=== PATIENT | male | born 1990 | race American Indian/Alaskan Native ===

== ENCOUNTER 2018-01-29 04:52 | Emergency (ER) | payer OTHER ==
--- NOTE | 2018-01-29 05:08 | Emergency Department Report ---
Stated Complaint: Time Seen by Provider: 01/29/18 05:07 - HPI History of Present Illness: [place]. Castro [place] He's been off his medication. He has a history of schizophrenia. Screening orders were initiated. Currently does not meet involuntary hold criteria. MSE screening note: Focused history and physical exam performed. Due to findings the following was ordered: ED Disposition for MSE Condition: Stable
[2018-01-29 06:14] LABS: Basophils # (Auto) 0.1 K/mm3 (0.0-0.1); Basophils % (Auto) 1.3 % (0.0-1.8); Eosinophils # (Auto) 0.1 K/mm3 (0.0-0.4); Hematocrit 39.5 % (35.5-45.6); Hemoglobin 12.9 gm/dl (11.8-15.2); Lymphocytes # (Auto) 1.8 K/mm3 (1.2-5.4); Lymphocytes % (Auto) 29.1 % (13.4-35.0); Mean Corpuscular HGB Conc 33 % (32-34); Mean Corpuscular Volume 71 fl (84-94); Monocytes # (Auto) 0.6 K/mm3 (0.0-0.8); Monocytes % (Auto) 10.4 % (0.0-7.3); Platelet Count 283 K/mm3 (140-440)
--- NOTE | 2018-01-29 06:23 | Emergency Department Report ---
ED General Adult HPI - General Chief complaint: Psych Stated complaint: MH Time Seen by Provider: 01/29/18 05:07 Source: EMS Mode of arrival: Ambulatory Limitations: No Limitations - History of Present Illness Initial comments: 27-year-old male with a history of schizophrenia, and bipolar disorder presents [place] reporting paranoia. Patient states he feels as if people were trying to get him. Patient states he has no homicidal or suicidal ideation. Patient states he's been having auditory hallucinations. Patient has been to 2 other ERs prior to arrival here within this month including [facility]. Patient states his last admission was at [facility]. Patient does admit to cocaine use recently. - Related Data Home Medications Medication Instructions Recorded Confirmed Last Taken Divalproex Sodium [Depakote] 500 mg PO BID 01/29/18 01/29/18 1 Month Ago ~12/30/17 Sertraline HCl [Zoloft] 50 mg PO DAILY 01/29/18 01/29/18 1 Month Ago ~12/30/17 risperiDONE [RisperDAL] 1 mg PO BID 01/29/18 01/29/18 1 Month Ago ~12/30/17 Allergies Allergy/AdvReac Type Severity Reaction Status Date / Time No Known Allergies Allergy Verified 01/29/18 05:33 ED Review of Systems ROS: Stated complaint: MH Other details as noted in HPI Constitutional: denies: chills, fever Eyes: denies: eye pain, eye discharge, vision change ENT: denies: ear pain, throat pain Respiratory: denies: cough, shortness of breath, wheezing Cardiovascular: denies: chest pain, palpitations Endocrine: no symptoms reported Gastrointestinal: denies: abdominal pain, nausea, diarrhea Genitourinary: denies: urgency, dysuria Musculoskeletal: denies: back pain, joint swelling, arthralgia Skin: denies: rash, lesions Neurological: denies: headache, weakness, paresthesias Psychiatric: other (paranoia). denies: anxiety, depression Hematological/Lymphatic: denies: easy bleeding, easy bruising ED Past Medical Hx - Past Medical History Previous Medical History?: Yes Hx Psychiatric Treatment: Yes (Schizophrina) - Surgical History Past Surgical History?: No - Social History Smoking Status: Current Every Day Smoker Substance Use Type: Cocaine - Medications Home Medications: Home Medications Medication Instructions Recorded Confirmed Last Taken Type Divalproex Sodium [Depakote] 500 mg PO BID 01/29/18 01/29/18 1 Month Ago History ~12/30/17 Sertraline HCl [Zoloft] 50 mg PO DAILY 01/29/18 01/29/18 1 Month Ago History ~12/30/17 risperiDONE [RisperDAL] 1 mg PO BID 01/29/18 01/29/18 1 Month Ago History ~12/30/17 ED Physical Exam - General Limitations: No Limitations General appearance: alert, in no apparent distress, other (comfortable) - Head Head exam: Present: atraumatic, normocephalic - Eye Eye exam: Present: normal appearance - ENT ENT exam: Present: mucous membranes moist - Neck Neck exam: Present: normal inspection - Respiratory Respiratory exam: Present: normal lung sounds bilaterally. Absent: respiratory distress - Cardiovascular Cardiovascular Exam: Present: regular rate, normal rhythm. Absent: systolic murmur, diastolic murmur, rubs, gallop - GI/Abdominal GI/Abdominal exam: Present: soft, normal bowel sounds - Rectal Rectal exam: Present: deferred - Extremities Exam Extremities exam: Present: normal inspection - Back Exam Back exam: Present: normal inspection - Neurological Exam Neurological exam: Present: alert, oriented X3 - Psychiatric Psychiatric exam: Present: flat affect - Skin Skin exam: Present: warm, dry, intact, normal color. Absent: rash ED Course Vital Signs 01/29/18 01/29/18 01/29/18 05:39 08:38 09:49 Temperature 98.4 F 97.8 F Pulse Rate 98 H 74 Respiratory 18 18 20 Rate Blood Pressure 136/83 116/68 [Left] O2 Sat by Pulse 99 100 100 Oximetry ED Medical Decision Making - Lab Data Result diagrams: 01/29/18 05:55 01/29/18 05:55 - Medical Decision Making Patient is medically clear. Upon assessment of the patient by [employer] he now states that he is suicidal with plan to run in front of traffic. Patient has been made a 1013 and will await transfer to an inpatient psychiatric facility. - Differential Diagnosis polysubstance abuse; psychosis; electrolyte abnormality; anemia Critical care attestation.: If time is entered above; I have spent that time in minutes in the direct care of this critically ill patient, excluding procedure time. ED Disposition Clinical Impression: Psychosis, Cocaine abuse Disposition: [id number]/TX-65 PSY HOSP/PSY UNIT Is pt being admited?: No Condition: Stable Referrals: PRIMARY CARE, [Primary Care Provider] - 3-5 Days Time of Disposition: 14:17 Print Language: SERBIAN
[2018-01-29 06:24] LABS: Mean Corpuscular Hemoglobin 23 pg (28-32)
[2018-01-29 06:30] LABS: Alanine Aminotransferase 9 units/L (7-56); Albumin 4.2 g/dL (3.9-5); BUN/Creatinine Ratio 17; Blood Urea Nitrogen 17 mg/dL (9-20); Calcium 9.1 mg/dL (8.4-10.2); Hemolysis Index 3
[2018-01-29] MEDS ORDERED: ZOLOFT PO ONE (13:25)
[2018-01-29] MEDS ORDERED: RisperDAL PO ONE (13:25)
[2018-01-30 09:33] LABS: Bilirubin,Urine NEG (Negative); Blood,Urine NEG (Negative); Color,Urine Yellow (Yellow); Mucus,Urine 3+ /HPF
[2018-01-30 09:56] LABS: Amphetamine Screen,Urine PRESUMPTIVE NEGATIVE; Benzodiazepines Screen,Urine PRESUMPTIVE NEGATIVE; Methadone Screen,Urine PRESUMPTIVE NEGATIVE; Opiate Screen,Urine PRESUMPTIVE NEGATIVE
[2018-01-30 10:16] LABS: Cannabinoid Screen,Urine PRESUMPTIVE POSITIVE; Cocaine Screen,Urine PRESUMPTIVE POSITIVE
--- NOTE | 2018-01-30 14:46 | Consultation ---
History of Present Illness - Reason for Consult Consult date: 01/30/18 Reason for consult: Mental Health Evaluation Requesting physician: JAYLENE WOOTEN - Chief Complaint Chief complaint: "I need help" - History of Present Psychiatric Illness 27-year-old AA male [place] presenting with psychosis. Today the patient is calm and cooperative during the assessment. The patient isn't lucid during the interview. His answers to questions wasn't logical. He did state that he reside with his mother. Per the record, the patient have been to a couple ER's in the local area, but cannot explain why. He would not confirm or deny SI's and AH's. This patient is a poor historian at this time. Medications and Allergies Allergies Allergy/AdvReac Type Severity Reaction Status Date / Time No Known Allergies Allergy Verified 01/29/18 05:33 Home Medications Medication Instructions Recorded Confirmed Last Taken Type Divalproex Sodium [Depakote] 500 mg PO BID 01/29/18 01/29/18 1 Month Ago History ~12/30/17 Sertraline HCl [Zoloft] 50 mg PO DAILY 01/29/18 01/29/18 1 Month Ago History ~12/30/17 risperiDONE [RisperDAL] 1 mg PO BID 01/29/18 01/29/18 1 Month Ago History ~12/30/17 Past psychiatric history - Past Medical History Past Medical History: No medical history Past Surgical History: No surgical history - past Psychiatric treatment and history psychiatric treatment history: Several inpatient psy services per the patient. Denies a fam psy hx. - Social History Social history: lives with family Mental Status Exam - Vital signs Last Vital Signs Temp 98.2 F 01/30/18 14:07 Pulse 87 01/30/18 14:07 Resp 18 01/30/18 14:07 BP 126/61 01/30/18 14:07 Pulse Ox 98 01/30/18 14:07 - Exam Narrative exam: MSE: Appearance: calm, cooperative Behavior: regular eye contact Speech: regular rate and low tone Mood: "okay" Affect: congruent to mood Thought Process: disorganized Thought Content: denies HI's and VH's Motor Activity: ambulatory Cognition: A/O x3 Insight: poor Judgment: poor Results Result Diagrams: 01/29/18 05:55 01/29/18 05:55 Abnormal lab results 01/30/18 Range/Units 06:05 Ur Specific [place] 1.032 H (1.003-1.030) All other labs normal. Assessment and Plan Assessment and plan: Impression: Unspecified Mood DO with psy features. Cannabis Use DO. Substance Use DO (cocaine). Today the patient is calm and cooperative during the assessment. DDx: Bipolar DO with psychosis, R/O Substance Induced Mood/Psychotic DO Recommendation/Plan: Continue 1013 and start Risperdal 1 mg PO HS for mood/ psychosis. Discussed possible metabolic side effects of Risperdal with the patient. Dispo: The patient was referred to inpatient psy services. Will staff with Dr Shields.
[2018-01-30] MEDS: RisperDAL PO SCH (22:21)
--- NOTE | 2018-01-31 18:53 | Progress Note ---
Subjective - Reason for Consult Consult date: 01/31/18 Reason for consult: follow up - Chief Complaint Chief complaint: "I'm not hearing voices; I'm not suicidal; I'm not homicidal; Can I be released? " 27-year-old AA male [place] presenting with psychosis. He immediately stated he is not having any symptoms and wants to leave. He was observed eating 100% of his tray and had an extra. Speech is pressured and he was observed laughing out of context and likely responding to internal stimuli. Mental Status Exam Appearance: calm, cooperative Behavior: regular eye contact Speech: pressured Mood: "I'm good" Affect: congruent to mood Thought Process: tangential Thought Content: denies SI/HI and denies AVH. Motor Activity: ambulatory Cognition: A/O x3 Insight: poor Judgment: poor Assessment and plan: Impression: Unspecified Mood DO with psy features. Cannabis Use DO. Substance Use DO (cocaine). He denies all psychiatric complaints today. An abrupt ceasing of mood and psychotic symptoms is unlikely. He will be monitored closely for psychotic behavior. DDx: Bipolar DO with psychosis, R/O Substance Induced Mood/Psychotic DO Recommendation/Plan: Continue 1013 and continue Risperdal 1 mg PO HS for mood/ psychosis. Dispo: The patient was referred to inpatient psy services. Staffed with Dr. Jude Crenshaw. Mental Status Exam - Vital signs Last Vital Signs Temp 98.2 F 01/31/18 14:15 Pulse 80 01/31/18 14:15 Resp 20 01/31/18 09:00 BP 124/73 01/31/18 14:15 Pulse Ox 99 01/31/18 14:15
[2018-01-31] MEDS: COLACE PO SCH (23:01)
[2018-01-31] MEDS: RisperDAL PO SCH (23:01)
[2018-02-01] MEDS: COLACE PO SCH (10:08)
--- NOTE | 2018-02-01 17:49 | Progress Note ---
Subjective - Reason for Consult Consult date: 02/01/18 Reason for consult: follow up - Chief Complaint Chief complaint: "I want to leave." 27-year-old AA male [place] presenting with psychosis. He immediately stated he is not having any symptoms and wants to leave. He was resting quietly. He states the medication has "cleared up the voices." Mental Status Exam Appearance: calm, cooperative Behavior: regular eye contact Speech: regular rate and tone Mood: "I'm good" Affect: congruent to mood Thought Process: logical and limited in scope Thought Content: denies SI/HI and denies AVH. Motor Activity: ambulatory Cognition: A/O x3 Insight: poor Judgment: poor Assessment and plan: Impression: Unspecified Mood DO with psy features. Cannabis Use DO. Substance Use DO (cocaine). He denies all psychiatric complaints today. He will be monitored closely for psychotic behavior. DDx: Bipolar DO with psychosis, R/O Substance Induced Mood/Psychotic DO Recommendation/Plan: Continue 1013 and continue Risperdal 1 mg PO HS for mood/ psychosis. Dispo: The patient was referred to inpatient psy services but the team will consider recommendation of outpatient treatment referral if he consistently denies psychotic symptoms and displays appropriate behavior. Staffed with Dr. Jude Crenshaw. Mental Status Exam - Vital signs Last Vital Signs Temp 98.0 F 02/01/18 13:07 Pulse 69 02/01/18 13:07 Resp 18 02/01/18 13:07 BP 124/61 02/01/18 13:07 Pulse Ox 99 02/01/18 13:07
[2018-02-01 20:31] VITALS: BP 115/71
== END 2018-02-01 20:35 ==
LOC: ED 04:52 → EEVIPCON 04:52 → ED 02-01 20:35
DX: F20.9 Schizophrenia, unspecified (principal); F17.200 Nicotine dependence, unspecified, uncomplicated; F14.10 Cocaine abuse, uncomplicated
CPT/HCPCS: 36415; 80053; 80164; 80307; 81001; 85025; 99285; G0480; 80320

== ENCOUNTER 2018-02-03 06:46 | Emergency (ER) | payer SELFPAY ==
--- NOTE | 2018-02-03 06:58 | Emergency Department Report ---
ED General Adult HPI - General Chief complaint: Psych Stated complaint: SUICIDAL IDEATIONS Time Seen by Provider: 02/03/18 06:52 Source: patient, EMS Mode of arrival: Ambulatory Limitations: No Limitations - History of Present Illness Initial comments: Patient presents to the emergency department for suicidal ideation. Patient also complains of auditory hallucinations. Patient states the voices are telling him to kill himself. He states that he's been instructed to stab himself in the head. Patient denies homicidal ideation. Patient was recently discharged from a psychiatric facility. Radiation: non-radiation Improves with: none Worsens with: none Associated Symptoms: denies other symptoms Treatments Prior to Arrival: none - Related Data Home Medications Medication Instructions Recorded Confirmed Last Taken Divalproex Sodium [Depakote] 500 mg PO BID 01/29/18 01/29/18 1 Month Ago ~12/30/17 Sertraline HCl [Zoloft] 50 mg PO DAILY 01/29/18 01/29/18 1 Month Ago ~12/30/17 risperiDONE [RisperDAL] 1 mg PO BID 01/29/18 01/29/18 1 Month Ago ~12/30/17 Allergies Allergy/AdvReac Type Severity Reaction Status Date / Time No Known Allergies Allergy Verified 01/29/18 05:33 ED Review of Systems ROS: Stated complaint: SUICIDAL IDEATIONS Other details as noted in HPI Comment: All other systems reviewed and negative Constitutional: denies: chills, fever Eyes: denies: eye pain, eye discharge, vision change ENT: denies: ear pain, throat pain Respiratory: denies: cough, shortness of breath, wheezing Cardiovascular: denies: chest pain, palpitations Endocrine: no symptoms reported Gastrointestinal: denies: abdominal pain, nausea, diarrhea Genitourinary: denies: urgency, dysuria Musculoskeletal: denies: back pain, joint swelling, arthralgia Skin: denies: rash, lesions Neurological: denies: headache, weakness, paresthesias Psychiatric: auditory hallucinations, suicidal thoughts. denies: anxiety, depression, visual hallucinations, homicidal thoughts Hematological/Lymphatic: denies: easy bleeding, easy bruising ED Past Medical Hx - Past Medical History Previous Medical History?: Yes Hx Psychiatric Treatment: Yes (Schizophrina, Bipolar) - Social History Smoking Status: Current Every Day Smoker Substance Use Type: Cocaine - Medications Home Medications: Home Medications Medication Instructions Recorded Confirmed Last Taken Type Divalproex Sodium [Depakote] 500 mg PO BID 01/29/18 01/29/18 1 Month Ago History ~12/30/17 Sertraline HCl [Zoloft] 50 mg PO DAILY 01/29/18 01/29/18 1 Month Ago History ~12/30/17 risperiDONE [RisperDAL] 1 mg PO BID 01/29/18 01/29/18 1 Month Ago History ~12/30/17 ED Physical Exam - General Limitations: No Limitations General appearance: alert, in no apparent distress - Head Head exam: Present: atraumatic, normocephalic - Eye Eye exam: Present: normal appearance, PERRL, EOMI - ENT ENT exam: Present: mucous membranes moist - Neck Neck exam: Present: normal inspection - Respiratory Respiratory exam: Present: normal lung sounds bilaterally. Absent: respiratory distress, wheezes, rales - Cardiovascular Cardiovascular Exam: Present: regular rate, normal rhythm. Absent: systolic murmur, diastolic murmur, rubs, gallop - GI/Abdominal GI/Abdominal exam: Present: soft, normal bowel sounds. Absent: distended, tenderness - Rectal Rectal exam: Present: deferred - Extremities Exam Extremities exam: Present: normal inspection - Back Exam Back exam: Present: normal inspection - Neurological Exam Neurological exam: Present: alert, oriented X3, CN II-XII intact. Absent: motor sensory deficit - Psychiatric Psychiatric exam: Present: depressed, suicidal ideation - Skin Skin exam: Present: warm, dry, intact, normal color. Absent: rash ED Course Vital Signs 02/03/18 06:50 Temperature 97.6 F Pulse Rate 89 Respiratory 18 Rate Blood Pressure 114/66 O2 Sat by Pulse 97 Oximetry ED Medical Decision Making - Medical Decision Making Patient placed on a psychiatric hold Critical care attestation.: If time is entered above; I have spent that time in minutes in the direct care of this critically ill patient, excluding procedure time. ED Disposition Condition: Stable
[2018-02-03 07:14] LABS: Hematocrit 39.4 % (35.5-45.6); Hemoglobin 12.8 gm/dl (11.8-15.2); Mean Corpuscular HGB Conc 33 % (32-34); Mean Corpuscular Volume 70 fl (84-94); Platelet Count 290 K/mm3 (140-440); Red Cell Distribution Width 18.9 % (13.2-15.2)
[2018-02-03 07:20] LABS: Mean Corpuscular Hemoglobin 23 pg (28-32)
[2018-02-03 07:33] LABS: Alanine Aminotransferase 8 units/L (7-56); Albumin 4.2 g/dL (3.9-5); BUN/Creatinine Ratio 14; Blood Urea Nitrogen 13 mg/dL (9-20); Hemolysis Index 5
[2018-02-03 08:01] LABS: Basophils % (Manual) 0 % (0.0-1.8); Total Cells Counted 100
[2018-02-03 08:03] LABS: Anisocytosis 1+; Ovalocytes Rare; Poikilocytosis 1+; Target Cells Few
[2018-02-03] MEDS ORDERED: ZOFRAN IM ONE (08:05)
[2018-02-03] MEDS ORDERED: NACL 0.9% 1000 ML 1,000 ML IV ONE (08:05)
[2018-02-03 11:26] LABS: Bilirubin,Urine NEG (Negative); Blood,Urine NEG (Negative); Color,Urine Yellow (Yellow); Mucus,Urine FEW /HPF; Protein,Urine <15 mg/dL mg/dL (Negative); WBC,Urine < 1.0 /HPF (0.0-6.0)
[2018-02-03 11:32] LABS: RBC,Urine < 1.0 /HPF (0.0-6.0)
[2018-02-03 11:34] LABS: Amphetamine Screen,Urine PRESUMPTIVE NEGATIVE; Benzodiazepines Screen,Urine PRESUMPTIVE NEGATIVE; Cannabinoid Screen,Urine PRESUMPTIVE NEGATIVE; Methadone Screen,Urine PRESUMPTIVE NEGATIVE; Opiate Screen,Urine PRESUMPTIVE NEGATIVE
[2018-02-03] MEDS ORDERED: BENADRYL PO ONE (11:42)
[2018-02-03 12:03] LABS: Cocaine Screen,Urine PRESUMPTIVE POSITIVE
[2018-02-03 20:49] VITALS: BP 110/68
== END 2018-02-03 20:50 ==
LOC: EEVIPCON 06:46 → ED 06:46
DX: F31.9 Bipolar disorder, unspecified (principal); F20.9 Schizophrenia, unspecified; F17.200 Nicotine dependence, unspecified, uncomplicated; F14.10 Cocaine abuse, uncomplicated
CPT/HCPCS: 36415; 80053; 80307; 81001; 85007; 85025; 99285; G0480; 80320

== ENCOUNTER 2018-07-28 01:11 | Emergency (ER) | payer OTHER ==
[2018-07-28 01:47] LABS: Basophils # (Auto) 0.1 K/mm3 (0.0-0.1); Basophils % (Auto) 1.2 % (0.0-1.8); Eosinophils # (Auto) 0.1 K/mm3 (0.0-0.4); Eosinophils % (Auto) 1.3 % (0.0-4.3); Hematocrit 36.2 % (35.5-45.6); Hemoglobin 11.7 gm/dl (11.8-15.2); Lymphocytes # (Auto) 1.3 K/mm3 (1.2-5.4); Lymphocytes % (Auto) 29.6 % (13.4-35.0); Mean Corpuscular HGB Conc 32 % (32-34); Monocytes # (Auto) 0.5 K/mm3 (0.0-0.8); Monocytes % (Auto) 11.9 % (0.0-7.3); Platelet Count 271 K/mm3 (140-440); Red Blood Count 5.37 M/mm3 (3.65-5.03); Red Cell Distribution Width 18.6 % (13.2-15.2)
[2018-07-28 01:54] LABS: Mean Corpuscular Volume 68 fl (84-94)
[2018-07-28 02:07] LABS: BUN/Creatinine Ratio 17; Blood Urea Nitrogen 12 mg/dL (9-20); Calcium 9.2 mg/dL (8.4-10.2); Hemolysis Index 5
--- NOTE | 2018-07-28 02:37 | Emergency Department Report ---
ED Psych HPI - General Chief Complaint: Psych Stated Complaint: MH EVAL Time Seen by Provider: 07/28/18 01:21 Source: patient, EMS Mode of arrival: Ambulatory Limitations: No Limitations - History of Present Illness Initial Comments: 28-year-old male with a past medical history schizophrenia, bipolar disorder, depression, cocaine, and heroin abuse presents to the hospital via EMS after the police department called [place] He admits to cocaine and heroin use earlier today. He states he lives with his mother. He denies auditory hallucinations, visual hallucinations, suicidal thoughts, or homicidal ideation. No physical complaints reported at this time. He states Haldol, Risperdal, Depakote, and Zoloft but has not had his medications in 1 week. - Related Data Previous Rx's Medication Instructions Recorded Last Taken Type Divalproex Sodium [Depakote] 500 mg PO BID #60 tablet. 07/28/18 Unknown Rx Sertraline HCl [Zoloft] 50 mg PO QHS #30 tablet 07/28/18 Unknown Rx risperiDONE [RisperDAL] 3 mg PO BID #60 tablet 07/28/18 Unknown Rx Allergies Allergy/AdvReac Type Severity Reaction Status Date / Time No Known Allergies Allergy Verified 02/20/18 09:25 ED Review of Systems ROS: Stated complaint: MH EVAL Other details as noted in HPI Comment: All other systems reviewed and negative ED Past Medical Hx - Past Medical History Previous Medical History?: Yes Hx Psychiatric Treatment: Yes (Schizophrina, Bipolar, depression) - Surgical History Past Surgical History?: No - Social History Smoking Status: Current Every Day Smoker Substance Use Type: Cocaine - Medications Home Medications: Home Medications Medication Instructions Recorded Confirmed Last Taken Type Divalproex Sodium [Depakote] 500 mg PO BID #60 tablet. 07/28/18 Unknown Rx Sertraline HCl [Zoloft] 50 mg PO QHS #30 tablet 07/28/18 Unknown Rx risperiDONE [RisperDAL] 3 mg PO BID #60 tablet 07/28/18 Unknown Rx ED Physical Exam - General Limitations: No Limitations - Other Other exam information: General: No limitations, patient is alert in no acute distress Head exam: Atraumatic, normocephalic Eyes exam: Normal appearance ENT: Moist mucous membrane Neck exam: Normal inspection, full range of motion, no meningismus nontender Respiratory exam: Clear to auscultation bilateral, no wheezes, rales, crackles Cardiovascular: Normal rate and rhythm, normal heart sounds Abdomen: Soft, nondistended, and nontender, with normal bowel sounds, no rebound, or guarding Extremity: Full range of motion normal inspection no deformity Back: Normal Inspection, full range of motion, no tenderness Neurologic: Alert, oriented x3, cranial nerves intact, no motor or sensory deficit Psychiatric: normal affect, normal mood Skin: Warm, dry, intact ED Course Vital Signs 07/28/18 07/28/18 07/28/18 01:15 01:22 01:54 Temperature 98.4 F 98.4 F Pulse Rate 89 89 Respiratory 18 20 20 Rate Blood Pressure 117/78 Blood Pressure 117/78 [Right] O2 Sat by Pulse 98 98 98 Oximetry ED Medical Decision Making - Lab Data Result diagrams: 07/28/18 01:30 07/28/18 01:30 Lab Results 07/28/18 07/28/18 07/28/18 Range/Units 01:30 01:30 01:30 WBC 4.5 (4.5-11.0) K/mm3 RBC 5.37 H (3.65-5.03) M/mm3 Hgb 11.7 L (11.8-15.2) gm/dl Hct 36.2 (35.5-45.6) % MCV 68 L (84-94) fl MCH 22 L (28-32) pg MCHC 32 (32-34) % RDW 18.6 H (13.2-15.2) % Plt Count 271 (140-440) K/mm3 Lymph % (Auto) 29.6 (13.4-35.0) % [place] % (Auto) 11.9 H (0.0-7.3) % Eos % (Auto) 1.3 (0.0-4.3) % Baso % (Auto) 1.2 (0.0-1.8) % Lymph # 1.3 (1.2-5.4) K/mm3 [place] # 0.5 (0.0-0.8) K/mm3 Eos # 0.1 (0.0-0.4) K/mm3 Baso # 0.1 (0.0-0.1) K/mm3 Seg Neutrophils % 56.0 (40.0-70.0) % Seg Neutrophils # 2.5 (1.8-7.7) K/mm3 Sodium 138 (137-145) mmol/L Potassium 3.7 (3.6-5.0) mmol/L Chloride 98.2 (98-107) mmol/L Carbon Dioxide 26 (22-30) mmol/L Anion Gap 18 mmol/L BUN 12 (9-20) mg/dL Creatinine 0.7 L (0.8-1.5) mg/dL Estimated GFR > 60 ml/min BUN/Creatinine Ratio 17 % Glucose 101 H (75-100) mg/dL Calcium 9.2 (8.4-10.2) mg/dL Urine Color (Yellow) Urine Turbidity (Clear) Urine pH (5.0-7.0) Ur Specific [place] (1.003-1.030) Urine Protein (Negative) mg/dL Urine Glucose (UA) (Negative) mg/dL Urine Ketones (Negative) mg/dL Urine Blood (Negative) Urine Nitrite (Negative) Urine Bilirubin (Negative) Urine Urobilinogen (<2.0) mg/dL Ur Leukocyte Esterase (Negative) Urine WBC (Auto) (0.0-6.0) /HPF Urine RBC (Auto) (0.0-6.0) /HPF U Epithel Cells (Auto) (0-13.0) /HPF Urine Mucus /HPF Salicylates < 0.3 L (2.8-20.0) mg/dL Urine Opiates Screen Urine Methadone Screen Acetaminophen (10.0-30.0) ug/mL Ur Barbiturates Screen Valproic Acid < 2.8 L (50-100) ug/mL Ur Phencyclidine Scrn Ur Amphetamines Screen U Benzodiazepines Scrn Urine Cocaine Screen U Marijuana (THC) Screen Drugs of Abuse Note Plasma/Serum Alcohol (0-0.07) % 07/28/18 07/28/18 07/28/18 Range/Units 01:30 01:30 02:10 WBC (4.5-11.0) K/mm3 RBC (3.65-5.03) M/mm3 Hgb (11.8-15.2) gm/dl Hct (35.5-45.6) % MCV (84-94) fl MCH (28-32) pg MCHC (32-34) % RDW (13.2-15.2) % Plt Count (140-440) K/mm3 Lymph % (Auto) (13.4-35.0) % [place] % (Auto) (0.0-7.3) % Eos % (Auto) (0.0-4.3) % Baso % (Auto) (0.0-1.8) % Lymph # (1.2-5.4) K/mm3 [place] # (0.0-0.8) K/mm3 Eos # (0.0-0.4) K/mm3 Baso # (0.0-0.1) K/mm3 Seg Neutrophils % (40.0-70.0) % Seg Neutrophils # (1.8-7.7) K/mm3 Sodium (137-145) mmol/L Potassium (3.6-5.0) mmol/L Chloride (98-107) mmol/L Carbon Dioxide (22-30) mmol/L Anion Gap mmol/L BUN (9-20) mg/dL Creatinine (0.8-1.5) mg/dL Estimated GFR ml/min BUN/Creatinine Ratio % Glucose (75-100) mg/dL Calcium (8.4-10.2) mg/dL Urine Color [place] (Yellow) Urine Turbidity Clear (Clear) Urine pH 5.0 (5.0-7.0) Ur Specific [place] 1.040 H (1.003-1.030) Urine Protein 30 mg/dl (Negative) mg/dL Urine Glucose (UA) Neg (Negative) mg/dL Urine Ketones 20 (Negative) mg/dL Urine Blood Neg (Negative) Urine Nitrite Neg (Negative) Urine Bilirubin Neg (Negative) Urine Urobilinogen 4.0 (<2.0) mg/dL Ur Leukocyte Esterase Neg (Negative) Urine WBC (Auto) 2.0 (0.0-6.0) /HPF Urine RBC (Auto) 4.0 (0.0-6.0) /HPF U Epithel Cells (Auto) < 1.0 (0-13.0) /HPF Urine Mucus 3+ /HPF Salicylates (2.8-20.0) mg/dL Urine Opiates Screen Urine Methadone Screen Acetaminophen < 5.0 L (10.0-30.0) ug/mL Ur Barbiturates Screen Valproic Acid (50-100) ug/mL Ur Phencyclidine Scrn Ur Amphetamines Screen U Benzodiazepines Scrn Urine Cocaine Screen U Marijuana (THC) Screen Drugs of Abuse Note Plasma/Serum Alcohol < 0.01 (0-0.07) % 07/28/18 Range/Units 02:10 WBC (4.5-11.0) K/mm3 RBC (3.65-5.03) M/mm3 Hgb (11.8-15.2) gm/dl Hct (35.5-45.6) % MCV (84-94) fl MCH (28-32) pg MCHC (32-34) % RDW (13.2-15.2) % Plt Count (140-440) K/mm3 Lymph % (Auto) (13.4-35.0) % [place] % (Auto) (0.0-7.3) % Eos % (Auto) (0.0-4.3) % Baso % (Auto) (0.0-1.8) % Lymph # (1.2-5.4) K/mm3 [place] # (0.0-0.8) K/mm3 Eos # (0.0-0.4) K/mm3 Baso # (0.0-0.1) K/mm3 Seg Neutrophils % (40.0-70.0) % Seg Neutrophils # (1.8-7.7) K/mm3 Sodium (137-145) mmol/L Potassium (3.6-5.0) mmol/L Chloride (98-107) mmol/L Carbon Dioxide (22-30) mmol/L Anion Gap mmol/L BUN (9-20) mg/dL Creatinine (0.8-1.5) mg/dL Estimated GFR ml/min BUN/Creatinine Ratio % Glucose (75-100) mg/dL Calcium (8.4-10.2) mg/dL Urine Color (Yellow) Urine Turbidity (Clear) Urine pH (5.0-7.0) Ur Specific [place] (1.003-1.030) Urine Protein (Negative) mg/dL Urine Glucose (UA) (Negative) mg/dL Urine Ketones (Negative) mg/dL Urine Blood (Negative) Urine Nitrite (Negative) Urine Bilirubin (Negative) Urine Urobilinogen (<2.0) mg/dL Ur Leukocyte Esterase (Negative) Urine WBC (Auto) (0.0-6.0) /HPF Urine RBC (Auto) (0.0-6.0) /HPF U Epithel Cells (Auto) (0-13.0) /HPF Urine Mucus /HPF Salicylates (2.8-20.0) mg/dL Urine Opiates Screen Presumptive negative Urine Methadone Screen Presumptive negative Acetaminophen (10.0-30.0) ug/mL Ur Barbiturates Screen Presumptive negative Valproic Acid (50-100) ug/mL Ur Phencyclidine Scrn Presumptive negative Ur Amphetamines Screen Presumptive negative U Benzodiazepines Scrn Presumptive negative Urine Cocaine Screen Presumptive positive U Marijuana (THC) Screen Presumptive negative Drugs of Abuse Note Disclamer Plasma/Serum Alcohol (0-0.07) % - Medical Decision Making Patient denies psychiatric disorder with substance abuse. No active psychosis, suicidal, homicidal ideation. Patient does not meet 1013 criteria at this time. I will refill his Depakote, Risperdal, and Zoloft. In I question brother the patient is on Risperdal and Haldol at the same time do not feel comfortable prescribing both medications. He confirmed his doses which are the same doses record. Follow-up will be provided. ua suggests dehydration with normal renal function. No vomiting reported therefore po hydation encouraged - Differential Diagnosis drug abuse, psychosis, schizophrenia, bipolar Critical Care Time: No Critical care attestation.: If time is entered above; I have spent that time in minutes in the direct care of this critically ill patient, excluding procedure time. ED Disposition Clinical Impression: Schizophrenia, Bipolar disorder, Cocaine abuse, Heroin abuse, Noncompliance with medication regimen Disposition: DC- TO HOME OR SELFCARE Is pt being admited?: No Does the pt Need Aspirin: No Condition: Stable Instructions: Schizophrenia (ED), Dehydration (ED) Additional Instructions: Take the medication as prescribed. Follow up with your doctor or the clinic/doc tor provided. Return if symptoms worsen as indicated by your discharge instructions Prescriptions: Divalproex Sodium [Depakote] 500 mg PO BID #60 tablet. risperiDONE [RisperDAL] 3 mg PO BID #60 tablet Sertraline HCl [Zoloft] 50 mg PO QHS #30 tablet Referrals: PRIMARY CARE, [Primary Care Provider] - 3-5 Days [facility] [Provider Group] - 3-5 Days [facility] [Outside[facility] Time of Disposition: 04:04
[2018-07-28 02:39] LABS: Amphetamine Screen,Urine PRESUMPTIVE NEGATIVE; Benzodiazepines Screen,Urine PRESUMPTIVE NEGATIVE; Cannabinoid Screen,Urine PRESUMPTIVE NEGATIVE; Methadone Screen,Urine PRESUMPTIVE NEGATIVE; Opiate Screen,Urine PRESUMPTIVE NEGATIVE
[2018-07-28 02:42] LABS: Bilirubin,Urine NEG (Negative); Blood,Urine NEG (Negative); Color,Urine Amber (Yellow); Mucus,Urine 3+ /HPF
[2018-07-28 02:52] LABS: Cocaine Screen,Urine PRESUMPTIVE POSITIVE
[2018-07-28 20:04] VITALS: BP 120/67
== END 2018-07-28 06:00 | disposition home or self-care (01) ==
LOC: ED 01:11
DX: F20.9 Schizophrenia, unspecified (principal); F31.9 Bipolar disorder, unspecified; F14.10 Cocaine abuse, uncomplicated; F11.10 Opioid abuse, uncomplicated; F19.10 Other psychoactive substance abuse, uncomplicated; F17.200 Nicotine dependence, unspecified, uncomplicated
CPT/HCPCS: 36415; 80048; 80164; 80307; 81001; 85025; 99284; G0480; 80320

== ENCOUNTER 2018-08-15 07:08 | Emergency (ER) | payer OTHER ==
[2018-08-15 08:07] LABS: BUN/Creatinine Ratio 21; Blood Urea Nitrogen 21 mg/dL (9-20); Calcium 8.8 mg/dL (8.4-10.2); Hemolysis Index 2
[2018-08-15 08:17] LABS: Basophils # (Auto) 0.1 K/mm3 (0.0-0.1); Basophils % (Auto) 1.1 % (0.0-1.8); Eosinophils # (Auto) 0.1 K/mm3 (0.0-0.4); Eosinophils % (Auto) 1.5 % (0.0-4.3); Hematocrit 38.3 % (35.5-45.6); Hemoglobin 12.1 gm/dl (11.8-15.2); Lymphocytes # (Auto) 0.7 K/mm3 (1.2-5.4); Lymphocytes % (Auto) 13.1 % (13.4-35.0); Mean Corpuscular HGB Conc 32 % (32-34); Monocytes # (Auto) 0.6 K/mm3 (0.0-0.8); Monocytes % (Auto) 11.2 % (0.0-7.3); Platelet Count 389 K/mm3 (140-440); Red Blood Count 5.62 M/mm3 (3.65-5.03); Red Cell Distribution Width 18.7 % (13.2-15.2)
[2018-08-15 08:18] LABS: Mean Corpuscular Volume 68 fl (84-94)
--- NOTE | 2018-08-15 08:25 | Emergency Department Report ---
ED Psych HPI - General Chief Complaint: Psych Stated Complaint: MH EVAL/OFF MEDS Time Seen by Provider: 08/15/18 07:37 Source: patient Mode of arrival: Ambulatory Limitations: No Limitations - History of Present Illness Initial Comments: 28-year-old male with a past medical history of schizophrenia and bipolar disorder presents to the hospital with complaints of medication noncompliance, paranoia, suicide ideation, and cocaine abuse. Patient states he is homeless. He has not been taking his medications as prescribed. He's also been abusing cocaine. Denies hallucinations. As per triage she planned on killing himself by cutting himself with a drink box mechanic. No physical complaints reported. - Related Data Previous Rx's Medication Instructions Recorded Last Taken Type Divalproex Sodium [Depakote] 500 mg PO BID #60 tablet. 07/28/18 Unknown Rx Sertraline HCl [Zoloft] 50 mg PO QHS #30 tablet 07/28/18 Unknown Rx risperiDONE [RisperDAL] 3 mg PO BID #60 tablet 07/28/18 Unknown Rx Allergies Allergy/AdvReac Type Severity Reaction Status Date / Time No Known Allergies Allergy Verified 02/20/18 09:25 ED Review of Systems ROS: Stated complaint: MH EVAL/OFF MEDS Other details as noted in HPI Comment: All other systems reviewed and negative ED Past Medical Hx - Past Medical History Hx Psychiatric Treatment: Yes (Schizophrina, Bipolar, depression) - Social History Smoking Status: Current Every Day Smoker Substance Use Type: Cocaine - Medications Home Medications: Home Medications Medication Instructions Recorded Confirmed Last Taken Type Divalproex Sodium [Depakote] 500 mg PO BID #60 tablet. 07/28/18 Unknown Rx Sertraline HCl [Zoloft] 50 mg PO QHS #30 tablet 07/28/18 Unknown Rx risperiDONE [RisperDAL] 3 mg PO BID #60 tablet 07/28/18 Unknown Rx ED Physical Exam - General Limitations: No Limitations - Other Other exam information: General: No limitations, patient is alert in no acute distress Head exam: Atraumatic, normocephalic Eyes exam: Normal appearance ENT: Moist mucous membrane Neck exam: Normal inspection, full range of motion, no meningismus nontender Respiratory exam: Clear to auscultation bilateral, no wheezes, rales, crackles Cardiovascular: Normal rate and rhythm, normal heart sounds Abdomen: Soft, nondistended, and nontender Extremity: Full range of motion normal inspection no deformity Back: Normal Inspection, full range of motion, no tenderness Neurologic: Alert, oriented x3, cranial nerves intact, no motor or sensory deficit Psychiatric: normal affect, normal mood Skin: Warm, dry, intact ED Course Vital Signs 08/15/18 07:15 Temperature 97.9 F Pulse Rate 79 Respiratory 20 Rate Blood Pressure 99/72 [Left] O2 Sat by Pulse 100 Oximetry ED Medical Decision Making - Lab Data Result diagrams: 08/15/18 07:30 08/15/18 07:30 Lab Results 08/15/18 08/15/18 08/15/18 Range/Units 07:30 07:30 07:30 WBC (4.5-11.0) K/mm3 RBC (3.65-5.03) M/mm3 Hgb (11.8-15.2) gm/dl Hct (35.5-45.6) % MCV (84-94) fl MCH (28-32) pg MCHC (32-34) % RDW (13.2-15.2) % Plt Count (140-440) K/mm3 Lymph % (Auto) (13.4-35.0) % [place] % (Auto) (0.0-7.3) % Eos % (Auto) (0.0-4.3) % Baso % (Auto) (0.0-1.8) % Lymph # (1.2-5.4) K/mm3 [place] # (0.0-0.8) K/mm3 Eos # (0.0-0.4) K/mm3 Baso # (0.0-0.1) K/mm3 Seg Neutrophils % (40.0-70.0) % Seg Neutrophils # (1.8-7.7) K/mm3 Sodium 137 (137-145) mmol/L Potassium 4.0 (3.6-5.0) mmol/L Chloride 99.4 (98-107) mmol/L Carbon Dioxide 27 (22-30) mmol/L Anion Gap 15 mmol/L BUN 21 H (9-20) mg/dL Creatinine 1.0 (0.8-1.5) mg/dL Estimated GFR > 60 ml/min BUN/Creatinine Ratio 21 % Glucose 80 (75-100) mg/dL Calcium 8.8 (8.4-10.2) mg/dL Urine Color (Yellow) Urine Turbidity (Clear) Urine pH (5.0-7.0) Ur Specific [place] (1.003-1.030) Urine Protein (Negative) mg/dL Urine Glucose (UA) (Negative) mg/dL Urine Ketones (Negative) mg/dL Urine Blood (Negative) Urine Nitrite (Negative) Urine Bilirubin (Negative) Urine Urobilinogen (<2.0) mg/dL Ur Leukocyte Esterase (Negative) Urine WBC (Auto) (0.0-6.0) /HPF Urine RBC (Auto) (0.0-6.0) /HPF Hyaline Casts /LPF Urine Mucus /HPF Salicylates < 0.3 L (2.8-20.0) mg/dL Urine Opiates Screen Urine Methadone Screen Acetaminophen (10.0-30.0) ug/mL Ur Barbiturates Screen Valproic Acid < 2.8 L (50-100) ug/mL Ur Phencyclidine Scrn Ur Amphetamines Screen U Benzodiazepines Scrn Urine Cocaine Screen U Marijuana (THC) Screen Drugs of Abuse Note Plasma/Serum Alcohol < 0.01 (0-0.07) % 08/15/18 08/15/18 08/15/18 Range/Units 07:30 07:38 Unknown WBC 5.7 (4.5-11.0) K/mm3 RBC 5.62 H (3.65-5.03) M/mm3 Hgb 12.1 (11.8-15.2) gm/dl Hct 38.3 (35.5-45.6) % MCV 68 L (84-94) fl MCH 22 L (28-32) pg MCHC 32 (32-34) % RDW 18.7 H (13.2-15.2) % Plt Count 389 (140-440) K/mm3 Lymph % (Auto) 13.1 L (13.4-35.0) % [place] % (Auto) 11.2 H (0.0-7.3) % Eos % (Auto) 1.5 (0.0-4.3) % Baso % (Auto) 1.1 (0.0-1.8) % Lymph # 0.7 L (1.2-5.4) K/mm3 [place] # 0.6 (0.0-0.8) K/mm3 Eos # 0.1 (0.0-0.4) K/mm3 Baso # 0.1 (0.0-0.1) K/mm3 Seg Neutrophils % 73.1 H (40.0-70.0) % Seg Neutrophils # 4.2 (1.8-7.7) K/mm3 Sodium (137-145) mmol/L Potassium (3.6-5.0) mmol/L Chloride (98-107) mmol/L Carbon Dioxide (22-30) mmol/L Anion Gap mmol/L BUN (9-20) mg/dL Creatinine (0.8-1.5) mg/dL Estimated GFR ml/min BUN/Creatinine Ratio % Glucose (75-100) mg/dL Calcium (8.4-10.2) mg/dL Urine Color Yellow (Yellow) Urine Turbidity Clear (Clear) Urine pH 6.0 (5.0-7.0) Ur Specific [place] 1.033 H (1.003-1.030) Urine Protein 30 mg/dl (Negative) mg/dL Urine Glucose (UA) Neg (Negative) mg/dL Urine Ketones Neg (Negative) mg/dL Urine Blood Neg (Negative) Urine Nitrite Neg (Negative) Urine Bilirubin Neg (Negative) Urine Urobilinogen 2.0 (<2.0) mg/dL Ur Leukocyte Esterase Neg (Negative) Urine WBC (Auto) 1.0 (0.0-6.0) /HPF Urine RBC (Auto) 1.0 (0.0-6.0) /HPF Hyaline Casts 1 /LPF Urine Mucus 1+ /HPF Salicylates (2.8-20.0) mg/dL Urine Opiates Screen Urine Methadone Screen Acetaminophen < 5.0 L (10.0-30.0) ug/mL Ur Barbiturates Screen Valproic Acid (50-100) ug/mL Ur Phencyclidine Scrn Ur Amphetamines Screen U Benzodiazepines Scrn Urine Cocaine Screen U Marijuana (THC) Screen Drugs of Abuse Note Plasma/Serum Alcohol (0-0.07) % 08/15/18 Range/Units Unknown WBC (4.5-11.0) K/mm3 RBC (3.65-5.03) M/mm3 Hgb (11.8-15.2) gm/dl Hct (35.5-45.6) % MCV (84-94) fl MCH (28-32) pg MCHC (32-34) % RDW (13.2-15.2) % Plt Count (140-440) K/mm3 Lymph % (Auto) (13.4-35.0) % [place] % (Auto) (0.0-7.3) % Eos % (Auto) (0.0-4.3) % Baso % (Auto) (0.0-1.8) % Lymph # (1.2-5.4) K/mm3 [place] # (0.0-0.8) K/mm3 Eos # (0.0-0.4) K/mm3 Baso # (0.0-0.1) K/mm3 Seg Neutrophils % (40.0-70.0) % Seg Neutrophils # (1.8-7.7) K/mm3 Sodium (137-145) mmol/L Potassium (3.6-5.0) mmol/L Chloride (98-107) mmol/L Carbon Dioxide (22-30) mmol/L Anion Gap mmol/L BUN (9-20) mg/dL Creatinine (0.8-1.5) mg/dL Estimated GFR ml/min BUN/Creatinine Ratio % Glucose (75-100) mg/dL Calcium (8.4-10.2) mg/dL Urine Color (Yellow) Urine Turbidity (Clear) Urine pH (5.0-7.0) Ur Specific [place] (1.003-1.030) Urine Protein (Negative) mg/dL Urine Glucose (UA) (Negative) mg/dL Urine Ketones (Negative) mg/dL Urine Blood (Negative) Urine Nitrite (Negative) Urine Bilirubin (Negative) Urine Urobilinogen (<2.0) mg/dL Ur Leukocyte Esterase (Negative) Urine WBC (Auto) (0.0-6.0) /HPF Urine RBC (Auto) (0.0-6.0) /HPF Hyaline Casts /LPF Urine Mucus /HPF Salicylates (2.8-20.0) mg/dL Urine Opiates Screen Presumptive negative Urine Methadone Screen Presumptive negative Acetaminophen (10.0-30.0) ug/mL Ur Barbiturates Screen Presumptive negative Valproic Acid (50-100) ug/mL Ur Phencyclidine Scrn Presumptive negative Ur Amphetamines Screen Presumptive negative U Benzodiazepines Scrn Presumptive negative Urine Cocaine Screen Presumptive positive U Marijuana (THC) Screen Presumptive negative Drugs of Abuse Note Disclamer Plasma/Serum Alcohol (0-0.07) % - Medical Decision Making medically cleared + cocaine abuse med noncompliance [facility] to [place] [id number] and transfer form signed - Differential Diagnosis schizophrenia, bipolar, suicidal, substance abuse Critical Care Time: No Critical care attestation.: If time is entered above; I have spent that time in minutes in the direct care of this critically ill patient, excluding procedure time. ED Disposition Clinical Impression: Schizophrenia, Suicidal ideation, Noncompliance with medication regimen, C ocaine abuse Disposition: DC/TX-65 PSY HOSP/PSY UNIT Is pt being admited?: No Condition: Stable Time of Disposition: 14:08 (awaiting acceptance)
[2018-08-15 12:49] LABS: Bilirubin,Urine NEG (Negative); Blood,Urine NEG (Negative); Color,Urine Yellow (Yellow); Hyaline Casts,Urine 1 /LPF; Mucus,Urine 1+ /HPF
[2018-08-15 13:02] LABS: Amphetamine Screen,Urine PRESUMPTIVE NEGATIVE; Benzodiazepines Screen,Urine PRESUMPTIVE NEGATIVE; Cannabinoid Screen,Urine PRESUMPTIVE NEGATIVE; Methadone Screen,Urine PRESUMPTIVE NEGATIVE; Opiate Screen,Urine PRESUMPTIVE NEGATIVE
[2018-08-15 13:40] LABS: Cocaine Screen,Urine PRESUMPTIVE POSITIVE
--- NOTE | 2018-08-15 18:16 | Consultation ---
History of Present Illness - Reason for Consult Consult date: 08/15/18 Reason for consult: Initial Psychiatric Evaluation - Chief Complaint Chief complaint: " I tried to kill myself" - History of Present Psychiatric Illness Patient is a 28-year-old male that presents to the emergency room with suicidal ideations. Per patient he has a plan to cut himself with a primer boxer. He has a PPHx schizoaffective, bipolar type. Today the patient is calm and cooperative during the assessment. Earlier in the day patient had a period of agitation. Patient was verbally aggressive toward RN. He reports intermittent auditory hallucinations, paranoid delusions, and suicidal ideations. He reports good sleep and appetite. Patient reports that he hasn't been compliant with medication x 2 days. Abruptly, during the assessment patient begins to masturbate. Current Psychiatric Medications: Depakote 500mg po BID, Risperdal 3mg po QHS, Invega Sustenna Past Psychiatric History: schizoaffective disorder, bipolar type (2014); more than 15 previous inpatient psychiatric hospitalizations; [place] [facility]- " I haven't seen them in a while"; 1 previous suicide attempt ( tied a sheet around his neck) 4 months ago. Past Medication Trials: Patient denies. History of Alcohol/ Drug Abuse: Cocaine- varies, daily, "smoke it"- method, last use- 08/14/18, first use- 1 year ago. History of Trauma/Abuse: Patient denies sexual, physical, mental abuse. Patient denies hx of trauma. Social History: 8th grade- highest level of education; no income; lives with mother; no children; single; limited support system; no pending legal issues. Family History of Psychiatric Illness/Substance Abuse: Patient denies. Medications and Allergies Allergies Allergy/AdvReac Type Severity Reaction Status Date / Time No Known Allergies Allergy Verified 02/20/18 09:25 Home Medications Medication Instructions Recorded Confirmed Last Taken Type Divalproex Sodium [Depakote] 500 mg PO BID #60 tablet. 07/28/18 Unknown Rx Sertraline HCl [Zoloft] 50 mg PO QHS #30 tablet 07/28/18 Unknown Rx risperiDONE [RisperDAL] 3 mg PO BID #60 tablet 07/28/18 Unknown Rx Mental Status Exam - Vital signs Last Vital Signs Temp 98.1 F 08/15/18 14:22 Pulse 93 H 08/15/18 14:22 Resp 18 08/15/18 14:22 BP 113/61 08/15/18 14:22 Pulse Ox 96 08/15/18 14:22 - Exam Narrative exam: Mental Status Exam Appearance: calm, cooperative Behavior: poor eye contact Speech: regular rate and tone Mood: "I'm good. "; labile Affect: incongruent to mood Thought Process: circumstantial Thought Content: intermittent suicidal ideations, auditory hallucinations, and paranoid delusions Motor Activity: laying down Cognition: A/O x 3 Insight: poor Judgment: poor Results Result Diagrams: 08/15/18 07:30 08/15/18 07:30 Abnormal lab results 08/15/18 08/15/18 08/15/18 Range/Units 07:30 07:30 07:30 RBC 5.62 H (3.65-5.03) M/mm3 MCV 68 L (84-94) fl MCH 22 L (28-32) pg RDW 18.7 H (13.2-15.2) % Lymph % (Auto) 13.1 L (13.4-35.0) % [place] % (Auto) 11.2 H (0.0-7.3) % Lymph # 0.7 L (1.2-5.4) K/mm3 Seg Neutrophils % 73.1 H (40.0-70.0) % BUN 21 H (9-20) mg/dL Ur Specific [place] (1.003-1.030) Salicylates < 0.3 L (2.8-20.0) mg/dL Acetaminophen (10.0-30.0) ug/mL Valproic Acid < 2.8 L (50-100) ug/mL 08/15/18 08/15/18 Range/Units 07:38 Unknown RBC (3.65-5.03) M/mm3 MCV (84-94) fl MCH (28-32) pg RDW (13.2-15.2) % Lymph % (Auto) (13.4-35.0) % [place] % (Auto) (0.0-7.3) % Lymph # (1.2-5.4) K/mm3 Seg Neutrophils % (40.0-70.0) % BUN (9-20) mg/dL Ur Specific [place] 1.033 H (1.003-1.030) Salicylates (2.8-20.0) mg/dL Acetaminophen < 5.0 L (10.0-30.0) ug/mL Valproic Acid (50-100) ug/mL All other labs normal. Assessment and Plan Assessment and plan: Impression: PPHX schizoaffective disorder, bipolar type. Psychosis Disorder, unspecified. Substance Use DO (cocaine). Today the patient is calm and cooperative during the assessment. Mood labile. He endorses intermittent suicidal ideations, auditory hallucinations, and delusions. Patient is sexually inappropriate. Recommendation/Plan: 1. Continue 1013. Will reassess in 24 hours. 2. Restart Risperdal 1 mg PO HS for mood/psychosis. Discussed possible metabolic side effects of Risperdal with the patient. Start Depakote DR 500mg po BID l abile mood. 3. Will collect STAT Depakote level. 4. Recommend all sheets be removed from patient's possession. Place patient on line of sight. Disposition: Will refer to inpatient psychiatric services. Staffed with Dr. Crenshaw.
[2018-08-15] MEDS ORDERED: RisperDAL PO SCH (22:00)
--- NOTE | 2018-08-16 13:52 | Progress Note ---
Subjective - Reason for Consult Consult date: 08/16/18 Reason for consult: Psychiatric Follow-up - Chief Complaint Chief complaint: "I'm good" Patient is a 28-year-old male that presents to the emergency room with suicidal ideations. Per patient he has a plan to cut himself with a box liner. He has a PPHx schizoaffective, bipolar type. Today the patient is irritable and uncooperative during the assessment. He states, " I'm ready to go." Patient states the auditory hallucinations are decreasing. Mood is labile. He continues to be guarded and withdrawn. He denies SI/HI's. Psychosis is evident. Patient is medication compliant. He denies any side effects of medication. Abruptly, during the assessment, patient yells " get away from my door." Mental Status Exam - Vital signs Last Vital Signs Temp 98.7 F 08/16/18 08:44 Pulse 77 08/16/18 08:44 Resp 18 08/16/18 08:44 BP 120/44 08/16/18 08:44 Pulse Ox 97 08/16/18 08:44 - Exam Narrative exam: Mental Status Exam Appearance: calm, cooperative Behavior: poor eye contact Speech: regular rate and tone Mood: "I'm good."; labile Affect: incongruent to mood Thought Process: circumstantial Thought Content: intermittent suicidal ideations, auditory hallucinations, and paranoid delusions Motor Activity: laying down Cognition: A/O x 3 Insight: poor Judgment: poor Assessment and Plan Impression: PPHX schizoaffective disorder, bipolar type. Psychosis Disorder, unspecified. Substance Use DO (cocaine). Today the patient is calm and cooperative during the assessment. Mood labile. He endorses intermittent suicidal ideations, auditory hallucinations, and delusions. Patient is sexually inappropriate. Recommendation/Plan: 1. Continue 1013. Will reassess in 24 hours. 2. Increase Risperdal 2 mg PO HS for mood/psychosis. Discussed possible metabolic side effects of Risperdal with the patient. Start Depakote DR 500mg po BID labile mood. 3. Will collect STAT Depakote level. 4. Recommend all sheets be removed from patient's possession. Place patient on line of sight. Disposition: Will refer to inpatient psychiatric services. Staffed with Dr. Crenshaw.
[2018-08-16] MEDS: RisperDAL PO SCH (22:06)
[2018-08-17 08:24] LABS: Alanine Aminotransferase 27 units/L (7-56)
--- NOTE | 2018-08-17 09:40 | Progress Note ---
Subjective - Reason for Consult Consult date: 08/17/18 Reason for consult: Psychiatry Follow-up - Chief Complaint Chief complaint: "Everything had gotten better" 28-year-old male that presents to the emergency room with SI's. This patient is known to me. Today the patient is calm during the assessment. He stated, "Things are better with me. " Throughout the interview the patient appeared preoccupied. He was looking around his room, possibly responding to some type of stimuli. He denies SI/HI's and VH's. He stated that the voices are "going away." He denies any side effects of his medications. Mental Status Exam - Vital signs Last Vital Signs Temp 98.0 F 08/17/18 08:19 Pulse 72 08/17/18 08:19 Resp 18 08/17/18 08:19 BP 104/72 08/17/18 08:19 Pulse Ox 99 08/17/18 08:19 - Exam Narrative exam: MSE: Appearance: calm, cooperative Behavior: poor eye contact Speech: regular rate and low tone Mood: preoccupied Affect: congruent to mood Thought Process: circumstantial Thought Content: denies SI/HI's and VH's, intermittent AH's Motor Activity: ambulatory Cognition: A/O x3 Insight: variable Judgment: variable Assessment and Plan Impression: Schizoaffective DO. Substance Use DO (cocaine). Today the patient is calm during the assessment. DDx: Bipolar DO with psychos, Substance Induced Psychosis Recommendation/Plan: Continue 1013 and Risperdal 2 mg PO HS for mood/psychosis and Depakote 500 mg PO BID for mood. Discussed possible metabolic side effects of Risperdal with the patient, he verbalized understanding.. Dispo: The patient was referred to inpatient psy services. Staffed with Dr Tamica Crenshaw.
[2018-08-17] MEDS: RisperDAL PO SCH (22:02)
--- NOTE | 2018-08-18 13:13 | Progress Note ---
Subjective - Reason for Consult Consult date: 08/18/18 Reason for consult: Psychiatry Follow-up - Chief Complaint Chief complaint: "Hello" 28-year-old male that presents to the emergency room with SI's. This patient is known to me. Today the patient is calm during the assessment. He was informed that he was accepted at [facility], he stated, "Fine." He stated that the voices are "slowly decreasing." He didn't seem as preoccupied today during the interview. He denies SI/HI's and VH's. He denies any side effects of his medications. Mental Status Exam - Vital signs Last Vital Signs Temp 98.0 F 08/18/18 07:42 Pulse 93 H 08/18/18 07:42 Resp 18 08/18/18 07:42 BP 93/63 08/18/18 07:42 Pulse Ox 99 08/18/18 07:42 - Exam Narrative exam: MSE: Appearance: calm, cooperative Behavior: poor eye contact Speech: regular rate and tone Mood: "better" Affect: flat Thought Process: circumstantial Thought Content: denies SI/HI's and VH's, intermittent AH's Motor Activity: ambulatory Cognition: A/O x3 Insight: variable Judgment: variable Assessment and Plan Impression: Schizoaffective DO. Substance Use DO (cocaine). Today the patient is calm during the assessment. DDx: Bipolar DO with psychos, Substance Induced Psychosis Recommendation/Plan: Continue 1013 and Risperdal 2 mg PO HS for mood/psychosis and Depakote 500 mg PO BID for mood. Discussed possible metabolic side effects of Risperdal with the patient, he verbalized understanding.. Dispo: The patient was accepted at [facility] for inpatient psy services. Will staff with Dr Tamica Crenshaw.
[2018-08-18] MEDS: RisperDAL PO SCH (22:22)
[2018-08-19 14:42] VITALS: BP 111/55
--- NOTE | 2018-08-19 16:22 | Progress Note ---
Subjective - Reason for Consult Reason for consult: psych consult - Chief Complaint Chief complaint: 28-year-old male that presents to the emergency room with SI's. Patient notes that he is doing well. He denies any SI/HI/AH/VH. Per the staff, the patient is calm and cooperative. He is without any acute issues on the ER unit. Patient voices that he feels ready to return home to his mother. He notes no paranoia and the expectation of continuing his medications. He did voice no threats of self harm. Mental Status Exam - Vital signs Last Vital Signs Temp 98.1 F 08/19/18 14:02 Pulse 99 H 08/19/18 14:02 Resp 18 08/19/18 14:02 BP 111/55 08/19/18 14:02 Pulse Ox 98 08/19/18 14:02 - Exam Orientation: time, place, person Affect: normal Mood: appropriate Thought Process: Intact Perceptions: none Speech: normal rate and pattern Concentration: focused Motor activity: normal Level of consciousness: alert Memory: Intact Interaction: cooperative Assessment and Plan Assessment and Plan Impression: Schizoaffective DO. Substance Use DO (cocaine). Remains calm and cooperative Recommendation/Plan: Discontinue 1013. See if mom can pick patient up. Continue Risperdal 2 mg PO HS for mood/psychosis and Depakote 500 mg PO BID for mood. Dispo: home to family
== END 2018-08-19 18:19 | disposition home or self-care (01) ==
LOC: EEVIPCON 07:08 → ED 07:08
DX: F25.9 Schizoaffective disorder, unspecified (principal); F14.10 Cocaine abuse, uncomplicated
CPT/HCPCS: 36415; 80048; 80164; 80307; 81001; 82150; 83690; 84075; 84450; 84460; 85025; 99284; G0480; 80320

== ENCOUNTER 2018-10-03 02:53 | Emergency (ER) | payer OTHER ==
[2018-10-03 04:00] LABS: Eosinophils % (Auto) 0.9 % (0.0-4.3); Hematocrit 32.7 % (35.5-45.6); Hemoglobin 10.5 gm/dl (11.8-15.2); Lymphocytes % (Auto) 18.1 % (13.4-35.0); Mean Corpuscular HGB Conc 32 % (32-34); Monocytes % (Auto) 13.3 % (0.0-7.3); Platelet Count 273 K/mm3 (140-440); Red Blood Count 4.98 M/mm3 (3.65-5.03); Red Cell Distribution Width 19.5 % (13.2-15.2)
[2018-10-03 04:01] LABS: Basophils # (Auto) 0.1 K/mm3 (0.0-0.1); Basophils % (Auto) 0.7 % (0.0-1.8); Eosinophils # (Auto) 0.1 K/mm3 (0.0-0.4); Lymphocytes # (Auto) 1.4 K/mm3 (1.2-5.4)
[2018-10-03 04:16] LABS: Mean Corpuscular Volume 66 fl (84-94)
[2018-10-03 04:19] LABS: BUN/Creatinine Ratio 17; Blood Urea Nitrogen 15 mg/dL (9-20); Calcium 8.6 mg/dL (8.4-10.2); Hemolysis Index 10
[2018-10-03 04:24] LABS: Bilirubin,Urine NEG (Negative); Blood,Urine NEG (Negative); Color,Urine Yellow (Yellow); Mucus,Urine 1+ /HPF; Protein,Urine <15 mg/dL mg/dL (Negative); Urobilinogen,Urine < 2.0 mg/dL (<2.0)
[2018-10-03 04:33] LABS: Amphetamine Screen,Urine PRESUMPTIVE NEGATIVE; Benzodiazepines Screen,Urine PRESUMPTIVE NEGATIVE; Cannabinoid Screen,Urine PRESUMPTIVE NEGATIVE; Methadone Screen,Urine PRESUMPTIVE NEGATIVE; Opiate Screen,Urine PRESUMPTIVE NEGATIVE
[2018-10-03 05:11] LABS: Cocaine Screen,Urine PRESUMPTIVE POSITIVE
--- NOTE | 2018-10-03 05:59 | Emergency Department Report ---
HPI - General Chief Complaint: Psych Time Seen by Provider: 10/03/18 03:43 - HPI HPI: 28-year-old male presents to the emergency department with a complaint of hallucinations and suicidal ideations. The patient has a history of bipolar disorder and schizophrenia and says that he has not been on his medications for "a while." His medications include Risperdal, Depakote and Zoloft. The hallucinations are nonspecific. He does not have any particular plan as to how he would harm himself but is insistent that he would. Patient denies any illicit drug use but his urine drug screen is later found to be positive for cocaine. ED Past Medical Hx - Past Medical History Previous Medical History?: Yes Hx Psychiatric Treatment: Yes (Schizophrina, Bipolar, depression) - Social History Smoking Status: Current Every Day Smoker Substance Use Type: Prescribed - Medications Home Medications: Home Medications Medication Instructions Recorded Confirmed Last Taken Type Divalproex Sodium [Depakote] 500 mg PO BID #60 tablet. 07/28/18 10/03/18 Unknown Rx Sertraline HCl [Zoloft] 50 mg PO QHS #30 tablet 07/28/18 10/03/18 Unknown Rx risperiDONE [RisperDAL] 3 mg PO BID #60 tablet 07/28/18 10/03/18 Unknown Rx ED Review of Systems ROS: Stated complaint: MH Other details as noted in HPI Comment: All other systems reviewed and negative Constitutional: denies: chills, fever Eyes: denies: eye pain, vision change ENT: denies: ear pain, throat pain Respiratory: denies: cough, shortness of breath Cardiovascular: denies: chest pain, palpitations Gastrointestinal: denies: abdominal pain, vomiting Genitourinary: denies: dysuria, frequency Musculoskeletal: denies: back pain, arthralgia Skin: denies: rash, lesions Neurological: denies: headache, weakness Psychiatric: auditory hallucinations, visual hallucinations, suicidal thoughts. denies: homicidal thoughts Physical Exam - Physical Exam Vital Signs: Vital Signs 10/03/18 02:58 Pulse Rate 96 H Respiratory 19 Rate Blood Pressure 118/57 [Left] O2 Sat by Pulse 97 Oximetry Physical Exam: GENERAL: The patient is well-developed well-nourished. HENT: Normocephalic. Atraumatic. Patient has moist mucous membranes. EYES: Extraocular motions are intact. NECK: Supple. Trachea is midline. CHEST/LUNGS: Clear to auscultation. There is no respiratory distress noted. HEART/CARDIOVASCULAR: Regular. There is no tachycardia. There is no murmur. ABDOMEN: Abdomen is soft, nontender. Patient has normal bowel sounds. There is no abdominal distention. SKIN: Skin is warm and dry. NEURO: The patient is awake, alert, and but cooperative. The patient has no focal neurologic deficits. MUSCULOSKELETAL: There is no tenderness or deformity. There is no evidence of acute injury. PSYCH: Patient has some pressured speech and is slightly disorganized. ED Course Vital Signs 10/03/18 02:58 Pulse Rate 96 H Respiratory 19 Rate Blood Pressure 118/57 [Left] O2 Sat by Pulse 97 Oximetry ED Medical Decision Making - Lab Data Result diagrams: 10/03/18 03:38 10/03/18 03:38 - Medical Decision Making This patient presents with suicidal ideations and both auditory and visual hallucinations. He has a history of bipolar disorder and schizophrenia for which he previously was on Zoloft, Depakote and Risperdal that he has been out of his medication for a while. Due to his suicidal ideations the patient has been made attempt 1013. Labs show some mild anemia with a hemoglobin of about 10 and a urine drug screen positive for cocaine. His vital signs were stable throughout his ED course. The patient appears medically cleared for psychiatric placement. - Differential Diagnosis bipolar disorder, schizophrenia, schizoaffective, substance abuse Critical Care Time: No Critical care attestation.: If time is entered above; I have spent that time in minutes in the direct care of this critically ill patient, excluding procedure time. ED Disposition Clinical Impression: Suicidal ideations, Hallucinations, History of bipolar disorder, History of schizophrenia Disposition: DC/TX-65 PSY HOSP/PSY UNIT Is pt being admited?: No Condition: Stable Referrals: XIN DASILVA MD [Primary Care Provider] - 3-5 Days Time of Disposition: 06:01
[2018-10-03] MEDS: RisperDAL PO SCH ×2 (12:04→22:41)
[2018-10-03] MEDS ORDERED: RisperDAL ONE (12:18)
--- NOTE | 2018-10-03 14:39 | Consultation ---
History of Present Illness - Reason for Consult Consult date: 10/03/18 Reason for consult: psychiatric evaluation - Chief Complaint Chief complaint: "i need my medicine." - History of Present Psychiatric Illness 28 y.o. AA male who presented to the ER for SI's and AH's. Today the patient is calm, but disorganized during the assessment. Staff report he asked repeatedly about snacks and would become angry when he did not get another one. He has a history of schizophrenia with prior suicide attempt via strangulation 4-5 months ago. He admits noncompliance with prescribed mediations (Depakote 500mg tid, Risperdal 3mg qhs, Zoloft 50mg) for the past month. Per the record, his meds were discontinued when his mother kicked him out of the home "a few months ago". He attributes this to some ongoing arguments between them and he reports "a lot of yelling and screaming" going on before she asked him to leave. He is now homeless, ran out of his medications a week ago and has since been having hallucinations that he should kill himself. UDS was (+) for cocaine but the Pt does not provide any detail regarding his use. He would not discuss details of mental health symptoms. Past psychiatric history - Past Medical History Past Medical History: No medical history Past Surgical History: No surgical history - past Psychiatric treatment and history psychiatric treatment history: Several inpatient psy settings. ACT team services ended when he was kicked out of the house - Social History Social history: homeless, kicked out of the house several months ago Medications and Allergies Allergies Allergy/AdvReac Type Severity Reaction Status Date / Time No Known Allergies Allergy Verified 02/20/18 09:25 Home Medications Medication Instructions Recorded Confirmed Last Taken Type Divalproex Sodium [Depakote] 500 mg PO BID #60 tablet.dr 07/28/18 10/03/18 Unknown Rx Sertraline HCl [Zoloft] 50 mg PO QHS #30 tablet 07/28/18 10/03/18 Unknown Rx risperiDONE [RisperDAL] 3 mg PO BID #60 tablet 07/28/18 10/03/18 Unknown Rx Active Meds: Active Medications Divalproex Sodium ([address]) 500 mg PO BID [facility] Last Admin: 10/03/18 12:04 Dose: 500 mg Documented by: Risperidone (Risperdal) 3 mg PO BID [facility] Last Admin: 10/03/18 12:04 Dose: 3 mg Documented by: Sertraline HCl (Zoloft) 50 mg PO QHS [facility] Mental Status Exam - Vital signs Last Vital Signs Temp 97.6 F 10/03/18 08:58 Pulse 86 10/03/18 08:58 Resp 18 10/03/18 08:58 BP 116/75 10/03/18 08:58 Pulse Ox 99 10/03/18 08:58 - Exam Narrative exam: Appearance: cooperative Behavior: lying on mattress with his head covered Speech: loud Mood: irritable/angry Affect: congruent to mood Thought Process: circumstantial Thought Content: reports AVH but would not discuss Motor Activity: ambulatory Cognition: A/O x 3 Insight: poor Judgment: poor Results Result Diagrams: 10/03/18 03:38 10/03/18 03:38 Abnormal lab results 10/03/18 10/03/18 10/03/18 Range/Units 03:38 03:38 03:38 Hgb 10.5 L (11.8-15.2) gm/dl Hct 32.7 L (35.5-45.6) % MCV 66 L (84-94) fl MCH 21 L (28-32) pg RDW 19.5 H (13.2-15.2) % Latimer % (Auto) 13.3 H (0.0-7.3) % Latimer # 1.0 H (0.0-0.8) K/mm3 Salicylates < 0.3 L (2.8-20.0) mg/dL Acetaminophen < 5.0 L (10.0-30.0) ug/mL Valproic Acid (50-100) ug/mL 10/03/18 Range/Units 04:37 Hgb (11.8-15.2) gm/dl Hct (35.5-45.6) % MCV (84-94) fl MCH (28-32) pg RDW (13.2-15.2) % Latimer % (Auto) (0.0-7.3) % Latimer # (0.0-0.8) K/mm3 Salicylates (2.8-20.0) mg/dL Acetaminophen (10.0-30.0) ug/mL Valproic Acid < 2.8 L (50-100) ug/mL All other labs normal. Assessment and Plan Assessment and plan: Impression: Schizoaffective DO. Substance Use DO (cocaine). DDx: Bipolar DO with psychos, Substance Induced Psychosis Recommendation/Plan: Continue 1013 and continue Risperdal 1 mg PO HS for mood/psychosis and Depakote 500 mg PO BID for mood and zoloft 50mg daily for anxiety. Discussed possible metabolic side effects of Risperdal with the patient, he verbalized understanding. Dispo: inpatient psy services. Will staff with Dr Tamica Crenshaw.
[2018-10-03] MEDS: ZOLOFT PO SCH (22:41)
[2018-10-04] MEDS: RisperDAL PO SCH ×2 (09:53→22:35)
--- NOTE | 2018-10-04 18:52 | Progress Note ---
Subjective - Reason for Consult Consult date: 10/04/18 Reason for consult: follow up - Chief Complaint Chief complaint: "Where am I going?" 28 y.o. AA male who presented to the ER for SI's and AH's. Today the patient is calm, but disorganized during the assessment. Staff report he asked repeatedly about snacks and would become angry when he did not get another one. He has a history of schizophrenia with prior suicide attempt via strangulation 4-5 months ago. He admits noncompliance with prescribed mediations (Depakote 500mg tid, Risperdal 3mg qhs, Zoloft 50mg) for the past month. Per the record, his meds were discontinued when his mother kicked him out of the home "a few months ago". He wants to know where he is going. He was accepted at [facility]. He asks for snacks repeatedly. He does not discuss mental health symptoms and is focused on where he is going. Mental Status Exam - Exam Narrative exam: Appearance: cooperative Behavior: lying on mattress with his head covered Speech: loud Mood: indifferent Affect: congruent to mood Thought Process: circumstantial Thought Content: reports AVH but would not discuss Motor Activity: ambulatory Cognition: A/O x 3 Insight: poor Judgment: poor Mental Status Exam - Vital signs Last Vital Signs Temp 98.0 F 10/04/18 13:49 Pulse 107 H 10/04/18 13:49 Resp 16 10/04/18 13:49 BP 101/77 10/04/18 13:49 Pulse Ox 99 10/04/18 13:49 Assessment and Plan Impression: Schizoaffective DO. Substance Use DO (cocaine). DDx: Bipolar DO with psychos, Substance Induced Psychosis Recommendation/Plan: Continue 1013 and continue Risperdal 1 mg PO HS for mo od/psychosis and Depakote 500 mg PO BID for mood and zoloft 50mg daily for anxiety. Discussed possible metabolic side effects of Risperdal with the patient, he verbalized understanding. Dispo: inpatient psy services. Will staff with Dr Tamica Crenshaw.
[2018-10-04] MEDS: ZOLOFT PO SCH (22:35)
[2018-10-04] MEDS ORDERED: RisperDAL ONE (22:47)
--- NOTE | 2018-10-05 10:55 | Progress Note ---
Subjective - Reason for Consult Consult date: 10/05/18 Reason for consult: Psychiatry Follow-up - Chief Complaint Chief complaint: "Hello" 28 y.o. AA male who presented to the ER for SI's and AH's. This patient is known to me. Today the patient was calm, but vague during the assessment. He stated that [place] the airport" and was brought to the ER. He would not tell me the provider what happened at the airport when asked. He denies SI/HI's and VH's. He stated that the voices have "decreased." He rate his anxiety 3/10, with 10 being the worse. He denies any side effects of his medication. Mental Status Exam - Vital signs Last Vital Signs Temp 98.8 F 10/05/18 10:27 Pulse 95 H 10/05/18 10:27 Resp 20 10/05/18 10:27 BP 104/62 10/05/18 10:27 Pulse Ox 99 10/05/18 10:27 - Exam Narrative exam: MSE: Appearance: malodorous, in hospital attire Behavior: regular eye contact Speech: regular rate and tone Mood: "okay" Affect: congruent to mood Thought Process: circumstantial Thought Content: denies SI/HI's and VH's Motor Activity: sitting up in the bed Cognition: A/O x 3 Insight: variable Judgment: variable Assessment and Plan Impression: Schizoaffective DO. Substance Use DO (cocaine). Unspecified Anxiety DO. Today the patient was calm, but vague during the assessment. DDx: Bipolar DO with psychos, Substance Induced Psychosis Recommendation/Plan: Continue 1013, Risperdal 1 mg PO HS for mood/psychosis, Depakote 500 mg PO BID for mood, Zoloft 50 mg PO daily for anxiety. Discussed possible side effects of his medications, her verbalized understanding. Dispo: The patient was accepted at [facility] for inpatient psy services. Will staff with Dr Tamica Crenshaw.
[2018-10-05] MEDS: RisperDAL PO SCH (11:00)
[2018-10-05 16:26] VITALS: BP 99/65
[2018-10-05] MEDS ORDERED: RisperDAL PO SCH (22:00)
== END 2018-10-05 17:00 ==
LOC: ED 02:53 → EEVIPCON 02:53 → ED 10-05 17:00
DX: F20.9 Schizophrenia, unspecified (principal); F14.10 Cocaine abuse, uncomplicated; F31.9 Bipolar disorder, unspecified; F17.200 Nicotine dependence, unspecified, uncomplicated
CPT/HCPCS: 36415; 80048; 80164; 80307; 81001; 85025; 99284; G0480; 80320

== ENCOUNTER 2018-10-28 06:55 | Emergency (ER) | payer SELFPAY ==
--- NOTE | 2018-10-28 07:42 | Emergency Department Report ---
ED Psych HPI - General Chief Complaint: Psych Stated Complaint: MEDS Time Seen by Provider: 10/28/18 07:39 Source: EMS Mode of arrival: Ambulatory Limitations: No Limitations - History of Present Illness Initial Comments: Patient is a 28-year-old male presents emergency room with complaints of suicidal ideations. Patient states tops medication needs some help. Patient states he wants to get placed back on his medications. Patient states his plan is to jump off a bridge. Patient states that he doesn't want to do it but if we don't get his medications E's and I have to do it. Patient denies chest pain or shortness of breath. Patient denies any physical complaints. MD Complaint: suicidal ideation, feels depressed -: Sudden Associated Psychiatric Symptoms: depression, suicidal ideation, racing thoughts, auditory hallucinations, visual hallucinations History of same: Yes Quality: constant Improves With: medication Worsens With: other Context: not taking psychiatric Associated Symptoms: denies: confusion, headache, shortness of breath, nausea, vomiting, syncope, insomnia Treatments Prior to Arrival: placed on mental he If Self Harm: admits thoughts of, has plan - Related Data Previous Rx's Medication Instructions Recorded Last Taken Type Divalproex Sodium [Depakote] 500 mg PO BID #60 tablet. 07/28/18 Unknown Rx Sertraline HCl [Zoloft] 50 mg PO QHS #30 tablet 07/28/18 Unknown Rx risperiDONE [RisperDAL] 3 mg PO BID #60 tablet 07/28/18 Unknown Rx Allergies Allergy/AdvReac Type Severity Reaction Status Date / Time No Known Allergies Allergy Verified 02/20/18 09:25 ED Review of Systems ROS: Stated complaint: MEDS Other details as noted in HPI Constitutional: denies: chills, fever Eyes: denies: eye pain, eye discharge, vision change ENT: denies: ear pain, throat pain Respiratory: denies: cough, shortness of breath, wheezing Cardiovascular: denies: chest pain, palpitations Endocrine: no symptoms reported Gastrointestinal: denies: abdominal pain, nausea, diarrhea Genitourinary: denies: urgency, dysuria Musculoskeletal: denies: back pain, joint swelling, arthralgia Skin: denies: rash, lesions Neurological: denies: headache, weakness, paresthesias Psychiatric: depression, auditory hallucinations, visual hallucinations, suicidal thoughts. denies: anxiety Hematological/Lymphatic: denies: easy bleeding, easy bruising ED Past Medical Hx - Past Medical History Previous Medical History?: Yes Hx Psychiatric Treatment: Yes ([place], Bipolar) - Surgical History Past Surgical History?: No - Family History Family history: no significant - Social History Smoking Status: Current Every Day Smoker Substance Use Type: Cocaine - Medications Home Medications: Home Medications Medication Instructions Recorded Confirmed Last Taken Type Divalproex Sodium [Depakote] 500 mg PO BID #60 tablet. 07/28/18 10/03/18 Unkno wn Rx Sertraline HCl [Zoloft] 50 mg PO QHS #30 tablet 07/28/18 10/03/18 Unknown Rx risperiDONE [RisperDAL] 3 mg PO BID #60 tablet 07/28/18 10/03/18 Unknown Rx ED Physical Exam - General Limitations: No Limitations General appearance: alert, in no apparent distress - Head Head exam: Present: atraumatic, normocephalic - Eye Eye exam: Present: normal appearance - ENT ENT exam: Present: mucous membranes moist - Neck Neck exam: Present: normal inspection - Respiratory Respiratory exam: Present: normal lung sounds bilaterally. Absent: respiratory distress - Cardiovascular Cardiovascular Exam: Present: regular rate, normal rhythm. Absent: systolic murmur, diastolic murmur, rubs, gallop - GI/Abdominal GI/Abdominal exam: Present: soft, normal bowel sounds - Rectal Rectal exam: Present: deferred - Extremities Exam Extremities exam: Present: normal inspection - Back Exam Back exam: Present: normal inspection - Neurological Exam Neurological exam: Present: alert, oriented X3 - Psychiatric Psychiatric exam: Present: suicidal ideation - Skin Skin exam: Present: warm, dry, intact, normal color. Absent: rash ED Course Vital Signs 10/28/18 08:13 Temperature 100.7 F H Pulse Rate 110 H Respiratory 18 Rate Blood Pressure 118/57 [Left] O2 Sat by Pulse 98 Oximetry - Reevaluation(s) Reevaluation #1: Initial evaluation done, patient will be placed on 1013 10/28/18 07:42 Reevaluation #2: Discussed all results with patient. Patient is medically cleared and will remain in the ER on a 1013 until excepted into appropriate psychiatric facility. 10/28/18 13:33 ED Medical Decision Making - Lab Data Result diagrams: 10/28/18 07:50 10/28/18 07:50 - Medical Decision Making Patient is a 28-year-old male that presents when she was suicidal ideation and plan. Patient placed on 1013. Patient's labs unremarkable. Patient is medically cleared - Differential Diagnosis suicidal ideation. Depression. Off medications. Critical care attestation.: If time is entered above; I have spent that time in minutes in the direct care of this critically ill patient, excluding procedure time. ED Disposition Clinical Impression: Cocaine use, Suicidal ideations Disposition: DC/TX-65 PSY HOSP/PSY UNIT Is pt being admited?: No Does the pt Need Aspirin: No Condition: Stable Additional Instructions: Patient is medically cleared Time of Disposition: 13:35
[2018-10-28 08:12] LABS: Hematocrit 36.1 % (35.5-45.6); Hemoglobin 11.7 gm/dl (11.8-15.2); Mean Corpuscular HGB Conc 33 % (32-34); Platelet Count 254 K/mm3 (140-440); Red Blood Count 5.56 M/mm3 (3.65-5.03); Red Cell Distribution Width 19.9 % (13.2-15.2)
[2018-10-28 08:13] LABS: Mean Corpuscular Volume 65 fl (84-94)
[2018-10-28 08:27] LABS: Alanine Aminotransferase 29 units/L (7-56); Albumin 4.2 g/dL (3.9-5); BUN/Creatinine Ratio 15; Blood Urea Nitrogen 15 mg/dL (9-20); Calcium 8.8 mg/dL (8.4-10.2); Hemolysis Index 9
[2018-10-28 10:53] LABS: Bilirubin,Urine NEG (Negative); Blood,Urine NEG (Negative); Color,Urine Yellow (Yellow); Mucus,Urine FEW /HPF; Protein,Urine <15 mg/dL mg/dL (Negative); WBC,Urine < 1.0 /HPF (0.0-6.0)
[2018-10-28 10:59] LABS: Amphetamine Screen,Urine PRESUMPTIVE NEGATIVE; Benzodiazepines Screen,Urine PRESUMPTIVE NEGATIVE; Cannabinoid Screen,Urine PRESUMPTIVE NEGATIVE; Methadone Screen,Urine PRESUMPTIVE NEGATIVE; Opiate Screen,Urine PRESUMPTIVE NEGATIVE
[2018-10-28 11:12] LABS: Cocaine Screen,Urine PRESUMPTIVE POSITIVE
[2018-10-28 11:13] LABS: Basophils % (Manual) 0 % (0.0-1.8); Eosinophils % (Manual) 0 % (0.0-4.3); Total Cells Counted 100
[2018-10-28 11:14] LABS: Anisocytosis Few; Platelet Estimate Consistent w Auto; Poikilocytosis Few; Target Cells Few
[2018-10-28] MEDS ORDERED: RisperDAL PO SCH (22:00)
[2018-10-28] MEDS ORDERED: RisperDAL ONE (22:36)
--- NOTE | 2018-10-29 13:09 | Consultation ---
History of Present Illness - Reason for Consult Consult date: 10/29/18 Reason for consult: Mental Health Evaluation Requesting physician: ANDI STAHL III - Chief Complaint Chief complaint: "I want to hurt myself" - History of Present Psychiatric Illness 28 y.o. AA male who presented to the ER for SI's and AH's. This patient is known to me. Today the patient was zoë, but vague during the assessment. He is known to come to the ER and be vague during the interview. He did state that he was hearing voices telling him to kill himself. He stated that he have not been compliant with his medications (Risperdal/Depakote). He stated that his cocaine use have increased the past several weeks. He would not confirm or deny SI's when asked. He denies HI's. Medications and Allergies Allergies Allergy/AdvReac Type Severity Reaction Status Date / Time No Known Allergies Allergy Verified 02/20/18 09:25 Home Medications Medication Instructions Recorded Confirmed Last Taken Type Divalproex Sodium [Depakote] 500 mg PO BID #60 tablet. 07/28/18 10/28/18 Unknown Rx Sertraline HCl [Zoloft] 50 mg PO QHS #30 tablet 07/28/18 10/28/18 Unknown Rx risperiDONE [RisperDAL] 3 mg PO BID #60 tablet 07/28/18 10/28/18 Unknown Rx Active Meds: Active Medications Risperidone (Risperdal) 1 mg PO HS [facility] Past psychiatric history - Past Medical History Past Medical History: No medical history Past Surgical History: No surgical history - past Psychiatric treatment and history psychiatric treatment history: several inpatient psy settings in the past. Denies a fam psy hx. - Social History Social history: lives with family Mental Status Exam - Vital signs Last Vital Signs Temp 99.4 F 10/29/18 07:00 Pulse 103 H 10/29/18 07:00 Resp 20 10/29/18 07:00 BP 98/52 10/29/18 07:00 Pulse Ox 95 10/29/18 07:00 - Exam Narrative exam: MSE: Appearance: in hospital attire Behavior: regular eye contact Speech: regular rate and tone Mood: "okay" Affect: congruent to mood Thought Process: circumstantial Thought Content: denies HI's and VH's Motor Activity: sitting up in the bed Cognition: A/O x 3 Insight: vague Judgment: poor Results Result Diagrams: 10/28/18 07:50 10/28/18 07:50 All other labs normal. Assessment and Plan Assessment and plan: Impression: Schizoaffective DO. Substance Use DO (cocaine). Today the patient was calm, but vague during the assessment. DDx: Bipolar DO with psychos, Substance Induced Psychosis Recommendation/Plan: Continue 1013 and Risperdal 1 mg PO HS for mood/psychosis. Start Depakote 500 mg PO BID for mood. Discussed possible side effects of his medications, her verbalized understanding. Dispo: The patient was referred to inpatient psy services. Staffed with Dr Tamica Crenshaw.
[2018-10-29 13:55] LABS: Alanine Aminotransferase 28 units/L (7-56)
[2018-10-29] MEDS: RisperDAL PO SCH (21:59)
--- NOTE | 2018-10-30 12:54 | Progress Note ---
Subjective - Reason for Consult Consult date: 10/30/18 Reason for consult: Psychiatry Follow-up - Chief Complaint Chief complaint: "I think I'm better" 28 y.o. AA male who presented to the ER for SI's and AH's. This patient is known to me. Today the patient was calm and cooperative during the assessment. He stated that he maybe better today. He is somewhat tangent when asked questioned. He denies SI/HI's and VH's. He would not confirm or deny AH's. He denies any side effects of his medications. Mental Status Exam - Vital signs Last Vital Signs Temp 97.8 F 10/30/18 07:32 Pulse 82 10/30/18 07:32 Resp 16 10/30/18 07:32 BP 103/57 10/30/18 07:32 Pulse Ox 99 10/30/18 07:32 - Exam Narrative exam: MSE: Appearance: calm, cooperative Behavior: regular eye contact Speech: regular rate and tone Mood: "okay" Affect: congruent to mood Thought Process: tangential Thought Content: denies SI/HI's and VH's Motor Activity: sitting up in the bed Cognition: A/O x 3 Insight: variable to fair Judgment: variable to fair Assessment and Plan Impression: Schizoaffective DO. Substance Use DO (cocaine). Today the patient was calm and cooperative during the assessment. DDx: Bipolar DO with psychos, Substance Induced Psychosis Recommendation/Plan: Reevaluate the patient's 1013 in 24 hours. Continue Risperdal 1 mg PO HS for mood/psychosis and Depakote 500 mg PO BID for mood. Discussed possible side effects of his medications, her verbalized understanding. Dispo: If the patient's 1013 is rescinded n 24 hours, he can follow up with [facility] for outpatient psy services. Will staff with Dr Tamica Crenshaw.
[2018-10-30] MEDS: RisperDAL PO SCH (22:05)
--- NOTE | 2018-10-31 19:04 | Progress Note ---
Subjective - Reason for Consult Consult date: 10/31/18 Reason for consult: follow up - Chief Complaint Chief complaint: "I can go." 28 y.o. AA male who presented to the ER for SI's and AH's. Today the patient was calm but irritable. He is tangential and insists he needs medications and he should be good. He denies SI/HI's and VH's. He would not confirm or deny AH's. He denies any side effects of his medications. Mental Status Exam - Vital signs Last Vital Signs Temp 99.8 F H 10/31/18 14:31 Pulse 97 H 10/31/18 14:31 Resp 18 10/31/18 14:31 BP 96/63 10/31/18 14:31 Pulse Ox 97 10/31/18 14:31 - Exam Narrative exam: MSE: Appearance: calm, cooperative Behavior: regular eye contact Speech: regular rate and tone Mood: irritable Affect: congruent to mood Thought Process: tangential Thought Content: denies SI/HI's and VH's Motor Activity: sitting up in the bed Cognition: A/O x 3 Insight: variable to fair Judgment: variable to fair Assessment and Plan Impression: Schizoaffective DO. Substance Use DO (cocaine). Today the patient was calm and cooperative during the assessment. DDx: Bipolar DO with psychosis, Substance Induced Psychosis Recommendation/Plan: Continue 1013 proceed with transfer to [facility]. Continue Risperdal 1 mg PO HS for mood/psychosis and Depakote 500 mg PO BID for mood. Discussed possible side effects of his medications, her verbalized understanding. Dispo: [facility] Will staff with Dr Tamica Crenshaw.
[2018-10-31] MEDS: RisperDAL PO SCH (22:34)
--- NOTE | 2018-11-01 18:06 | Progress Note ---
Subjective - Reason for Consult Consult date: 11/01/18 Reason for consult: follow up - Chief Complaint Chief complaint: "good." 28 y.o. AA male who presented to the ER for SI's and AH's. Today the patient was calm but irritable. He is tangential and insists he needs medications and he should be good. He denies SI/HI's and VH's. He would not confirm or deny AH's. He denies any side effects of his medications. No changes today. Mental Status Exam - Vital signs Last Vital Signs Temp 98.7 F 11/01/18 13:31 Pulse 88 11/01/18 13:31 Resp 18 11/01/18 13:31 BP 110/63 11/01/18 13:31 Pulse Ox 98 11/01/18 13:31 - Exam Narrative exam: MSE: Appearance: calm, cooperative Behavior: regular eye contact Speech: regular rate and tone Mood: irritable Affect: congruent to mood Thought Process: tangential Thought Content: denies SI/HI's and VH's Motor Activity: sitting up in the bed Cognition: A/O x 3 Insight: variable to fair Judgment: variable to fair Assessment and Plan Impression: Schizoaffective DO. Substance Use DO (cocaine). Today the patient was calm and cooperative during the assessment. DDx: Bipolar DO with psychosis, Substance Induced Psychosis Recommendation/Plan: Continue 1013 proceed with transfer to [facility]. Continue Risperdal 1 mg PO HS for mood/ psychosis and Depakote 500 mg PO BID for mood. Discussed possible side effects of his medications, her verbalized understanding. Dispo: [facility]. otherwise, determine if he meets 1013 criteria in [address] Tamica Crenshaw.
[2018-11-01] MEDS: RisperDAL PO SCH (22:03)
[2018-11-02 10:50] VITALS: BP 114/72
--- NOTE | 2018-11-02 13:23 | Progress Note ---
Subjective - Reason for Consult Consult date: 11/02/18 Reason for consult: Psychiatry Follow-up - Chief Complaint Chief complaint: "Hello" 28 y.o. AA male who presented to the ER for SI's and AH's. Today the patient was calm and cooperative during the assessment. He stated that he will not "panhandle" for money to purchase "drugs." He denies SI/HI's and AVH's. He denies any side effects of his medications. Mental Status Exam - Vital signs Last Vital Signs Temp 98.4 F 11/02/18 07:30 Pulse 67 11/02/18 07:30 Resp 16 11/02/18 07:30 BP 114/72 11/02/18 07:30 Pulse Ox 100 11/02/18 07:30 - Exam Narrative exam: MSE: Appearance: calm, cooperative Behavior: regular eye contact Speech: regular rate and tone Mood: "okay" Affect: congruent to mood Thought Process: tangential Thought Content: denies SI/HI's and VH's Motor Activity: sitting up in the bed Cognition: A/O x 3 Insight: fair Judgment: fair Assessment and Plan Impression: Schizoaffective DO. Substance Use DO (cocaine). Today the patient was calm and cooperative during the assessment. The patient was no threat to to self. DDx: Bipolar DO with psychos, Substance Induced Psychosis Recommendation/Plan: Rescind 1013. Continue Risperdal 1 mg PO HS for mood/psychosis and Depakote 500 mg PO BID for mood. Discussed possible side effects of his medications, her verbalized understanding. Dispo: The patent can follow up with [facility] for outpatient psy/rehab services. Staffed with Dr Tamica Crenshaw.
== END 2018-11-02 14:53 ==
LOC: ED 06:55 → EEVIPCON 06:55 → ED 11-02 14:53
DX: F25.9 Schizoaffective disorder, unspecified (principal); F14.10 Cocaine abuse, uncomplicated; F31.9 Bipolar disorder, unspecified; F17.200 Nicotine dependence, unspecified, uncomplicated; R45.851 Suicidal ideations; Z79.899 Other long term (current) drug therapy
CPT/HCPCS: 36415; 80053; 80164; 80307; 80320; 81001; 82150; 83690; 84075; 84450; 84460; 85007; 85025; G0480

== ENCOUNTER 2018-12-22 09:07 | Emergency (ER) | payer SELFPAY ==
[2018-12-22] MEDS ORDERED: BICILLIN L-A IM ONE (09:30)
[2018-12-22 09:57] LABS: Basophils # (Auto) 0.1 K/mm3 (0.0-0.1); Basophils % (Auto) 0.7 % (0.0-1.8); Hematocrit 34.2 % (35.5-45.6); Hemoglobin 11.1 gm/dl (11.8-15.2); Lymphocytes # (Auto) 1.1 K/mm3 (1.2-5.4); Lymphocytes % (Auto) 13.5 % (13.4-35.0); Mean Corpuscular HGB Conc 32 % (32-34); Monocytes # (Auto) 0.8 K/mm3 (0.0-0.8); Monocytes % (Auto) 9.1 % (0.0-7.3); Platelet Count 308 K/mm3 (140-440); Red Blood Count 4.99 M/mm3 (3.65-5.03)
[2018-12-22 10:01] LABS: Mean Corpuscular Volume 69 fl (84-94); Red Cell Distribution Width 20.4 % (13.2-15.2)
[2018-12-22 10:04] LABS: BUN/Creatinine Ratio 19; Blood Urea Nitrogen 19 mg/dL (9-20); Calcium 8.8 mg/dL (8.4-10.2); Hemolysis Index 9
[2018-12-22 11:43] LABS: Bilirubin,Urine NEG (Negative); Blood,Urine NEG (Negative); Color,Urine Yellow (Yellow); Mucus,Urine 3+ /HPF
[2018-12-22 11:46] LABS: Amphetamine Screen,Urine PRESUMPTIVE NEGATIVE; Benzodiazepines Screen,Urine PRESUMPTIVE NEGATIVE; Methadone Screen,Urine PRESUMPTIVE NEGATIVE; Opiate Screen,Urine PRESUMPTIVE NEGATIVE
[2018-12-22 11:58] LABS: Cannabinoid Screen,Urine PRESUMPTIVE POSITIVE; Cocaine Screen,Urine PRESUMPTIVE POSITIVE
--- NOTE | 2018-12-22 12:22 | Emergency Department Report ---
ED Psych HPI - General Chief Complaint: Psych Stated Complaint: MH EVAL Time Seen by Provider: 12/22/18 09:30 Source: patient, family Mode of arrival: Ambulatory - History of Present Illness Initial Comments: Patient is a 28-year-old male with a past history of bipolar disorder and schizoaffective disorder as well who is presenting with suicidal ideations and paranoid delusions. Patient's been noncompliant with his medications. Patient states he feels paranoid fever up to get him. Patient also states he is having some suicidal ideations as well with thoughts of strangling himself with a sheet. Patient's parents denies any homicidal ideations at this time. - Related Data Previous Rx's Medication Instructions Recorded Last Taken Type Divalproex Sodium [Depakote] 500 mg PO BID #60 tablet. 07/28/18 Unknown Rx Sertraline HCl [Zoloft] 50 mg PO QHS #30 tablet 07/28/18 Unknown Rx risperiDONE [RisperDAL] 3 mg PO BID #60 tablet 07/28/18 Unknown Rx Allergies Allergy/AdvReac Type Severity Reaction Status Date / Time No Known Allergies Allergy Verified 02/20/18 09:25 ED Review of Systems ROS: Stated complaint: MH EVAL Other details as noted in HPI Comment: All other systems reviewed and negative ED Past Medical Hx - Past Medical History Previous Medical History?: Yes Hx Psychiatric Treatment: Yes (Sebastian, Bipolar) - Surgical History Past Surgical History?: No - Social History Smoking Status: Current Every Day Smoker Substance Use Type: Alcohol, Marijuana - Medications Home Medications: Home Medications Medication Instructions Recorded Confirmed Last Taken Type Divalproex Sodium [Depakote] 500 mg PO BID #60 tablet. 07/28/18 12/22/18 Unknown Rx Sertraline HCl [Zoloft] 50 mg PO QHS #30 tablet 07/28/18 12/22/18 Unknown Rx risperiDONE [RisperDAL] 3 mg PO BID #60 tablet 07/28/18 12/22/18 Unknown Rx ED Physical Exam - General Limitations: No Limitations General appearance: alert, in no apparent distress - Head Head exam: Present: atraumatic, normocephalic - Eye Eye exam: Present: normal appearance, PERRL, EOMI - ENT ENT exam: Present: mucous membranes moist - Neck Neck exam: Present: normal inspection - Respiratory Respiratory exam: Present: normal lung sounds bilaterally. Absent: respiratory distress, wheezes, rales, rhonchi - Cardiovascular Cardiovascular Exam: Present: regular rate, normal rhythm, normal heart sounds. Absent: systolic murmur, diastolic murmur, rubs, gallop - GI/Abdominal GI/Abdominal exam: Present: soft, normal bowel sounds. Absent: distended, tenderness, guarding, rebound, rigid - Rectal Rectal exam: Present: deferred - Extremities Exam Extremities exam: Present: normal inspection - Back Exam Back exam: Present: normal inspection - Neurological Exam Neurological exam: Present: alert, oriented X3 - Psychiatric Psychiatric exam: Present: normal mood, flat affect - Skin Skin exam: Present: warm, dry, intact, normal color. Absent: rash ED Course Vital Signs 12/22/18 12/22/18 09:10 09:30 Temperature 98.5 F Pulse Rate 107 H Respiratory 16 18 Rate Blood Pressure 154/76 O2 Sat by Pulse 98 Oximetry - Reevaluation(s) Reevaluation #1: 12/22/18 12:21 She is medically clear at this time for psychiatric evaluation. Patient's mother states that on his last hospitalization 2-3 weeks ago for pneumonia multiple laboratory studies were done. One which was RPR which they were contac doni after being discharged because it was reactive. Patient's has not been treated as of yet. Patient denies any rash or itching. He states he has no active source. Physical exam does confirm this. 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 ED Medical Decision Making - Lab Data Result diagrams: 12/22/18 09:17 12/22/18 09:17 Lab Results 12/22/18 12/22/18 12/22/18 Range/Units 09:17 09:17 09:17 WBC (4.5-11.0) K/mm3 RBC (3.65-5.03) M/mm3 Hgb (11.8-15.2) gm/dl Hct (35.5-45.6) % MCV (84-94) fl MCH (28-32) pg MCHC (32-34) % RDW (13.2-15.2) % Plt Count (140-440) K/mm3 Lymph % (Auto) (13.4-35.0) % Avery % (Auto) (0.0-7.3) % Eos % (Auto) (0.0-4.3) % Baso % (Auto) (0.0-1.8) % Lymph # (1.2-5.4) K/mm3 Avery # (0.0-0.8) K/mm3 Eos # (0.0-0.4) K/mm3 Baso # (0.0-0.1) K/mm3 Seg Neutrophils % (40.0-70.0) % Seg Neutrophils # (1.8-7.7) K/mm3 Sodium 134 L (137-145) mmol/L Potassium 3.7 (3.6-5.0) mmol/L Chloride 97.3 L (98-107) mmol/L Carbon Dioxide 21 L (22-30) mmol/L Anion Gap 19 mmol/L BUN 19 (9-20) mg/dL Creatinine 1.0 (0.8-1.5) mg/dL Estimated GFR > 60 ml/min BUN/Creatinine Ratio 19 % Glucose 97 (75-100) mg/dL Calcium 8.8 (8.4-10.2) mg/dL Urine Color (Yellow) Urine Turbidity (Clear) Urine pH (5.0-7.0) Ur Specific [place] (1.003-1.030) Urine Protein (Negative) mg/dL Urine Glucose (UA) (Negative) mg/dL Urine Ketones (Negative) mg/dL Urine Blood (Negative) Urine Nitrite (Negative) Urine Bilirubin (Negative) Urine Urobilinogen (<2.0) mg/dL Ur Leukocyte Esterase (Negative) Urine WBC (Auto) (0.0-6.0) /HPF Urine RBC (Auto) (0.0-6.0) /HPF U Epithel Cells (Auto) (0-13.0) /HPF Urine Mucus /HPF Salicylates < 0.3 L (2.8-20.0) mg/dL Urine Opiates Screen Urine Methadone Screen Acetaminophen < 5.0 L (10.0-30.0) ug/mL Ur Barbiturates Screen Ur Phencyclidine Scrn Ur Amphetamines Screen U Benzodiazepines Scrn Urine Cocaine Screen U Marijuana (THC) Screen Drugs of Abuse Note Plasma/Serum Alcohol (0-0.07) % 12/22/18 12/22/18 12/22/18 Range/Units 09:17 09:17 Unknown WBC 8.4 (4.5-11.0) K/mm3 RBC 4.99 (3.65-5.03) M/mm3 Hgb 11.1 L (11.8-15.2) gm/dl Hct 34.2 L (35.5-45.6) % MCV 69 L (84-94) fl MCH 22 L (28-32) pg MCHC 32 (32-34) % RDW 20.4 H (13.2-15.2) % Plt Count 308 (140-440) K/mm3 Lymph % (Auto) 13.5 (13.4-35.0) % Avery % (Auto) 9.1 H (0.0-7.3) % Eos % (Auto) 0.0 (0.0-4.3) % Baso % (Auto) 0.7 (0.0-1.8) % Lymph # 1.1 L (1.2-5.4) K/mm3 Avery # 0.8 (0.0-0.8) K/mm3 Eos # 0.0 (0.0-0.4) K/mm3 Baso # 0.1 (0.0-0.1) K/mm3 Seg Neutrophils % 76.7 H (40.0-70.0) % Seg Neutrophils # 6.4 (1.8-7.7) K/mm3 Sodium (137-145) mmol/L Potassium (3.6-5.0) mmol/L Chloride (98-107) mmol/L Carbon Dioxide (22-30) mmol/L Anion Gap mmol/L BUN (9-20) mg/dL Creatinine (0.8-1.5) mg/dL Estimated GFR ml/min BUN/Creatinine Ratio % Glucose (75-100) mg/dL Calcium (8.4-10.2) mg/dL Urine Color Yellow (Yellow) Urine Turbidity Slightly-cloudy (Clear) Urine pH 5.0 (5.0-7.0) Ur Specific [place] 1.030 (1.003-1.030) Urine Protein 100 mg/dl (Negative) mg/dL Urine Glucose (UA) Neg (Negative) mg/dL Urine Ketones Tr (Negative) mg/dL Urine Blood Neg (Negative) Urine Nitrite Neg (Negative) Urine Bilirubin Neg (Negative) Urine Urobilinogen 2.0 (<2.0) mg/dL Ur Leukocyte Esterase Neg (Negative) Urine WBC (Auto) 2.0 (0.0-6.0) /HPF Urine RBC (Auto) 5.0 (0.0-6.0) /HPF U Epithel Cells (Auto) 1.0 (0-13.0) /HPF Urine Mucus 3+ /HPF Salicylates (2.8-20.0) mg/dL Urine Opiates Screen Urine Methadone Screen Acetaminophen (10.0-30.0) ug/mL Ur Barbiturates Screen Ur Phencyclidine Scrn Ur Amphetamines Screen U Benzodiazepines Scrn Urine Cocaine Screen U Marijuana (THC) Screen Drugs of Abuse Note Plasma/Serum Alcohol < 0.01 (0-0.07) % 12/22/18 Range/Units Unknown WBC (4.5-11.0) K/mm3 RBC (3.65-5.03) M/mm3 Hgb (11.8-15.2) gm/dl Hct (35.5-45.6) % MCV (84-94) fl MCH (28-32) pg MCHC (32-34) % RDW (13.2-15.2) % Plt Count (140-440) K/mm3 Lymph % (Auto) (13.4-35.0) % Avery % (Auto) (0.0-7.3) % Eos % (Auto) (0.0-4.3) % Baso % (Auto) (0.0-1.8) % Lymph # (1.2-5.4) K/mm3 Avery # (0.0-0.8) K/mm3 Eos # (0.0-0.4) K/mm3 Baso # (0.0-0.1) K/mm3 Seg Neutrophils % (40.0-70.0) % Seg Neutrophils # (1.8-7.7) K/mm3 Sodium (137-145) mmol/L Potassium (3.6-5.0) mmol/L Chloride (98-107) mmol/L Carbon Dioxide (22-30) mmol/L Anion Gap mmol/L BUN (9-20) mg/dL Creatinine (0.8-1.5) mg/dL Estimated GFR ml/min BUN/Creatinine Ratio % Glucose (75-100) mg/dL Calcium (8.4-10.2) mg/dL Urine Color (Yellow) Urine Turbidity (Clear) Urine pH (5.0-7.0) Ur Specific [place] (1.003-1.030) Urine Protein (Negative) mg/dL Urine Glucose (UA) (Negative) mg/dL Urine Ketones (Negative) mg/dL Urine Blood (Negative) Urine Nitrite (Negative) Urine Bilirubin (Negative) Urine Urobilinogen (<2.0) mg/dL Ur Leukocyte Esterase (Negative) Urine WBC (Auto) (0.0-6.0) /HPF Urine RBC (Auto) (0.0-6.0) /HPF U Epithel Cells (Auto) (0-13.0) /HPF Urine Mucus /HPF Salicylates (2.8-20.0) mg/dL Urine Opiates Screen Presumptive negative Urine Methadone Screen Presumptive negative Acetaminophen (10.0-30.0) ug/mL Ur Barbiturates Screen Presumptive negative Ur Phencyclidine Scrn Presumptive negative Ur Amphetamines Screen Presumptive negative U Benzodiazepines Scrn Presumptive negative Urine Cocaine Screen Presumptive positive U Marijuana (THC) Screen Presumptive positive Drugs of Abuse Note Disclamer Plasma/Serum Alcohol (0-0.07) % Critical care attestation.: If time is entered above; I have spent that time in minutes in the direct care of this critically ill patient, excluding procedure time. ED Disposition Condition: Stable
--- NOTE | 2018-12-22 12:48 | Consultation ---
History of Present Illness - Reason for Consult Consult date: 12/22/18 Reason for consult: Mental Health Evaluation Requesting physician: ARINA PEACE - Chief Complaint Chief complaint: 'I hear things" - History of Present Psychiatric Illness 28 y.o. AA male who presented to the ER for acute psychosis, This patient is known to me. Today the patient was anxious during the assessment. He stated that the voices are telling him to kill himself. He would not confirm or deny a suicide plan when asked. He acknowledged using recreation drugs prior to his arrival to the ER when asked. He stated that he have not been compliant with his mediations (Risperdal and Depakoye). He denies HI's and VH's. He denies a poor appetite, but acknowledged erratic sleep. He denies alcohol consumption (etoh). Medications and Allergies Allergies Allergy/AdvReac Type Severity Reaction Status Date / Time No Known Allergies Allergy Verified 02/20/18 09:25 Home Medications Medication Instructions Recorded Confirmed Last Taken Type Divalproex Sodium [Depakote] 500 mg PO BID #60 tablet. 07/28/18 12/22/18 Unknown Rx Sertraline HCl [Zoloft] 50 mg PO QHS #30 tablet 07/28/18 12/22/18 Unknown Rx risperiDONE [RisperDAL] 3 mg PO BID #60 tablet 07/28/18 12/22/18 Unknown Rx Past psychiatric history - Past Medical History Past Medical History: No medical history, other (Syphillis) Past Surgical History: No surgical history - past Psychiatric treatment and history psychiatric treatment history: Several inpatient psy settings. Denies a fam psy hx. - Social History Social history: lives with family Mental Status Exam - Vital signs Last Vital Signs Temp 98.5 F 12/22/18 09:10 Pulse 107 H 12/22/18 09:10 Resp 18 12/22/18 09:30 BP 154/76 12/22/18 09:10 Pulse Ox 98 12/22/18 09:10 - Exam Narrative exam: MSE: Appearance: cooperative Behavior: regular eye contact Speech: regular rate and low tone Mood: anxious Affect: congruent to mood Thought Process: circumstantial Thought Content: denies HI's and AVH's Motor Activity: ambulatory Cognition: A/O x 3 Insight: vague Judgment: poor Results Result Diagrams: 12/22/18 09:17 12/22/18 09:17 Abnormal lab results 12/22/18 12/22/18 12/22/18 Range/Units 09:17 09:17 09:17 Hgb (11.8-15.2) gm/dl Hct (35.5-45.6) % MCV (84-94) fl MCH (28-32) pg RDW (13.2-15.2) % [place] % (Auto) (0.0-7.3) % Lymph # (1.2-5.4) K/mm3 Seg Neutrophils % (40.0-70.0) % Sodium 134 L (137-145) mmol/L Chloride 97.3 L (98-107) mmol/L Carbon Dioxide 21 L (22-30) mmol/L Salicylates < 0.3 L (2.8-20.0) mg/dL Acetaminophen < 5.0 L (10.0-30.0) ug/mL 12/22/18 Range/Units 09:17 Hgb 11.1 L (11.8-15.2) gm/dl Hct 34.2 L (35.5-45.6) % MCV 69 L (84-94) fl MCH 22 L (28-32) pg RDW 20.4 H (13.2-15.2) % [place] % (Auto) 9.1 H (0.0-7.3) % Lymph # 1.1 L (1.2-5.4) K/mm3 Seg Neutrophils % 76.7 H (40.0-70.0) % Sodium (137-145) mmol/L Chloride (98-107) mmol/L Carbon Dioxide (22-30) mmol/L Salicylates (2.8-20.0) mg/dL Acetaminophen (10.0-30.0) ug/mL All other labs normal. Assessment and Plan Assessment and plan: Impression: Schizoaffective DO. Substance Use DO (cocaine). Cannabis Use DO. Today the patient was anxious during the assessment. DDx: Bipolar DO with psychosis, Substance Induced Psychosis Recommendation/Plan: Continue 1013. Start Risperdal 1 mg PO HS for mood/psychosis, Depakote 500 mg PO BID for mood, and Buspar 7.5 mg PO BID for anxiety for anxiety. Discussed possible side effects of his medications, her verbalized understanding. Baseline A1c/Lipid Panel ordered for the AM. Line of sight for safety. Dispo: The patent was referred to inpatient psy services. Staffed with Dr Tamica Crenshaw.
[2018-12-22] MEDS: BUSPAR PO SCH ×2 (13:10→22:13)
[2018-12-22 13:41] LABS: Alanine Aminotransferase 20 units/L (7-56)
[2018-12-22] MEDS ORDERED: RisperDAL PO SCH (22:00)
[2018-12-23 07:59] VITALS: BP 108/43
[2018-12-23] MEDS: BUSPAR PO SCH (10:51)
--- NOTE | 2018-12-23 14:24 | Progress Note ---
Subjective - Reason for Consult Consult date: 12/23/18 Reason for consult: Psychiatric Follow-up Evaluation - Chief Complaint Chief complaint: '" Patient is a 28 y.o. AA male who presented to the ER for acute psychosis, This patient is known to me. This patient is known to me. Today the patient was anxious during the assessment. He stated that the voices are telling him to kill himself. He would not confirm or deny a suicide plan when asked. Mental Status Exam - Vital signs Last Vital Signs Temp 98.4 F 12/23/18 07:00 Pulse 82 12/23/18 07:00 Resp 18 12/23/18 07:00 BP 108/43 12/23/18 07:00 Pulse Ox 94 12/23/18 07:00 - Exam Narrative exam: Mental Status Exam Appearance: cooperative Behavior: regular eye contact Speech: regular rate and low tone Mood: "" Affect: congruent to mood Thought Process: circumstantial Thought Content: denies SI/HI's and AVH's Motor Activity: ambulatory Cognition: A/O x 3 Insight: variable Judgment: variable Assessment and Plan Impression: Schizoaffective DO. Substance Use DO (cocaine). Cannabis Use DO. Today the patient was anxious during the assessment. DDx: Bipolar DO with psychosis, Substance Induced Psychosis Recommendation/Plan: Continue 1013. Start Risperdal 1 mg PO HS for mood/psychosis, Depakote 500 mg PO BID for mood, and Buspar 7.5 mg PO BID for anxiety for anxiety. Discussed possible side effects of his medications, her verbalized understanding. Baseline A1c/Lipid Panel ordered for the AM. Line of sight for safety. Disposition: The patent was referred to inpatient psy services. Staffed with Dr Tamica Crenshaw.
== END 2018-12-23 11:43 ==
LOC: EEVIPCON 09:07 → ED 09:07
DX: F31.9 Bipolar disorder, unspecified (principal); F17.200 Nicotine dependence, unspecified, uncomplicated; F12.10 Cannabis abuse, uncomplicated; Z79.899 Other long term (current) drug therapy
CPT/HCPCS: 36415; 80048; 80164; 80307; 81001; 82150; 83690; 84075; 84450; 84460; 85025; 96372; 99285; J0561; 80320; G0480

== ENCOUNTER 2019-01-09 20:59 | Emergency (ER) | payer SELFPAY ==
--- NOTE | 2019-01-09 21:43 | Emergency Department Report ---
HPI - General Chief Complaint: Medical Clearance Time Seen by Provider: 01/09/19 21:27 - HPI HPI: Room 10 The patient is 28-year-old male presenting with a chief complaint anger and homicidal ideation. The patient states she is angry at his mother as she keeps putting him out of the home. Patient has a history of cocaine use. When I asked about suicidal ideation patient replies "not right now." When asked if he had homicidal ideation patient replies he's had thoughts of killing his father several months. When asked why the patient states "a long story." Location: [See above] Duration: [See above] Quality: [See above] Severity: [See above] Timing: [See above] Context: [See above] Modifying factors: [See above] Associated signs and symptoms: [see above] ED Past Medical Hx - Past Medical History Previous Medical History?: Yes Hx Psychiatric Treatment: Yes ([place], Bipolar) Additional medical history: drug abuse - Surgical History Past Surgical History?: No - Family History Family history: no significant - Social History Smoking Status: Current Every Day Smoker Substance Use Type: Cocaine - Medications Home Medications: Home Medications Medication Instructions Recorded Confirmed Last Taken Type Sertraline HCl [Zoloft] 50 mg PO QHS #30 tablet 07/28/18 01/09/19 Unknown Rx risperiDONE [RisperDAL] 3 mg PO BID #60 tablet 07/28/18 01/09/19 Unknown Rx Divalproex 1,000 mg PO HS 01/09/19 01/09/19 Unknown History Divalproex Sodium [Depakote] 500 mg PO DAILY 01/09/19 01/09/19 Unknown History Trazodone HCl 50 mg PO HS 01/09/19 01/09/19 Unknown History ED Review of Systems ROS: Stated complaint: MH EVAL Other details as noted in HPI Constitutional: no symptoms reported Eyes: denies: eye pain ENT: denies: throat pain Respiratory: no symptoms reported Cardiovascular: denies: chest pain Endocrine: no symptoms reported Gastrointestinal: denies: abdominal pain Genitourinary: denies: dysuria Musculoskeletal: denies: back pain Neurological: denies: headache Psychiatric: homicidal thoughts. denies: suicidal thoughts Physical Exam - Physical Exam Vital Signs: Vital Signs 01/09/19 21:12 Temperature 98.1 F Pulse Rate 94 H Respiratory 16 Rate Blood Pressure 103/54 O2 Sat by Pulse 99 Oximetry Physical Exam: GENERAL: The patient is well-developed well-nourished male sleeping on stretcher not appearing to be in acute distress. [] HEENT: Normocephalic. Atraumatic. Extraocular motions are intact. Patient has moist mucous membranes. NECK: Supple. Trachea midline CHEST/LUNGS: Clear to auscultation. There is no respiratory distress noted. HEART/CARDIOVASCULAR: Regular. There is no tachycardia. There is no gallop rub or murmur. ABDOMEN: Abdomen is soft, nontender. Patient has normal bowel sounds. There is no abdominal distention. SKIN: There is no rash. There is no edema. There is no diaphoresis. NEURO: The patient is awake, alert, and oriented. The patient is cooperative. The patient has normal speech MUSCULOSKELETAL: There is no evidence of acute injury. ED Course Vital Signs 01/09/19 21:12 Temperature 98.1 F Pulse Rate 94 H Respiratory 16 Rate Blood Pressure 103/54 O2 Sat by Pulse 99 Oximetry ED Medical Decision Making - Lab Data Result diagrams: 01/09/19 21:28 01/09/19 21:28 Laboratory Tests 01/09/19 01/09/19 01/09/19 05:48 05:48 21:28 WBC RBC Hgb Hct MCV MCH MCHC RDW Plt Count [place] % (Auto) Add Manual Diff Total Counted Seg Neuts % (Manual) Band Neutrophils % Lymphocytes % (Manual) Reactive Lymphs % (Man) Monocytes % (Manual) Eosinophils % (Manual) Basophils % (Manual) Metamyelocytes % Myelocytes % Promyelocytes % Blast Cells % Nucleated RBC % Seg Neutrophils # Man Band Neutrophils # Lymphocytes # (Manual) Abs React Lymphs (Man) Monocytes # (Manual) Eosinophils # (Manual) Basophils # (Manual) Metamyelocytes # Myelocytes # Promyelocytes # Blast Cells # WBC Morphology Hypersegmented Neuts Hyposegmented Neuts Hypogranular Neuts Smudge Cells Toxic Granulation Toxic Vacuolation Dohle Bodies Pelger-Huet Anomaly Audra Rods Platelet Estimate Clumped Platelets Plt Clumps, EDTA Large Platelets Giant Platelets Platelet Satelliting Plt Morphology Comment RBC Morphology Dimorphic RBCs Polychromasia Hypochromasia Poikilocytosis Anisocytosis Microcytosis Macrocytosis Spherocytes Pappenheimer Bodies Sickle Cells Target Cells Tear Drop Cells Ovalocytes Helmet Cells [place]-Cut Off Bodies [place] Rings Laurent Cells Bite Cells Crenated Cell Elliptocytes Acanthocytes (Spur) Rouleaux Hemoglobin C Crystals Schistocytes Malaria parasites Uriel Bodies Hem Pathologist Commnt Sodium Potassium Chloride Carbon Dioxide Anion Gap BUN Creatinine Estimated GFR BUN/Creatinine Ratio Glucose Calcium Total Creatine Kinase 481 H CK-MB (CK-2) 5.2 H CK-MB (CK-2) Rel Index 1.0 Troponin T < 0.010 Urine Color Urine Turbidity Urine pH Ur Specific [place] Urine Protein Urine Glucose (UA) Urine Ketones Urine Blood Urine Nitrite Urine Bilirubin Urine Urobilinogen Ur Leukocyte Esterase Urine WBC (Auto) Urine RBC (Auto) U Epithel Cells (Auto) Urine Mucus Salicylates < 0.3 L Urine Opiates Screen Urine Methadone Screen Acetaminophen Ur Barbiturates Screen Valproic Acid < 2.8 L Ur Phencyclidine Scrn Ur Amphetamines Screen U Benzodiazepines Scrn Urine Cocaine Screen U Marijuana (THC) Screen Drugs of Abuse Note Plasma/Serum Alcohol 01/09/19 01/09/19 01/09/19 21:28 21:28 21:28 WBC RBC Hgb Hct MCV MCH MCHC RDW Plt Count [place] % (Auto) Add Manual Diff Total Counted Seg Neuts % (Manual) Band Neutrophils % Lymphocytes % (Manual) Reactive Lymphs % (Man) Monocytes % (Manual) Eosinophils % (Manual) Basophils % (Manual) Metamyelocytes % Myelocytes % Promyelocytes % Blast Cells % Nucleated RBC % Seg Neutrophils # Man Band Neutrophils # Lymphocytes # (Manual) Abs React Lymphs (Man) Monocytes # (Manual) Eosinophils # (Manual) Basophils # (Manual) Metamyelocytes # Myelocytes # Promyelocytes # Blast Cells # WBC Morphology Hypersegmented Neuts Hyposegmented Neuts Hypogranular Neuts Smudge Cells Toxic Granulation Toxic Vacuolation Dohle Bodies Pelger-Huet Anomaly Audra Rods Platelet Estimate Clumped Platelets Plt Clumps, EDTA Large Platelets Giant Platelets Platelet Satelliting Plt Morphology Comment RBC Morphology Dimorphic RBCs Polychromasia Hypochromasia Poikilocytosis Anisocytosis Microcytosis Macrocytosis Spherocytes Pappenheimer Bodies Sickle Cells Target Cells Tear Drop Cells Ovalocytes Helmet Cells [place]-Cut Off Bodies [place] Rings Laurent Cells Bite Cells Crenated Cell Elliptocytes Acanthocytes (Spur) Rouleaux Hemoglobin C Crystals Schistocytes Malaria parasites Uriel Bodies Hem Pathologist Commnt Sodium 139 Potassium 3.4 L Chloride 102.7 Carbon Dioxide 25 Anion Gap 15 BUN 16 Creatinine 1.0 Estimated GFR > 60 BUN/Creatinine Ratio 16 Glucose 117 H Calcium 8.2 L Total Creatine Kinase CK-MB (CK-2) CK-MB (CK-2) Rel Index Troponin T Urine Color Urine Turbidity Urine pH Ur Specific [place] Urine Protein Urine Glucose (UA) Urine Ketones Urine Blood Urine Nitrite Urine Bilirubin Urine Urobilinogen Ur Leukocyte Esterase Urine WBC (Auto) Urine RBC (Auto) U Epithel Cells (Auto) Urine Mucus Salicylates Urine Opiates Screen Urine Methadone Screen Acetaminophen < 5.0 L Ur Barbiturates Screen Valproic Acid Ur Phencyclidine Scrn Ur Amphetamines Screen U Benzodiazepines Scrn Urine Cocaine Screen U Marijuana (THC) Screen Drugs of Abuse Note Plasma/Serum Alcohol < 0.01 01/09/19 01/09/19 01/09/19 21:28 21:28 Unknown WBC 5.3 RBC 4.70 Hgb 10.3 L Hct 32.1 L MCV 68 L MCH 22 L MCHC 32 RDW 19.7 H Plt Count 247 [place] % (Auto) Fire And Safety Helper Add Manual Diff Complete Total Counted 100 Seg Neuts % (Manual) 68.0 Band Neutrophils % 3.0 Lymphocytes % (Manual) 21.0 Reactive Lymphs % (Man) 0 Monocytes % (Manual) 6.0 Eosinophils % (Manual) 2.0 Basophils % (Manual) 0 Metamyelocytes % 0 Myelocytes % 0 Promyelocytes % 0 Blast Cells % 0 Nucleated RBC % Not Reportable Seg Neutrophils # Man 3.6 Band Neutrophils # 0.2 Lymphocytes # (Manual) 1.1 L Abs React Lymphs (Man) 0.0 Monocytes # (Manual) 0.3 Eosinophils # (Manual) 0.1 Basophils # (Manual) 0.0 Metamyelocytes # 0.0 Myelocytes # 0.0 Promyelocytes # 0.0 Blast Cells # 0.0 WBC Morphology Not Reportable TNR Hypersegmented Neuts Not Reportable Hyposegmented Neuts Not Reportable Hypogranular Neuts Not Reportable Smudge Cells Not Reportable Toxic Granulation Not Reportable Toxic Vacuolation Not Reportable Dohle Bodies Not Reportable Pelger-Huet Anomaly Not Reportable Audra Rods Not Reportable Platelet Estimate Not Reportable Clumped Platelets Not Reportable Plt Clumps, EDTA Not Reportable Large Platelets Not Reportable Giant Platelets Not Reportable Platelet Satelliting Not Reportable Plt Morphology Comment Not Reportable RBC Morphology Not Reportable Dimorphic RBCs Not Reportable Polychromasia Not Reportable Hypochromasia 2+ Poikilocytosis Not Reportable Anisocytosis 1+ Microcytosis 2+ Macrocytosis Not Reportable Spherocytes Not Reportable Pappenheimer Bodies Not Reportable Sickle Cells Not Reportable Target Cells Few Tear Drop Cells Not Reportable Ovalocytes Not Reportable Helmet Cells Not Reportable [place]-Cut Off Bodies Not Reportable [place] Rings Not Reportable Laurent Cells Not Reportable Bite Cells Not Reportable Crenated Cell Not Reportable Elliptocytes Not Reportable Acanthocytes (Spur) Not Reportable Rouleaux Not Reportable Hemoglobin C Crystals Not Reportable Schistocytes Not Reportable Malaria parasites Not Reportable Uriel Bodies Not Reportable Hem Pathologist Commnt No Sodium Potassium Chloride Carbon Dioxide Anion Gap BUN Creatinine Estimated GFR BUN/Creatinine Ratio Glucose Calcium Total Creatine Kinase CK-MB (CK-2) CK-MB (CK-2) Rel Index Troponin T Urine Color Yellow Urine Turbidity Slightly-cloudy Urine pH 5.0 Ur Specific [place] 1.035 H Urine Protein 100 mg/dl Urine Glucose (UA) Neg Urine Ketones Tr Urine Blood Neg Urine Nitrite Neg Urine Bilirubin Neg Urine Urobilinogen < 2.0 Ur Leukocyte Esterase Neg Urine WBC (Auto) 2.0 Urine RBC (Auto) 2.0 U Epithel Cells (Auto) < 1.0 Urine Mucus 3+ Salicylates Urine Opiates Screen Urine Methadone Screen Acetaminophen Ur Barbiturates Screen Valproic Acid Ur Phencyclidine Scrn Ur Amphetamines Screen U Benzodiazepines Scrn Urine Cocaine Screen U Marijuana (THC) Screen Drugs of Abuse Note Plasma/Serum Alcohol 01/09/19 Unknown WBC RBC Hgb Hct MCV MCH MCHC RDW Plt Count [place] % (Auto) Add Manual Diff Total Counted Seg Neuts % (Manual) Band Neutrophils % Lymphocytes % (Manual) Reactive Lymphs % (Man) Monocytes % (Manual) Eosinophils % (Manual) Basophils % (Manual) Metamyelocytes % Myelocytes % Promyelocytes % Blast Cells % Nucleated RBC % Seg Neutrophils # Man Band Neutrophils # Lymphocytes # (Manual) Abs React Lymphs (Man) Monocytes # (Manual) Eosinophils # (Manual) Basophils # (Manual) Metamyelocytes # Myelocytes # Promyelocytes # Blast Cells # WBC Morphology Hypersegmented Neuts Hyposegmented Neuts Hypogranular Neuts Smudge Cells Toxic Granulation Toxic Vacuolation Dohle Bodies Pelger-Huet Anomaly Audra Rods Platelet Estimate Clumped Platelets Plt Clumps, EDTA Large Platelets Giant Platelets Platelet Satelliting Plt Morphology Comment RBC Morphology Dimorphic RBCs Polychromasia Hypochromasia Poikilocytosis Anisocytosis Microcytosis Macrocytosis Spherocytes Pappenheimer Bodies Sickle Cells Target Cells Tear Drop Cells Ovalocytes Helmet Cells [place]-Cut Off Bodies [place] Rings Laurent Cells Bite Cells Crenated Cell Elliptocytes Acanthocytes (Spur) Rouleaux Hemoglobin C Crystals Schistocytes Malaria parasites Uriel Bodies Hem Pathologist Commnt Sodium Potassium Chloride Carbon Dioxide Anion Gap BUN Creatinine Estimated GFR BUN/Creatinine Ratio Glucose Calcium Total Creatine Kinase CK-MB (CK-2) CK-MB (CK-2) Rel Index Troponin T Urine Color Urine Turbidity Urine pH Ur Specific [place] Urine Protein Urine Glucose (UA) Urine Ketones Urine Blood Urine Nitrite Urine Bilirubin Urine Urobilinogen Ur Leukocyte Esterase Urine WBC (Auto) Urine RBC (Auto) U Epithel Cells (Auto) Urine Mucus Salicylates Urine Opiates Screen Presumptive negative Urine Methadone Screen Presumptive negative Acetaminophen Ur Barbiturates Screen Presumptive negative Valproic Acid Ur Phencyclidine Scrn Presumptive negative Ur Amphetamines Screen Presumptive negative U Benzodiazepines Scrn Presumptive negative Urine Cocaine Screen Presumptive positive U Marijuana (THC) Screen Presumptive negative Drugs of Abuse Note Disclamer Plasma/Serum Alcohol - EKG Data -: EKG Interpreted by [place] EKG shows normal: sinus rhythm Rate: normal - EKG Data When compared to previous EKG there are: previous EKG unavailable Interpretation: nonspecific ST-T wave francisca - Differential Diagnosis cocaine abuse, homicidal ideation Critical care attestation.: If time is entered above; I have spent that time in minutes in the direct care of this critically ill patient, excluding procedure time. ED Disposition Clinical Impression: Homicidal ideation, Cocaine abuse Disposition: [id number]/TX-[id number]/PSY UNIT Is pt being admited?: No Does the pt Need Aspirin: No Condition: Serious Time of Disposition: 23:03 (awaiting acceptance)
[2019-01-09 21:44] LABS: Hematocrit 32.1 % (35.5-45.6); Hemoglobin 10.3 gm/dl (11.8-15.2); Mean Corpuscular HGB Conc 32 % (32-34); Platelet Count 247 K/mm3 (140-440); Red Cell Distribution Width 19.7 % (13.2-15.2)
[2019-01-09 21:47] LABS: Mean Corpuscular Volume 68 fl (84-94)
[2019-01-09 22:08] LABS: Bilirubin,Urine NEG (Negative); Blood,Urine NEG (Negative); Color,Urine Yellow (Yellow); Mucus,Urine 3+ /HPF; Urobilinogen,Urine < 2.0 mg/dL (<2.0)
[2019-01-09 22:15] LABS: Amphetamine Screen,Urine PRESUMPTIVE NEGATIVE; Benzodiazepines Screen,Urine PRESUMPTIVE NEGATIVE; Cannabinoid Screen,Urine PRESUMPTIVE NEGATIVE; Methadone Screen,Urine PRESUMPTIVE NEGATIVE; Opiate Screen,Urine PRESUMPTIVE NEGATIVE
[2019-01-09 22:21] LABS: BUN/Creatinine Ratio 16; Blood Urea Nitrogen 16 mg/dL (9-20); Calcium 8.2 mg/dL (8.4-10.2); Hemolysis Index 4
[2019-01-09 22:33] LABS: Band Neutrophils # (Manual) 0.2 K/mm3; Basophils % (Manual) 0 % (0.0-1.8); Total Cells Counted 100
[2019-01-09 22:34] LABS: Anisocytosis 1+; Hypochromasia 2+; Target Cells Few
[2019-01-09 22:37] LABS: Creatine Kinase MB 5.2 ng/mL (0.0-4.0)
[2019-01-09 23:00] LABS: Cocaine Screen,Urine PRESUMPTIVE POSITIVE
--- NOTE | 2019-01-10 12:58 | Emergency Department Report ---
ED General Adult HPI - General Chief complaint: Medical Clearance Stated complaint: RAYA VILLANUEVA Time Seen by Provider: 01/10/19 12:54 Source: patient Mode of arrival: Ambulatory Limitations: No Limitations - History of Present Illness Initial comments: This is a 28 y/o male that presents for evaluation. He reports that he has been off his meds for approximately a week. He laying on the bed drowsy, and reports [place] He has is reluctant to talk at this time. He does deny any recent ETOH or drug use. He reports he was Suicidal ,but not today. He reports recent auditory hallucinations and denies visual hallucinations. MD Complaint: Initial - Related Data Home Medications Medication Instructions Recorded Confirmed Last Taken Divalproex 1,000 mg PO HS 01/09/19 01/09/19 Unknown Divalproex Sodium [Depakote] 500 mg PO DAILY 01/09/19 01/09/19 Unknown Trazodone HCl 50 mg PO HS 01/09/19 01/09/19 Unknown Previous Rx's Medication Instructions Recorded Last Taken Type Sertraline HCl [Zoloft] 50 mg PO QHS #30 tablet 07/28/18 Unknown Rx risperiDONE [RisperDAL] 3 mg PO BID #60 tablet 07/28/18 Unknown Rx Allergies Allergy/AdvReac Type Severity Reaction Status Date / Time No Known Allergies Allergy Verified 02/20/18 09:25 ED Review of Systems ROS: Stated complaint: RAYA VILLANUEVA Other details as noted in HPI Constitutional: no symptoms reported Eyes: denies: eye pain ENT: denies: throat pain Respiratory: no symptoms reported Cardiovascular: denies: chest pain Endocrine: no symptoms reported Gastrointestinal: denies: abdominal pain Genitourinary: denies: dysuria Musculoskeletal: denies: back pain Neurological: denies: headache Psychiatric: homicidal thoughts. denies: suicidal thoughts ED Past Medical Hx - Past Medical History Previous Medical History?: Yes Hx Psychiatric Treatment: Yes ([place], Bipolar) Additional medical history: drug abuse - Surgical History Past Surgical History?: No - Social History Smoking Status: Current Every Day Smoker Substance Use Type: Cocaine - Medications Home Medications: Home Medications Medication Instructions Recorded Confirmed Last Taken Type Sertraline HCl [Zoloft] 50 mg PO QHS #30 tablet 07/28/18 01/09/19 Unknown Rx risperiDONE [RisperDAL] 3 mg PO BID #60 tablet 07/28/18 01/09/19 Unknown Rx Divalproex 1,000 mg PO HS 01/09/19 01/09/19 Unknown History Divalproex Sodium [Depakote] 500 mg PO DAILY 01/09/19 01/09/19 Unknown History Trazodone HCl 50 mg PO HS 01/09/19 01/09/19 Unknown History ED Physical Exam - General Limitations: No Limitations General appearance: alert, in no apparent distress - Head Head exam: Present: atraumatic - Other Other exam information: MSE: Appearance: disheveled Behavior: poor Speech: slow Mood: depressed Affect: congruent to mood Thought Process: circumstanstial Thought Content: auditory hallucinations Motor Activity: laying in bed Cognition: A/O x 3 Insight: limited Judgment: poor ED Course Vital Signs 01/09/19 01/09/19 01/10/19 21:12 21:38 01:18 Temperature 98.1 F 98.6 F Pulse Rate 94 H 73 Respiratory 16 16 20 Rate Blood Pressure 103/54 Blood Pressure 109/65 [Right] O2 Sat by Pulse 99 98 98 Oximetry 01/10/19 01/10/19 01/11/19 15:00 20:32 01:00 Temperature 97.9 F 98.0 F 98.0 F Pulse Rate 86 88 75 Respiratory 18 16 20 Rate Blood Pressure Blood Pressure 113/68 118/67 90/50 [Right] O2 Sat by Pulse 98 99 100 Oximetry 01/11/19 08:00 Temperature 92.9 F L Pulse Rate 78 Respiratory 18 Rate Blood Pressure Blood Pressure 109/62 [Right] O2 Sat by Pulse 99 Oximetry ED Medical Decision Making - Lab Data Result diagrams: 01/09/19 21:28 01/09/19 21:28 - Medical Decision Making Assessment with Plan Continue 1013 Patient is stable We will continue current depakote at 500 mg BID and add Zoloft at 50mg Daily evaluate tomorrow possible inpatient status Staffed with Dr. Den MD - Differential Diagnosis brief psychosis, bipolar with psychosis, schizophrenia, SCAD Critical Care Time: No Critical care attestation.: If time is entered above; I have spent that time in minutes in the direct care of this critically ill patient, excluding procedure time. ED Disposition Clinical Impression: Homicidal ideation, Cocaine abuse, Psychoses Disposition: - MED SCREENING EXAM-CONT Condition: Stable Instructions: Brief Psychotic Disorder (ED), Polysubstance Abuse (ED) Additional Instructions: return if worse or if he began to have the desire to harm yourself or others als o return if there any auditory or visual hallucinations Referrals: [facility] [Outside] - 3-5 Days [place] XIN MCLAIN MD [Primary Care Provider] - 3-5 Days
--- NOTE | 2019-01-11 08:56 | Progress Note ---
Subjective - Reason for Consult Consult date: 01/11/19 Reason for consult: Psychiatry Follow-up - Chief Complaint Chief complaint: 8-year-old AA male presented to the ER for anger and HI's. This patient is known to me. Today the patient was calm and cooperative during the assessment. He stated that he was "high" on cocaine when he arrived to the ER. He stated that he was brought to the ER by the police because he was [place]panhandling" at the airport. The patient is known to come to the ER for similar behavior in the past. He stated that he plan to get a job and stop using drugs. He denies SI/HI's and AVH'/s. Per the record, no behavior disturbances by the patient overnight. 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 No overt psychosis with the patient. Today the patient was calm and cooperative during the assessment. The patient was no threat to to self. Recommendation/Plan: Rescind 1013. The patient do not need any prescription. Discussed Discussed possible side effects of his medications, her verbalized understanding. Dispo: The patent can follow up with [facility] for outpatient psy/rehab services. Will staff with Dr Tamica Crenshaw.
[2019-01-11] MEDS ORDERED: SERTRALINE 50 MG TAB PO SCH (10:00)
[2019-01-11 10:05] VITALS: BP 109/62
== END 2019-01-11 11:13 | disposition home or self-care (01) ==
LOC: EEVIPCON 20:59 → ED 20:59
DX: F31.9 Bipolar disorder, unspecified (principal); F14.10 Cocaine abuse, uncomplicated; F17.200 Nicotine dependence, unspecified, uncomplicated
CPT/HCPCS: 36415; 80048; 80164; 80307; 80320; 81001; 82550; 82553; 84484; 85007; 85025; 93005; 93010; G0480

== ENCOUNTER 2019-05-04 21:59 | Emergency (ER) | payer SELFPAY ==
--- NOTE | 2019-05-04 22:29 | Emergency Department Report ---
<FAVIO RODRIGUEZANDI Figueroa - Last Filed: 05/05/19 04:47> ED Psych HPI - General Chief Complaint: Psych Stated Complaint: MED REFILL Time Seen by Provider: 05/04/19 22:26 Source: patient Mode of arrival: Ambulatory Limitations: No Limitations - History of Present Illness Initial Comments: Patient is a 28-year-old male that presents emergency with complaints of suicidal ideations with a plan. Patient states he wants to shoot himself in the neck. Patient states been very depressed. Patient states she's been using a lot of drugs lately. Patient denies homicidal ideations. Patient denies any physical complaints. Patient states he's had this in the past. Patient states this time the symptoms started yesterday. Patient states the thoughts are becoming more frequently. MD Complaint: suicidal ideation, feels depressed -: Sudden, hour(s) Associated Psychiatric Symptoms: depression, suicidal ideation, racing thoughts History of same: Yes Quality: constant Improves With: none Worsens With: none Associated Symptoms: denies other symptoms If Self Harm: admits thoughts of, has plan - Related Data Home Medications Medication Instructions Recorded Confirmed Last Taken Divalproex 1,000 mg PO HS 01/09/19 01/09/19 Unknown Divalproex Sodium [Depakote] 500 mg PO DAILY 01/09/19 01/09/19 Unknown Trazodone HCl 50 mg PO HS 01/09/19 01/09/19 Unknown Previous Rx's Medication Instructions Recorded Last Taken Type Sertraline HCl [Zoloft] 50 mg PO QHS #30 tablet 07/28/18 Unknown Rx risperiDONE [RisperDAL] 3 mg PO BID #60 tablet 07/28/[address] [DepaKOTE DR] 500 mg PO BID #60 tablet 05/07/19 Unknown Rx Sertraline [Zoloft] 50 mg PO QDAY #30 tablet 05/07/19 Unknown Rx risperiDONE [RisperDAL] 3 mg PO BID #60 tablet 05/07/19 Unknown Rx traZODone [Desyrel] 50 mg PO QHS #30 tab 05/07/19 Unknown Rx Allergies Allergy/AdvReac Type Severity Reaction Status Date / Time No Known Allergies Allergy Verified 02/20/18 09:25 ED Review of Systems Constitutional: denies: chills, fever Eyes: denies: eye pain, eye discharge, vision change ENT: denies: ear pain, throat pain Respiratory: denies: cough, shortness of breath, wheezing Cardiovascular: denies: chest pain, palpitations Endocrine: no symptoms reported Gastrointestinal: denies: abdominal pain, nausea, diarrhea Genitourinary: denies: urgency, dysuria Musculoskeletal: denies: back pain, joint swelling, arthralgia Skin: denies: rash, lesions Neurological: denies: headache, weakness, paresthesias Psychiatric: depression, suicidal thoughts. denies: anxiety Hematological/Lymphatic: denies: easy bleeding, easy bruising ED Past Medical Hx - Past Medical History Previous Medical History?: Yes Hx Psychiatric Treatment: Yes (Johann, Bipolar) Additional medical history: drug abuse - Surgical History Past Surgical History?: No - Family History Family history: no significant - Social History Smoking Status: Current Every Day Smoker Substance Use Type: Cocaine - Medications Home Medications: Home Medications Medication Instructions Recorded Confirmed Last Taken Type Sertraline HCl [Zoloft] 50 mg PO QHS #30 tablet 07/28/18 01/09/19 Unknown Rx risperiDONE [RisperDAL] 3 mg PO BID #60 tablet 07/28/18 01/09/19 Unknown Rx Divalproex 1,000 mg PO HS 01/09/19 01/09/19 Unknown History Divalproex Sodium [Depakote] 500 mg PO DAILY 01/09/19 01/09/19 Unknown History Trazodone HCl 50 mg PO HS 01/09/19 01/09/[address] [DepaKOTE DR] 500 mg PO BID #60 tablet 05/07/19 Unknown Rx Sertraline [Zoloft] 50 mg PO QDAY #30 tablet 05/07/19 Unknown Rx risperiDONE [RisperDAL] 3 mg PO BID #60 tablet 05/07/19 Unknown Rx traZODone [Desyrel] 50 mg PO QHS #30 tab 05/07/19 Unknown Rx ED Physical Exam - General Limitations: No Limitations General appearance: alert, in no apparent distress - Head Head exam: Present: atraumatic, normocephalic - Eye Eye exam: Present: normal appearance - ENT ENT exam: Present: mucous membranes moist - Neck Neck exam: Present: normal inspection - Respiratory Respiratory exam: Present: normal lung sounds bilaterally. Absent: respiratory distress, wheezes, rales - Cardiovascular Cardiovascular Exam: Present: regular rate, normal rhythm. Absent: systolic murmur, diastolic murmur, rubs, gallop - GI/Abdominal GI/Abdominal exam: Present: soft, normal bowel sounds. Absent: distended, tenderness, guarding - Rectal Rectal exam: Present: deferred - Extremities Exam Extremities exam: Present: normal inspection - Back Exam Back exam: Present: normal inspection - Neurological Exam Neurological exam: Present: alert, oriented X3 - Psychiatric Psychiatric exam: Present: depressed, flat affect, suicidal ideation - Expanded Psychiatric Exam Expanded Focused psych exam: Present: pressured speech, internal stimuli - Skin Skin exam: Present: warm, dry, intact, normal color. Absent: rash ED Course - Reevaluation(s) Reevaluation #1: Patient placed on a cycle and we will medically clear the patient. Labs will be done. 05/04/19 22:28 Reevaluation #2: Patient labs done. Patient is medically clear. Patient's labs unremarkable. Patient remained in the ER is a psych hold,. Patient's final disposition will come from our psychiatry team. 05/05/19 04:49 ED Medical Decision Making - Lab Data Result diagrams: 05/04/19 22:59 05/04/19 22:59 - Medical Decision Making Patient is a 28-year-old male presents emergency with suicidal ideations. Patient patient had labs done and were unremarkable. Patient placed on a psychiatry home until he can be evaluated by our psych team. - Differential Diagnosis suicidal ideation, depression, drug abuse. ED Disposition Clinical Impression: Suicidal ideations Disposition: DC-01 TO HOME OR SELFCARE Is pt being admited?: No Does the pt Need Aspirin: No Condition: Stable Prescriptions: traZODone [Desyrel] 50 mg PO QHS #[address] [DepaKOTE DR] 500 mg PO BID #60 tablet risperiDONE [RisperDAL] 3 mg PO BID #60 tablet Sertraline [Zoloft] 50 mg PO QDAY #30 tablet Referrals: PRIMARY CARE, [Primary Care Provider] - 2-3 Days Time of Disposition: 04:51 <ROBB PEACE - Last Filed: 05/07/19 13:12> ED Review of Systems ROS: Stated complaint: MED REFILL Other details as noted in HPI ED Course Vital Signs 05/04/19 05/05/19 05/05/19 22:29 01:03 07:45 Temperature 98.6 F 99.2 F 99.8 F H Pulse Rate 103 H 97 H 96 H Respiratory 18 20 16 Rate Blood Pressure 132/81 Blood Pressure 142/83 116/54 [Left] O2 Sat by Pulse 98 98 98 Oximetry 05/05/19 05/05/19 05/06/19 13:22 20:50 01:15 Temperature 98 F 98.3 F 98.6 F Pulse Rate 92 H 95 H 90 Respiratory 18 18 18 Rate Blood Pressure Blood Pressure 113/64 130/80 126/69 [Left] O2 Sat by Pulse 97 97 99 Oximetry 05/06/19 05/06/19 05/07/19 08:39 19:30 02:22 Temperature 98.3 F 98.6 F 98.4 F Pulse Rate 81 95 H 90 Respiratory 18 18 Rate Blood Pressure Blood Pressure 121/76 102/71 132/60 [Left] O2 Sat by Pulse 99 98 98 Oximetry 05/07/19 08:27 Temperature 97.8 F Pulse Rate 86 Respiratory 18 Rate Blood Pressure Blood Pressure 126/89 [Left] O2 Sat by Pulse 99 Oximetry ED Medical Decision Making - Lab Data Result diagrams: 05/04/19 22:59 05/04/19 22:59 - Medical Decision Making I reviewed recommendations from psychiatric team. Outpatient treatment re commended. Patient is discharged home. 1013 has been rescinded by psychiatric team. Critical care attestation.: If time is entered above; I have spent that time in minutes in the direct care of this critically ill patient, excluding procedure time. ED Disposition Is pt being admited?: No Does the pt Need Aspirin: No Time of Disposition: 13:10
[2019-05-04 23:40] LABS: Basophils # (Auto) 0.1 K/mm3 (0.0-0.1); Basophils % (Auto) 1.3 % (0.0-1.8); Eosinophils # (Auto) 0.2 K/mm3 (0.0-0.4); Eosinophils % (Auto) 2.7 % (0.0-4.3); Hematocrit 34.5 % (35.5-45.6); Hemoglobin 11.3 gm/dl (11.8-15.2); Lymphocytes % (Auto) 15.7 % (13.4-35.0); Mean Corpuscular HGB Conc 33 % (32-34); Monocytes # (Auto) 0.4 K/mm3 (0.0-0.8); Monocytes % (Auto) 6.6 % (0.0-7.3); Platelet Count 314 K/mm3 (140-440); Red Blood Count 5.25 M/mm3 (3.65-5.03)
[2019-05-04 23:42] LABS: Mean Corpuscular Volume 66 fl (84-94)
[2019-05-05 00:03] LABS: Alanine Aminotransferase 21 units/L (7-56); Albumin 3.9 g/dL (3.9-5); BUN/Creatinine Ratio 14; Blood Urea Nitrogen 13 mg/dL (9-20); Calcium 8.8 mg/dL (8.4-10.2); Hemolysis Index 5
[2019-05-05 09:23] LABS: Bilirubin,Urine NEG (Negative); Blood,Urine NEG (Negative); Color,Urine Yellow (Yellow); Mucus,Urine 1+ /HPF; Protein,Urine <15 mg/dL mg/dL (Negative)
[2019-05-05 10:44] LABS: Amphetamine Screen,Urine PRESUMPTIVE NEGATIVE; Benzodiazepines Screen,Urine PRESUMPTIVE NEGATIVE; Cannabinoid Screen,Urine PRESUMPTIVE NEGATIVE; Methadone Screen,Urine PRESUMPTIVE NEGATIVE; Opiate Screen,Urine PRESUMPTIVE NEGATIVE
[2019-05-05 11:01] LABS: Cocaine Screen,Urine PRESUMPTIVE POSITIVE
--- NOTE | 2019-05-06 12:59 | Consultation ---
History of Present Illness - Reason for Consult Consult date: 05/06/19 Reason for consult: psychiatric assessment - History of Present Psychiatric Illness Mr. Castro is a 28-year-old -F[place] male. The patient is alert and oriented 3. Patient is able to make needs known. The patient grooming needs improvement. The patient was asked why he came to the hospital, the patient states," I was angry and I had a bipolar moment "I told someone that I was going to hurt myself by tying a shoe around my neck", but that's because I was mad the patient contracted for safety. Patient stated, that "I am not suicidal now because I have been here for 3 days I am doing better and need to go home and get a job, I realized that I could not hurt myself". The patient kept repeating the same thing over and over. The patient denies homicidal ideation on the patient denies visual or auditory hallucination. The patient denies being depressed. The patient stated that he uses cocaine daily, he denies alcohol use. The patient reported that he had stopped taking his medications for 1 week, because he left them at his mom's house he was with friends. He does report t hat he would like to restart his medication so he could be better and go home and get a job. The patient's speech is noted rapid. He appeared anxious PAST PSYCHIATRIC HISTORY: Diagnoses: Bipolar, schizophrenia Suicide attempts or Self-harm behavior: No Prior psychiatric hospitalizations: Yes Substance Abuse history: Cocaine Previous psychiatric medications tried: Depakote, Risperdal, Zoloft Outpatient treatment: PAST MEDICAL HISTORY: Family Psychiatric History None reported or documented SOCIAL HISTORY Marital Status: Single Living Arrangements: Mother Employment Status: Unemployed Access to guns/weapons: Denies Education: Eighth grade History of Abuse: Denies Legal History: yes ROS: Constitutional: Negative for weight loss ENT: Negative for stridor Respiratory: Negative for cough or hemoptysis All other systems reviewed and are negative MENTAL STATUS General Appearance and Behavior: age appropriate, limited eye contact, cooperative ,unkept Cooperation: Cooperative Psychomotor Behavior: anxious Mood: OK Affect and affective range: broad Thought Process: Circumstantial Thought Content: flight of ideas Speech: rapid Intellectual Functioning Average Suicidal Ideation: Denies SI Homicidal Ideation: Denies HI Impulse Control: intact Insight and Judgment: normal insight and judgment Memory: Normal Attention: Normal Orientation: alert and oriented RECOMMENDATIONS MEDICATIONS: Start Depakote 500 mg twice a day Start risperidone 3 mg bid Start Zoloft 50 mg daily Start trazodone 50 mg daily at bedtime Risks, benefits and alternatives of medications discussed with the patient, questions answered and consent obtained from patient. PSYCHOTHERAPY: Supportive psychotherapy provided MEDICAL: Per primary team DELIRIUM PRECAUTIONS: Please re-orient patient frequently, keep lights on during the day, and minimize benzodiazepines and opiates as these medications could wo rsen patient's confusion. RIVET HOLE MACHINE OPERATOR: DISPOSITION: The patient needs to restarted home medication before he can be discharged home. LEGAL STATUS: Continue 1013 FOLLOW-UP: Will follow Medications and Allergies Allergies Allergy/AdvReac Type Severity Reaction Status Date / Time No Known Allergies Allergy Verified 02/20/18 09:25 Home Medications Medication Instructions Recorded Confirmed Last Taken Type Sertraline HCl [Zoloft] 50 mg PO QHS #30 tablet 07/28/18 01/09/19 Unknown Rx risperiDONE [RisperDAL] 3 mg PO BID #60 tablet 07/28/18 01/09/19 Unknown Rx Divalproex 1,000 mg PO HS 01/09/19 01/09/19 Unknown History Divalproex Sodium [Depakote] 500 mg PO DAILY 01/09/19 01/09/19 Unknown History Trazodone HCl 50 mg PO HS 01/09/19 01/09/19 Unknown History Mental Status Exam - Vital signs Last Vital Signs Temp 98.3 F 05/06/19 08:39 Pulse 81 05/06/19 08:39 Resp 18 05/06/19 01:15 BP 121/76 05/06/19 08:39 Pulse Ox 99 05/06/19 08:39 Results Result Diagrams: 05/04/19 22:59 05/04/19 22:59 All other labs normal.
[2019-05-06] MEDS ORDERED: HALOPERIDOL LACTATE 5 MG/1 ML INJ IM PRN (13:18)
[2019-05-06] MEDS ORDERED: traZODone 50 MG TAB PO SCH (22:00)
[2019-05-06] MEDS: DIVALPROEX DR 500 MG TAB PO SCH (23:35)
[2019-05-06] MEDS: risperiDONE 1 MG TAB PO SCH (23:35)
[2019-05-07 08:30] VITALS: BP 126/89
[2019-05-07] MEDS: risperiDONE 1 MG TAB PO SCH (10:30)
[2019-05-07] MEDS: DIVALPROEX DR 500 MG TAB PO SCH (10:30)
--- NOTE | 2019-05-07 12:38 | Progress Note ---
Subjective - Reason for Consult Consult date: 05/07/19 Reason for consult: suicidal ideation - Chief Complaint Chief complaint: During my interview today, the patient was lying down. Awake. He makes good eye contact. He is dressed appropriately. He states upon me walking into the room, "I feel better now." The patient says he came to the hospital because he "stopped taking his meds." He says "when I came in I was suicidal," but says "I'm not now." The patient says "I was running the streets and not at my momma's house. I wasn't taking my meds." He then states, "since I started my meds back I feel better." He presently denies SI/HI at this time. He also denies hallucinations of any kind. Afshin states that, "I talked to my momma, she says I can come back home." He says his mood is "good." And denies any difficulty sleeping. He denies any fear or feelings of endangerment. ROS: Constitutional: Negative for weight loss ENT: Negative for stridor Respiratory: Negative for cough or hemoptysis All other systems reviewed and are negative MSE Appearance: Awake. Dressed appropriately Behavior: calm and cooperative. good contact. Mood: "good" Affect: Congruent with stated mood Thought Process: Goal directed Speech: Normal tone and pace Thought Content Harmfulness Denies Hallucinations: Denies Delusions: none elicited Consciousness: Alert Cognition/Memory: Good Insight/Judgment: Fair Assessment: Major Depressive Disorder, Severe w/o Psychotic Features Plan D/c 1013 Risperidone 3mg po BID Depakote DR 500mg po BID Zoloft 50mg po daily Trazodone 50mg po qhs MEDICAL: Per primary team EMERGENCY MEDICINE PHYSICIAN: DISPOSITION: The patient does not meet the requirement of acute inpatient psychiatric treatment at this time. He may discharge home once medically cleared. FOLLOW-UP: Will sign off The medications, benefits and side effects, were explained to the patient, along with the treatment plan. She verbalizes understanding and agreement of the plan. Mental Status Exam - Vital signs Last Vital Signs Temp 97.8 F 05/07/19 08:27 Pulse 86 05/07/19 08:27 Resp 18 05/07/19 08:27 BP 126/89 01/24/20 08:27 Pulse Ox 99 05/07/19 08:27
== END 2019-05-07 13:30 | disposition home or self-care (01) ==
LOC: ED 21:59
DX: R45.851 Suicidal ideations (principal); F31.9 Bipolar disorder, unspecified; F17.200 Nicotine dependence, unspecified, uncomplicated; F14.10 Cocaine abuse, uncomplicated; Z79.899 Other long term (current) drug therapy
CPT/HCPCS: 36415; 80053; 80307; 80320; 81001; 85025; G0480

== ENCOUNTER 2019-05-15 04:10 | Emergency (ER) | payer SELFPAY ==
[2019-05-15] MEDS ORDERED: ACETAMINOPHEN 500 MG TAB PO ONE (04:23)
--- NOTE | 2019-05-15 04:34 | Emergency Department Report ---
<ROBB PEACE - Last Filed: 05/15/19 05:29> ED Psych HPI - General Chief Complaint: Psych Stated Complaint: PSYCH Time Seen by Provider: 05/15/19 04:19 Source: patient, EMS Mode of arrival: Stretcher - History of Present Illness Initial Comments: Chief complaint: "I have a wart on my penis." HPI: Mr. Castro is a 28-year-old male with history of schizophrenia, bipolar disorder and cocaine abuse who presents one hour after smoking cocaine. He was brought by EMS for suicidal ideation. He also states that he will want treatment for a wart on his penis. He's also had fever chills productive cough. No specific plan to harm himself. Denies homicidal ideation. Denies hearing voices. MD Complaint: suicidal ideation -: Sudden, This morning Associated Psychiatric Symptoms: suicidal ideation History of same: Yes Quality: constant Worsens With: drug use (cocaine abuse 1 hour prior to arrival) Context: recent drug abuse Associated Symptoms: other (fever chills cough) If Self Harm: admits thoughts of - Related Data Home Medications Medication Instructions Recorded Confirmed Last Taken Divalproex 1,000 mg PO HS 01/09/19 01/09/19 Unknown Divalproex Sodium [Depakote] 500 mg PO DAILY 01/09/19 01/09/19 Unknown Trazodone HCl 50 mg PO HS 01/09/19 01/09/19 Unknown Previous Rx's Medication Instructions Recorded Last Taken Type Sertraline HCl [Zoloft] 50 mg PO QHS #30 tablet 07/28/18 Unknown Rx risperiDONE [RisperDAL] 3 mg PO BID #60 tablet 07/28/[address] [DepaKOTE DR] 500 mg PO BID #60 tablet 05/07/19 Unknown Rx Sertraline [Zoloft] 50 mg PO QDAY #30 tablet 05/07/19 Unknown Rx risperiDONE [RisperDAL] 3 mg PO BID #60 tablet 05/07/19 Unknown Rx traZODone [Desyrel] 50 mg PO QHS #30 tab 05/07/19 Unknown Rx Albuterol INH(or & Nicu Only) 2 puff IH QID PRN #1 inhalation 05/15/19 Unknown Rx [ProAir HFA Inhaler] Azithromycin [Zithromax Z-TIFFANIE] 250 mg PO DAILY #6 tablet 05/15/19 Unknown Rx Benzonatate [Tessalon Perles] 100 mg PO Q8HR #10 capsule 05/15/19 Unknown Rx Sulfamethoxazole/Trimethoprim 1 each PO BID #14 tablet 05/15/19 Unknown Rx [Bactrim DS TAB] Allergies Allergy/AdvReac Type Severity Reaction Status Date / Time No Known Allergies Allergy Verified 02/20/18 09:25 ED Review of Systems Comment: All other systems reviewed and negative Constitutional: fever Respiratory: cough. denies: shortness of breath Cardiovascular: denies: chest pain Gastrointestinal: denies: abdominal pain, nausea, vomiting Genitourinary: other (wart on penis) ED Past Medical Hx - Past Medical History Previous Medical History?: Yes Hx Psychiatric Treatment: Yes (Bipolar, schizo) Additional medical history: drug abuse - Surgical History Past Surgical History?: No - Social History Smoking Status: Current Every Day Smoker Substance Use Type: Marijuana - Medications Home Medications: Home Medications Medication Instructions Recorded Confirmed Last Taken Type Sertraline HCl [Zoloft] 50 mg PO QHS #30 tablet 07/28/18 01/09/19 Unknown Rx risperiDONE [RisperDAL] 3 mg PO BID #60 tablet 07/28/18 01/09/19 Unknown Rx Divalproex 1,000 mg PO HS 01/09/19 01/09/19 Unknown History Divalproex Sodium [Depakote] 500 mg PO DAILY 01/09/19 01/09/19 Unknown History Trazodone HCl 50 mg PO HS 01/09/19 01/09/[address] [DepaKOTE DR] 500 mg PO BID #60 tablet 05/07/19 Unknown Rx Sertraline [Zoloft] 50 mg PO QDAY #30 tablet 05/07/19 Unknown Rx risperiDONE [RisperDAL] 3 mg PO BID #60 tablet 05/07/19 Unknown Rx traZODone [Desyrel] 50 mg PO QHS #30 tab 05/07/19 Unknown Rx Albuterol INH(or & Nicu Only) 2 puff IH QID PRN #1 inhalation 05/15/19 Unknown Rx [ProAir HFA Inhaler] Azithromycin [Zithromax Z-TIFFANIE] 250 mg PO DAILY #6 tablet 05/15/19 Unknown Rx Benzonatate [Tessalon Perles] 100 mg PO Q8HR #10 capsule 05/15/19 Unknown Rx Sulfamethoxazole/Trimethoprim 1 each PO BID #14 tablet 05/15/19 Unknown Rx [Bactrim DS TAB] ED Physical Exam - General Limitations: No Limitations General appearance: alert, in no apparent distress, other (agitated and hyperactive repetitive movement of arms) - Head Head exam: Present: atraumatic, normocephalic - Eye Eye exam: Present: normal appearance. Absent: scleral icterus, conjunctival injection - ENT ENT exam: Present: mucous membranes moist - Neck Neck exam: Present: normal inspection, full ROM - Respiratory Respiratory exam: Present: normal lung sounds bilaterally. Absent: respiratory distress, wheezes, rales, rhonchi - Cardiovascular Cardiovascular Exam: Present: normal rhythm, tachycardia, normal heart sounds. Absent: systolic murmur, diastolic murmur, rubs, gallop - GI/Abdominal GI/Abdominal exam: Present: soft, normal bowel sounds. Absent: distended, tenderness, guarding - Rectal Rectal exam: Present: deferred - exam: Present: normal inspection, circumcision, other (mole at the base of the penis). Absent: scrotal swelling, vertical testicular lie - Extremities Exam Extremities exam: Present: normal inspection - Back Exam Back exam: Present: normal inspection - Neurological Exam Neurological exam: Present: alert, oriented X3 - Psychiatric Psychiatric exam: Present: normal affect, agitated, suicidal ideation - Skin Skin exam: Present: warm, dry, intact, normal color. Absent: rash ED Medical Decision Making - Lab Data Result diagrams: 05/15/19 04:27 05/15/19 04:27 - Medical Decision Making 1. mole on penis: no indication for emergent treatment 2. cocaine intoxication: will need observation until lucid and sobe 3. suicidal ideation: no plan to harm himself, He explains "I want to kill myself." Will hold patient voluntarily until seen by our psychiatric team 4. fever: rapid flu negative, Suspect atypical PNA with xray findings treated with azithromycin, no symptoms of TB such as hemoptysis or night sweats, consider opportunistic infection normal WBC ED Disposition Clinical Impression: Suicidal ideations, Atypical pneumonia, Cocaine abuse Schizophrenia Qualifiers: Schizophrenia type: other Qualified Code(s): F20.89 - Other schizophrenia; F20.8 - Other schizophrenia Disposition: - TO HOME OR SELFCARE Condition: Stable Instructions: Pneumonia (ED), Cocaine Abuse (ED), Suicide Prevention for Adults (ED) Additional Instructions: Your Chest XRay shows a diffuse patchy pneumonia. Please obtain HIV testing as an outpatient to rule this out as a possible contributing factor in causing your pneumonia. Please see referrals for mental health care Referrals: VINAYAK CULVER MD [Staff Physician] - 3-5 Days <ARINA PEACE - Last Filed: 05/15/19 14:42> ED Review of Systems ROS: Stated complaint: PSYCH Other details as noted in HPI ED Course Vital Signs 05/15/19 05/15/19 05/15/19 04:13 06:38 07:34 Temperature 101.4 F H 99.4 F 99.3 F Pulse Rate 123 H 79 93 H Respiratory 18 Rate Blood Pressure 116/59 Blood Pressure 106/50 [Right] O2 Sat by Pulse 99 96 Oximetry ED Medical Decision Making - Lab Data Result diagrams: 05/15/19 04:27 05/15/19 04:27 - Medical Decision Making DR. AWAD: Consulted with Dr. Awad who agrees with the below recommendation for the patient to be discharged with outpatient referrals and safety plan. Vera Mejía LPC Original Note: MENTAL HEALTH ASSESSMENT COMPLETED: Pt is a 28 year old male who presents to the ED one hour after cocaine use. The pt was laying down during assessment and had eaten breakfast, at least two snack bags of food and requesting another snack bag. The pt had strewn the trash on the floor from the food in his room; "I will get it later. Can I have a nother snack bag?" The pt reports no SI, no HI, and no AH or VH. The pt reports, "Can I get another snack bag and be discharged?" The pt reports he came to the ED, "because I was mad, but I'm better now." The pt reports that during the day he panhandles saucedo to purchase cocaine; the pt resides at his mother's home. Pt has been seen by this facility multiple times. The pt has a history of cocaine use disorder and Schizophrenia. The pt reports that he is not compliant with his outpatient medications or therapy. This trouble dispatcher saw the patient 2 weeks ago and provided outpatient referrals; the pt reports he did not go see the providers; "I don't feel like going." The pt reports no recent attempts or thoughts to harm himself or others. Pt reports no suicidal ideation; "I just said that because I was mad, and I smoked." Pt reports he has no current thoughts, plan or access to harm himself. "I'm not gonna do that; I'm ready to go. Can I get a snack bag when I leave?" RECOMMENDATION: Provide list of outpatient mental health providers, complete safety plan, and discharge patient. Vera Mejía LPC Initialized on 05/15/19 11:26 - END OF NOTE The patient will be discharged home. Patient being cleared by her mental health assessment. Regarding the patient's fever and interstitial disease on his chest x-ray patient will be started on azithromycin. Patient also given a course of Bactrim in case this is a PCP pneumonia. Patient has been urged to follow-up with primary care and obtain HIV testing. Critical care attestation.: If time is entered above; I have spent that time in minutes in the direct care of this critically ill patient, excluding procedure time. ED Disposition Is pt being admited?: No Does the pt Need Aspirin: No Time of Disposition: 14:40
[2019-05-15 04:37] LABS: Hematocrit 33.7 % (35.5-45.6); Hemoglobin 11.1 gm/dl (11.8-15.2); Mean Corpuscular HGB Conc 33 % (32-34); Platelet Count 299 K/mm3 (140-440); Red Blood Count 5.18 M/mm3 (3.65-5.03)
[2019-05-15 04:45] LABS: Mean Corpuscular Volume 65 fl (84-94); Red Cell Distribution Width 20.4 % (13.2-15.2)
--- NOTE | 2019-05-15 04:49 | XRay Report ---
CHEST 1 VIEW INDICATION: fever. COMPARISON: None FINDINGS: Support devices: None. Heart: Within normal limits. Lungs/Pleura: Mild diffuse interstitial prominence with patchy multifocal airspace disease in the per iphery of both upper lung zones. Trace bilateral effusions also noted. Additional findings: None. IMPRESSION: 1. Pulmonary findings as above. Signer Name: José Katz MD Signed: 05/15/2019 4:45 AM Workstation Name: [id number]
[2019-05-15 05:00] LABS: Alanine Aminotransferase 19 units/L (7-56); Albumin 3.6 g/dL (3.9-5); BUN/Creatinine Ratio 17; Blood Urea Nitrogen 15 mg/dL (9-20); Calcium 8.7 mg/dL (8.4-10.2); Hemolysis Index 3
[2019-05-15] MEDS ORDERED: AZITHROMYCIN 250 MG TAB PO ONE (05:29)
[2019-05-15 06:53] LABS: Anisocytosis 1+; Band Neutrophils # (Manual) 0.2 K/mm3; Basophils % (Manual) 0 % (0.0-1.8); Eosinophils % (Manual) 0 % (0.0-4.3); Hypochromasia 2+; Total Cells Counted 100
[2019-05-15 06:54] LABS: Platelet Estimate Consistent w Auto; Target Cells Rare
[2019-05-15 09:21] LABS: Bilirubin,Urine NEG (Negative); Blood,Urine NEG (Negative); Color,Urine Yellow (Yellow); Mucus,Urine FEW /HPF; Protein,Urine <15 mg/dL mg/dL (Negative); Urobilinogen,Urine < 2.0 mg/dL (<2.0); WBC,Urine < 1.0 /HPF (0.0-6.0)
[2019-05-15 09:34] LABS: Amphetamine Screen,Urine PRESUMPTIVE NEGATIVE; Benzodiazepines Screen,Urine PRESUMPTIVE NEGATIVE; Cannabinoid Screen,Urine PRESUMPTIVE NEGATIVE; Methadone Screen,Urine PRESUMPTIVE NEGATIVE; Opiate Screen,Urine PRESUMPTIVE NEGATIVE
[2019-05-15 09:55] LABS: Cocaine Screen,Urine PRESUMPTIVE POSITIVE
[2019-05-15 15:05] VITALS: BP 123/61
== END 2019-05-15 15:45 | disposition home or self-care (01) ==
LOC: ED 04:10
DX: R45.851 Suicidal ideations (principal); J18.8 Other pneumonia, unspecified organism; F12.10 Cannabis abuse, uncomplicated
CPT/HCPCS: 36415; 71045; 80053; 80307; 80320; 81001; 85007; 85025; 87400; G0480

== ENCOUNTER 2019-05-19 17:41 | Emergency (ER) | payer SELFPAY ==
[2019-05-19 18:48] LABS: Hematocrit 34.4 % (35.5-45.6); Mean Corpuscular HGB Conc 32 % (32-34); Platelet Count 308 K/mm3 (140-440); Red Blood Count 5.24 M/mm3 (3.65-5.03)
[2019-05-19 19:03] LABS: Mean Corpuscular Volume 66 fl (84-94)
[2019-05-19 19:10] LABS: BUN/Creatinine Ratio 18; Blood Urea Nitrogen 21 mg/dL (9-20); Calcium 8.8 mg/dL (8.4-10.2); Hemolysis Index 1
[2019-05-19 19:55] LABS: Anisocytosis 1+; Basophils % (Manual) 0 % (0.0-1.8); Hypochromasia 2+; Target Cells 1+; Total Cells Counted 100
[2019-05-19 20:51] LABS: Amphetamine Screen,Urine PRESUMPTIVE NEGATIVE; Bacteria,Urine 1+ /HPF (Negative); Benzodiazepines Screen,Urine PRESUMPTIVE NEGATIVE; Bilirubin,Urine NEG (Negative); Blood,Urine NEG (Negative); Cannabinoid Screen,Urine PRESUMPTIVE NEGATIVE; Color,Urine Yellow (Yellow); Methadone Screen,Urine PRESUMPTIVE NEGATIVE; Mucus,Urine 2+ /HPF; Opiate Screen,Urine PRESUMPTIVE NEGATIVE
[2019-05-19 21:09] LABS: Cocaine Screen,Urine PRESUMPTIVE POSITIVE
--- NOTE | 2019-05-19 23:36 | Emergency Department Report ---
ED General Adult HPI - General Chief complaint: Psych Stated complaint: MH/SCHIZOPHRENIA Time Seen by Provider: 05/19/19 21:20 Source: patient Mode of arrival: Ambulatory Limitations: No Limitations - History of Present Illness Initial comments: Patient presents to the emergency department with a chief complaint of mental health evaluation. Patient states he was dropped off by his mother for evaluation. Patient has a history of schizoaffective disorder and bipolar. Patient states that he is suicidal with a plan being to stab himself. The patient states that that he's had a suicide attempt before and states that he tried to hang himself with the shoelaces. Patient denies auditory or visual hallucinations. -: unknown Severity scale (0 -10): 0 Consistency: constant Improves with: none Worsens with: none Associated Symptoms: denies other symptoms Treatments Prior to Arrival: none - Related Data Home Medications Medication Instructions Recorded Confirmed Last Taken Divalproex 1,000 mg PO HS 01/09/19 01/09/19 Unknown Divalproex Sodium [Depakote] 500 mg PO DAILY 01/09/19 01/09/19 Unknown Trazodone HCl 50 mg PO HS 01/09/19 01/09/19 Unknown Previous Rx's Medication Instructions Recorded Last Taken Type Sertraline HCl [Zoloft] 50 mg PO QHS #30 tablet 07/28/18 Unknown Rx risperiDONE [RisperDAL] 3 mg PO BID #60 tablet 07/28/[address] [DepaKOTE DR] 500 mg PO BID #60 tablet 05/07/19 Unknown Rx Sertraline [Zoloft] 50 mg PO QDAY #30 tablet 05/07/19 Unknown Rx risperiDONE [RisperDAL] 3 mg PO BID #60 tablet 05/07/19 Unknown Rx traZODone [Desyrel] 50 mg PO QHS #30 tab 05/07/19 Unknown Rx Albuterol INH(or & Nicu Only) 2 puff IH QID PRN #1 inhalation 05/15/19 Unknown Rx [ProAir HFA Inhaler] Azithromycin [Zithromax Z-TIFFANIE] 250 mg PO DAILY #6 tablet 05/15/19 Unknown Rx Benzonatate [Tessalon Perles] 100 mg PO Q8HR #10 capsule 05/15/19 Unknown Rx Sulfamethoxazole/Trimethoprim 1 each PO BID #14 tablet 05/15/19 Unknown Rx [Bactrim DS TAB] Allergies Allergy/AdvReac Type Severity Reaction Status Date / Time No Known Allergies Allergy Verified 02/20/18 09:25 ED Review of Systems ROS: Stated complaint: MH/SCHIZOPHRENIA Other details as noted in HPI Comment: All other systems reviewed and negative Constitutional: denies: chills, fever Eyes: denies: eye pain, eye discharge, vision change ENT: denies: ear pain, throat pain Respiratory: denies: cough, shortness of breath, wheezing Cardiovascular: denies: chest pain, palpitations Endocrine: no symptoms reported Gastrointestinal: denies: abdominal pain, nausea, diarrhea Genitourinary: denies: urgency, dysuria Musculoskeletal: denies: back pain, joint swelling, arthralgia Skin: denies: rash, lesions Neurological: denies: headache, weakness, paresthesias Psychiatric: suicidal thoughts. denies: anxiety, depression, auditory hallucinations, visual hallucinations, homicidal thoughts Hematological/Lymphatic: denies: easy bleeding, easy bruising ED Past Medical Hx - Past Medical History Previous Medical History?: Yes Hx Psychiatric Treatment: Yes (Bipolar, schizo) Additional medical history: drug abuse - Social History Smoking Status: Current Every Day Smoker Substance Use Type: Cocaine - Medications Home Medications: Home Medications Medication Instructions Recorded Confirmed Last Taken Type Sertraline HCl [Zoloft] 50 mg PO QHS #30 tablet 07/28/18 01/09/19 Unknown Rx risperiDONE [RisperDAL] 3 mg PO BID #60 tablet 07/28/18 01/09/19 Unknown Rx Divalproex 1,000 mg PO HS 01/09/19 01/09/19 Unknown History Divalproex Sodium [Depakote] 500 mg PO DAILY 01/09/19 01/09/19 Unknown History Trazodone HCl 50 mg PO HS 01/09/19 01/09/[address] [DepaKOTE DR] 500 mg PO BID #60 tablet 05/07/19 Unknown Rx Sertraline [Zoloft] 50 mg PO QDAY #30 tablet 05/07/19 Unknown Rx risperiDONE [RisperDAL] 3 mg PO BID #60 tablet 05/07/19 Unknown Rx traZODone [Desyrel] 50 mg PO QHS #30 tab 05/07/19 Unknown Rx Albuterol INH(or & Nicu Only) 2 puff IH QID PRN #1 inhalation 05/15/19 Unknown Rx [ProAir HFA Inhaler] Azithromycin [Zithromax Z-TIFFANIE] 250 mg PO DAILY #6 tablet 05/15/19 Unknown Rx Benzonatate [Tessalon Perles] 100 mg PO Q8HR #10 capsule 05/15/19 Unknown Rx Sulfamethoxazole/Trimethoprim 1 each PO BID #14 tablet 05/15/19 Unknown Rx [Bactrim DS TAB] ED Physical Exam - General Limitations: No Limitations General appearance: alert, in no apparent distress - Head Head exam: Present: atraumatic, normocephalic - Eye Eye exam: Present: normal appearance, PERRL, EOMI - ENT ENT exam: Present: mucous membranes moist - Neck Neck exam: Present: normal inspection - Respiratory Respiratory exam: Present: normal lung sounds bilaterally. Absent: respiratory distress - Cardiovascular Cardiovascular Exam: Present: regular rate, normal rhythm. Absent: systolic murmur, diastolic murmur, rubs, gallop - GI/Abdominal GI/Abdominal exam: Present: soft, normal bowel sounds. Absent: distended, tenderness - Rectal Rectal exam: Present: deferred - Extremities Exam Extremities exam: Present: normal inspection - Back Exam Back exam: Present: normal inspection - Neurological Exam Neurological exam: Present: alert, oriented X3, CN II-XII intact. Absent: motor sensory deficit - Psychiatric Psychiatric exam: Present: normal affect, normal mood, suicidal ideation. Absent: homicidal ideation - Skin Skin exam: Present: warm, dry, intact, normal color. Absent: rash ED Course Vital Signs 05/19/19 17:49 Temperature 98.1 F Pulse Rate 102 H Respiratory 18 Rate Blood Pressure 132/82 O2 Sat by Pulse 98 Oximetry ED Medical Decision Making - Lab Data Result diagrams: 05/19/19 18:14 05/19/19 18:14 Lab Results 05/19/19 05/19/19 05/19/19 Range/Units 18:14 18:14 18:14 WBC (4.5-11.0) K/mm3 RBC (3.65-5.03) M/mm3 Hgb (11.8-15.2) gm/dl Hct (35.5-45.6) % MCV (84-94) fl MCH (28-32) pg MCHC (32-34) % RDW (13.2-15.2) % Plt Count (140-440) K/mm3 [place] % (Auto) Add Manual Diff Total Counted Seg Neuts % (Manual) (40.0-70.0) % Band Neutrophils % % Lymphocytes % (Manual) (13.4-35.0) % Reactive Lymphs % (Man) % Monocytes % (Manual) (0.0-7.3) % Eosinophils % (Manual) (0.0-4.3) % Basophils % (Manual) (0.0-1.8) % Metamyelocytes % % Myelocytes % % Promyelocytes % % Blast Cells % % Nucleated RBC % Seg Neutrophils # Man (1.8-7.7) K/mm3 Band Neutrophils # K/mm3 Lymphocytes # (Manual) (1.2-5.4) K/mm3 Abs React Lymphs (Man) K/mm3 Monocytes # (Manual) (0.0-0.8) K/mm3 Eosinophils # (Manual) (0.0-0.4) K/mm3 Basophils # (Manual) (0.0-0.1) K/mm3 Metamyelocytes # K/mm3 Myelocytes # K/mm3 Promyelocytes # K/mm3 Blast Cells # K/mm3 WBC Morphology Hypersegmented Neuts Hyposegmented Neuts Hypogranular Neuts Smudge Cells Toxic Granulation Toxic Vacuolation Dohle Bodies Pelger-Huet Anomaly Audra Rods Platelet Estimate Clumped Platelets Plt Clumps, EDTA Large Platelets Giant Platelets Platelet Satelliting Plt Morphology Comment RBC Morphology Dimorphic RBCs Polychromasia Hypochromasia Poikilocytosis Anisocytosis Microcytosis Macrocytosis Spherocytes Pappenheimer Bodies Sickle Cells Target Cells Tear Drop Cells Ovalocytes Helmet Cells [place] Bodies [place] Rings [place] Cells Bite Cells Crenated Cell Elliptocytes Acanthocytes (Spur) Rouleaux Hemoglobin C Crystals Schistocytes Malaria parasites Uriel Bodies Hem Pathologist Commnt Sodium 140 (137-145) mmol/L Potassium 3.9 (3.6-5.0) mmol/L Chloride 100.0 (98-107) mmol/L Carbon Dioxide 26 (22-30) mmol/L Anion Gap 18 mmol/L BUN 21 H (9-20) mg/dL Creatinine 1.2 (0.8-1.5) mg/dL Estimated GFR > 60 ml/min BUN/Creatinine Ratio 18 % Glucose 96 (75-100) mg/dL Calcium 8.8 (8.4-10.2) mg/dL Urine Color (Yellow) Urine Turbidity (Clear) Urine pH (5.0-7.0) Ur Specific [place] (1.003-1.030) Urine Protein (Negative) mg/dL Urine Glucose (UA) (Negative) mg/dL Urine Ketones (Negative) mg/dL Urine Blood (Negative) Urine Nitrite (Negative) Urine Bilirubin (Negative) Urine Urobilinogen (<2.0) mg/dL Ur Leukocyte Esterase (Negative) Urine WBC (Auto) (0.0-6.0) /HPF Urine RBC (Auto) (0.0-6.0) /HPF U Epithel Cells (Auto) (0-13.0) /HPF Urine Bacteria (Auto) (Negative) /HPF Urine Mucus /HPF Salicylates < 0.3 L (2.8-20.0) mg/dL Urine Opiates Screen Urine Methadone Screen Acetaminophen < 5.0 L (10.0-30.0) ug/mL Ur Barbiturates Screen Ur Phencyclidine Scrn Ur Amphetamines Screen U Benzodiazepines Scrn Urine Cocaine Screen U Marijuana (THC) Screen Drugs of Abuse Note Plasma/Serum Alcohol (0-0.07) % 05/19/19 05/19/19 05/19/19 Range/Units 18:14 18:14 20:30 WBC 7.3 (4.5-11.0) K/mm3 RBC 5.24 H (3.65-5.03) M/mm3 Hgb 11.0 L (11.8-15.2) gm/dl Hct 34.4 L (35.5-45.6) % MCV 66 L (84-94) fl MCH 21 L (28-32) pg MCHC 32 (32-34) % RDW 20.0 H (13.2-15.2) % Plt Count 308 (140-440) K/mm3 [place] % (Auto) Molding Machine Setter Add Manual Diff Complete Total Counted 100 Seg Neuts % (Manual) 57.0 (40.0-70.0) % Band Neutrophils % 0 % Lymphocytes % (Manual) 27.0 (13.4-35.0) % Reactive Lymphs % (Man) 0 % Monocytes % (Manual) 13.0 H (0.0-7.3) % Eosinophils % (Manual) 3.0 (0.0-4.3) % Basophils % (Manual) 0 (0.0-1.8) % Metamyelocytes % 0 % Myelocytes % 0 % Promyelocytes % 0 % Blast Cells % 0 % Nucleated RBC % Not Reportable Seg Neutrophils # Man 4.2 (1.8-7.7) K/mm3 Band Neutrophils # 0.0 K/mm3 Lymphocytes # (Manual) 2.0 (1.2-5.4) K/mm3 Abs React Lymphs (Man) 0.0 K/mm3 Monocytes # (Manual) 0.9 H (0.0-0.8) K/mm3 Eosinophils # (Manual) 0.2 (0.0-0.4) K/mm3 Basophils # (Manual) 0.0 (0.0-0.1) K/mm3 Metamyelocytes # 0.0 K/mm3 Myelocytes # 0.0 K/mm3 Promyelocytes # 0.0 K/mm3 Blast Cells # 0.0 K/mm3 WBC Morphology Not Reportable Hypersegmented Neuts Not Reportable Hyposegmented Neuts Not Reportable Hypogranular Neuts Not Reportable Smudge Cells Not Reportable Toxic Granulation Not Reportable Toxic Vacuolation Not Reportable Dohle Bodies Not Reportable Pelger-Huet Anomaly Not Reportable Audra Rods Not Reportable Platelet Estimate Not Reportable Clumped Platelets Not Reportable Plt Clumps, EDTA Not Reportable Large Platelets Not Reportable Giant Platelets Not Reportable Platelet Satelliting Not Reportable Plt Morphology Comment Not Reportable RBC Morphology Not Reportable Dimorphic RBCs Not Reportable Polychromasia Not Reportable Hypochromasia 2+ Poikilocytosis Not Reportable Anisocytosis 1+ Microcytosis 1+ Macrocytosis Not Reportable Spherocytes Not Reportable Pappenheimer Bodies Not Reportable Sickle Cells Not Reportable Target Cells 1+ Tear Drop Cells Not Reportable Ovalocytes Not Reportable Helmet Cells Not Reportable [place] Bodies Not Reportable [place] Rings Not Reportable [place] Cells Not Reportable Bite Cells Not Reportable Crenated Cell Not Reportable Elliptocytes Not Reportable Acanthocytes (Spur) Not Reportable Rouleaux Not Reportable Hemoglobin C Crystals Not Reportable Schistocytes Not Reportable Malaria parasites Not Reportable Uriel Bodies Not Reportable Hem Pathologist Commnt No Sodium (137-145) mmol/L Potassium (3.6-5.0) mmol/L Chloride (98-107) mmol/L Carbon Dioxide (22-30) mmol/L Anion Gap mmol/L BUN (9-20) mg/dL Creatinine (0.8-1.5) mg/dL Estimated GFR ml/min BUN/Creatinine Ratio % Glucose (75-100) mg/dL Calcium (8.4-10.2) mg/dL Urine Color Yellow (Yellow) Urine Turbidity Slightly-cloudy (Clear) Urine pH 5.0 (5.0-7.0) Ur Specific [place] 1.028 (1.003-1.030) Urine Protein 30 mg/dl (Negative) mg/dL Urine Glucose (UA) Neg (Negative) mg/dL Urine Ketones Neg (Negative) mg/dL Urine Blood Neg (Negative) Urine Nitrite Neg (Negative) Urine Bilirubin Neg (Negative) Urine Urobilinogen 2.0 (<2.0) mg/dL Ur Leukocyte Esterase Neg (Negative) Urine WBC (Auto) 1.0 (0.0-6.0) /HPF Urine RBC (Auto) 3.0 (0.0-6.0) /HPF U Epithel Cells (Auto) < 1.0 (0-13.0) /HPF Urine Bacteria (Auto) 1+ (Negative) /HPF Urine Mucus 2+ /HPF Salicylates (2.8-20.0) mg/dL Urine Opiates Screen Urine Methadone Screen Acetaminophen (10.0-30.0) ug/mL Ur Barbiturates Screen Ur Phencyclidine Scrn Ur Amphetamines Screen U Benzodiazepines Scrn Urine Cocaine Screen U Marijuana (THC) Screen Drugs of Abuse Note Plasma/Serum Alcohol < 0.01 (0-0.07) % 05/19/19 Range/Units 20:30 WBC (4.5-11.0) K/mm3 RBC (3.65-5.03) M/mm3 Hgb (11.8-15.2) gm/dl Hct (35.5-45.6) % MCV (84-94) fl MCH (28-32) pg MCHC (32-34) % RDW (13.2-15.2) % Plt Count (140-440) K/mm3 [place] % (Auto) Add Manual Diff Total Counted Seg Neuts % (Manual) (40.0-70.0) % Band Neutrophils % % Lymphocytes % (Manual) (13.4-35.0) % Reactive Lymphs % (Man) % Monocytes % (Manual) (0.0-7.3) % Eosinophils % (Manual) (0.0-4.3) % Basophils % (Manual) (0.0-1.8) % Metamyelocytes % % Myelocytes % % Promyelocytes % % Blast Cells % % Nucleated RBC % Seg Neutrophils # Man (1.8-7.7) K/mm3 Band Neutrophils # K/mm3 Lymphocytes # (Manual) (1.2-5.4) K/mm3 Abs React Lymphs (Man) K/mm3 Monocytes # (Manual) (0.0-0.8) K/mm3 Eosinophils # (Manual) (0.0-0.4) K/mm3 Basophils # (Manual) (0.0-0.1) K/mm3 Metamyelocytes # K/mm3 Myelocytes # K/mm3 Promyelocytes # K/mm3 Blast Cells # K/mm3 WBC Morphology Hypersegmented Neuts Hyposegmented Neuts Hypogranular Neuts Smudge Cells Toxic Granulation Toxic Vacuolation Dohle Bodies Pelger-Huet Anomaly Audra Rods Platelet Estimate Clumped Platelets Plt Clumps, EDTA Large Platelets Giant Platelets Platelet Satelliting Plt Morphology Comment RBC Morphology Dimorphic RBCs Polychromasia Hypochromasia Poikilocytosis Anisocytosis Microcytosis Macrocytosis Spherocytes Pappenheimer Bodies Sickle Cells Target Cells Tear Drop Cells Ovalocytes Helmet Cells [place]-Stockwell Bodies [place] Rings [place] Cells Bite Cells Crenated Cell Elliptocytes Acanthocytes (Spur) Rouleaux Hemoglobin C Crystals Schistocytes Malaria parasites Uriel Bodies Hem Pathologist Commnt Sodium (137-145) mmol/L Potassium (3.6-5.0) mmol/L Chloride (98-107) mmol/L Carbon Dioxide (22-30) mmol/L Anion Gap mmol/L BUN (9-20) mg/dL Creatinine (0.8-1.5) mg/dL Estimated GFR ml/min BUN/Creatinine Ratio % Glucose (75-100) mg/dL Calcium (8.4-10.2) mg/dL Urine Color (Yellow) Urine Turbidity (Clear) Urine pH (5.0-7.0) Ur Specific [place] (1.003-1.030) Urine Protein (Negative) mg/dL Urine Glucose (UA) (Negative) mg/dL Urine Ketones (Negative) mg/dL Urine Blood (Negative) Urine Nitrite (Negative) Urine Bilirubin (Negative) Urine Urobilinogen (<2.0) mg/dL Ur Leukocyte Esterase (Negative) Urine WBC (Auto) (0.0-6.0) /HPF Urine RBC (Auto) (0.0-6.0) /HPF U Epithel Cells (Auto) (0-13.0) /HPF Urine Bacteria (Auto) (Negative) /HPF Urine Mucus /HPF Salicylates (2.8-20.0) mg/dL Urine Opiates Screen Presumptive negative Urine Methadone Screen Presumptive negative Acetaminophen (10.0-30.0) ug/mL Ur Barbiturates Screen Presumptive negative Ur Phencyclidine Scrn Presumptive negative Ur Amphetamines Screen Presumptive negative U Benzodiazepines Scrn Presumptive negative Urine Cocaine Screen Presumptive positive U Marijuana (THC) Screen Presumptive negative Drugs of Abuse Note Disclamer Plasma/Serum Alcohol (0-0.07) % - Medical Decision Making 1013 applied medically cleared awaiting mental health eval Critical care attestation.: If time is entered above; I have spent that time in minutes in the direct care of this critically ill patient, excluding procedure time. ED Disposition Clinical Impression: Suicidal ideation Disposition: [id number]/TX-65 PSY HOSP/PSY UNIT Is pt being admited?: No Does the pt Need Aspirin: No Condition: Stable Referrals: PRIMARY CARE, [Primary Care Provider] - 3-5 Days
[2019-05-20] MEDS ORDERED: LORazepam 2 MG/ML VIAL IM ONE (08:17)
[2019-05-20] MEDS ORDERED: ZIPRASIDONE MESYLATE 20 MG VIAL IM ONE (08:17)
[2019-05-20] MEDS ORDERED: WATER FOR INJ Sterile (PF) 10 ML ONE (08:21)
[2019-05-20 09:33] LABS: Creatine Kinase MB 2.5 ng/mL (0.0-4.0)
[2019-05-20 09:34] LABS: BUN/Creatinine Ratio 26; Blood Urea Nitrogen 18 mg/dL (9-20); Calcium 8.7 mg/dL (8.4-10.2); Hemolysis Index 11
[2019-05-20] MEDS ORDERED: LORazepam 2 MG/ML VIAL IM PRN (16:18)
[2019-05-20] MEDS ORDERED: HALOPERIDOL LACTATE 5 MG/1 ML INJ IM PRN (16:18)
[2019-05-21 09:38] VITALS: BP 117/78
--- NOTE | 2019-05-21 12:57 | Consultation ---
History of Present Illness - Reason for Consult Consult date: 05/21/19 Reason for consult: psychiatric assessment - History of Present Psychiatric Illness mr jordan is a 28 year old male.the patient is alert and oriented 3, the patient is disheveled, he maintains eye contact. The patient reported "I am here because I thought I wanted to hurt myself but I cannot and I would never do that".The patient states "I come here all the time I can't kill m yself i love myself".Patient denies homicidal ideations, patient denies visual ,auditory hallucinations the patient denies any depressive symptoms or irritability. The patient reports that he is sleeping and eating well. The patient states, "I smoke cocaine daily and sometimes i am like this, I won't kill myself and I feel safe going home to my mother, contracts to ask the staff for help if any of these symptoms increase.The patient reported that he has a history of bipolar and schizophrenia and he takes Depakote 500 mg twice a day, risperidone 3 mg twice a day, and Zoloft 50 mg daily, the patient stated that he is currently taking his medications. PAST PSYCHIATRIC HISTORY: Diagnoses:bipolar schizophrenia Suicide attempts or Self-harm behavior:yes Prior psychiatric hospitalizations: yes Substance Abuse history:yes Previous psychiatric medications tried: Depakote, risperidone,zoloft Outpatient treatment: PAST MEDICAL HISTORY: Family Psychiatric History None reported or documented SOCIAL HISTORY Marital Status: single Living Arrangements:mother Employment Status: unemployed Access to guns/weapons: no Education: 8th History of Abuse: denies Legal History: yes Constitutional: Negative for weight loss ENT: Negative for stridor Respiratory: Negative for cough or hemoptysis All other systems reviewed and are negative MENTAL STATUS General Appearance and Behavior: age appropriate, good eye contact, cooperative with questioning and polite Cooperation: Cooperative Psychomotor Behavior: within normal limits Mood: "good" Affect and affective range: Congruent with stated mood Thought Process: Fluent/Logical and Goal-directed Thought Content: Within reality Speech: fast Intellectual Functioning Average Suicidal Ideation: Denies SI Homicidal Ideation: Denies HI Impulse Control: intact Insight and Judgment: poor Memory: Normal Attention: Normal Orientation: alert and orientedx1 RECOMMENDATIONS MEDICATIONS: continue home medications Risks, benefits and alternatives of medications discussed with the patient, questions answered and consent obtained from patient. PSYCHOTHERAPY: Supportive psychotherapy provided MEDICAL: Per primary team DELIRIUM PRECAUTIONS: Please re-orient patient frequently, keep lights on during the day, and minimize benzodiazepines and opiates as these medications could worsen patient's confusion. ELECTRO MECHANIC: DISPOSITION: no indication for acute inpatient psychiatric hospitalization at this time, patient will continue his home medication.The patient should be compliant with medications, not to use drugs and not to drink alcohol. The patient understands that if suicidal ideas, homicidal ideas, or any endangering thoughts arise, the patient should immediately seek for emergent assistance including but not limited to crisis hot line and emergency room. Follow up with outpatient Psychiatrist and PCP within 7 - 14 days of discharge. LEGAL STATUS: D/C 1013 FOLLOW-UP: sign off Medications and Allergies Allergies Allergy/AdvReac Type Severity Reaction Status Date / Time No Known Allergies Allergy Verified 02/20/18 09:25 Home Medications Medication Instructions Recorded Confirmed Last Taken Type Sertraline HCl [Zoloft] 50 mg PO QHS #30 tablet 07/28/18 05/20/19 Unknown Rx risperiDONE [RisperDAL] 3 mg PO BID #60 tablet 07/28/18 05/20/19 Unknown Rx Divalproex 1,000 mg PO HS 01/09/19 05/20/19 Unknown History Divalproex Sodium [Depakote] 500 mg PO DAILY 01/09/19 05/20/19 Unknown History Trazodone HCl 50 mg PO HS 01/09/19 05/20/[address] [DepaKOTE DR] 500 mg PO BID #60 tablet 05/07/19 05/20/19 Unknown Rx Sertraline [Zoloft] 50 mg PO QDAY #30 tablet 05/07/19 05/20/19 Unknown Rx risperiDONE [RisperDAL] 3 mg PO BID #60 tablet 05/07/19 05/20/19 Unknown Rx traZODone [Desyrel] 50 mg PO QHS #30 tab 05/07/19 05/20/19 Unknown Rx Albuterol INH(or & Nicu Only) 2 puff IH QID PRN #1 inhalation 05/15/19 05/20/19 Unknown Rx [ProAir HFA Inhaler] Azithromycin [Zithromax Z-TIFFANIE] 250 mg PO DAILY #6 tablet 05/15/19 05/20/19 Unknown Rx Benzonatate [Tessalon Perles] 100 mg PO Q8HR #10 capsule 05/15/19 05/20/19 Unknown Rx Sulfamethoxazole/Trimethoprim 1 each PO BID #14 tablet 05/15/19 05/20/19 Unknown Rx [Bactrim DS TAB] Active Meds: Active Medications Haloperidol Lactate (Haldol) 5 mg IM Q6HR PRN PRN Reason: Agitation Lorazepam (Ativan) 2 mg IM Q4HR PRN PRN Reason: Agitation Mental Status Exam - Vital signs Last Vital Signs Temp 98.2 F 05/21/19 09:36 Pulse 79 05/21/19 09:36 Resp 20 05/21/19 09:36 BP 117/78 05/21/19 09:36 Pulse Ox 99 05/21/19 09:36 Results Result Diagrams: 05/19/19 18:14 05/20/19 08:57 All other labs normal.
== END 2019-05-21 16:55 ==
LOC: ED 17:41 → EEVIPCON 17:41 → ED 05-21 16:55
DX: F25.0 Schizoaffective disorder, bipolar type (principal); F17.200 Nicotine dependence, unspecified, uncomplicated; Z79.899 Other long term (current) drug therapy
CPT/HCPCS: 36415; 80048; 80307; 81001; 82550; 82553; 85007; 85025; 96372; 99284; J2060; J3486; 80320; G0480

== ENCOUNTER 2019-05-30 01:36 | Emergency (ER) | payer SELFPAY ==
[2019-05-30 01:46] VITALS: BP 148/93
[2019-05-30 02:34] LABS: Basophils # (Auto) 0.1 K/mm3 (0.0-0.1); Basophils % (Auto) 1.1 % (0.0-1.8); Eosinophils # (Auto) 0.1 K/mm3 (0.0-0.4); Eosinophils % (Auto) 0.9 % (0.0-4.3); Hemoglobin 11.8 gm/dl (11.8-15.2); Lymphocytes # (Auto) 1.3 K/mm3 (1.2-5.4); Lymphocytes % (Auto) 18.7 % (13.4-35.0); Monocytes # (Auto) 0.5 K/mm3 (0.0-0.8); Monocytes % (Auto) 7.2 % (0.0-7.3)
[2019-05-30 02:44] LABS: BUN/Creatinine Ratio 22; Blood Urea Nitrogen 20 mg/dL (9-20); Calcium 9.3 mg/dL (8.4-10.2); Hemolysis Index 0
[2019-05-30 02:53] LABS: Hematocrit 37.1 % (35.5-45.6); Mean Corpuscular HGB Conc 32 % (32-34); Mean Corpuscular Volume 65 fl (84-94); Mean Platelet Volume 8.9 fl (6-12); Platelet Count 383 K/mm3 (140-440); Red Cell Distribution Width 20.5 % (13.2-15.2)
== END 2019-05-30 12:47 | disposition left against medical advice (07) ==
LOC: ED 01:36
DX: Z00.8 Encounter for other general examination (principal); Z53.21 Procedure and treatment not carried out due to patient leaving prior to being seen by health care provider
CPT/HCPCS: 36415; 80048; 80320; 85025; G0480

== ENCOUNTER 2019-06-04 03:02 | Emergency (ER) | payer SELFPAY ==
[2019-06-04 03:18] VITALS: BP 142/79
[2019-06-04 03:52] LABS: Basophils # (Auto) 0.1 K/mm3 (0.0-0.1); Basophils % (Auto) 1.3 % (0.0-1.8); Eosinophils # (Auto) 0.1 K/mm3 (0.0-0.4); Eosinophils % (Auto) 1.7 % (0.0-4.3); Hematocrit 37.9 % (35.5-45.6); Hemoglobin 12.2 gm/dl (11.8-15.2); Lymphocytes % (Auto) 16.8 % (13.4-35.0); Mean Corpuscular HGB Conc 32 % (32-34); Monocytes # (Auto) 0.7 K/mm3 (0.0-0.8); Monocytes % (Auto) 11.5 % (0.0-7.3); Platelet Count 316 K/mm3 (140-440); Red Blood Count 5.78 M/mm3 (3.65-5.03)
[2019-06-04 04:07] LABS: Bilirubin,Urine NEG (Negative); Blood,Urine NEG (Negative); Color,Urine Yellow (Yellow); Mucus,Urine FEW /HPF; Protein,Urine <15 mg/dL mg/dL (Negative)
[2019-06-04 04:08] LABS: Mean Corpuscular Volume 66 fl (84-94)
[2019-06-04 04:13] LABS: BUN/Creatinine Ratio 26; Blood Urea Nitrogen 23 mg/dL (9-20); Calcium 9.1 mg/dL (8.4-10.2); Hemolysis Index 0
[2019-06-04 04:15] LABS: Amphetamine Screen,Urine PRESUMPTIVE NEGATIVE; Benzodiazepines Screen,Urine PRESUMPTIVE NEGATIVE; Cannabinoid Screen,Urine PRESUMPTIVE NEGATIVE; Methadone Screen,Urine PRESUMPTIVE NEGATIVE; Opiate Screen,Urine PRESUMPTIVE NEGATIVE
[2019-06-04 04:16] LABS: WBC,Urine < 1.0 /HPF (0.0-6.0)
[2019-06-04 04:58] LABS: Cocaine Screen,Urine PRESUMPTIVE POSITIVE
--- NOTE | 2019-06-04 05:23 | Emergency Department Report ---
ED Psych HPI - General Chief Complaint: Psych Stated Complaint: SUICIDAL Time Seen by Provider: 06/04/19 04:01 Source: patient, EMS Mode of arrival: Ambulatory - History of Present Illness Initial Comments: presents to er with suicidal ideations, also thinking that terrorists are after him in the streets. no suicidal attempts, no violent tendencies. also stating that he wanted to get off the streets. Complaint: feels depressed -: Gradual - Related Data Home Medications Medication Instructions Recorded Confirmed Last Taken Divalproex 1,000 mg PO HS 01/09/19 05/20/19 Unknown Divalproex Sodium [Depakote] 500 mg PO DAILY 01/09/19 05/20/19 Unknown Trazodone HCl 50 mg PO HS 01/09/19 05/20/19 Unknown Previous Rx's Medication Instructions Recorded Last Taken Type Sertraline HCl [Zoloft] 50 mg PO QHS #30 tablet 07/28/18 Unknown Rx risperiDONE [RisperDAL] 3 mg PO BID #60 tablet 07/28/[address] [DepaKOTE DR] 500 mg PO BID #60 tablet 05/07/19 Unknown Rx Sertraline [Zoloft] 50 mg PO QDAY #30 tablet 05/07/19 Unknown Rx risperiDONE [RisperDAL] 3 mg PO BID #60 tablet 05/07/19 Unknown Rx traZODone [Desyrel] 50 mg PO QHS #30 tab 05/07/19 Unknown Rx Albuterol INH(or & Nicu Only) 2 puff IH QID PRN #1 inhalation 05/15/19 Unknown Rx [ProAir HFA Inhaler] Azithromycin [Zithromax Z-TIFFANIE] 250 mg PO DAILY #6 tablet 05/15/19 Unknown Rx Benzonatate [Tessalon Perles] 100 mg PO Q8HR #10 capsule 05/15/19 Unknown Rx Sulfamethoxazole/Trimethoprim 1 each PO BID #14 tablet 05/15/19 Unknown Rx [Bactrim DS TAB] Allergies Allergy/AdvReac Type Severity Reaction Status Date / Time No Known Allergies Allergy Verified 02/20/18 09:25 ED Review of Systems ROS: Stated complaint: SUICIDAL Other details as noted in HPI Comment: All other systems reviewed and negative Musculoskeletal: denies: back pain Skin: denies: rash Neurological: denies: headache Psychiatric: anxiety, depression, auditory hallucinations, visual hallucinations, suicidal thoughts ED Past Medical Hx - Past Medical History Hx Psychiatric Treatment: Yes (Bipolar, schizo) Additional medical history: drug abuse - Social History Smoking Status: Current Every Day Smoker Substance Use Type: Alcohol - Medications Home Medications: Home Medications Medication Instructions Recorded Confirmed Last Taken Type Sertraline HCl [Zoloft] 50 mg PO QHS #30 tablet 07/28/18 05/20/19 Unknown Rx risperiDONE [RisperDAL] 3 mg PO BID #60 tablet 07/28/18 05/20/19 Unknown Rx Divalproex 1,000 mg PO HS 01/09/19 05/20/19 Unknown History Divalproex Sodium [Depakote] 500 mg PO DAILY 01/09/19 05/20/19 Unknown History Trazodone HCl 50 mg PO HS 01/09/19 05/20/[address] [DepaKOTE DR] 500 mg PO BID #60 tablet 05/07/19 05/20/19 Unknown Rx Sertraline [Zoloft] 50 mg PO QDAY #30 tablet 05/07/19 05/20/19 Unknown Rx risperiDONE [RisperDAL] 3 mg PO BID #60 tablet 05/07/19 05/20/19 Unknown Rx traZODone [Desyrel] 50 mg PO QHS #30 tab 05/07/19 05/20/19 Unknown Rx Albuterol INH(or & Nicu Only) 2 puff IH QID PRN #1 inhalation 05/15/19 05/20/19 Unknown Rx [ProAir HFA Inhaler] Azithromycin [Zithromax Z-TIFFANIE] 250 mg PO DAILY #6 tablet 05/15/19 05/20/19 Unknown Rx Benzonatate [Tessalon Perles] 100 mg PO Q8HR #10 capsule 05/15/19 05/20/19 Unknown Rx Sulfamethoxazole/Trimethoprim 1 each PO BID #14 tablet 05/15/19 05/20/19 Unknown Rx [Bactrim DS TAB] ED Physical Exam - General Limitations: No Limitations General appearance: alert, in no apparent distress - Head Head exam: Present: atraumatic, normocephalic - Eye Eye exam: Present: normal appearance, PERRL, EOMI Pupils: Present: normal accommodation - ENT ENT exam: Present: normal exam, normal orophraynx - Neck Neck exam: Present: normal inspection - Respiratory Respiratory exam: Present: normal lung sounds bilaterally - Cardiovascular Cardiovascular Exam: Present: regular rate, normal rhythm - GI/Abdominal GI/Abdominal exam: Present: soft - Neurological Exam Neurological exam: Present: alert, oriented X3, CN II-XII intact - Psychiatric Psychiatric exam: Present: depressed, agitated, anxious, flat affect, suicidal ideation ED Course Vital Signs 06/04/19 06/04/19 03:14 03:17 Temperature 97.8 F Pulse Rate 93 H Respiratory 18 18 Rate Blood Pressure 142/79 O2 Sat by Pulse 100 Oximetry ED Medical Decision Making - Lab Data Result diagrams: 06/04/19 03:39 06/04/19 03:39 - Medical Decision Making medically clear for psych. Critical care attestation.: If time is entered above; I have spent that time in minutes in the direct care of this critically ill patient, excluding procedure time. ED Disposition Clinical Impression: Suicidal ideations, Acute psychosis, Medical clearance for psychiatric admission Disposition: [id number]/TX-[id number] PSY HOSP/PSY UNIT Is pt being admited?: No Does the pt Need Aspirin: No Condition: Stable Referrals: PRIMARY CARE, [Primary Care Provider] - 3-5 Days
[2019-06-04] MEDS ORDERED: ZIPRASIDONE MESYLATE 20 MG VIAL IM ONE (08:20)
--- NOTE | 2019-06-04 09:51 | Consultation ---
History of Present Illness - Reason for Consult Consult date: 06/04/19 Reason for consult: suicidal ideation - History of Present Psychiatric Illness Afshin Castro is a 29y/o male patient who states he came into the ER because he says "I told them I was suicidal." The patient is dressed appropriately. He has poor hygiene. He is malodorous. He is irritable. He is constantly requesting food during the interview. He denies any previous psych history or any previous suicide attempts. He also denies any drug use, even though his urine was positive for cocaine. The patient states his "plan is to go home with his mother." When asked about SI/HI at present, he states "no, I just told them that. Am I going to get breakfast?" He denies hallucinations of any kind. PAST PSYCHIATRIC HISTORY: Diagnoses: Denies Suicide attempts or Self-harm behavior: Denies Prior psychiatric hospitalizations: Denies Substance Abuse history: cocaine Previous psychiatric medications tried: zoloft, depakote, resperidone Outpatient treatment: Denies PAST MEDICAL HISTORY: Denies Family Psychiatric History None reported or documented SOCIAL HISTORY Marital Status: Single Living Arrangements: with mother Employment Status: Unemployed Access to guns/weapons: Denies Education: high school History of Abuse: Denies Legal History: Denies REVIEW OF SYSTEMS Constitutional: Negative for weight loss ENT: Negative for stridor Respiratory: Negative for cough or hemoptysis All other systems reviewed and are negative MSE Appearance: Dressed appropriately. Poor hygiene Behavior: Irritable Mood: irritable Affect: Congruent Thought Process: Goal directed Speech: normal tone and pace Thought Content Suicidal: Denies Homicidal: Denies Hallucinations: Denies Delusions: Denies Consciousness: Alert Cognition/Memory: Good Insight/Judgment: Fair Diagnoses: Drug Induced Mood Disorder Plan d/c 1013 No scripts given Sitter: Defer to primary Medical: Per primary Disposition: The patient does not meet the requirement for acute inpatient psychiatric treatment. He may discharge once medically cleared. He is to not partake in drug or alcohol use The patient should follow up with outpatient psych or primary in 7 to 14 days. Will sign off. Please call with any questions or comments. Thank you for this consult. Medications and Allergies Allergies Allergy/AdvReac Type Severity Reaction Status Date / Time No Known Allergies Allergy Verified 02/20/18 09:25 Home Medications Medication Instructions Recorded Confirmed Last Taken Type Sertraline HCl [Zoloft] 50 mg PO QHS #30 tablet 07/28/18 05/20/19 Unknown Rx risperiDONE [RisperDAL] 3 mg PO BID #60 tablet 07/28/18 05/20/19 Unknown Rx Divalproex 1,000 mg PO HS 01/09/19 05/20/19 Unknown History Divalproex Sodium [Depakote] 500 mg PO DAILY 01/09/19 05/20/19 Unknown History Trazodone HCl 50 mg PO HS 01/09/19 05/20/[address] [DepaKOTE DR] 500 mg PO BID #60 tablet 05/07/19 05/20/19 Unknown Rx Sertraline [Zoloft] 50 mg PO QDAY #30 tablet 05/07/19 05/20/19 Unknown Rx risperiDONE [RisperDAL] 3 mg PO BID #60 tablet 05/07/19 05/20/19 Unknown Rx traZODone [Desyrel] 50 mg PO QHS #30 tab 05/07/19 05/20/19 Unknown Rx Albuterol INH(or & Nicu Only) 2 puff IH QID PRN #1 inhalation 05/15/19 05/20/19 Unknown Rx [ProAir HFA Inhaler] Azithromycin [Zithromax Z-TIFFANIE] 250 mg PO DAILY #6 tablet 05/15/19 05/20/19 Unknown Rx Benzonatate [Tessalon Perles] 100 mg PO Q8HR #10 capsule 05/15/19 05/20/19 Unknown Rx Sulfamethoxazole/Trimethoprim 1 each PO BID #14 tablet 05/15/19 05/20/19 Unknown Rx [Bactrim DS TAB] Mental Status Exam - Vital signs Last Vital Signs Temp 97.8 F 06/04/19 03:14 Pulse 93 H 06/04/19 03:14 Resp 18 06/04/19 03:17 BP 142/79 06/04/19 03:14 Pulse Ox 100 06/04/19 03:14 Results Result Diagrams: 06/04/19 03:39 06/04/19 03:39 Abnormal lab results 06/04/19 06/04/19 06/04/19 Range/Units 03:39 03:39 03:39 RBC 5.78 H (3.65-5.03) M/mm3 MCV 66 L (84-94) fl MCH 21 L (28-32) pg RDW 20.0 H (13.2-15.2) % [place] % (Auto) 11.5 H (0.0-7.3) % Lymph # 1.0 L (1.2-5.4) K/mm3 BUN 23 H (9-20) mg/dL Glucose 65 L (75-100) mg/dL Salicylates < 0.3 L (2.8-20.0) mg/dL Acetaminophen (10.0-30.0) ug/mL 06/04/19 Range/Units 03:39 RBC (3.65-5.03) M/mm3 MCV (84-94) fl MCH (28-32) pg RDW (13.2-15.2) % [place] % (Auto) (0.0-7.3) % Lymph # (1.2-5.4) K/mm3 BUN (9-20) mg/dL Glucose (75-100) mg/dL Salicylates (2.8-20.0) mg/dL Acetaminophen < 5.0 L (10.0-30.0) ug/mL All other labs normal.
== END 2019-06-04 10:20 ==
LOC: ED 03:02 → EEVIPCON 03:02 → ED 10:20
DX: R45.851 Suicidal ideations (principal); F23 Brief psychotic disorder; Z04.6 Encounter for general psychiatric examination, requested by authority; F32.9 Major depressive disorder, single episode, unspecified; F17.200 Nicotine dependence, unspecified, uncomplicated; Z79.899 Other long term (current) drug therapy
CPT/HCPCS: 36415; 80048; 80307; 80320; 81001; 85025; G0480

== ENCOUNTER 2019-07-28 00:06 | Emergency (ER) | payer SELFPAY ==
--- NOTE | 2019-07-28 00:50 | Emergency Department Report ---
HPI - General Chief Complaint: Psych Time Seen by Provider: 07/28/19 00:41 - HPI HPI: 29-year-old male presents to the emergency department for a mental health evaluation. The patient has a history of bipolar disorder and schizophrenia and has not been compliant with his medications. He says that he is very paranoid and thinks that people are going to get him. Patient says "there is video of me running down the street" as the patient feels that he is being chased. However he denies any auditory or visual hallucinations and denies actually seeing anyone chasing him. Patient also says that he is interested in getting into a alcohol detox/rehabilitation program, although he denies any current alcohol intoxication. Patient denies any recent illicit drug use. The patient admits to some nonspecific suicidal thoughts. Denies any homicidal ideations. ED Past Medical Hx - Past Medical History Previous Medical History?: Yes Hx Psychiatric Treatment: Yes (Bipolar, schizo) Additional medical history: drug abuse - Surgical History Past Surgical History?: No - Social History Smoking Status: Current Every Day Smoker Substance Use Type: None - Medications Home Medications: Home Medications Medication Instructions Recorded Confirmed Last Taken Type Sertraline HCl [Zoloft] 50 mg PO QHS #30 tablet 07/28/18 05/20/19 Unknown Rx risperiDONE [RisperDAL] 3 mg PO BID #60 tablet 07/28/18 05/20/19 Unknown Rx Divalproex 1,000 mg PO HS 01/09/19 05/20/19 Unknown History Divalproex Sodium [Depakote] 500 mg PO DAILY 01/09/19 05/20/19 Unknown History Trazodone HCl 50 mg PO HS 01/09/19 05/20/[address] [DepaKOTE DR] 500 mg PO BID #60 tablet 05/07/19 05/20/19 Unknown Rx Sertraline [Zoloft] 50 mg PO QDAY #30 tablet 05/07/19 05/20/19 Unknown Rx risperiDONE [RisperDAL] 3 mg PO BID #60 tablet 05/07/19 05/20/19 Unknown Rx traZODone [Desyrel] 50 mg PO QHS #30 tab 05/07/19 05/20/19 Unknown Rx Albuterol INH(or & Nicu Only) 2 puff IH QID PRN #1 inhalation 05/15/19 05/20/19 Unknown Rx [ProAir HFA Inhaler] Azithromycin [Zithromax Z-TIFFANIE] 250 mg PO DAILY #6 tablet 05/15/19 05/20/19 Unknown Rx Benzonatate [Tessalon Perles] 100 mg PO Q8HR #10 capsule 05/15/19 05/20/19 Unknown Rx Sulfamethoxazole/Trimethoprim 1 each PO BID #14 tablet 05/15/19 05/20/19 Unknown Rx [Bactrim DS TAB] ED Review of Systems ROS: Stated complaint: MH EVAL/SUICIDAL Other details as noted in HPI Comment: All other systems reviewed and negative Constitutional: denies: chills, fever Respiratory: denies: cough, shortness of breath Cardiovascular: denies: chest pain, palpitations Gastrointestinal: denies: abdominal pain, vomiting Musculoskeletal: denies: back pain, myalgia Neurological: denies: headache, weakness Physical Exam - Physical Exam Vital Signs: Vital Signs 07/28/19 00:14 Temperature 97.6 F Pulse Rate 93 H Respiratory 16 Rate Blood Pressure 117/72 O2 Sat by Pulse 97 Oximetry Physical Exam: GENERAL: The patient is well-developed well-nourished. HENT: Normocephalic. Atraumatic. Patient has moist mucous membranes. EYES: Extraocular motions are intact. NECK: Supple. Trachea is midline. CHEST/LUNGS: Clear to auscultation. There is no respiratory distress noted. HEART/CARDIOVASCULAR: Regular. There is no tachycardia. ABDOMEN: Abdomen is soft, nontender. Patient has normal bowel sounds. SKIN: Skin is warm and dry. NEURO: The patient is awake, alert, and cooperative. The patient has no focal neurologic deficits. Normal speech. MUSCULOSKELETAL: There is no tenderness or deformity. There is no limitation range of motion. There is no evidence of acute injury. PSYCH: Patient has some pressured speech. Appears slightly anxious. ED Course Vital Signs 07/28/19 00:14 Temperature 97.6 F Pulse Rate 93 H Respiratory 16 Rate Blood Pressure 117/72 O2 Sat by Pulse 97 Oximetry ED Medical Decision Making - Lab Data Result diagrams: 07/28/19 00:41 07/28/19 00:41 - Medical Decision Making This patient presents to the emergency department for a mental health evaluation. His main complaint is feelings of paranoia as if someone is trying to camila him and/or hurt him. However the patient denies any hallucinations. The patient does complain of some nonspecific suicidal ideations and for this reason he was made a 1013. Patient denied illicit drug use but urine drug screen is positive for cocaine. His vital signs been stable throughout his ED course including being afebrile. Patient is medically cleared for psychiatric placement and will be seen by the psychiatric team in the morning. Critical Care Time: No Critical care attestation.: If time is entered above; I have spent that time in minutes in the direct care of this critically ill patient, excluding procedure time. ED Disposition Clinical Impression: Paranoia, Suicidal ideations Disposition: [id number]/[id number] PSY HOSP/PSY UNIT Is pt being admited?: No Condition: Stable Time of Disposition: 01:25
[2019-07-28 01:00] LABS: Basophils # (Auto) 0.1 K/mm3 (0.0-0.1); Eosinophils # (Auto) 0.1 K/mm3 (0.0-0.4); Eosinophils % (Auto) 1.1 % (0.0-4.3); Hematocrit 36.4 % (35.5-45.6); Hemoglobin 11.8 gm/dl (11.8-15.2); Lymphocytes # (Auto) 1.5 K/mm3 (1.2-5.4); Lymphocytes % (Auto) 25.9 % (13.4-35.0); Mean Corpuscular HGB Conc 32 % (32-34); Monocytes # (Auto) 0.6 K/mm3 (0.0-0.8); Platelet Count 275 K/mm3 (140-440); Red Blood Count 5.39 M/mm3 (3.65-5.03); Red Cell Distribution Width 18.2 % (13.2-15.2)
[2019-07-28 01:01] LABS: Bilirubin,Urine NEG (Negative); Blood,Urine NEG (Negative); Color,Urine Amber (Yellow); Mucus,Urine 3+ /HPF; WBC,Urine < 1.0 /HPF (0.0-6.0)
[2019-07-28 01:17] LABS: Amphetamine Screen,Urine PRESUMPTIVE NEGATIVE; Benzodiazepines Screen,Urine PRESUMPTIVE NEGATIVE; Cannabinoid Screen,Urine PRESUMPTIVE NEGATIVE; Methadone Screen,Urine PRESUMPTIVE NEGATIVE; Opiate Screen,Urine PRESUMPTIVE NEGATIVE
[2019-07-28 01:21] LABS: BUN/Creatinine Ratio 17; Blood Urea Nitrogen 19 mg/dL (9-20); Calcium 8.8 mg/dL (8.4-10.2); Hemolysis Index 9
[2019-07-28 01:36] LABS: Cocaine Screen,Urine PRESUMPTIVE POSITIVE
[2019-07-28 01:39] LABS: Mean Corpuscular Volume 68 fl (84-94)
[2019-07-29 07:41] VITALS: BP 102/71
--- NOTE | 2019-07-29 10:07 | Consultation ---
History of Present Illness - Reason for Consult Consult date: 07/29/19 Reason for consult: Psych eval Requesting physician: KAT SOL - Chief Complaint Chief complaint: "I am ready to home" - History of Present Psychiatric Illness The patient is a 29yo single unemployed homeless male with history of Cocaine use disorder, reported history of Bipolar disorder and Schizophrenia who presented to the ED with c/o suicidal thoughts. His UDS was positive for Cocaine. Per MH Sealer Dry Cell's Note: Pt is a 29 yo AA male presenting to ED for MHE, as pt reported suicidal ideations without a specific plan. During ax, pt presente, with uncooperative behaviors, anxious mood and congruent affect. Pt reports onset of SI without a plan 07/27/19. Pt identified trigger of homelessness. Pt reports daily SI and stated, I don't know how I am going to kill myself but I am. Pt denies hx of attempts. Pt denies HI. Pt denies A/V H. Pt reports mh dx of Bipolar, Schizophrenia. Pt reports paranoia "People in the streets are trying to kill me". Pt denied alcohol use or abuse. Pt reports homelessness. Pt denies legal issues. 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 Patient seen by me this morning. He completely denies SI/HI/AVH/Paranoia. He wants to be discharged from the hospital. He plans to go to a homeless assisted. He declines discharge meds. PAST PSYCHIATRIC HISTORY: Diagnoses: Bipolar, Schizophrenia Substance Abuse history: Cocaine Family Psychiatric History None reported or documented SOCIAL HISTORY single unemployed homeless REVIEW OF SYSTEMS Constitutional: Negative for weight loss ENT: Negative for stridor Respiratory: Negative for cough or hemoptysis All other systems reviewed and are negative MENTAL STATUS General Appearance and Behavior: age appropriate, good eye contact, cooperative with questioning and polite Cooperation: Cooperative Psychomotor Behavior: within normal limits Mood: OK Affect and affective range: Congruent with stated mood Thought Process: Fluent/Logical and Goal-directed Thought Content: Within reality Speech: Normal volume and Regular rate and rhythm Intellectual Functioning Average Suicidal Ideation: Denies SI Homicidal Ideation: Denies HI Impulse Control: intact Insight and Judgment: normal insight and judgment Memory: Normal Attention: Normal Orientation: alert and oriented RECOMMENDATIONS MEDICATIONS: Patient declined PSYCHOTHERAPY: Supportive psychotherapy provided MEDICAL: Per primary team COTTRELL OPERATOR: May dc DISPOSITION: Per primary team; no indication for acute inpatient psychiatric hospitalization at this time LEGAL STATUS: 1013 rescinded FOLLOW-UP: Will sign off Please contact with any questions and/or concerns. Medications and Allergies Allergies Allergy/AdvReac Type Severity Reaction Status Date / Time No Known Allergies Allergy Verified 02/20/18 09:25 Home Medications Medication Instructions Recorded Confirmed Last Taken Type Sertraline HCl [Zoloft] 50 mg PO QHS #30 tablet 07/28/18 07/29/19 Unknown Rx Divalproex Sodium [Depakote] 500 mg PO DAILY 01/09/19 07/29/19 Unknown History Trazodone HCl 50 mg PO HS 01/09/19 07/29/19 Unknown History risperiDONE [RisperDAL] 3 mg PO BID #60 tablet 05/07/19 07/29/19 Unknown Rx traZODone [Desyrel] 50 mg PO QHS #30 tab 05/07/19 07/29/19 Unknown Rx Mental Status Exam - Vital signs Last Vital Signs Temp 98.0 F 07/29/19 07:40 Pulse 73 07/29/19 07:40 Resp 20 07/29/19 07:40 BP 102/71 07/29/19 07:40 Pulse Ox 96 07/29/19 07:40 Results Result Diagrams: 07/28/19 00:41 07/28/19 00:41 All other labs normal.
== END 2019-07-29 14:07 | disposition home or self-care (01) ==
LOC: ED 00:06 → EEVIPCON 00:06 → ED 07-29 14:07
DX: F22 Delusional disorders (principal); F31.9 Bipolar disorder, unspecified; F17.200 Nicotine dependence, unspecified, uncomplicated; F20.9 Schizophrenia, unspecified; Z79.899 Other long term (current) drug therapy
CPT/HCPCS: 36415; 80048; 80164; 80307; 80320; 81001; 82962; 85025; G0480

== ENCOUNTER 2019-07-30 20:38 | Emergency (ER) | payer SELFPAY ==
[2019-07-30 21:46] LABS: Bilirubin,Urine NEG (Negative); Blood,Urine NEG (Negative); Color,Urine Yellow (Yellow); Mucus,Urine 1+ /HPF; Protein,Urine <15 mg/dL mg/dL (Negative)
[2019-07-30 21:50] LABS: Amphetamine Screen,Urine PRESUMPTIVE NEGATIVE; Benzodiazepines Screen,Urine PRESUMPTIVE NEGATIVE; Cannabinoid Screen,Urine PRESUMPTIVE NEGATIVE; Methadone Screen,Urine PRESUMPTIVE NEGATIVE; Opiate Screen,Urine PRESUMPTIVE NEGATIVE
[2019-07-30 21:57] LABS: Basophils # (Auto) 0.1 K/mm3 (0.0-0.1); Eosinophils % (Auto) 0.7 % (0.0-4.3); Hematocrit 34.5 % (35.5-45.6); Lymphocytes # (Auto) 1.6 K/mm3 (1.2-5.4); Lymphocytes % (Auto) 28.3 % (13.4-35.0); Mean Corpuscular HGB Conc 32 % (32-34); Monocytes # (Auto) 0.7 K/mm3 (0.0-0.8); Monocytes % (Auto) 12.2 % (0.0-7.3); Platelet Count 265 K/mm3 (140-440); Red Blood Count 5.12 M/mm3 (3.65-5.03); Red Cell Distribution Width 18.2 % (13.2-15.2)
[2019-07-30 22:05] LABS: Mean Corpuscular Volume 67 fl (84-94)
[2019-07-30 22:08] LABS: Cocaine Screen,Urine PRESUMPTIVE POSITIVE
[2019-07-30 22:17] LABS: BUN/Creatinine Ratio 18; Blood Urea Nitrogen 16 mg/dL (9-20); Calcium 8.9 mg/dL (8.4-10.2); Hemolysis Index 0
[2019-07-30] MEDS ORDERED: ZIPRASIDONE MESYLATE 20 MG VIAL IM ONE (22:40)
--- NOTE | 2019-07-30 22:41 | Emergency Department Report ---
<SPRING LOPEZ - Last Filed: 07/30/19 23:06> ED Psych HPI - General Chief Complaint: Psych Stated Complaint: MH EVAL/SUICIDAL Time Seen by Provider: 07/30/19 21:08 Source: patient, EMS Mode of arrival: Ambulatory Limitations: No Limitations - History of Present Illness Initial Comments: 29-year-old male with a past medical history of ADHD, bipolar, cocaine abuse presents to the hospital with suicidal ideation without plan. Patient states he is angry and wants to kill himself. He states his mother has his prescriptions at the home but she kicked him out and will allow her back in the house. As per psychiatric now patient declined offer for medication. Per previous medical review patient was just here on July 27 (2 days ago) with the same complaint with UDS positive for cocaine. - Related Data Home Medications Medication Instructions Recorded Confirmed Last Taken Divalproex Sodium [Depakote] 500 mg PO DAILY 01/09/19 07/29/19 Unknown Trazodone HCl 50 mg PO HS 01/09/19 07/29/19 Unknown Previous Rx's Medication Instructions Recorded Last Taken Type Sertraline HCl [Zoloft] 50 mg PO QHS #30 tablet 07/28/18 Unknown Rx risperiDONE [RisperDAL] 3 mg PO BID #60 tablet 05/07/19 Unknown Rx traZODone [Desyrel] 50 mg PO QHS #30 tab 05/07/19 Unknown Rx Allergies Allergy/AdvReac Type Severity Reaction Status Date / Time No Known Allergies Allergy Verified 02/20/18 09:25 ED Review of Systems Comment: All other systems reviewed and negative ED Past Medical Hx - Past Medical History Previous Medical History?: Yes Hx Psychiatric Treatment: Yes (Bipolar, schizo) Additional medical history: drug abuse - Surgical History Past Surgical History?: No - Social History Smoking Status: Current Every Day Smoker Substance Use Type: None - Medications Home Medications: Home Medications Medication Instructions Recorded Confirmed Last Taken Type Sertraline HCl [Zoloft] 50 mg PO QHS #30 tablet 07/28/18 07/29/19 Unknown Rx Divalproex Sodium [Depakote] 500 mg PO DAILY 01/09/19 07/29/19 Unknown History Trazodone HCl 50 mg PO HS 01/09/19 07/29/19 Unknown History risperiDONE [RisperDAL] 3 mg PO BID #60 tablet 05/07/19 07/29/19 Unknown Rx traZODone [Desyrel] 50 mg PO QHS #30 tab 05/07/19 07/29/19 Unknown Rx ED Physical Exam - General Limitations: No Limitations - Other Other exam information: General: No acute distress Head: Atraumatic Eyes: normal appearance ENT: Moist mucous membranes Neck: Normal appearance, no midline tenderness Chest: Clear to auscultation bilaterally CV: Regular rate and rhythm Abdomen: Soft, normal bowel sounds, nontender, nondistended, no rebound or guarding Back: Normal inspection Extremity: Normal inspection, full range of motion Neuro: Alert and oriented x3 without focal weakness or numbness Psych: Agitated, loud speech, cooperative Skin: No rash ED Medical Decision Making - Lab Data Result diagrams: 07/30/19 21:41 07/30/19 21:41 Lab Results 07/30/19 07/30/19 07/30/19 Range/Units 21:00 21:00 21:41 WBC 5.7 (4.5-11.0) K/mm3 RBC 5.12 H (3.65-5.03) M/mm3 Hgb 11.0 L (11.8-15.2) gm/dl Hct 34.5 L (35.5-45.6) % MCV 67 L (84-94) fl MCH 22 L (28-32) pg MCHC 32 (32-34) % RDW 18.2 H (13.2-15.2) % Plt Count 265 (140-440) K/mm3 Lymph % (Auto) 28.3 (13.4-35.0) % Drew % (Auto) 12.2 H (0.0-7.3) % Eos % (Auto) 0.7 (0.0-4.3) % Baso % (Auto) 1.0 (0.0-1.8) % Lymph # 1.6 (1.2-5.4) K/mm3 Drew # 0.7 (0.0-0.8) K/mm3 Eos # 0.0 (0.0-0.4) K/mm3 Baso # 0.1 (0.0-0.1) K/mm3 Seg Neutrophils % 57.8 (40.0-70.0) % Seg Neutrophils # 3.3 (1.8-7.7) K/mm3 Sodium (137-145) mmol/L Potassium (3.6-5.0) mmol/L Chloride (98-107) mmol/L Carbon Dioxide (22-30) mmol/L Anion Gap mmol/L BUN (9-20) mg/dL Creatinine (0.8-1.5) mg/dL Estimated GFR ml/min BUN/Creatinine Ratio % Glucose (75-100) mg/dL Calcium (8.4-10.2) mg/dL Urine Color Yellow (Yellow) Urine Turbidity Clear (Clear) Urine pH 6.0 (5.0-7.0) Ur Specific [place] 1.028 (1.003-1.030) Urine Protein <15 mg/dl (Negative) mg/dL Urine Glucose (UA) Neg (Negative) mg/dL Urine Ketones Neg (Negative) mg/dL Urine Blood Neg (Negative) Urine Nitrite Neg (Negative) Urine Bilirubin Neg (Negative) Urine Urobilinogen 2.0 (<2.0) mg/dL Ur Leukocyte Esterase Neg (Negative) Urine WBC (Auto) 5.0 (0.0-6.0) /HPF Urine RBC (Auto) 7.0 (0.0-6.0) /HPF U Epithel Cells (Auto) < 1.0 (0-13.0) /HPF Urine Mucus 1+ /HPF Salicylates (2.8-20.0) mg/dL Urine Opiates Screen Presumptive negative Urine Methadone Screen Presumptive negative Acetaminophen (10.0-30.0) ug/mL Ur Barbiturates Screen Presumptive negative Valproic Acid (50-100) ug/mL Ur Phencyclidine Scrn Presumptive negative Ur Amphetamines Screen Presumptive negative U Benzodiazepines Scrn Presumptive negative Urine Cocaine Screen Presumptive positive U Marijuana (THC) Screen Presumptive negative Drugs of Abuse Note Disclamer Plasma/Serum Alcohol (0-0.07) % 07/30/19 07/30/19 07/30/19 Range/Units 21:41 21:41 21:41 WBC (4.5-11.0) K/mm3 RBC (3.65-5.03) M/mm3 Hgb (11.8-15.2) gm/dl Hct (35.5-45.6) % MCV (84-94) fl MCH (28-32) pg MCHC (32-34) % RDW (13.2-15.2) % Plt Count (140-440) K/mm3 Lymph % (Auto) (13.4-35.0) % Drew % (Auto) (0.0-7.3) % Eos % (Auto) (0.0-4.3) % Baso % (Auto) (0.0-1.8) % Lymph # (1.2-5.4) K/mm3 Drew # (0.0-0.8) K/mm3 Eos # (0.0-0.4) K/mm3 Baso # (0.0-0.1) K/mm3 Seg Neutrophils % (40.0-70.0) % Seg Neutrophils # (1.8-7.7) K/mm3 Sodium 142 (137-145) mmol/L Potassium 3.6 (3.6-5.0) mmol/L Chloride 103.7 (98-107) mmol/L Carbon Dioxide 26 (22-30) mmol/L Anion Gap 16 mmol/L BUN 16 (9-20) mg/dL Creatinine 0.9 (0.8-1.5) mg/dL Estimated GFR > 60 ml/min BUN/Creatinine Ratio 18 % Glucose 132 H (75-100) mg/dL Calcium 8.9 (8.4-10.2) mg/dL Urine Color (Yellow) Urine Turbidity (Clear) Urine pH (5.0-7.0) Ur Specific [place] (1.003-1.030) Urine Protein (Negative) mg/dL Urine Glucose (UA) (Negative) mg/dL Urine Ketones (Negative) mg/dL Urine Blood (Negative) Urine Nitrite (Negative) Urine Bilirubin (Negative) Urine Urobilinogen (<2.0) mg/dL Ur Leukocyte Esterase (Negative) Urine WBC (Auto) (0.0-6.0) /HPF Urine RBC (Auto) (0.0-6.0) /HPF U Epithel Cells (Auto) (0-13.0) /HPF Urine Mucus /HPF Salicylates < 0.3 L (2.8-20.0) mg/dL Urine Opiates Screen Urine Methadone Screen Acetaminophen < 5.0 L (10.0-30.0) ug/mL Ur Barbiturates Screen Valproic Acid < 2.8 L (50-100) ug/mL Ur Phencyclidine Scrn Ur Amphetamines Screen U Benzodiazepines Scrn Urine Cocaine Screen U Marijuana (THC) Screen Drugs of Abuse Note Plasma/Serum Alcohol (0-0.07) % 07/30/19 Range/Units 21:41 WBC (4.5-11.0) K/mm3 RBC (3.65-5.03) M/mm3 Hgb (11.8-15.2) gm/dl Hct (35.5-45.6) % MCV (84-94) fl MCH (28-32) pg MCHC (32-34) % RDW (13.2-15.2) % Plt Count (140-440) K/mm3 Lymph % (Auto) (13.4-35.0) % Drew % (Auto) (0.0-7.3) % Eos % (Auto) (0.0-4.3) % Baso % (Auto) (0.0-1.8) % Lymph # (1.2-5.4) K/mm3 Drew # (0.0-0.8) K/mm3 Eos # (0.0-0.4) K/mm3 Baso # (0.0-0.1) K/mm3 Seg Neutrophils % (40.0-70.0) % Seg Neutrophils # (1.8-7.7) K/mm3 Sodium (137-145) mmol/L Potassium (3.6-5.0) mmol/L Chloride (98-107) mmol/L Carbon Dioxide (22-30) mmol/L Anion Gap mmol/L BUN (9-20) mg/dL Creatinine (0.8-1.5) mg/dL Estimated GFR ml/min BUN/Creatinine Ratio % Glucose (75-100) mg/dL Calcium (8.4-10.2) mg/dL Urine Color (Yellow) Urine Turbidity (Clear) Urine pH (5.0-7.0) Ur Specific [place] (1.003-1.030) Urine Protein (Negative) mg/dL Urine Glucose (UA) (Negative) mg/dL Urine Ketones (Negative) mg/dL Urine Blood (Negative) Urine Nitrite (Negative) Urine Bilirubin (Negative) Urine Urobilinogen (<2.0) mg/dL Ur Leukocyte Esterase (Negative) Urine WBC (Auto) (0.0-6.0) /HPF Urine RBC (Auto) (0.0-6.0) /HPF U Epithel Cells (Auto) (0-13.0) /HPF Urine Mucus /HPF Salicylates (2.8-20.0) mg/dL Urine Opiates Screen Urine Methadone Screen Acetaminophen (10.0-30.0) ug/mL Ur Barbiturates Screen Valproic Acid (50-100) ug/mL Ur Phencyclidine Scrn Ur Amphetamines Screen U Benzodiazepines Scrn Urine Cocaine Screen U Marijuana (THC) Screen Drugs of Abuse Note Plasma/Serum Alcohol < 0.01 (0-0.07) % - Medical Decision Making Patient is homeless, substance abuser, and chronically noncompliant with his medications and expresses suicidal ideation without plan. Patient was seen here 2 days ago with the same presentation and as per psychiatrist note he declined prescription meds. Repeat mental health evaluation has been requested. Patient has multiple medications that have been provided while in the ED however, it is unclear what. patient should be prescribed as an outpatient. Will defer to mental health to recommend appropriate medications for stabilization of psychiatric illness - Differential Diagnosis Cocaine abuse, psychosis, schizophrenia, med noncompliance, secondary gain Critical Care Time: No ED Disposition Clinical Impression: Suicidal ideations, Schizophrenia Disposition: DC/TX-65 PSY HOSP/PSY UNIT Is pt being admited?: No Condition: Stable Instructions: Suicide Prevention for Adults (ED) Referrals: [facility] MD ROMMEL [Primary Care Provider] - 3-5 Days <BERNARDO WALLER - Last Filed: 07/31/19 16:58> ED Review of Systems ROS: Stated complaint: MH EVAL/SUICIDAL Other details as noted in HPI ED Course Vital Signs 07/30/19 07/31/19 07/31/19 21:00 02:14 08:00 Temperature 98.6 F 98.6 F Pulse Rate 104 H 77 Respiratory 18 16 18 Rate Blood Pressure 121/64 Blood Pressure 121/64 110/57 [Left] O2 Sat by Pulse 97 98 Oximetry 07/31/19 08:45 Temperature 98.7 F Pulse Rate 73 Respiratory 20 Rate Blood Pressure Blood Pressure 98/69 [Left] O2 Sat by Pulse 100 Oximetry ED Medical Decision Making - Lab Data Result diagrams: 07/30/19 21:41 07/30/19 21:41 - Medical Decision Making Patient is 29 years old male with history of schizophrenia and substance abuse presented to the ER expressing suicidal ideation without plan. Patient has been evaluated by our psychiatric team and recommended patient to be discharged home to follow-up with his psychiatrist as an outpatient. I personally examined the patient patient denied any suicidal ideation or homicidal ideation. Patient also denied any visual or auditory hallucination. Patient is medically and psychiatrically stable for discharge. Critical care attestation.: If time is entered above; I have spent that time in minutes in the direct care of this critically ill patient, excluding procedure time.
[2019-07-30] MEDS ORDERED: WATER FOR INJ Sterile (PF) 10 ML ONE (22:53)
[2019-07-31 16:51] VITALS: BP 98/69
== END 2019-07-31 17:00 ==
LOC: ED 20:38
DX: R45.851 Suicidal ideations (principal); F20.9 Schizophrenia, unspecified; F31.9 Bipolar disorder, unspecified; F17.200 Nicotine dependence, unspecified, uncomplicated; Z79.899 Other long term (current) drug therapy
CPT/HCPCS: 36415; 80048; 80164; 80307; 81001; 85025; 96372; 99284; J3486; 80320; G0480

== ENCOUNTER 2019-08-01 17:23 | Emergency (ER) | payer SELFPAY ==
[2019-08-01 17:37] VITALS: BP 124/84
--- NOTE | 2019-08-01 18:49 | Emergency Department Report ---
ED Female HPI - General Chief complaint: Psych Stated complaint: SUICIDAL THOUGHT Time Seen by Provider: 08/01/19 18:31 Source: patient Mode of arrival: Ambulatory Limitations: No Limitations - Related Data Home Medications Medication Instructions Recorded Confirmed Last Taken Divalproex Sodium [Depakote] 500 mg PO DAILY 01/09/19 07/29/19 Unknown Trazodone HCl 50 mg PO HS 01/09/19 07/29/19 Unknown Previous Rx's Medication Instructions Recorded Last Taken Type Sertraline HCl [Zoloft] 50 mg PO QHS #30 tablet 07/28/18 Unknown Rx risperiDONE [RisperDAL] 3 mg PO BID #60 tablet 05/07/19 Unknown Rx traZODone [Desyrel] 50 mg PO QHS #30 tab 05/07/19 Unknown Rx Allergies Allergy/AdvReac Type Severity Reaction Status Date / Time No Known Allergies Allergy Verified 02/20/18 09:25 ED Review of Systems ROS: Stated complaint: SUICIDAL THOUGHT Other details as noted in HPI ED Past Medical Hx - Past Medical History Previous Medical History?: Yes Hx Psychiatric Treatment: Yes (Bipolar, schizo) Additional medical history: drug abuse - Surgical History Past Surgical History?: Yes - Social History Smoking Status: Unknown if ever smoked - Medications Home Medications: Home Medications Medication Instructions Recorded Confirmed Last Taken Type Sertraline HCl [Zoloft] 50 mg PO QHS #30 tablet 07/28/18 07/29/19 Unknown Rx Divalproex Sodium [Depakote] 500 mg PO DAILY 01/09/19 07/29/19 Unknown History Trazodone HCl 50 mg PO HS 01/09/19 07/29/19 Unknown History risperiDONE [RisperDAL] 3 mg PO BID #60 tablet 05/07/19 07/29/19 Unknown Rx traZODone [Desyrel] 50 mg PO QHS #30 tab 05/07/19 07/29/19 Unknown Rx ED Physical Exam - General Limitations: No Limitations ED Course Vital Signs 08/01/19 08/01/19 17:27 18:20 Temperature 97.9 F Pulse Rate 105 H Respiratory 20 18 Rate Blood Pressure 124/84 O2 Sat by Pulse 97 Oximetry Critical care attestation.: If time is entered above; I have spent that time in minutes in the direct care of this critically ill patient, excluding procedure time. ED Disposition Condition: Stable
--- NOTE | 2019-08-01 18:51 | Emergency Department Report ---
ED Psych HPI - General Chief Complaint: Psych Stated Complaint: SUICIDAL THOUGHT Time Seen by Provider: 08/01/19 18:31 Source: patient Mode of arrival: Ambulatory - History of Present Illness Initial Comments: Patient is a 29-year-old high Citizen Of [place] male with schizophrenia who was checked in stating that he was having suicidal ideations however during my interaction with the patient he states he just feels very fearful for his life and has been running down the street running away from unknown threat. Patient states that he believes people are out to kill him. This is the patient's ninth time here in the emergency department for the same complaints. Patient is been medically cleared numerous times and has been seen by Dr. Fofana our psychiatrist. Patient states he wants to get on his medications and get into his treatment program it is noted by our mental health assessment team that the patient likely has a great deal is secondary gains to being here in the emergency department as he is homeless - Related Data Home Medications Medication Instructions Recorded Confirmed Last Taken Divalproex Sodium [Depakote] 500 mg PO DAILY 01/09/19 07/29/19 Unknown Previous Rx's Medication Instructions Recorded Last Taken Type Sertraline HCl [Zoloft] 50 mg PO QHS #30 tablet 07/28/18 Unknown Rx Divalproex ER [DepaKOTE ER] 500 mg PO QDAY #30 tablet 08/01/19 Unknown Rx Sertraline [Zoloft] 50 mg PO QHS #30 tablet 08/01/19 Unknown Rx Trazodone HCl 50 mg PO HS #30 08/01/19 Unknown Rx risperiDONE [RisperDAL] 3 mg PO BID #60 tablet 08/01/19 Unknown Rx traZODone [Desyrel] 50 mg PO QHS #30 tab 08/01/19 Unknown Rx Allergies Allergy/AdvReac Type Severity Reaction Status Date / Time No Known Allergies Allergy Verified 02/20/18 09:25 ED Review of Systems ROS: Stated complaint: SUICIDAL THOUGHT Other details as noted in HPI Comment: All other systems reviewed and negative ED Past Medical Hx - Past Medical History Previous Medical History?: Yes Hx Psychiatric Treatment: Yes (Bipolar, schizo) Additional medical history: drug abuse - Surgical History Past Surgical History?: Yes - Social History Smoking Status: Unknown if ever smoked - Medications Home Medications: Home Medications Medication Instructions Recorded Confirmed Last Taken Type Sertraline HCl [Zoloft] 50 mg PO QHS #30 tablet 07/28/18 07/29/19 Unknown Rx Divalproex Sodium [Depakote] 500 mg PO DAILY 01/09/19 07/29/19 Unknown History Divalproex ER [DepaKOTE ER] 500 mg PO QDAY #30 tablet 08/01/19 Unknown Rx Sertraline [Zoloft] 50 mg PO QHS #30 tablet 08/01/19 Unknown Rx Trazodone HCl 50 mg PO HS #30 08/01/19 Unknown Rx risperiDONE [RisperDAL] 3 mg PO BID #60 tablet 08/01/19 Unknown Rx traZODone [Desyrel] 50 mg PO QHS #30 tab 08/01/19 Unknown Rx ED Physical Exam - General Limitations: No Limitations General appearance: alert, in no apparent distress - Head Head exam: Present: atraumatic, normocephalic - Eye Eye exam: Present: normal appearance - ENT ENT exam: Present: mucous membranes moist - Neck Neck exam: Present: normal inspection - Respiratory Respiratory exam: Present: normal lung sounds bilaterally. Absent: respiratory distress - Cardiovascular Cardiovascular Exam: Present: regular rate, normal rhythm. Absent: systolic murmur, diastolic murmur, rubs, gallop - GI/Abdominal GI/Abdominal exam: Present: soft, normal bowel sounds - Rectal Rectal exam: Present: deferred - Extremities Exam Extremities exam: Present: normal inspection - Back Exam Back exam: Present: normal inspection - Neurological Exam Neurological exam: Present: alert, oriented X3 - Psychiatric Psychiatric exam: Present: normal affect, normal mood - Skin Skin exam: Present: warm, dry, intact, normal color. Absent: rash ED Course Vital Signs 08/01/19 08/01/19 17:27 18:20 Temperature 97.9 F Pulse Rate 105 H Respiratory 20 18 Rate Blood Pressure 124/84 O2 Sat by Pulse 97 Oximetry ED Medical Decision Making - Medical Decision Making Patient was medically cleared by our mental health assessment team. We did discussed this case with Dr. Fofana who states that the patient will be restarted on his medications but does not meet criteria for crisis intervention. Please see mental health assessment note below CHLOE RICHARDSON III Male : 1990 MedRec# [id number] 08/01/19 18:42 - MH Pompom Maker's Note by RONALDO QUINTANILLA [facility] Num: [id number] : 1990 Patient Age: 29 Pt is a 29 yo AA male presenting to ED for MHE, as pt reported suicidal ideations without a plan. During ax, pt presented with uncooperative behaviors, anxious mood and congruent affect. Pt participated fully in the assessment but was evasive and guarded with responses. Pt was presented to ED three times last week for same problem. Pt reports onset of SI without a plan 08/01/19. Pt identified trigger of lack of family support and homelessness. Pt reports SI and stated, I been feeling killing myself for an hour". Pt denies hx of attempts. Pt denies HI. Pt denies A/V H. Pt hx of mental health dx-Bipolar, Schizophrenia. Pt denies alcohol and substance use or abuse. l Pt reports homelessness, informing pedicab driver that sleeps at his mother's house or the [facility]. Pt denies legal issues. Pt reports decline in sleep/appetite, informing pedicab driver that he has not been getting enough. Recommendations: At this time pt presents with active SI, without a plan. Pt appears to be seeking admission to hospital for secondary randolph. PT is homeless. Pt has had nine visits to the ED since 05/03. Pt had two visits last week. Pt cleared by Dr. Fofana 07/29/19. Pt provided with outpatient referrals. Ed Dr. Preston presribed psych meds until patient can follow up at [facility]. Initialized on 08/01/19 18:42 - END OF NOTE Critical care attestation.: If time is entered above; I have spent that time in minutes in the direct care of this critically ill patient, excluding procedure time. ED Disposition Clinical Impression: Schizophrenia, Homeless, Fearfulness, Medication refill Disposition: DC-01 TO HOME OR SELFCARE Is pt being admited?: No Does the pt Need Aspirin: No Condition: Stable Prescriptions: traZODone [Desyrel] 50 mg PO QHS #30 tab Sertraline [Zoloft] 50 mg PO QHS #30 tablet Divalproex ER [DepaKOTE ER] 500 mg PO QDAY #30 tablet risperiDONE [RisperDAL] 3 mg PO BID #60 tablet Trazodone HCl 50 mg PO HS #30 Time of Disposition: 18:53
== END 2019-08-01 19:28 | disposition home or self-care (01) ==
LOC: ED 17:23
DX: F20.9 Schizophrenia, unspecified (principal); F40.9 Phobic anxiety disorder, unspecified; Z76.0 Encounter for issue of repeat prescription; F31.9 Bipolar disorder, unspecified; Z79.899 Other long term (current) drug therapy
CPT/HCPCS: 99283

== ENCOUNTER 2019-08-03 15:42 | Emergency (ER) | payer SELFPAY ==
[2019-08-03 16:15] VITALS: BP 120/69
--- NOTE | 2019-08-03 17:42 | Emergency Department Report ---
ED Psych HPI - General Chief Complaint: Psych Stated Complaint: SI Time Seen by Provider: 08/03/19 16:42 Source: patient Mode of arrival: Stretcher - History of Present Illness Initial Comments: Patient is a 29-year-old F Afghan male who is presenting for the 10th time this year for suicidal ideations. Patient is had a plan on into the visit she is been here. He has been cleared by our psychiatrist numerous times. Patient is homeless and is here with secondary gain. Patient states he wants to be placed in a facility long-term. Patient on all of his visits comes in re questing food. Patient states he is suicidal but denies any actual plan. Patient states he want to go to a facility and get back on his medications. I myself prescribed his medications 2 days ago and he states he ripped up the prescriptions out of anger. - Related Data Home Medications Medication Instructions Recorded Confirmed Last Taken Divalproex Sodium [Depakote] 500 mg PO DAILY 01/09/19 07/29/19 Unknown Previous Rx's Medication Instructions Recorded Last Taken Type Sertraline HCl [Zoloft] 50 mg PO QHS #30 tablet 07/28/18 Unknown Rx Trazodone HCl 50 mg PO HS #30 08/01/19 Unknown Rx Divalproex ER [Depakote ER] 500 mg PO QDAY #30 tablet 08/03/19 Unknown Rx Sertraline [Zoloft] 50 mg PO QHS #30 tablet 08/03/19 Unknown Rx risperiDONE [RisperDAL] 3 mg PO BID #60 tablet 08/03/19 Unknown Rx traZODone [Desyrel] 50 mg PO QHS #30 tab 08/03/19 Unknown Rx Allergies Allergy/AdvReac Type Severity Reaction Status Date / Time No Known Allergies Allergy Verified 02/20/18 09:25 ED Review of Systems ROS: Stated complaint: SI Other details as noted in HPI Comment: All other systems reviewed and negative ED Past Medical Hx - Past Medical History Previous Medical History?: Yes Hx Psychiatric Treatment: Yes (Bipolar, schizo) Additional medical history: drug abuse - Social History Smoking Status: Never Smoker Substance Use Type: Cocaine - Medications Home Medications: Home Medications Medication Instructions Recorded Confirmed Last Taken Type Sertraline HCl [Zoloft] 50 mg PO QHS #30 tablet 07/28/18 07/29/19 Unknown Rx Divalproex Sodium [Depakote] 500 mg PO DAILY 01/09/19 07/29/19 Unknown History Trazodone HCl 50 mg PO HS #30 08/01/19 Unknown Rx Divalproex ER [Depakote ER] 500 mg PO QDAY #30 tablet 08/03/19 Unknown Rx Sertraline [Zoloft] 50 mg PO QHS #30 tablet 08/03/19 Unknown Rx risperiDONE [RisperDAL] 3 mg PO BID #60 tablet 08/03/19 Unknown Rx traZODone [Desyrel] 50 mg PO QHS #30 tab 08/03/19 Unknown Rx ED Physical Exam - General Limitations: No Limitations General appearance: alert, in no apparent distress - Head Head exam: Present: atraumatic, normocephalic - Eye Eye exam: Present: normal appearance, PERRL, EOMI - ENT ENT exam: Present: mucous membranes moist - Neck Neck exam: Present: normal inspection - Respiratory Respiratory exam: Present: normal lung sounds bilaterally. Absent: respiratory distress - Cardiovascular Cardiovascular Exam: Present: regular rate, normal rhythm. Absent: systolic murmur, diastolic murmur, rubs, gallop - GI/Abdominal GI/Abdominal exam: Present: soft, normal bowel sounds - Rectal Rectal exam: Present: deferred - Extremities Exam Extremities exam: Present: normal inspection - Back Exam Back exam: Present: normal inspection - Neurological Exam Neurological exam: Present: alert, oriented X3 - Psychiatric Psychiatric exam: Present: normal affect, normal mood - Skin Skin exam: Present: warm, dry, intact, normal color. Absent: rash ED Course Vital Signs 08/03/19 16:11 Temperature 98.6 F Pulse Rate 81 Respiratory 18 Rate Blood Pressure 120/69 O2 Sat by Pulse 100 Oximetry ED Medical Decision Making - Medical Decision Making Patient again was medically cleared by our mental health team. Patient will be discharged. Reprint of his prescriptions has been given to him. Critical care attestation.: If time is entered above; I have spent that time in minutes in the direct care of this critically ill patient, excluding procedure time. ED Disposition Clinical Impression: Homeless, Medication refill Disposition: MED SCREENING EXAM-LEFT Is pt being admited?: No Does the pt Need Aspirin: No Condition: Stable Prescriptions: traZODone [Desyrel] 50 mg PO QHS #30 tab Sertraline [Zoloft] 50 mg PO QHS #30 tablet Divalproex ER [Depakote ER] 500 mg PO QDAY #30 tablet risperiDONE [RisperDAL] 3 mg PO BID #60 tablet Referrals: PRIMARY CARE, [Primary Care Provider] - 3-5 Days Time of Disposition: 17:42
== END 2019-08-03 18:45 | disposition left against medical advice (07) ==
LOC: ED 15:42
DX: R45.851 Suicidal ideations (principal); F14.10 Cocaine abuse, uncomplicated; F25.0 Schizoaffective disorder, bipolar type; Z79.899 Other long term (current) drug therapy; Z59.0 Homelessness; Z76.0 Encounter for issue of repeat prescription
CPT/HCPCS: 99283

== ENCOUNTER 2019-08-06 17:48 | Emergency (ER) | payer SELFPAY ==
--- NOTE | 2019-08-06 18:04 | Emergency Department Report ---
ED General Adult HPI - General Chief complaint: Psych Stated complaint: MH EVAL Time Seen by Provider: 08/06/19 18:01 Source: patient, RN notes reviewed, old records reviewed Mode of arrival: Ambulatory Limitations: No Limitations - History of Present Illness Initial comments: Patient is a 29-year-old undomiciled gentleman, with a history of frequent ER visits for secondary gain, presenting to the ER with nonspecific psychiatric complaints. The patient to me indicates that he needs a place to stay, and is asking for food. He denies physical pain. He also endorses that he is considering detoxing from alcohol, and reports that his last alcoholic drink was last week. Patient was seen for similar symptoms a few days ago, and was deemed by mental health/psychiatry to have secondary gain intentions. The patient denies physical pain at this time. - Related Data Home Medications Medication Instructions Recorded Confirmed Last Taken Divalproex Sodium [Depakote] 500 mg PO DAILY 01/09/19 08/06/19 08/03/19 Previous Rx's Medication Instructions Recorded Last Taken Type Sertraline HCl [Zoloft] 50 mg PO QHS #30 tablet 07/28/18 08/03/19 Rx Trazodone HCl 50 mg PO HS #30 08/01/19 08/03/19 Rx risperiDONE [RisperDAL] 3 mg PO BID #60 tablet 08/03/19 08/03/19 Rx traZODone [Desyrel] 50 mg PO QHS #30 tab 08/03/19 08/03/19 Rx Allergies Allergy/AdvReac Type Severity Reaction Status Date / Time No Known Allergies Allergy Verified 08/06/19 17:50 ED Review of Systems ROS: Stated complaint: MH EVAL Other details as noted in HPI Comment: As per history of present illness ED Past Medical Hx - Past Medical History Hx Psychiatric Treatment: Yes (Bipolar, schizo) Additional medical history: drug abuse - Social History Smoking Status: Current Every Day Smoker Substance Use Type: None - Medications Home Medications: Home Medications Medication Instructions Recorded Confirmed Last Taken Type Sertraline HCl [Zoloft] 50 mg PO QHS #30 tablet 07/28/18 08/06/19 08/03/19 Rx Divalproex Sodium [Depakote] 500 mg PO DAILY 01/09/19 08/06/19 08/03/19 History Trazodone HCl 50 mg PO HS #30 08/01/19 08/06/19 08/03/19 Rx risperiDONE [RisperDAL] 3 mg PO BID #60 tablet 08/03/19 08/06/19 08/03/19 Rx traZODone [Desyrel] 50 mg PO QHS #30 tab 08/03/19 08/06/19 08/03/19 Rx ED Physical Exam - General Limitations: No Limitations General appearance: alert, in no apparent distress - Head Head exam: Present: atraumatic, normocephalic - Eye Eye exam: Present: normal appearance, EOMI. Absent: nystagmus - ENT ENT exam: Present: normal exam, normal orophraynx, mucous membranes moist, normal external ear exam - Neck Neck exam: Present: normal inspection, full ROM. Absent: tenderness, meningismus - Respiratory Respiratory exam: Present: normal lung sounds bilaterally. Absent: respiratory distress - Cardiovascular Cardiovascular Exam: Present: regular rate, normal rhythm, normal heart sounds. Absent: bradycardia, tachycardia, irregular rhythm, systolic murmur, diastolic murmur, rubs, gallop - GI/Abdominal GI/Abdominal exam: Present: soft. Absent: distended, tenderness, guarding, rebound, rigid, pulsatile mass - Rectal Rectal exam: Present: deferred - Extremities Exam Extremities exam: Present: normal inspection, full ROM, other (2+ pulses noted in the bilateral upper and lower extremities. There is no palpable cord. negative Homans sign. Muscular compartments are soft. The pelvis is stable.). Absent: pedal edema, calf tenderness - Back Exam Back exam: Present: normal inspection, full ROM. Absent: tenderness, CVA tenderness (R), CVA tenderness (L), paraspinal tenderness, vertebral tenderness - Neurological Exam Neurological exam: Present: alert, oriented X3, normal gait, other (No facial droop. Tongue midline. Extraocular movements intact bilaterally. Facial sensation intact to light touch in V1, V2, V3 distribution bilaterally. 5 and a 5 strength in 4 extremities. Sensation intact to light touch in 4 extremiti es.). Absent: motor sensory deficit - Psychiatric Psychiatric exam: Present: normal mood, flat affect - Skin Skin exam: Present: warm, dry, intact, normal color. Absent: rash ED Course Vital Signs 08/06/19 08/06/19 08/06/19 17:55 17:56 19:18 Temperature 98.1 F Pulse Rate 95 H 99 H 90 Respiratory 14 15 Rate Blood Pressure 132/78 Blood Pressure 118/71 [Left] O2 Sat by Pulse 98 98 98 Oximetry ED Medical Decision Making - Lab Data Result diagrams: 08/06/19 17:59 Vital Signs 08/06/19 08/06/19 08/06/19 17:55 17:56 19:18 Temperature 98.1 F Pulse Rate 95 H 99 H Respiratory 14 Rate Blood Pressure 132/78 O2 Sat by Pulse 98 98 Oximetry Labs 08/06/19 08/06/19 08/06/19 17:59 17:59 17:59 Sodium 135 L Potassium 4.1 Chloride 100.9 Carbon Dioxide 20 L Anion Gap 18 BUN 15 Creatinine 0.9 Estimated GFR > 60 BUN/Creatinine Ratio 17 Glucose 86 Calcium 9.1 Magnesium Total Creatine Kinase Salicylates Acetaminophen < 5.0 L Valproic Acid Plasma/Serum Alcohol < 0.01 08/06/19 08/06/19 18:02 18:23 Sodium Potassium Chloride Carbon Dioxide Anion Gap BUN Creatinine Estimated GFR BUN/Creatinine Ratio Glucose Calcium Magnesium 2.00 Total Creatine Kinase 775 H Salicylates < 0.3 L Acetaminophen Valproic Acid < 2.8 L Plasma/Serum Alcohol - Medical Decision Making Differential diagnosis, including but not limited to: Homelessness, malingering, secondary gain Assessment and plan: 29-year-old gentleman presenting with nonspecific psychiatric symptoms, with probable secondary gain, including wanting a place to stay, sleep, eat and drink. The patient is afebrile with reassuring vital signs. His physical examination is benign and unremarkable. He is clinically sober at this time and exhibits decision-making capacity. He is seen by psychiatry today, as well as on 08/03/2019 Both times, it appears that the patient appears to be malingering for secondary gain. This patient does not meet criteria for 1013. This patient does not meet criteria for medical hospitalization or medical admission. The patient will be discharged. He can follow-up with outpatient resources that were provided to him. Critical care attestation.: If time is entered above; I have spent that time in minutes in the direct care of this critically ill patient, excluding procedure time. ED Disposition Clinical Impression: Homeless, Malingerer Disposition: DC-01 TO HOME OR SELFCARE Is pt being admited?: No Does the pt Need Aspirin: No Condition: Stable Additional Instructions: Please continue the outpatient psychiatric medications that were recently prescribed to the patient. Follow-up with an outpatient primary care doctor within the next month. Follow-up with outpatient homeless resources and psychiatric resources that were provided to the patient as an outpatient. Avoid consumption of alcohol and recreational drugs. Return to the emergency room right away with new, worsened or different symptoms, or symptoms not present on initial emergency room evaluation HOMELESS RESOURCES: [facility] NEED HELP? People experiencing homelessness seek refuge at [facility] five days a week in need of help for a wide range of problems, ranging from the working poor sleeping in a car, women and children escaping domestic violence, and people who have no means of care home. If you are in need of help or know someone who does, please contact us at [email or web address] call , or come to our offices at [address] [place] [address], Friday-Friday beginning at 8AM. [facility] Address: [address] [place] [address] Client Engagement [phone] Regular program admission occurs Friday through Friday at 7:00 amand operates on a first come, first serve basis.Because we cant anticipate program availability in advance andprogram spots are in high demand, we recommend arriving early. Space fills up fast! Next steps can include: Assignment to a [facility] program bed Connection to and placement in a partner program, or Referral to a partner agency City of Refuge: [facility] Address: [address] [place] [address] How do I join the [facility] housing program? Our housing programs are offered based on availability. If you are looking to participate in our housing program, simply call [phone] to find out if we have available space. If you get the voicemail, make sure to leave your name, best contact number to reach you, your need, and if you have children that would need housing as well. Since we do receive many calls, please allow up to 48 hours for one of our housing specialists to return your call. If we do not have vacancies, we suggest callingthe [facility] hotline at 211 for additional housing options. Outpatient COMMUNITY Behavioral Health Resources: [facility] ([facility] [address] [place] [address] / [phone] Friday thru Friday - 8am - 5pm [facility] Address: [address], [place] [address] Friday thru Friday- 7am-2pm [facility] Address: [address], [place] [address] Friday thru Friday: 8:30AM-5PM CRISIS RESOURCES [place] Crisis Line: Suicide Prevention Line: Crisis Text Line: Text START to 164200 Emergency: 911 Initialized on 08/06/19 18:44 - END OF NOTE Referrals: [facility] [Provider Group] - as needed
[2019-08-06 18:50] LABS: BUN/Creatinine Ratio 17; Blood Urea Nitrogen 15 mg/dL (9-20); Calcium 9.1 mg/dL (8.4-10.2); Hemolysis Index 11
[2019-08-06 19:20] VITALS: BP 118/71
== END 2019-08-06 20:05 | disposition home or self-care (01) ==
LOC: ED 17:48
DX: Z59.0 Homelessness (principal); Z76.5 Malingerer [conscious simulation]; F25.0 Schizoaffective disorder, bipolar type; F17.200 Nicotine dependence, unspecified, uncomplicated; Z79.899 Other long term (current) drug therapy
CPT/HCPCS: 36415; 80048; 80164; 80320; 82550; 83735; G0480

== ENCOUNTER 2019-08-13 01:28 | Emergency (ER) | payer SELFPAY ==
[2019-08-13 01:47] VITALS: BP 131/75
--- NOTE | 2019-08-13 01:50 | Emergency Department Report ---
ED Psych HPI - General Chief Complaint: Psych Stated Complaint: SUICIDAL Time Seen by Provider: 08/13/19 01:42 Source: patient Mode of arrival: Ambulatory - History of Present Illness Initial Comments: Patient is a 29-year-old male well-known to our department who is stating he has suicidal thoughts. Patient has not expressed a plan. Patient likely here for secondary gain. MD Complaint: suicidal ideation, feels depressed - Related Data Home Medications Medication Instructions Recorded Confirmed Last Taken Divalproex Sodium [Depakote] 500 mg PO DAILY 01/09/19 08/06/19 08/03/19 Previous Rx's Medication Instructions Recorded Last Taken Type Sertraline HCl [Zoloft] 50 mg PO QHS #30 tablet 07/28/18 08/03/19 Rx Trazodone HCl 50 mg PO HS #30 08/01/19 08/03/19 Rx risperiDONE [RisperDAL] 3 mg PO BID #60 tablet 08/03/19 08/03/19 Rx traZODone [Desyrel] 50 mg PO QHS #30 tab 08/03/19 08/03/19 Rx Allergies Allergy/AdvReac Type Severity Reaction Status Date / Time No Known Allergies Allergy Verified 08/13/19 01:41 ED Review of Systems ROS: Stated complaint: SUICIDAL Other details as noted in HPI Comment: All other systems reviewed and negative ED Past Medical Hx - Past Medical History Previous Medical History?: Yes Hx Psychiatric Treatment: Yes (Bipolar, schizo) Additional medical history: drug abuse - Social History Smoking Status: Never Smoker Substance Use Type: Alcohol - Medications Home Medications: Home Medications Medication Instructions Recorded Confirmed Last Taken Type Sertraline HCl [Zoloft] 50 mg PO QHS #30 tablet 07/28/18 08/06/19 08/03/19 Rx Divalproex Sodium [Depakote] 500 mg PO DAILY 01/09/19 08/06/19 08/03/19 History Trazodone HCl 50 mg PO HS #30 08/01/19 08/06/19 08/03/19 Rx risperiDONE [RisperDAL] 3 mg PO BID #60 tablet 08/03/19 08/06/19 08/03/19 Rx traZODone [Desyrel] 50 mg PO QHS #30 tab 08/03/19 08/06/19 08/03/19 Rx ED Physical Exam - General Limitations: No Limitations General appearance: alert, in no apparent distress - Head Head exam: Present: atraumatic, normocephalic - Eye Eye exam: Present: normal appearance - ENT ENT exam: Present: mucous membranes moist - Neck Neck exam: Present: normal inspection - Respiratory Respiratory exam: Present: normal lung sounds bilaterally. Absent: respiratory distress - Cardiovascular Cardiovascular Exam: Present: regular rate, normal rhythm. Absent: systolic murmur, diastolic murmur, rubs, gallop - GI/Abdominal GI/Abdominal exam: Present: soft, normal bowel sounds - Rectal Rectal exam: Present: deferred - Extremities Exam Extremities exam: Present: normal inspection - Back Exam Back exam: Present: normal inspection - Neurological Exam Neurological exam: Present: alert, oriented X3 - Psychiatric Psychiatric exam: Present: normal affect, normal mood - Skin Skin exam: Present: warm, dry, intact, normal color. Absent: rash ED Course Vital Signs 08/13/19 01:36 Temperature 98.0 F Pulse Rate 96 H Respiratory 18 Rate Blood Pressure 131/75 O2 Sat by Pulse 97 Oximetry - Reevaluation(s) Reevaluation #1: 08/13/19 02:49 Patient is obsessed with having a snack bag. Again I do not believe the patient is here for anything except for secondary gain. Patient be discharged. ED Medical Decision Making - Lab Data Result diagrams: 08/13/19 01:58 08/13/19 01:58 Critical care attestation.: If time is entered above; I have spent that time in minutes in the direct care of this critically ill patient, excluding procedure time. ED Disposition Clinical Impression: Homeless, Malingerer Disposition: DC- TO HOME OR SELFCARE Is pt being admited?: No Does the pt Need Aspirin: No Condition: Stable Referrals: PRIMARY CARE,MD [Primary Care Provider] - 3-5 Days Time of Disposition: 02:49
[2019-08-13 02:28] LABS: Basophils # (Auto) 0.1 K/mm3 (0.0-0.1); Basophils % (Auto) 0.9 % (0.0-1.8); Eosinophils # (Auto) 0.1 K/mm3 (0.0-0.4); Eosinophils % (Auto) 1.1 % (0.0-4.3); Hematocrit 34.4 % (35.5-45.6); Hemoglobin 11.4 gm/dl (11.8-15.2); Lymphocytes # (Auto) 1.6 K/mm3 (1.2-5.4); Lymphocytes % (Auto) 25.8 % (13.4-35.0); Mean Corpuscular HGB Conc 33 % (32-34); Monocytes # (Auto) 0.7 K/mm3 (0.0-0.8); Monocytes % (Auto) 10.6 % (0.0-7.3); Platelet Count 267 K/mm3 (140-440); Red Blood Count 5.08 M/mm3 (3.65-5.03); Red Cell Distribution Width 19.1 % (13.2-15.2)
[2019-08-13 02:30] LABS: Mean Corpuscular Volume 68 fl (84-94)
[2019-08-13 02:46] LABS: BUN/Creatinine Ratio 12; Blood Urea Nitrogen 11 mg/dL (9-20); Calcium 9.1 mg/dL (8.4-10.2); Hemolysis Index 7
== END 2019-08-13 02:57 | disposition home or self-care (01) ==
LOC: ED 01:28 → EEVIPCON 01:28 → ED 02:57
DX: F25.0 Schizoaffective disorder, bipolar type (principal); Z59.0 Homelessness; Z76.5 Malingerer [conscious simulation]; Z79.899 Other long term (current) drug therapy
CPT/HCPCS: 36415; 80048; 80320; 85025; G0480

== ENCOUNTER 2019-08-16 18:09 | Emergency (ER) | payer SELFPAY ==
--- NOTE | 2019-08-16 18:52 | Emergency Department Report ---
HPI - General Chief Complaint: Psych Time Seen by Provider: 08/16/19 18:50 - HPI HPI: 29-year-old -Bangl[place] male presents to the emergency department for a mental health evaluation. At the time of my evaluation the patient says that he wants to leave and his mother is going to get him into a sober living center tomorrow, and that this evening he will stay at a hotel which he says he has the money to pay for. Patient initially came in through triage complaining of nonspecific suicidal ideations. This patient is well-known to myself in this department and he has been here multiple times recently for similar complaints. However he often appears to be here for secondary gain or malingering and mostly is interested in getting some food to eat. At this time the patient denies any suicidal or homicidal ideations, any hallucinations. ED Past Medical Hx - Past Medical History Hx Psychiatric Treatment: Yes (Bipolar, schizo) Additional medical history: drug abuse - Social History Smoking Status: Current Every Day Smoker Substance Use Type: None - Medications Home Medications: Home Medications Medication Instructions Recorded Confirmed Last Taken Type Sertraline HCl [Zoloft] 50 mg PO QHS #30 tablet 07/28/18 08/06/19 08/03/19 Rx Divalproex Sodium [Depakote] 500 mg PO DAILY 01/09/19 08/06/19 08/03/19 History Trazodone HCl 50 mg PO HS #30 08/01/19 08/06/19 08/03/19 Rx risperiDONE [RisperDAL] 3 mg PO BID #60 tablet 08/03/19 08/06/19 08/03/19 Rx traZODone [Desyrel] 50 mg PO QHS #30 tab 08/03/19 08/06/19 08/03/19 Rx ED Review of Systems ROS: Stated complaint: EVALUATION Other details as noted in HPI Comment: All other systems reviewed and negative Constitutional: denies: chills, fever Respiratory: denies: cough, shortness of breath Cardiovascular: denies: chest pain Gastrointestinal: denies: abdominal pain, vomiting Musculoskeletal: denies: back pain Neurological: denies: headache, weakness Psychiatric: denies: auditory hallucinations, visual hallucinations, homicidal thoughts, suicidal thoughts Physical Exam - Physical Exam Physical Exam: GENERAL: The patient is well-developed well-nourished. HENT: Normocephalic. Atraumatic. Patient has moist mucous membranes. EYES: Extraocular motions are intact. NECK: Supple. Trachea is midline. CHEST/LUNGS: Clear to auscultation. There is no respiratory distress noted. HEART/CARDIOVASCULAR: Regular. There is no tachycardia. ABDOMEN: Abdomen is soft, nontender. Patient has normal bowel sounds. SKIN: Skin is warm and dry. NEURO: The patient is awake, alert, and oriented. The patient is cooperative. The patient has no focal neurologic deficits. Normal speech. MUSCULOSKELETAL: There is no tenderness or deformity. There is no evidence of acute injury. ED Medical Decision Making - Lab Data Result diagrams: 08/16/19 18:31 08/16/19 18:31 - Medical Decision Making This patient allegedly arrived with a complaint of suicidal ideations but since my initial examination he is denying any suicidal or homicidal ideations, or any hallucinations. The patient has a history of cocaine abuse and this is positive once again in his urine drug screen, but the patient does not appear acutely intoxicated. The rest of his labs are mostly unremarkable. His vital signs have been stable throughout his ED course. The patient is asking for discharge home and says he is going to be going into some type of sober living facility in the morning. He does not appear to meet criteria to be made a 1013 or require involuntary inpatient psychiatric admission. Critical Care Time: No Critical care attestation.: If time is entered above; I have spent that time in minutes in the direct care of this critically ill patient, excluding procedure time. ED Disposition Clinical Impression: Cocaine abuse, History of schizophrenia Disposition: - TO HOME OR SELFCARE Is pt being admited?: No Condition: Stable Additional Instructions: Please follow-up with a primary care physician. Please go to the sober living that you state you are starting tomorrow. Please avoid any further cocaine or illicit drug use. I have given you a referral for the [facility] and [facility]. Return to the emergency department with any worsening of your symptoms or any acute distress. Referrals: [facility] [Outside] - 2-3 Days [facility] [Provider Group] - 2-3 Days Time of Disposition: 19:19
[2019-08-16 19:01] LABS: Basophils # (Auto) 0.1 K/mm3 (0.0-0.1); Eosinophils # (Auto) 0.1 K/mm3 (0.0-0.4); Eosinophils % (Auto) 1.6 % (0.0-4.3); Hematocrit 36.1 % (35.5-45.6); Hemoglobin 11.7 gm/dl (11.8-15.2); Lymphocytes # (Auto) 1.5 K/mm3 (1.2-5.4); Lymphocytes % (Auto) 24.1 % (13.4-35.0); Mean Corpuscular HGB Conc 32 % (32-34); Monocytes # (Auto) 0.7 K/mm3 (0.0-0.8); Monocytes % (Auto) 10.9 % (0.0-7.3); Platelet Count 283 K/mm3 (140-440); Red Blood Count 5.33 M/mm3 (3.65-5.03); Red Cell Distribution Width 18.7 % (13.2-15.2)
[2019-08-16 19:11] LABS: Amphetamine Screen,Urine PRESUMPTIVE NEGATIVE; Benzodiazepines Screen,Urine PRESUMPTIVE NEGATIVE; Cannabinoid Screen,Urine PRESUMPTIVE NEGATIVE; Methadone Screen,Urine PRESUMPTIVE NEGATIVE; Opiate Screen,Urine PRESUMPTIVE NEGATIVE
[2019-08-16 19:17] LABS: Bilirubin,Urine NEG (Negative); Blood,Urine NEG (Negative); Color,Urine Yellow (Yellow); Mucus,Urine 2+ /HPF
[2019-08-16 19:17] LABS: BUN/Creatinine Ratio 16; Blood Urea Nitrogen 16 mg/dL (9-20); Calcium 9.2 mg/dL (8.4-10.2); Hemolysis Index 11
[2019-08-16 19:20] LABS: Mean Corpuscular Volume 68 fl (84-94)
[2019-08-16 19:27] VITALS: BP 119/74
[2019-08-16 19:33] LABS: Cocaine Screen,Urine PRESUMPTIVE POSITIVE
== END 2019-08-16 19:27 | disposition home or self-care (01) ==
LOC: ED 18:09
DX: F20.89 Other schizophrenia (principal)
CPT/HCPCS: 36415; 80048; 80307; 80320; 81001; 85025; G0480

== ENCOUNTER 2019-09-11 21:43 | Emergency (ER) | payer SELFPAY ==
[2019-09-11 22:12] LABS: Basophils # (Auto) 0.1 K/mm3 (0.0-0.1); Basophils % (Auto) 1.3 % (0.0-1.8); Eosinophils % (Auto) 0.6 % (0.0-4.3); Hematocrit 37.4 % (35.5-45.6); Hemoglobin 11.7 gm/dl (11.8-15.2); Lymphocytes # (Auto) 1.8 K/mm3 (1.2-5.4); Lymphocytes % (Auto) 24.7 % (13.4-35.0); Mean Corpuscular HGB Conc 31 % (32-34); Mean Corpuscular Volume 66 fl (84-94); Monocytes # (Auto) 1.1 K/mm3 (0.0-0.8); Monocytes % (Auto) 15.3 % (0.0-7.3); Platelet Count 275 K/mm3 (140-440); Red Blood Count 5.64 M/mm3 (3.65-5.03); Red Cell Distribution Width 18.7 % (13.2-15.2)
[2019-09-11 22:21] LABS: Bilirubin,Urine NEG (Negative); Blood,Urine NEG (Negative); Color,Urine Yellow (Yellow); Mucus,Urine 3+ /HPF
[2019-09-11 22:30] LABS: Amphetamine Screen,Urine PRESUMPTIVE NEGATIVE; Benzodiazepines Screen,Urine PRESUMPTIVE NEGATIVE; Cannabinoid Screen,Urine PRESUMPTIVE NEGATIVE; Methadone Screen,Urine PRESUMPTIVE NEGATIVE; Opiate Screen,Urine PRESUMPTIVE NEGATIVE
[2019-09-11 22:31] LABS: BUN/Creatinine Ratio 19; Blood Urea Nitrogen 17 mg/dL (9-20); Calcium 9.2 mg/dL (8.4-10.2); Hemolysis Index 2
[2019-09-11 22:43] LABS: Cocaine Screen,Urine PRESUMPTIVE POSITIVE
--- NOTE | 2019-09-11 22:51 | Emergency Department Report ---
ED General Adult HPI - General Chief complaint: Psych Stated complaint: MH PUI?: No Time Seen by Provider: 09/11/19 22:20 Source: patient, EMS ( EMS documentation not available at time of chart dictation ), RN notes reviewed Mode of arrival: Ambulatory Limitations: No Limitations - History of Present Illness Initial comments: Patient is a 29-year-old gentleman. I have evaluated him in the past. He has a history of malingering, secondary gain, homelessness, chronic psychiatric disease, he has been seen in the past by psychiatry at this hospital, who have recommended outpatient follow-up. Patient has been given outpatient follow-up in the past, but not followed up, also given prescriptions, which he has not filled. The patient presents today with a request for psychiatric evaluation. He denies physical pain. He is not homicidal suicidal. He does not want to overdose on anything. He states no coronavirus symptoms. He denies irritative and obstructive urinary symptoms. He has no physical pain at this time. The patient states no intention to overdose, and indicates he does not have access to guns, or firearms, As "they scare me." Improves with: none Worsens with: none Associated Symptoms: denies other symptoms - Related Data Home Medications Medication Instructions Recorded Confirmed Last Taken Divalproex Sodium [Depakote] 500 mg PO DAILY 01/09/19 09/11/19 08/03/19 Previous Rx's Medication Instructions Recorded Last Taken Type Sertraline HCl [Zoloft] 50 mg PO QHS #30 tablet 07/28/18 08/03/19 Rx risperiDONE [RisperDAL] 3 mg PO BID #60 tablet 08/03/19 08/03/19 Rx traZODone [Desyrel] 50 mg PO QHS #30 tab 08/03/19 08/03/19 Rx Allergies Allergy/AdvReac Type Severity Reaction Status Date / Time No Known Allergies Allergy Verified 08/13/19 01:41 ED Review of Systems ROS: Stated complaint: MH Other details as noted in HPI Constitutional: denies: fever Respiratory: denies: cough Cardiovascular: denies: chest pain Gastrointestinal: denies: abdominal pain Genitourinary: denies: dysuria Psychiatric: denies: homicidal thoughts, suicidal thoughts ED Past Medical Hx - Past Medical History Previous Medical History?: Yes Hx Psychiatric Treatment: Yes (Bipolar, schizo) Additional medical history: drug abuse - Surgical History Past Surgical History?: No - Social History Smoking Status: Current Every Day Smoker Substance Use Type: None - Medications Home Medications: Home Medications Medication Instructions Recorded Confirmed Last Taken Type Sertraline HCl [Zoloft] 50 mg PO QHS #30 tablet 07/28/18 09/11/19 08/03/19 Rx Divalproex Sodium [Depakote] 500 mg PO DAILY 01/09/19 09/11/19 08/03/19 History risperiDONE [RisperDAL] 3 mg PO BID #60 tablet 08/03/19 09/11/19 08/03/19 Rx traZODone [Desyrel] 50 mg PO QHS #30 tab 08/03/19 09/11/19 08/03/19 Rx ED Physical Exam - General Limitations: No Limitations General appearance: alert, in no apparent distress - Head Head exam: Present: atraumatic, normocephalic - Eye Eye exam: Present: normal appearance, EOMI. Absent: nystagmus - ENT ENT exam: Present: normal exam, normal orophraynx, mucous membranes moist, normal external ear exam - Neck Neck exam: Present: normal inspection. Absent: tenderness, meningismus - Respiratory Respiratory exam: Present: normal lung sounds bilaterally. Absent: respiratory distress - Cardiovascular Cardiovascular Exam: Present: normal rhythm, tachycardia (Heart rate approximately 105 bpm), normal heart sounds. Absent: bradycardia, irregular rhythm, systolic murmur, diastolic murmur, rubs, gallop - GI/Abdominal GI/Abdominal exam: Present: soft, normal bowel sounds. Absent: distended, tenderness, guarding, rebound, rigid - Rectal Rectal exam: Present: deferred - Extremities Exam Extremities exam: Present: normal inspection, full ROM, other (2+ pulses noted in the bilateral upper extremities. There is no long bony tenderness. The muscular compartments are soft.). Absent: calf tenderness - Back Exam Back exam: Present: normal inspection, full ROM. Absent: tenderness, CVA tenderness (R), CVA tenderness (L), paraspinal tenderness, vertebral tenderness - Neurological Exam Neurological exam: Present: alert, oriented X3, normal gait, other (No facial droop. Tongue midline. Extraocular movements intact bilaterally. Facial sensation intact to light touch in V1, V2, V3 distribution bilaterally. 5 and a 5 strength in 4 extremities. Sensation intact to light touch in 4 extremities.). Absent: motor sensory deficit - Psychiatric Psychiatric exam: Present: anxious. Absent: homicidal ideation, suicidal ideation - Skin Skin exam: Present: warm, dry, intact, normal color. Absent: rash ED Course Vital Signs 09/11/19 09/11/19 21:53 22:48 Temperature 99.3 F Pulse Rate 113 H Respiratory 18 20 Rate Blood Pressure 140/91 O2 Sat by Pulse 98 97 Oximetry ED Medical Decision Making - Lab Data Result diagrams: 09/11/19 22:00 09/11/19 22:00 Lab Results 09/11/19 09/11/19 09/11/19 Range/Units 21:55 21:55 22:00 WBC (4.5-11.0) K/mm3 RBC (3.65-5.03) M/mm3 Hgb (11.8-15.2) gm/dl Hct (35.5-45.6) % MCV (84-94) fl MCH (28-32) pg MCHC (32-34) % RDW (13.2-15.2) % Plt Count (140-440) K/mm3 Lymph % (Auto) (13.4-35.0) % Divide % (Auto) (0.0-7.3) % Eos % (Auto) (0.0-4.3) % Baso % (Auto) (0.0-1.8) % Lymph # (1.2-5.4) K/mm3 Divide # (0.0-0.8) K/mm3 Eos # (0.0-0.4) K/mm3 Baso # (0.0-0.1) K/mm3 Seg Neutrophils % (40.0-70.0) % Seg Neutrophils # (1.8-7.7) K/mm3 Sodium (137-145) mmol/L Potassium (3.6-5.0) mmol/L Chloride (98-107) mmol/L Carbon Dioxide (22-30) mmol/L Anion Gap mmol/L BUN (9-20) mg/dL Creatinine (0.8-1.5) mg/dL Estimated GFR ml/min BUN/Creatinine Ratio % Glucose (75-100) mg/dL Calcium (8.4-10.2) mg/dL Urine Color Yellow (Yellow) Urine Turbidity Clear (Clear) Urine pH 6.0 (5.0-7.0) Ur Specific [place] 1.028 (1.003-1.030) Urine Protein 30 mg/dl (Negative) mg/dL Urine Glucose (UA) Neg (Negative) mg/dL Urine Ketones Tr (Negative) mg/dL Urine Blood Neg (Negative) Urine Nitrite Neg (Negative) Urine Bilirubin Neg (Negative) Urine Urobilinogen 4.0 (<2.0) mg/dL Ur Leukocyte Esterase Neg (Negative) Urine WBC (Auto) 1.0 (0.0-6.0) /HPF Urine RBC (Auto) 3.0 (0.0-6.0) /HPF Urine Mucus 3+ /HPF Salicylates < 0.3 L (2.8-20.0) mg/dL Urine Opiates Screen Presumptive negative Urine Methadone Screen Presumptive negative Acetaminophen (10.0-30.0) ug/mL Ur Barbiturates Screen Presumptive negative Ur Phencyclidine Scrn Presumptive negative Ur Amphetamines Screen Presumptive negative U Benzodiazepines Scrn Presumptive negative Urine Cocaine Screen Presumptive positive U Marijuana (THC) Screen Presumptive negative Plasma/Serum Alcohol (0-0.07) % 09/11/19 09/11/19 09/11/19 Range/Units 22:00 22:00 22:00 WBC (4.5-11.0) K/mm3 RBC (3.65-5.03) M/mm3 Hgb (11.8-15.2) gm/dl Hct (35.5-45.6) % MCV (84-94) fl MCH (28-32) pg MCHC (32-34) % RDW (13.2-15.2) % Plt Count (140-440) K/mm3 Lymph % (Auto) (13.4-35.0) % Divide % (Auto) (0.0-7.3) % Eos % (Auto) (0.0-4.3) % Baso % (Auto) (0.0-1.8) % Lymph # (1.2-5.4) K/mm3 Divide # (0.0-0.8) K/mm3 Eos # (0.0-0.4) K/mm3 Baso # (0.0-0.1) K/mm3 Seg Neutrophils % (40.0-70.0) % Seg Neutrophils # (1.8-7.7) K/mm3 Sodium 137 (137-145) mmol/L Potassium 3.9 (3.6-5.0) mmol/L Chloride 98.6 (98-107) mmol/L Carbon Dioxide 24 (22-30) mmol/L Anion Gap 18 mmol/L BUN 17 (9-20) mg/dL Creatinine 0.9 (0.8-1.5) mg/dL Estimated GFR > 60 ml/min BUN/Creatinine Ratio 19 % Glucose 139 H (75-100) mg/dL Calcium 9.2 (8.4-10.2) mg/dL Urine Color (Yellow) Urine Turbidity (Clear) Urine pH (5.0-7.0) Ur Specific [place] (1.003-1.030) Urine Protein (Negative) mg/dL Urine Glucose (UA) (Negative) mg/dL Urine Ketones (Negative) mg/dL Urine Blood (Negative) Urine Nitrite (Negative) Urine Bilirubin (Negative) Urine Urobilinogen (<2.0) mg/dL Ur Leukocyte Esterase (Negative) Urine WBC (Auto) (0.0-6.0) /HPF Urine RBC (Auto) (0.0-6.0) /HPF Urine Mucus /HPF Salicylates (2.8-20.0) mg/dL Urine Opiates Screen Urine Methadone Screen Acetaminophen < 5.0 L (10.0-30.0) ug/mL Ur Barbiturates Screen Ur Phencyclidine Scrn Ur Amphetamines Screen U Benzodiazepines Scrn Urine Cocaine Screen U Marijuana (THC) Screen Plasma/Serum Alcohol < 0.01 (0-0.07) % 09/11/19 Range/Units 22:00 WBC 7.1 (4.5-11.0) K/mm3 RBC 5.64 H (3.65-5.03) M/mm3 Hgb 11.7 L (11.8-15.2) gm/dl Hct 37.4 (35.5-45.6) % MCV 66 L (84-94) fl MCH 21 L (28-32) pg MCHC 31 L (32-34) % RDW 18.7 H (13.2-15.2) % Plt Count 275 (140-440) K/mm3 Lymph % (Auto) 24.7 (13.4-35.0) % Divide % (Auto) 15.3 H (0.0-7.3) % Eos % (Auto) 0.6 (0.0-4.3) % Baso % (Auto) 1.3 (0.0-1.8) % Lymph # 1.8 (1.2-5.4) K/mm3 Divide # 1.1 H (0.0-0.8) K/mm3 Eos # 0.0 (0.0-0.4) K/mm3 Baso # 0.1 (0.0-0.1) K/mm3 Seg Neutrophils % 58.1 (40.0-70.0) % Seg Neutrophils # 4.1 (1.8-7.7) K/mm3 Sodium (137-145) mmol/L Potassium (3.6-5.0) mmol/L Chloride (98-107) mmol/L Carbon Dioxide (22-30) mmol/L Anion Gap mmol/L BUN (9-20) mg/dL Creatinine (0.8-1.5) mg/dL Estimated GFR ml/min BUN/Creatinine Ratio % Glucose (75-100) mg/dL Calcium (8.4-10.2) mg/dL Urine Color (Yellow) Urine Turbidity (Clear) Urine pH (5.0-7.0) Ur Specific [place] (1.003-1.030) Urine Protein (Negative) mg/dL Urine Glucose (UA) (Negative) mg/dL Urine Ketones (Negative) mg/dL Urine Blood (Negative) Urine Nitrite (Negative) Urine Bilirubin (Negative) Urine Urobilinogen (<2.0) mg/dL Ur Leukocyte Esterase (Negative) Urine WBC (Auto) (0.0-6.0) /HPF Urine RBC (Auto) (0.0-6.0) /HPF Urine Mucus /HPF Salicylates (2.8-20.0) mg/dL Urine Opiates Screen Urine Methadone Screen Acetaminophen (10.0-30.0) ug/mL Ur Barbiturates Screen Ur Phencyclidine Scrn Ur Amphetamines Screen U Benzodiazepines Scrn Urine Cocaine Screen U Marijuana (THC) Screen Plasma/Serum Alcohol (0-0.07) % Vital Signs 09/11/19 09/11/19 21:53 22:48 Temperature 99.3 F Pulse Rate 113 H Respiratory 18 20 Rate Blood Pressure 140/91 O2 Sat by Pulse 98 97 Oximetry - Medical Decision Making Differential diagnosis, including but not limited to: Homelessness, general medical evaluation, secondary gain, malingering, chronic psychiatric disease Assessment and plan: 29-year-old gentleman who denies physical pain, has an unremarkable physical exam, improving tachycardia, normal mental status, nonfocal motor exam, not homicidal, not suicidal, does not appear to have an emergent medical condition at this time, does not meet criteria for 1013 hold or psychiatric hold at this time. Patient has presented multiple times in the past to this hospital with similar symptoms. He has been discharged by psychiatry with instructions to follow-up as an outpatient. The patient does not appear to have an emergent medical or psychiatric condition at this time. He can follow-up as an outpatient at his discretion. Critical care attestation.: If time is entered above; I have spent that time in minutes in the direct care of this critically ill patient, excluding procedure time. ED Disposition Clinical Impression: Homeless, General medical exam Disposition: DC- TO HOME OR SELFCARE Is pt being admited?: No Does the pt Need Aspirin: No Condition: Stable Additional Instructions: Please continue current outpatient medications. He is to follow-up with an outpatient primary care doctor, psychiatrist or outpatient resources within the next 2 weeks. Please return to the emergency room right away with new pain, worsening pain, migration of pain, projectile vomiting, change in mental status, confusion, homicidality, suicidality, new, worsened or different symptoms not present on the initial emergency room evaluation HOMELESS RESOURCES: [facility] NEED HELP? People experiencing homelessness seek refuge at [facility] five days a week in need of help for a wide range of problems, ranging from the working poor sleeping in a car, women and children escaping domestic violence, and people who have no means of retirement. If you are in need of help or know someone who does, please contact us at [email or web address] call , or come to our offices at [address] [place], [place] [id number], Friday-Friday beginning at 8AM. [facility] Address: [address] [place], [place] [address] Client Engagement [phone] Regular program admission occurs Friday through Friday at 7:00 amand operates on a first come, first serve basis.Because we cant anticipate program availability in advance andprogram spots are in high demand, we recommend arriving early. Space fills up fast! Next steps can include: Assignment to a [facility] program bed Connection to and placement in a partner program, or Referral to a partner agency [facility]: [facility] Address: [address] [place] [address] How do I join the [facility] housing program? Our housing programs are offered based on availability. If you are looking to participate in our housing program, simply call [phone] to find out if we have available space. If you get the voicemail, make sure to leave your name, best contact number to reach you, your need, and if you have children that would need housing as well. Since we do receive many calls, please allow up to 48 hours for one of our housing specialists to return your call. If we do not have vacancies, we suggest callingthe [facility] hotline at 211 for additional housing options. Outpatient [facility] Resources: [facility] ([facility]) [address] [place] [address] / [phone] Friday thru Friday - 8am - 5pm [facility] Address: [address] [place] [address] Friday thru Friday- 7am-2pm [facility] Address: [address] [place] [address] Friday thru Friday: 8:30AM-5PM CRISIS RESOURCES [place] Crisis Line: Suicide Prevention Line: Crisis Text Line: Text START to [phone] Emergency: 911 Referrals: [facility] [Provider Group] - 3-5 Days [facility] [Outside] - 3-5 Days
[2019-09-12 00:04] VITALS: BP 132/89
== END 2019-09-11 23:30 | disposition home or self-care (01) ==
LOC: ED 21:43
DX: Z00.00 Encounter for general adult medical examination without abnormal findings (principal); Z59.0 Homelessness; Z79.899 Other long term (current) drug therapy
CPT/HCPCS: 36415; 80048; 80307; 80320; 81001; 85025; G0480

== ENCOUNTER 2019-09-12 05:38 | Emergency (ER) | payer SELFPAY ==
--- NOTE | 2019-09-12 06:45 | Emergency Department Report ---
ED General Adult HPI - General Chief complaint: Psych Stated complaint: MH Time Seen by Provider: 09/12/19 06:20 Source: patient Mode of arrival: Ambulatory Limitations: No Limitations - History of Present Illness Initial comments: Patient presents to the emergency department with a chief complaint of suicidal ideation. Patient states that he is hearing voices telling him to stab himself. Patient also states he needs help with issues with drinking alcohol. Patient was seen and evaluated emergency department yesterday and was supposed to follow-up with social work professor but returned due to the voices. patient states he has a history of bipolar. -: Sudden Severity scale (0 -10): 0 Improves with: none Worsens with: none Associated Symptoms: denies other symptoms Treatments Prior to Arrival: none - Related Data Home Medications Medication Instructions Recorded Confirmed Last Taken Divalproex Sodium [Depakote] 500 mg PO DAILY 01/09/19 09/12/19 08/03/19 Previous Rx's Medication Instructions Recorded Last Taken Type Sertraline HCl [Zoloft] 50 mg PO QHS #30 tablet 07/28/18 08/03/19 Rx risperiDONE [RisperDAL] 3 mg PO BID #60 tablet 08/03/19 08/03/19 Rx traZODone [Desyrel] 50 mg PO QHS #30 tab 08/03/19 08/03/19 Rx Allergies Allergy/AdvReac Type Severity Reaction Status Date / Time No Known Allergies Allergy Verified 08/13/19 01:41 ED Review of Systems ROS: Stated complaint: MH Other details as noted in HPI Comment: All other systems reviewed and negative Constitutional: denies: chills, fever Eyes: denies: eye pain, eye discharge, vision change ENT: denies: ear pain, throat pain Respiratory: denies: cough, shortness of breath, wheezing Cardiovascular: denies: chest pain, palpitations Endocrine: no symptoms reported Gastrointestinal: denies: abdominal pain, nausea, diarrhea Genitourinary: denies: urgency, dysuria Musculoskeletal: denies: back pain, joint swelling, arthralgia Skin: denies: rash, lesions Neurological: denies: headache, weakness, paresthesias Psychiatric: auditory hallucinations, suicidal thoughts. denies: anxiety, depression Hematological/Lymphatic: denies: easy bleeding, easy bruising ED Past Medical Hx - Past Medical History Previous Medical History?: Yes Hx Psychiatric Treatment: Yes (Bipolar, schizo) Additional medical history: drug abuse - Surgical History Past Surgical History?: No - Social History Smoking Status: Current Every Day Smoker Substance Use Type: None - Medications Home Medications: Home Medications Medication Instructions Recorded Confirmed Last Taken Type Sertraline HCl [Zoloft] 50 mg PO QHS #30 tablet 07/28/18 09/12/19 08/03/19 Rx Divalproex Sodium [Depakote] 500 mg PO DAILY 01/09/19 09/12/19 08/03/19 History risperiDONE [RisperDAL] 3 mg PO BID #60 tablet 08/03/19 09/12/19 08/03/19 Rx traZODone [Desyrel] 50 mg PO QHS #30 tab 08/03/19 09/12/19 08/03/19 Rx ED Physical Exam - General Limitations: No Limitations General appearance: alert, in no apparent distress, anxious - Head Head exam: Present: atraumatic, normocephalic - Eye Eye exam: Present: normal appearance, PERRL, EOMI - ENT ENT exam: Present: mucous membranes moist - Neck Neck exam: Present: normal inspection - Respiratory Respiratory exam: Present: normal lung sounds bilaterally. Absent: respiratory distress - Cardiovascular Cardiovascular Exam: Present: regular rate, normal rhythm. Absent: systolic murmur, diastolic murmur, rubs, gallop - GI/Abdominal GI/Abdominal exam: Present: soft, normal bowel sounds. Absent: distended, tenderness - Rectal Rectal exam: Present: deferred - Extremities Exam Extremities exam: Present: normal inspection - Back Exam Back exam: Present: normal inspection - Neurological Exam Neurological exam: Present: alert, oriented X3, CN II-XII intact. Absent: motor sensory deficit - Psychiatric Psychiatric exam: Present: normal affect, normal mood - Skin Skin exam: Present: warm, dry, intact, normal color. Absent: rash ED Course Vital Signs 09/12/19 09/12/19 09/12/19 05:41 06:09 07:02 Temperature 97.8 F 98.0 F Pulse Rate 97 H 72 Respiratory 18 20 20 Rate Blood Pressure 129/87 Blood Pressure 128/71 [Left] O2 Sat by Pulse 97 98 98 Oximetry ED Medical Decision Making - Medical Decision Making The patient declined a UG exam Patient evaluated by psychiatry and at this time they deem he is not a harm to himself or others and have stated the patient can be discharged The patient was provided with outpatient follow-up services Critical care attestation.: If time is entered above; I have spent that time in minutes in the direct care of this critically ill patient, excluding procedure time. ED Disposition Clinical Impression: Auditory hallucinations Disposition: DC-01 TO HOME OR SELFCARE Is pt being admited?: No Does the pt Need Aspirin: No Condition: Stable Additional Instructions: return if worse Please follow-up with outpatient services provided or if you have thoughts of harming yourself or others Referrals: XIN DASILVA MD [Primary Care Provider] - 3-5 Days [facility] [Outside] - 3-5 Days Time of Disposition: 10:40
[2019-09-12 06:56] LABS: Bilirubin,Urine NEG (Negative); Blood,Urine NEG (Negative); Color,Urine Yellow (Yellow); Mucus,Urine 3+ /HPF; Protein,Urine <15 mg/dL mg/dL (Negative); WBC,Urine < 1.0 /HPF (0.0-6.0)
[2019-09-12 06:58] LABS: Amphetamine Screen,Urine PRESUMPTIVE NEGATIVE; Benzodiazepines Screen,Urine PRESUMPTIVE NEGATIVE; Cannabinoid Screen,Urine PRESUMPTIVE NEGATIVE; Methadone Screen,Urine PRESUMPTIVE NEGATIVE; Opiate Screen,Urine PRESUMPTIVE NEGATIVE
[2019-09-12 07:04] VITALS: BP 128/71
[2019-09-12 07:10] LABS: Cocaine Screen,Urine PRESUMPTIVE POSITIVE
--- NOTE | 2019-09-12 09:45 | Consultation ---
History of Present Illness - Reason for Consult Consult date: 09/12/19 Reason for consult: MHE Requesting physician: VERITO JEROME - Chief Complaint Chief complaint: SI - History of Present Psychiatric Illness Per ED Provider: Patient presents to the emergency department with a chief complaint of suicidal ideation. Patient states that he is hearing voices telling him to stab himself. Patient also states he needs help with issues with drinking alcohol. Patient was seen and evaluated emergency department yesterday and was supposed to follow-up with social media content specialist but returned due to the voices. patient states he has a history of bipolar. Per MHA: Pt is a 29 yo AA male presenting to ED for MHE, as pt reported Si without a plan, Paranoia. During ax, pt presented as with uncooperative behaviors, angry mood and congruent affect. Pt reports onset of SI without a plan 09/11/19. Pt identified trigger of lack of stable housing and lack of medical care. Pt reports daily SI without a plan and stated, I want to kill myself and I got problems with my private parts". Pt reports paranoia. Pt states "People in the streets are out to get me". Pt denies hx of attempts. Pt denies HI. Pt denies A/V H. Pt reports hx of Schizophrenia, Depression, Anxiety. Pt identified hx of alcohol and substance use and abuse. Denies current use. Pt reports homelessness. Pt denies legal issues. Pt reports decline in sleep/appetite, informing mycology teacher that he has not been getting enough. Per Psych Provider: Patient resting comfortably, upon attempting to interview patient, patient says Im suicidal and depressed and went back under his covers to sleep. This patient has had multiple ER visits for similar complaints with past psychiatric interventions and medication. Patient is not compliant to treatment and medications. MENTAL STATUS General Appearance and Behavior: Dishelved, age appropriate, good eye contact, uncooperative with questioning and irritable Psychomotor Behavior: within normal limits Mood:s ad Affect and affective range: incongruent with stated mood Thought Process: Fluent/Logical and Goal-directed Thought Content: Within reality Speech: Normal volume and Regular rate and rhythm Intellectual Functioning Average Suicidal Ideation: Endorses SI Homicidal Ideation: Denies HI Impulse Control: intact Insight and Judgment: normal insight and judgment Memory: Normal Attention: Normal Orientation: alert and oriented RECOMMENDATIONS Patient UDS is positive for COCAINE In my professional opinion, patient has achieved the maximum benefits of inpatient treatment at this time. Continuing inpatient treatment is contraind icated, as it will reinforce maladaptive behaviors. The patient is not psychotic and clearly seeking secondary gain for jail and food. He has a history of this and also has a history of acting out when he does not get his way. The patient is at chronically high risk of harm to self and others due to personality disorder, substance abuse, homelessness, history of violence, and poor insight and judgment. These risk factors are not currently modifiable with acute inpatient psychiatric hospitalization; the patient is seeking secondary gain and psychiatrically hospitalizing this patient is contraindicated, as it will reinforce maladaptive behaviors of coming to the hospital when he does not have jail. Protective factors include access to care, no history of suicide attempts. MEDICATIONS: Patient declined PSYCHOTHERAPY: Supportive psychotherapy provided MEDICAL: Per primary team AUTOCAD DESIGNER: Noemi cruz DISPOSITION: Per primary team; no indication for acute inpatient psychiatric hospitalization at this time LEGAL STATUS: 1013 rescinded FOLLOW-UP: Will sign off Please contact with any questions and/or concerns. Medications and Allergies Allergies Allergy/AdvReac Type Severity Reaction Status Date / Time No Known Allergies Allergy Verified 08/13/19 01:41 Home Medications Medication Instructions Recorded Confirmed Last Taken Type Sertraline HCl [Zoloft] 50 mg PO QHS #30 tablet 07/28/18 09/12/19 08/03/19 Rx Divalproex Sodium [Depakote] 500 mg PO DAILY 01/09/19 09/12/19 08/03/19 History risperiDONE [RisperDAL] 3 mg PO BID #60 tablet 08/03/19 09/12/19 08/03/19 Rx traZODone [Desyrel] 50 mg PO QHS #30 tab 08/03/19 09/12/19 08/03/19 Rx Mental Status Exam - Vital signs Last Vital Signs Temp 98.0 F 09/12/19 07:02 Pulse 72 09/12/19 07:02 Resp 09/12/19 07:02 BP 128/71 09/12/19 07:02 Pulse Ox 98 09/12/19 07:02 Results All other labs normal.
== END 2019-09-12 11:08 | disposition home or self-care (01) ==
LOC: ED 05:38
DX: R44.0 Auditory hallucinations (principal); R45.851 Suicidal ideations
CPT/HCPCS: 80307; 81001; 99284

== ENCOUNTER 2019-10-22 00:39 | Emergency (ER) | payer SELFPAY ==
[2019-10-22 00:54] VITALS: BP 117/70
--- NOTE | 2019-10-22 01:25 | Emergency Department Report ---
HPI - General Chief Complaint: Psych Time Seen by Provider: 10/22/19 01:07 - HPI HPI: This is a 29-year-old -[place] male who presents to the emergency department because he is "sad" regarding his lack of employment and he has history of mental health issues. He has a history of bipolar disorder and schizophrenia. The patient is on Depakote, Risperdal and a monthly Invega injection and says that he is compliant with his medications. He denies any hallucinations, suicidal or homicidal ideations. When asked what brought him to the emergency department he says "I do not know, I am just sad." He currently lives with his mother. He denies any current alcohol or illicit drug intoxication or abuse. ED Past Medical Hx - Past Medical History Previous Medical History?: Yes Hx Psychiatric Treatment: Yes (Bipolar, schizo) Additional medical history: drug abuse - Surgical History Past Surgical History?: No - Social History Smoking Status: Current Every Day Smoker Substance Use Type: None - Medications Home Medications: Home Medications Medication Instructions Recorded Confirmed Last Taken Type Sertraline HCl [Zoloft] 50 mg PO QHS #30 tablet 07/28/18 09/12/19 08/03/19 Rx Divalproex Sodium [Depakote] 500 mg PO DAILY 01/09/19 09/12/19 08/03/19 History risperiDONE [RisperDAL] 3 mg PO BID #60 tablet 08/03/19 09/12/19 08/03/19 Rx traZODone [Desyrel] 50 mg PO QHS #30 tab 08/03/19 09/12/19 08/03/19 Rx ED Review of Systems ROS: Stated complaint: MH EVAL Other details as noted in HPI Comment: All other systems reviewed and negative Constitutional: denies: fever Respiratory: denies: shortness of breath Cardiovascular: denies: chest pain Gastrointestinal: denies: abdominal pain, vomiting Musculoskeletal: denies: back pain Neurological: denies: headache, weakness Psychiatric: denies: auditory hallucinations, visual hallucinations, homicidal thoughts, suicidal thoughts Physical Exam - Physical Exam Vital Signs: Vital Signs 10/22/19 00:51 Temperature 98.3 F Pulse Rate 94 H Respiratory 18 Rate Blood Pressure 117/70 O2 Sat by Pulse 97 Oximetry Physical Exam: GENERAL: The patient is well-developed well-nourished. HENT: Normocephalic. Atraumatic. Patient has moist mucous membranes. EYES: Extraocular motions are intact. NECK: Supple. Trachea is midline. CHEST/LUNGS: Clear to auscultation. There is no respiratory distress noted. HEART/CARDIOVASCULAR: Regular. There is no tachycardia. ABDOMEN: Abdomen is soft, nontender. Patient has normal bowel sounds. SKIN: Skin is warm and dry. NEURO: The patient is awake, alert, and oriented. The patient is cooperative. Normal speech. MUSCULOSKELETAL: There is no tenderness or deformity. There is no limitation range of motion. There is no evidence of acute injury. ED Course Vital Signs 10/22/19 00:51 Temperature 98.3 F Pulse Rate 94 H Respiratory 18 Rate Blood Pressure 117/70 O2 Sat by Pulse 97 Oximetry ED Medical Decision Making - Medical Decision Making This patient has a history of bipolar disorder and schizophrenia and presents with the complaint of sadness/depression. However the patient denies any suicidal or homicidal ideations, or even any auditory or visual hallucinations. The patient says that he has good outpatient follow-up and is compliant with his medications. At the time of my examination he is oriented to person, place, time, does not appear intoxicated, is calm and appropriate, and appears to have a normal decision-making capacity. I explained to the patient that he does not appear to be someone who requires a 1013. Patient is asking for discharge and does not want any blood work drawn. He has been instructed to follow-up with his psychiatric/behavioral center, take his medications as prescribed, and to return to the emergency department with any worsening of his symptoms, thoughts of harming himself or others, or with any acute distress. Critical Care Time: No Critical care attestation.: If time is entered above; I have spent that time in minutes in the direct care of this critically ill patient, excluding procedure time. ED Disposition Clinical Impression: History of schizophrenia, History of bipolar disorder Depression Qualifiers: Depression Type: unspecified Qualified Code(s): F32.9 - Major depressive disorder, single episode, unspecified Disposition: DC-01 TO HOME OR SELFCARE Is pt being admited?: No Condition: Stable Instructions: Depression (ED), Suicide Prevention for Adults (ED) Additional Instructions: Please follow-up with the [facility], or your psychiatric/behavioral center, regarding your depression and/or sadness. Return to the emergency department with any worsening of your symptoms, thoughts of harming your self or others, or with any acute distress. Referrals: [facility] [Outside] - 3-5 Days [facility] [Provider Group] - 3-5 Days Time of Disposition: 01:25
== END 2019-10-22 01:30 | disposition home or self-care (01) ==
LOC: ED 00:39
DX: F32.9 Major depressive disorder, single episode, unspecified (principal); F20.9 Schizophrenia, unspecified; F17.200 Nicotine dependence, unspecified, uncomplicated; Z79.899 Other long term (current) drug therapy

== ENCOUNTER 2020-01-05 01:40 | Emergency (ER) | payer SELFPAY ==
--- NOTE | 2020-01-05 03:03 | Emergency Department Report ---
HPI - HPI HPI: Room 12 The patient is a 29-year-old male present with a chief complaint of depression and paranoia. Patient states he has a history of paranoid schizophrenia and has been off of his psychiatric medications for "a while." The patient states for 1 day he is felt depressed and has been scared there people that are going to kill him. Patient denies suicidal or homicidal ideation. Patient denies auditory or visual hallucinations <MEGHNA RIVERA - Last Filed: 01/05/20 03:01> <BERNARDO WALLER - Last Filed: 01/05/20 16:10> - General Chief Complaint: Psych Time Seen by Provider: 01/05/20 02:57 ED Past Medical Hx - Past Medical History Hx Psychiatric Treatment: Yes (Bipolar, schizo) Additional medical history: drug abuse - Surgical History Past Surgical History?: No - Family History Family history: no significant - Social History Smoking Status: Current Every Day Smoker (1 pack/day) Substance Use Type: Cocaine (Crack) <MEGHNA RIVERA - Last Filed: 01/05/20 03:01> <BERNARDO WALLER - Last Filed: 01/05/20 16:10> - Medications Home Medications: Home Medications Medication Instructions Recorded Confirmed Last Taken Type Sertraline HCl [Zoloft] 50 mg PO QHS #30 tablet 07/28/18 09/12/19 08/03/19 Rx Divalproex Sodium [Depakote] 500 mg PO DAILY 01/09/19 09/12/19 08/03/19 History risperiDONE [RisperDAL] 3 mg PO BID #60 tablet 08/03/19 09/12/19 08/03/19 Rx traZODone [Desyrel] 50 mg PO QHS #30 tab 08/03/19 09/12/19 08/03/19 Rx ED Review of Systems ROS: Stated complaint: MH Other details as noted in HPI Constitutional: no symptoms reported Respiratory: no symptoms reported Endocrine: no symptoms reported Psychiatric: depression. denies: auditory hallucinations, visual hallucinations, homicidal thoughts, suicidal thoughts <MEGHNA RIVERA - Last Filed: 01/05/20 03:01> ROS: Stated complaint: MH Other details as noted in HPI <BERNARDO WALLER - Last Filed: 01/05/20 16:10> Physical Exam - Physical Exam Vital Signs: Vital Signs 01/05/20 01:54 Temperature 98.3 F Pulse Rate 109 H Respiratory 18 Rate Blood Pressure 116/53 O2 Sat by Pulse 94 Oximetry Physical Exam: GENERAL: The patient is well-developed well-nourished male standing in hallway not appearing to be in acute distress. [] HEENT: Normocephalic. Atraumatic. Extraocular motions are intact. Patient has moist mucous membranes. NECK: Supple. Trachea midline CHEST/LUNGS: Clear to auscultation. There is no respiratory distress noted. HEART/CARDIOVASCULAR: Regular. There is no tachycardia. There is no gallop rub or murmur. ABDOMEN: Abdomen is soft, nontender. Patient has normal bowel sounds. There is no abdominal distention. SKIN: There is no rash. There is no edema. There is no diaphoresis. NEURO: The patient is awake, alert, and oriented. The patient is cooperative. The patient has no focal neurologic deficits. The patient has normal speech and gait. MUSCULOSKELETAL: There is no evidence of acute injury. <MEGHNA RIVERA - Last Filed: 01/05/20 03:01> - Physical Exam Vital Signs: Vital Signs 01/05/20 01/05/20 01/05/20 01:54 09:22 10:54 Temperature 98.3 F 98.7 F Pulse Rate 109 H Respiratory 18 16 18 Rate Blood Pressure 116/53 Blood Pressure 114/64 [Left] O2 Sat by Pulse 94 97 98 Oximetry <BERNARDO WALLER - Last Filed: 01/05/20 16:10> ED Course Vital Signs 01/05/20 01:54 Temperature 98.3 F Pulse Rate 109 H Respiratory 18 Rate Blood Pressure 116/53 O2 Sat by Pulse 94 Oximetry <MEGHNA RIVERA - Last Filed: 01/05/20 03:01> Vital Signs 01/05/20 01/05/20 01/05/20 01:54 09:22 10:54 Temperature 98.3 F 98.7 F Pulse Rate 109 H Respiratory 18 16 18 Rate Blood Pressure 116/53 Blood Pressure 114/64 [Left] O2 Sat by Pulse 94 97 98 Oximetry <BERNARDO WALLER - Last Filed: 01/05/20 16:10> ED Medical Decision Making - Differential Diagnosis Schizophrenia <MEGHNA RIVERA - Last Filed: 01/05/20 03:01> - Lab Data Result diagrams: 01/05/20 03:07 01/05/20 03:07 - Medical Decision Making Patient has been evaluated by our psychiatric team and advised to discharge patient home to follow-up as an outpatient. Patient denied any suicidal or homicidal ideation. No visual or auditory hallucination. Patient is medically and psychiatrically stable for discharge. <BERNARDO WALLER - Last Filed: 01/05/20 16:10> Critical care attestation.: If time is entered above; I have spent that time in minutes in the direct care of this critically ill patient, excluding procedure time. <MEGHNA RIVERA - Last Filed: 01/05/20 03:01> Critical care attestation.: If time is entered above; I have spent that time in minutes in the direct care of this critically ill patient, excluding procedure time. <BERNARDO WALLER - Last Filed: 01/05/20 16:10> ED Disposition <MEGHNA RIVERA - Last Filed: 01/05/20 03:01> Is pt being admited?: No <BERNARDO WALLER - Last Filed: 01/05/20 16:10> Clinical Impression: Schizophrenia Disposition: DC-01 TO HOME OR SELFCARE Condition: Stable Instructions: Suicide Prevention for Adults (ED) Additional Instructions: In case of an emergency, please contact the following numbers: [place] Crisis and Access Line: Number: Crisis Text Line: (Text START) Number: 192443 Suicide Prevention Line: Number: Emergency Number: 911 SUBSTANCE ABUSE PROGRAMS: [facility]: Location: [place], [place] [facility] Address: [address] [place] [address] [facility]: Address: [address] [place] [address] [place] [address] [facility]: Address: [address] [place] [address] [facility]: Address: [address] [place] [address] [facility] Address: [address] [place] [address]. Please contact above numbers to attempt placement into free based program. Medicaid Programs: [facility]: Address: [address] [place] [address] [facility]: Address: [address] [place] [address] Professional and Agency Contacts To help [facility](04/11) [place] Crisis Line: Suicide Prevention Line: Crisis Text Line: Text START to 965947 Emergency: 911 Outpatient COMMUNITY Behavioral Health Resources: [place]KAL[place]: [facility] [address] [place], [place] [address] [place]: [facility] - [address] [place] [address] Friday thru Friday - 8am - 5pm [facility]: [facility] Address: [address] [place] [address] Friday thru Friday- 7am-2pm [facility] Address: [address] [place] [address] Friday thru Friday: 8:30AM-5PM Referrals: PRIMARY CARE, [Primary Care Provider] - 3-5 Days
[2020-01-05 03:16] LABS: Bilirubin,Urine NEG (Negative); Blood,Urine NEG (Negative); Color,Urine Yellow (Yellow); Mucus,Urine 3+ /HPF; Protein,Urine <15 mg/dL mg/dL (Negative)
[2020-01-05 03:22] LABS: Amphetamine Screen,Urine PRESUMPTIVE NEGATIVE; Benzodiazepines Screen,Urine PRESUMPTIVE NEGATIVE; Cannabinoid Screen,Urine PRESUMPTIVE NEGATIVE; Cocaine Screen,Urine PRESUMPTIVE POSITIVE; Methadone Screen,Urine PRESUMPTIVE NEGATIVE; Opiate Screen,Urine PRESUMPTIVE NEGATIVE
[2020-01-05 03:45] LABS: Basophils # (Auto) 0.1 K/mm3 (0.0-0.1); Basophils % (Auto) 1.4 % (0.0-1.8); Eosinophils # (Auto) 0.1 K/mm3 (0.0-0.4); Eosinophils % (Auto) 1.6 % (0.0-4.3); Hematocrit 35.6 % (35.5-45.6); Hemoglobin 11.6 gm/dl (11.8-15.2); Lymphocytes # (Auto) 1.8 K/mm3 (1.2-5.4); Lymphocytes % (Auto) 27.1 % (13.4-35.0); Mean Corpuscular HGB Conc 32 % (32-34); Platelet Count 285 K/mm3 (140-440); Red Blood Count 5.26 M/mm3 (3.65-5.03); Red Cell Distribution Width 17.3 % (13.2-15.2)
[2020-01-05 03:57] LABS: BUN/Creatinine Ratio 13; Blood Urea Nitrogen 13 mg/dL (9-20); Calcium 9.1 mg/dL (8.4-10.2); Hemolysis Index 6
[2020-01-05 04:07] LABS: Mean Corpuscular Volume 68 fl (84-94)
[2020-01-05 18:55] VITALS: BP 132/74
== END 2020-01-05 16:00 | disposition home or self-care (01) ==
LOC: ED 01:40
DX: F17.200 Nicotine dependence, unspecified, uncomplicated (principal); F14.10 Cocaine abuse, uncomplicated
CPT/HCPCS: 36415; 80048; 80307; 80320; 81001; 85025; G0480

== ENCOUNTER 2020-01-10 23:12 | Emergency (ER) | payer SELFPAY ==
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
[2020-01-11 01:22] LABS: Hematocrit 36.3 % (35.5-45.6); Hemoglobin 11.8 gm/dl (11.8-15.2); Mean Corpuscular HGB Conc 32 % (32-34); Platelet Count 255 K/mm3 (140-440); Red Blood Count 5.36 M/mm3 (3.65-5.03); Red Cell Distribution Width 17.8 % (13.2-15.2)
[2020-01-11 01:23] LABS: Mean Corpuscular Volume 68 fl (84-94)
[2020-01-11 01:24] VITALS: BP 124/80
[2020-01-11 01:43] LABS: BUN/Creatinine Ratio 17; Blood Urea Nitrogen 15 mg/dL (9-20); Calcium 8.9 mg/dL (8.4-10.2); Hemolysis Index 8
[2020-01-11 02:48] LABS: Basophils % (Manual) 0 % (0.0-1.8); Total Cells Counted 100
[2020-01-11 02:49] LABS: Hypochromasia 2+
[2020-01-11 02:50] LABS: Anisocytosis Few; Schistocytes Few; Target Cells Few
[2020-01-11 02:52] LABS: Platelet Estimate Consistent w Auto
== END 2020-01-11 01:20 | disposition left against medical advice (07) ==
LOC: ED 23:12
DX: R45.851 Suicidal ideations (principal); Z53.21 Procedure and treatment not carried out due to patient leaving prior to being seen by health care provider
CPT/HCPCS: 36415; 80048; 80320; 85007; 85025; G0480

== ENCOUNTER 2020-01-14 23:24 | Emergency (ER) | payer SELFPAY ==
--- NOTE | 2020-01-15 01:07 | Emergency Department Report ---
<SPRING LOPEZ - Last Filed: 01/15/20 15:31> ED Psych HPI - General Chief Complaint: Psych Stated Complaint: MH/SI Time Seen by Provider: 01/15/20 00:52 - Related Data Home Medications Medication Instructions Recorded Confirmed Last Taken Divalproex Sodium [Depakote] 500 mg PO DAILY 01/09/19 09/12/19 08/03/19 Previous Rx's Medication Instructions Recorded Last Taken Type Sertraline HCl [Zoloft] 50 mg PO QHS #30 tablet 07/28/18 08/03/19 Rx risperiDONE [RisperDAL] 3 mg PO BID #60 tablet 08/03/19 08/03/19 Rx traZODone [Desyrel] 50 mg PO QHS #30 tab 08/03/19 08/03/19 Rx Allergies Allergy/AdvReac Type Severity Reaction Status Date / Time No Known Allergies Allergy Verified 08/13/19 01:41 ED Past Medical Hx - Medications Home Medications: Home Medications Medication Instructions Recorded Confirmed Last Taken Type Sertraline HCl [Zoloft] 50 mg PO QHS #30 tablet 07/28/18 09/12/19 08/03/19 Rx Divalproex Sodium [Depakote] 500 mg PO DAILY 01/09/19 09/12/19 08/03/19 History risperiDONE [RisperDAL] 3 mg PO BID #60 tablet 08/03/19 09/12/19 08/03/19 Rx traZODone [Desyrel] 50 mg PO QHS #30 tab 08/03/19 09/12/19 08/03/19 Rx ED Medical Decision Making - Lab Data Result diagrams: 01/15/20 00:54 01/15/20 00:58 - Medical Decision Making 01/15/20 15:27 - MH Senior Business Analyst's Note by MICHAEL MANDUJANO Acct Num: [id number] : 1990 Patient Age: 29 MENTAL HEALTH ASSESSMENT COMPLETED: Pt is a 29 year old AA male; Pt requests, "can I get some juice and buck crackers. "I'm ready to leave!"Pt reports he receives outpatient services at [facility] in [facility]; they prescribe his medications: Depakote, Risperdol, Invega shot and Zoloft. Pt reports he has been taking his medications. Pt is alert and oriented x 4. Pt denies any AH or VH. Pt is not responding to internal stimuli. Pt is able to advocate for himself and make his needs known (sleep/rest, housing and food/snacks). Pt is irritable as he was able to sleep last night and is now ready to be discharged.Pt denies any thoughts or plans to harm others. "No, I ain't gonna hurt nobody. I needed to sleep." Pt denies any thoughts or plans to harm self; "I just said that cause I didn't have no where to go; can I get a snackbag and juice, and I'm ready to go. Can I have an extra sandwich?" Pt denies again any desire or intent to harm self. Pt reports he continues to use cocaine with last use being yesterday before he came to the hospital; "I got scared after I used and didn't have no where to go." Pt is chronically homeless and presents to the ED, "I was scared and needed somewhere to stay." Pt [place] sle[place] at the airport, [place] or goes to various hospitals per the pt as he is unable to stay at his mothers home. RECOMMENDATION: Pt does not meet 1013 or inpatient psyc criteria; will place outpatient referrals in pt's chart. Pt appears to be using the ED department for secondary gain as appears to sleep and to get food. He currently denies suicidal ideation and will be discharged ED Disposition Clinical Impression: Paranoia, Homeless, Schizophrenia, Suicidal ideation, Bipolar disorder, Cocaine abuse Disposition: DC-01 TO HOME OR SELFCARE Is pt being admited?: No Does the pt Need Aspirin: No Condition: Stable Instructions: Cocaine Abuse (ED), Bipolar Disorder (ED), Schizophrenia (ED), Suicide Prevention for Adults (ED) Additional Instructions: Outpatient COMMUNITY Behavioral Health Resources: [facility] ([facility]) [address] [place] [address] / Friday thru Friday - 8am - 5pm [facility] Address: [address] [place] [address] Friday thru Friday- 7am-2pm [facility] Address: [address] [place], [place] [address] Friday thru Friday: 8:30AM-5PM HOMELESS RESOURCES: [facility] NEED HELP? If you are in need of help or know someone who does, please contact us at [email or web address] call , or come to our offices at [address] [place] [address], Friday-Friday beginning at 8AM. [facility] Admission at 7am Fri to Fri Address: [place] [address] Client Engagement [phone] Regular program admission occurs Friday through Friday at 7:00 amand operates on a first come, first serve basis.Because we cant anticipate program availability in advance andprogram spots are in high demand, we recommend arriving early. Space fills up fast! Next steps can include: Assignment to a [facility] program bed Connection to and placement in a partner program, or Referral to a partner agency [place] [facility]: [facility] Address: [address] [place], [place] [id number] How do I join the [facility] housing program? Our housing programs are offered based on availability. If you are looking to participate in our housing program, simply call [phone] to find out if we have available space. Since we do receive many calls, please allow up to 48 hours for one of our housing specialists to return your call. If we do not have vacancies, we suggest callingthe [facility] hotline at 211 for additional housing options. [facility] Admission at 4:30pm daily Address: [place] [address] CRISIS RESOURCES [place] Crisis Line: Suicide Prevention Line: Crisis Text Line: Text START to 281706 Emergency: 911 Referrals: PRIMARY CARE, [Primary Care Provider] - 3-5 Days Time of Disposition: 15:32 <ROBB PEACE - Last Filed: 01/15/20 23:20> ED Psych HPI - General Source: patient Mode of arrival: Ambulatory Limitations: No Limitations - History of Present Illness Initial Comments: CC: "I need a social services coordinator. I need [facility] care." HPI: Mr. Castro is a 29-year-old male with history of bipolar disorder, paranoid schizophrenia, cocaine abuse who presents with suicidal ideation. He states that he is having "thoughts of killing himself". He denies any specific plan to harm himself. However he informed triage nurse that he had plan to stab himself. His main concern at this time is to speak with a social services coordinator. He denies auditory hallucinations. He denies homicidal ideation. He denies physical complaints. MD Complaint: suicidal ideation, feels depressed -: days(s) (Several days) Associated Psychiatric Symptoms: depression, suicidal ideation History of same: Yes Quality: constant Improves With: none Worsens With: none Context: recent drug abuse, not taking psychiatric Associated Symptoms: denies other symptoms Treatments Prior to Arrival: none If Self Harm: admits thoughts of ED Review of Systems ROS: Stated complaint: MH/SI Other details as noted in HPI Comment: All other systems reviewed and negative Constitutional: denies: fever, malaise Respiratory: denies: cough, shortness of breath Gastrointestinal: denies: abdominal pain, nausea, vomiting Psychiatric: depression, suicidal thoughts. denies: auditory hallucinations, visual hallucinations, homicidal thoughts ED Past Medical Hx - Past Medical History Previous Medical History?: Yes Hx Psychiatric Treatment: Yes (Bipolar, schizo) Additional medical history: drug abuse - Surgical History Past Surgical History?: Yes - Social History Smoking Status: Current Every Day Smoker Substance Use Type: Alcohol, Cocaine ED Physical Exam - General Limitations: No Limitations General appearance: alert, in no apparent distress, other (Calm cooperative) - Head Head exam: Present: atraumatic, normocephalic - Eye Eye exam: Present: normal appearance - ENT ENT exam: Present: mucous membranes moist - Neck Neck exam: Present: normal inspection - Respiratory Respiratory exam: Present: normal lung sounds bilaterally. Absent: respiratory distress, wheezes, rales, rhonchi - Cardiovascular Cardiovascular Exam: Present: regular rate, normal rhythm, normal heart sounds. Absent: systolic murmur, diastolic murmur, rubs, gallop - GI/Abdominal GI/Abdominal exam: Present: soft, normal bowel sounds. Absent: distended, tenderness, guarding, rebound - Rectal Rectal exam: Present: deferred - Extremities Exam Extremities exam: Present: normal inspection - Neurological Exam Neurological exam: Present: alert, oriented X3 - Psychiatric Psychiatric exam: Present: depressed, flat affect - Skin Skin exam: Present: warm, dry, intact, normal color. Absent: rash ED Course Vital Signs 01/15/20 01/15/20 01/15/20 00:07 02:16 07:52 Temperature 98.0 F 97.8 F 97.4 F L Pulse Rate 96 H 76 90 Respiratory 18 16 20 Rate Blood Pressure 110/63 Blood Pressure 122/61 95/50 [Right] O2 Sat by Pulse 99 97 96 Oximetry ED Medical Decision Making - Lab Data Result diagrams: 01/15/20 00:54 01/15/20 00:58 - Medical Decision Making Mr. Castro is a 29-year-old male with history of paranoid schizophrenia and bipolar disorder who presents to the emergency department requesting to see a social services coordinator. He states that he has felt depressed. He states that he felt like killing himself. However he denied any plan to harm himself on my history taking. I do not feel that he is at risk for self-harm. He desires to see a social services coordinator for "[facility]". He is medically clear for psychiatric care. I will request mental health consultation in order to provide Mr. Castro outpatient resources. Otherwise, Mr. Castro is appropriate for discharge. I have reviewed labs obtained including CBC chemistry serum toxicology. All labs are within normal limits. Urinalysis unremarkable. UDS positive for cocaine Critical care attestation.: If time is entered above; I have spent that time in minutes in the direct care of this critically ill patient, excluding procedure time.
[2020-01-15 01:15] LABS: Basophils # (Auto) 0.1 K/mm3 (0.0-0.1); Basophils % (Auto) 0.9 % (0.0-1.8); Eosinophils # (Auto) 0.1 K/mm3 (0.0-0.4); Eosinophils % (Auto) 1.7 % (0.0-4.3); Hematocrit 36.6 % (35.5-45.6); Hemoglobin 12.1 gm/dl (11.8-15.2); Lymphocytes # (Auto) 1.1 K/mm3 (1.2-5.4); Lymphocytes % (Auto) 20.1 % (13.4-35.0); Mean Corpuscular HGB Conc 33 % (32-34); Monocytes # (Auto) 0.8 K/mm3 (0.0-0.8); Platelet Count 297 K/mm3 (140-440)
[2020-01-15 01:16] LABS: Mean Corpuscular Volume 67 fl (84-94)
[2020-01-15 01:36] LABS: BUN/Creatinine Ratio 19; Blood Urea Nitrogen 17 mg/dL (9-20); Calcium 9.4 mg/dL (8.4-10.2); Hemolysis Index 4
[2020-01-15 01:44] LABS: Amphetamine Screen,Urine PRESUMPTIVE NEGATIVE; Benzodiazepines Screen,Urine PRESUMPTIVE NEGATIVE; Cannabinoid Screen,Urine PRESUMPTIVE NEGATIVE; Cocaine Screen,Urine PRESUMPTIVE POSITIVE; Methadone Screen,Urine PRESUMPTIVE NEGATIVE; Opiate Screen,Urine PRESUMPTIVE NEGATIVE
[2020-01-15 01:50] LABS: Bilirubin,Urine NEG (Negative); Blood,Urine NEG (Negative); Color,Urine Yellow (Yellow); Mucus,Urine 2+ /HPF; WBC,Urine < 1.0 /HPF (0.0-6.0)
[2020-01-15 07:53] VITALS: BP 95/50
== END 2020-01-15 15:35 | disposition home or self-care (01) ==
LOC: ED 23:24 → EEVIPCON 23:24 → ED 01-15 15:35
DX: F20.0 Paranoid schizophrenia (principal); F31.9 Bipolar disorder, unspecified; F14.10 Cocaine abuse, uncomplicated; Z79.899 Other long term (current) drug therapy
CPT/HCPCS: 36415; 80048; 80307; 80320; 81001; 85025; G0480

== ENCOUNTER 2020-01-28 00:08 | Emergency (ER) | payer SELFPAY ==
[2020-01-28 01:25] VITALS: BP 131/78
[2020-01-28 01:41] LABS: Basophils # (Auto) 0.1 K/mm3 (0.0-0.1); Basophils % (Auto) 0.8 % (0.0-1.8); Eosinophils % (Auto) 0.4 % (0.0-4.3); Hematocrit 36.7 % (35.5-45.6); Lymphocytes # (Auto) 1.7 K/mm3 (1.2-5.4); Lymphocytes % (Auto) 23.5 % (13.4-35.0); Mean Corpuscular HGB Conc 33 % (32-34); Monocytes # (Auto) 1.1 K/mm3 (0.0-0.8); Monocytes % (Auto) 15.1 % (0.0-7.3); Platelet Count 242 K/mm3 (140-440); Red Blood Count 5.47 M/mm3 (3.65-5.03); Red Cell Distribution Width 17.9 % (13.2-15.2)
[2020-01-28 01:43] LABS: Mean Corpuscular Volume 67 fl (84-94)
[2020-01-28 01:57] LABS: BUN/Creatinine Ratio 16; Blood Urea Nitrogen 16 mg/dL (9-20); Calcium 9.1 mg/dL (8.4-10.2); Hemolysis Index 5
[2020-01-28 02:10] LABS: Bilirubin,Urine NEG (Negative); Blood,Urine NEG (Negative); Color,Urine Yellow (Yellow); Mucus,Urine 1+ /HPF; Protein,Urine <15 mg/dL mg/dL (Negative)
[2020-01-28 02:48] LABS: Amphetamine Screen,Urine PRESUMPTIVE NEGATIVE; Benzodiazepines Screen,Urine PRESUMPTIVE NEGATIVE; Cannabinoid Screen,Urine PRESUMPTIVE NEGATIVE; Cocaine Screen,Urine PRESUMPTIVE POSITIVE; Methadone Screen,Urine PRESUMPTIVE NEGATIVE; Opiate Screen,Urine PRESUMPTIVE NEGATIVE
== END 2020-01-28 08:00 | disposition left against medical advice (07) ==
LOC: ED 00:08
DX: F32.9 Major depressive disorder, single episode, unspecified (principal); Z53.21 Procedure and treatment not carried out due to patient leaving prior to being seen by health care provider
CPT/HCPCS: 36415; 80048; 80307; 80320; 81001; 85025; G0480

== ENCOUNTER 2020-01-28 23:17 | Emergency (ER) | payer SELFPAY ==
[2020-01-29 00:57] LABS: Bilirubin,Urine NEG (Negative); Blood,Urine NEG (Negative); Color,Urine Yellow (Yellow); Mucus,Urine 3+ /HPF
--- NOTE | 2020-01-29 01:00 | Emergency Department Report ---
<ANDI STAHL III - Last Filed: 01/29/20 03:46> ED Psych HPI - General Chief Complaint: Psych Stated Complaint: MH Time Seen by Provider: 01/29/20 00:58 Source: patient Mode of arrival: Ambulatory Limitations: No Limitations - History of Present Illness Initial Comments: Patient is a 29-year-old male who presents emergency room with complaints of suicidal ideation. Basic 7 suicidal thoughts for 1 day. Patient states that thoughts of a more frequently. Patient states he has no plan. Patient states he just wants to . Patient states he is having racing thoughts. Patient states he believes everybody wants to kill him. Patient states he is under a lot of stress. Patient states life in general caused him stress because he lives on the streets. Patient states he has been in half-way a lot. Patient dates he has history of bipolar and schizophrenia. Patient denies recent travel. Patient denies recent international travel. Patient denies exposure to the novel coronavirus. Patient denies sick contacts. Patient denies fever and chills. Patient denies cough. Patient denies diarrhea. Patient denies coming in contact with anybody with symptoms of the novel coronavirus. MD Complaint: suicidal ideation Associated Psychiatric Symptoms: depression, suicidal ideation, racing thoughts, delusions History of same: Yes Quality: constant Improves With: none Worsens With: none Context: significant life stressor Associated Symptoms: denies: confusion, headache, shortness of breath, nausea, vomiting, syncope, insomnia Treatments Prior to Arrival: none If Self Harm: admits thoughts of - Related Data Home Medications Medication Instructions Recorded Confirmed Last Taken Divalproex Sodium [Depakote] 500 mg PO DAILY 01/09/19 09/12/19 08/03/19 Previous Rx's Medication Instructions Recorded Last Taken Type Sertraline HCl [Zoloft] 50 mg PO QHS #30 tablet 07/28/18 08/03/19 Rx risperiDONE [RisperDAL] 3 mg PO BID #60 tablet 08/03/19 08/03/19 Rx traZODone [Desyrel] 50 mg PO QHS #30 tab 08/03/19 08/03/19 Rx Allergies Allergy/AdvReac Type Severity Reaction Status Date / Time No Known Allergies Allergy Verified 08/13/19 01:41 ED Review of Systems Constitutional: denies: chills, fever Eyes: denies: eye pain, eye discharge, vision change ENT: denies: ear pain, throat pain Respiratory: denies: cough, shortness of breath, wheezing Cardiovascular: denies: chest pain, palpitations Endocrine: no symptoms reported Gastrointestinal: denies: abdominal pain, nausea, diarrhea Genitourinary: denies: urgency, dysuria Musculoskeletal: denies: back pain, joint swelling, arthralgia Skin: denies: rash, lesions Neurological: denies: headache, weakness, paresthesias Psychiatric: depression, suicidal thoughts. denies: anxiety, auditory hallucinations, visual hallucinations, homicidal thoughts Hematological/Lymphatic: denies: easy bleeding, easy bruising ED Past Medical Hx - Past Medical History Previous Medical History?: Yes Hx Psychiatric Treatment: Yes (Bipolar, schizo) Additional medical history: drug abuse - Surgical History Past Surgical History?: No - Family History Family history: no significant - Social History Smoking Status: Current Every Day Smoker Substance Use Type: Cocaine, Marijuana - Medications Home Medications: Home Medications Medication Instructions Recorded Confirmed Last Taken Type Sertraline HCl [Zoloft] 50 mg PO QHS #30 tablet 07/28/18 09/12/19 08/03/19 Rx Divalproex Sodium [Depakote] 500 mg PO DAILY 01/09/19 09/12/19 08/03/19 History risperiDONE [RisperDAL] 3 mg PO BID #60 tablet 08/03/19 09/12/19 08/03/19 Rx traZODone [Desyrel] 50 mg PO QHS #30 tab 08/03/19 09/12/19 08/03/19 Rx ED Physical Exam - General Limitations: No Limitations General appearance: alert, in no apparent distress - Head Head exam: Present: atraumatic, normocephalic - Eye Eye exam: Present: normal appearance - ENT ENT exam: Present: mucous membranes moist - Neck Neck exam: Present: normal inspection - Respiratory Respiratory exam: Present: normal lung sounds bilaterally. Absent: respiratory distress, wheezes, rales - Cardiovascular Cardiovascular Exam: Present: regular rate, normal rhythm. Absent: systolic murmur, diastolic murmur, rubs, gallop - GI/Abdominal GI/Abdominal exam: Present: soft, normal bowel sounds. Absent: distended, tenderness, guarding - Rectal Rectal exam: Present: deferred - Extremities Exam Extremities exam: Present: normal inspection - Back Exam Back exam: Present: normal inspection - Neurological Exam Neurological exam: Present: alert, oriented X3 - Psychiatric Psychiatric exam: Present: depressed, suicidal ideation - Skin Skin exam: Present: warm, dry, intact, normal color. Absent: rash ED Course - Reevaluation(s) Reevaluation #1: Patient is medically cleared. I discussed all results and clinical findings with patient. I discussed plan of care with patient. Patient agrees with plan of care. Patient will remain in the ER as an ER hold until the final dispos ition comes from our mental health and psychiatry team. 01/29/20 03:46 ED Medical Decision Making - Lab Data Result diagrams: 01/29/20 00:39 01/29/20 00:39 - Medical Decision Making Patient is a 29-year-old male that presents emergency room with complaints of suicidal ideations, depression and racing thoughts and delusions. Patient had a medical clearance labs done. Patient's labs were essentially unremarkable except for UDS positive for cocaine. Patient will remain in the ER as an ER hold until the patient is cleared by our mental health team. Patient's final disposition will come from our mental health and psychiatry team. - Differential Diagnosis Delusions, suicidal ideation, depression, psychosis, schizophrenia ED Disposition Clinical Impression: Suicidal ideation Disposition: DC-01 TO HOME OR SELFCARE Is pt being admited?: No Does the pt Need Aspirin: No Condition: Stable Referrals: PRIMARY CARE, [Primary Care Provider] - 2-3 Days Forms: AMA Form Time of Disposition: 03:48 <BERNARDO WALLER - Last Filed: 01/29/20 11:51> ED Review of Systems ROS: Stated complaint: MH Other details as noted in HPI ED Course Vital Signs 01/29/20 01/29/20 01/29/20 00:04 02:22 08:14 Temperature 98.1 F 97.6 F 98.0 F Pulse Rate 79 71 90 Respiratory 18 14 20 Rate Blood Pressure 144/98 Blood Pressure 115/63 115/75 [Right] O2 Sat by Pulse 98 99 99 Oximetry ED Medical Decision Making - Lab Data Result diagrams: 01/29/20 00:39 01/29/20 00:39 - Medical Decision Making Patient has been evaluated by our psychiatric team and recommended patient to be discharge home to follow-up as an outpatient. Patient is currently denying any suicidal or homicidal ideation. No visual or auditory hallucination. Patient is medically and psychiatrically stable for discharge. Critical care attestation.: If time is entered above; I have spent that time in minutes in the direct care of this critically ill patient, excluding procedure time.
[2020-01-29 01:08] LABS: Hemoglobin 12.3 gm/dl (11.8-15.2); Mean Corpuscular HGB Conc 33 % (32-34); Mean Corpuscular Volume 67 fl (84-94); Platelet Count 250 K/mm3 (140-440); Red Blood Count 5.56 M/mm3 (3.65-5.03); Red Cell Distribution Width 18.1 % (13.2-15.2)
[2020-01-29 01:13] LABS: BUN/Creatinine Ratio 15; Blood Urea Nitrogen 15 mg/dL (9-20); Calcium 9.3 mg/dL (8.4-10.2); Hemolysis Index 4
[2020-01-29 01:19] LABS: Benzodiazepines Screen,Urine PRESUMPTIVE NEGATIVE; Cannabinoid Screen,Urine PRESUMPTIVE NEGATIVE; Cocaine Screen,Urine PRESUMPTIVE POSITIVE; Methadone Screen,Urine PRESUMPTIVE NEGATIVE; Opiate Screen,Urine PRESUMPTIVE NEGATIVE
[2020-01-29 02:20] LABS: Amphetamine Screen,Urine PRESUMPTIVE NEGATIVE
[2020-01-29 03:34] LABS: Basophils % (Manual) 0 % (0.0-1.8); Eosinophils % (Manual) 0 % (0.0-4.3); Total Cells Counted 100
[2020-01-29 03:35] LABS: Anisocytosis Few; Hypochromasia 1+; Schistocytes Few
[2020-01-29 03:36] LABS: Platelet Estimate Consistent w Auto
[2020-01-29 08:15] VITALS: BP 115/75
== END 2020-01-29 12:00 | disposition home or self-care (01) ==
LOC: ED 23:17
DX: R45.851 Suicidal ideations (principal); F25.0 Schizoaffective disorder, bipolar type; F17.200 Nicotine dependence, unspecified, uncomplicated; F12.90 Cannabis use, unspecified, uncomplicated; F14.90 Cocaine use, unspecified, uncomplicated; Z79.899 Other long term (current) drug therapy
CPT/HCPCS: 36415; 80048; 80307; 80320; 81001; 85007; 85025; G0480

== ENCOUNTER 2020-01-29 12:54 | Emergency (ER) | payer SELFPAY | END 2020-01-29 13:05 | disposition left against medical advice (07) | LOC: ED 12:54 | DX: Z73.3 Stress, not elsewhere classified (principal); Z53.21 Procedure and treatment not carried out due to patient leaving prior to being seen by health care provider ==

== ENCOUNTER 2020-01-29 21:40 | Emergency (ER) | payer SELFPAY | END 2020-01-29 21:45 | disposition left against medical advice (07) | LOC: ED 21:40 | DX: R45.851 Suicidal ideations (principal); Z53.21 Procedure and treatment not carried out due to patient leaving prior to being seen by health care provider ==

== ENCOUNTER 2020-02-08 23:39 | Emergency (ER) | payer SELFPAY ==
[2020-02-09 03:11] LABS: Hematocrit 37.9 % (35.5-45.6); Hemoglobin 12.2 gm/dl (11.8-15.2); Mean Corpuscular HGB Conc 32 % (32-34); Platelet Count 264 K/mm3 (140-440); Red Blood Count 5.64 M/mm3 (3.65-5.03); Red Cell Distribution Width 18.6 % (13.2-15.2)
[2020-02-09 03:14] LABS: Mean Corpuscular Volume 67 fl (84-94)
[2020-02-09 03:15] LABS: Basophils # (Auto) 0.1 K/mm3 (0.0-0.1); Eosinophils # (Auto) 0.1 K/mm3 (0.0-0.4); Eosinophils % (Auto) 1.4 % (0.0-4.3); Lymphocytes # (Auto) 1.6 K/mm3 (1.2-5.4); Lymphocytes % (Auto) 23.5 % (13.4-35.0); Monocytes # (Auto) 1.1 K/mm3 (0.0-0.8)
[2020-02-09 03:23] LABS: BUN/Creatinine Ratio 20; Blood Urea Nitrogen 20 mg/dL (9-20); Calcium 9.2 mg/dL (8.4-10.2); Hemolysis Index 0
--- NOTE | 2020-02-09 06:46 | Emergency Department Report ---
ED Psych HPI - General Chief Complaint: Psych Stated Complaint: MH EVALUATION Time Seen by Provider: 02/09/20 06:45 Source: patient Mode of arrival: Ambulatory - History of Present Illness Initial Comments: Patient was not examined. He eloped before physician exam. - Related Data Home Medications Medication Instructions Recorded Confirmed Last Taken Divalproex Sodium [Depakote] 500 mg PO DAILY 01/09/19 09/12/19 08/03/19 Previous Rx's Medication Instructions Recorded Last Taken Type Sertraline HCl [Zoloft] 50 mg PO QHS #30 tablet 07/28/18 08/03/19 Rx risperiDONE [RisperDAL] 3 mg PO BID #60 tablet 08/03/19 08/03/19 Rx traZODone [Desyrel] 50 mg PO QHS #30 tab 08/03/19 08/03/19 Rx Allergies Allergy/AdvReac Type Severity Reaction Status Date / Time No Known Allergies Allergy Verified 08/13/19 01:41 ED Review of Systems ROS: Stated complaint: MH EVALUATION Other details as noted in HPI ED Past Medical Hx - Past Medical History Hx Psychiatric Treatment: Yes (Bipolar, schizo) Additional medical history: drug abuse - Social History Smoking Status: Current Every Day Smoker Substance Use Type: Cocaine - Medications Home Medications: Home Medications Medication Instructions Recorded Confirmed Last Taken Type Sertraline HCl [Zoloft] 50 mg PO QHS #30 tablet 07/28/18 09/12/19 08/03/19 Rx Divalproex Sodium [Depakote] 500 mg PO DAILY 01/09/19 09/12/19 08/03/19 History risperiDONE [RisperDAL] 3 mg PO BID #60 tablet 08/03/19 09/12/19 08/03/19 Rx traZODone [Desyrel] 50 mg PO QHS #30 tab 08/03/19 09/12/19 08/03/19 Rx ED Physical Exam - General Limitations: No Limitations ED Medical Decision Making - Lab Data Result diagrams: 02/09/20 02:30 02/09/20 02:30 Laboratory Results - last 24 hr 02/09/20 02/09/20 02/09/20 02:30 02:30 02:30 WBC RBC Hgb Hct MCV MCH MCHC RDW Plt Count Lymph % (Auto) [place] % (Auto) Eos % (Auto) Baso % (Auto) Lymph # (Auto) [place] # (Auto) Eos # (Auto) Baso # (Auto) Seg Neutrophils % Seg Neutrophils # Sodium 140 Potassium 4.4 Chloride 100.3 Carbon Dioxide 29 Anion Gap 15 BUN 20 Creatinine 1.0 Estimated GFR > 60 BUN/Creatinine Ratio 20 Glucose 83 Calcium 9.2 Salicylates < 0.3 L Acetaminophen 5.0 L Plasma/Serum Alcohol 02/09/20 02/09/20 02:30 02:30 WBC 6.8 RBC 5.64 H Hgb 12.2 Hct 37.9 MCV 67 L MCH 22 L MCHC 32 RDW 18.6 H Plt Count 264 Lymph % (Auto) 23.5 [place] % (Auto) Watchstander Eos % (Auto) 1.4 Baso % (Auto) 1.0 Lymph # (Auto) 1.6 [place] # (Auto) 1.1 H Eos # (Auto) 0.1 Baso # (Auto) 0.1 Seg Neutrophils % 57.9 Seg Neutrophils # 3.9 Sodium Potassium Chloride Carbon Dioxide Anion Gap BUN Creatinine Estimated GFR BUN/Creatinine Ratio Glucose Calcium Salicylates Acetaminophen Plasma/Serum Alcohol < 0.01 Critical care attestation.: If time is entered above; I have spent that time in minutes in the direct care of this critically ill patient, excluding procedure time. ED Disposition Clinical Impression: Cocaine abuse Disposition: ELOPED Is pt being admited?: No Does the pt Need Aspirin: No Condition: Stable Referrals: PRIMARY CARE, [Primary Care Provider] - 3-5 Days Time of Disposition: 07:00
== END 2020-02-09 07:52 | disposition left against medical advice (07) ==
LOC: ED 23:39
DX: F14.10 Cocaine abuse, uncomplicated (principal)
CPT/HCPCS: 36415; 80048; 80320; 85025; 99282; G0480

== ENCOUNTER 2020-03-04 21:23 | Emergency (ER) | payer SELFPAY ==
[2020-03-05 03:50] VITALS: BP 114/71
[2020-03-05 04:34] LABS: Basophils # (Auto) 0.1 K/mm3 (0.0-0.1); Basophils % (Auto) 1.1 % (0.0-1.8); Eosinophils # (Auto) 0.1 K/mm3 (0.0-0.4); Eosinophils % (Auto) 1.6 % (0.0-4.3); Hemoglobin 12.7 gm/dl (11.8-15.2); Lymphocytes # (Auto) 1.7 K/mm3 (1.2-5.4); Lymphocytes % (Auto) 26.1 % (13.4-35.0); Mean Corpuscular HGB Conc 33 % (32-34); Monocytes # (Auto) 0.9 K/mm3 (0.0-0.8); Monocytes % (Auto) 13.6 % (0.0-7.3); Platelet Count 247 K/mm3 (140-440); Red Blood Count 5.71 M/mm3 (3.65-5.03); Red Cell Distribution Width 19.7 % (13.2-15.2)
[2020-03-05 04:35] LABS: Mean Corpuscular Volume 68 fl (84-94)
[2020-03-05 04:36] LABS: Bacteria,Urine 1+ /HPF (Negative); Bilirubin,Urine NEG (Negative); Blood,Urine NEG (Negative); Color,Urine Yellow (Yellow); Mucus,Urine 3+ /HPF; WBC,Urine < 1.0 /HPF (0.0-6.0)
[2020-03-05 04:41] LABS: Amphetamine Screen,Urine PRESUMPTIVE POSITIVE; Benzodiazepines Screen,Urine PRESUMPTIVE NEGATIVE; Cannabinoid Screen,Urine PRESUMPTIVE NEGATIVE; Cocaine Screen,Urine PRESUMPTIVE POSITIVE; Methadone Screen,Urine PRESUMPTIVE NEGATIVE; Opiate Screen,Urine PRESUMPTIVE NEGATIVE
[2020-03-05 04:43] LABS: BUN/Creatinine Ratio 20; Blood Urea Nitrogen 18 mg/dL (9-20); Calcium 9.1 mg/dL (8.4-10.2); Hemolysis Index 3
== END 2020-03-05 04:00 | disposition left against medical advice (07) ==
LOC: ED 21:23
DX: F32.9 Major depressive disorder, single episode, unspecified (principal); Z53.21 Procedure and treatment not carried out due to patient leaving prior to being seen by health care provider
CPT/HCPCS: 36415; 80048; 80307; 80320; 81001; 85025; G0480

== ENCOUNTER 2020-03-10 22:35 | Emergency (ER) | payer SELFPAY | END 2020-03-10 23:45 | disposition left against medical advice (07) | LOC: ED 22:35 | DX: R46.2 Strange and inexplicable behavior (principal); Z53.21 Procedure and treatment not carried out due to patient leaving prior to being seen by health care provider ==

== ENCOUNTER 2020-03-11 03:43 | Emergency (ER) | payer SELFPAY ==
[2020-03-11 03:58] VITALS: BP 142/88
== END 2020-03-11 07:30 | disposition left against medical advice (07) ==
LOC: ED 03:43 → EEVIPCON 03:43 → ED 07:30
DX: Z00.8 Encounter for other general examination (principal); Z53.21 Procedure and treatment not carried out due to patient leaving prior to being seen by health care provider

== ENCOUNTER 2020-03-12 03:31 | Emergency (ER) | payer SELFPAY | END 2020-03-12 03:40 | disposition left against medical advice (07) | LOC: ED 03:31 | DX: Z00.8 Encounter for other general examination (principal); Z53.21 Procedure and treatment not carried out due to patient leaving prior to being seen by health care provider ==

== ENCOUNTER 2020-03-20 15:11 | Emergency (ER) | payer SELFPAY ==
[2020-03-20 15:40] VITALS: BP 131/79
== END 2020-03-20 20:51 | disposition left against medical advice (07) ==
LOC: ED 15:11
DX: F22 Delusional disorders (principal); Z53.21 Procedure and treatment not carried out due to patient leaving prior to being seen by health care provider

== ENCOUNTER 2020-04-08 19:05 | Emergency (ER) | payer SELFPAY ==
[2020-04-10 04:01] VITALS: BP 110/68
== END 2020-04-10 04:56 ==
LOC: ED 19:05
DX: F23 Brief psychotic disorder (principal); Z53.21 Procedure and treatment not carried out due to patient leaving prior to being seen by health care provider

== ENCOUNTER 2020-04-10 07:21 | Emergency (ER) | payer SELFPAY ==
[2020-04-10 07:46] VITALS: BP 132/82
== END 2020-04-10 13:43 ==
LOC: ED 07:21
DX: F22 Delusional disorders (principal); Z53.21 Procedure and treatment not carried out due to patient leaving prior to being seen by health care provider

== ENCOUNTER 2020-04-13 23:18 | Emergency (ER) | payer SELFPAY ==
[2020-04-13 23:32] VITALS: BP 128/81
[2020-04-13 23:59] LABS: Bilirubin,Urine NEG (Negative); Blood,Urine NEG (Negative); Color,Urine Yellow (Yellow); Mucus,Urine 3+ /HPF
[2020-04-14 00:08] LABS: Amphetamine Screen,Urine PRESUMPTIVE NEGATIVE; Benzodiazepines Screen,Urine PRESUMPTIVE NEGATIVE; Cannabinoid Screen,Urine PRESUMPTIVE NEGATIVE; Cocaine Screen,Urine PRESUMPTIVE POSITIVE; Methadone Screen,Urine PRESUMPTIVE NEGATIVE; Opiate Screen,Urine PRESUMPTIVE NEGATIVE
[2020-04-14 01:03] LABS: Hemoglobin 11.8 gm/dl (11.8-15.2); Mean Corpuscular HGB Conc 33 % (32-34); Platelet Count 260 K/mm3 (140-440); Red Blood Count 5.31 M/mm3 (3.65-5.03); Red Cell Distribution Width 19.2 % (13.2-15.2)
[2020-04-14 01:22] LABS: Mean Corpuscular Volume 68 fl (84-94)
[2020-04-14 01:23] LABS: Basophils # (Auto) 0.1 K/mm3 (0.0-0.1); Basophils % (Auto) 1.9 % (0.0-1.8); Eosinophils % (Auto) 0.6 % (0.0-4.3); Lymphocytes # (Auto) 1.7 K/mm3 (1.2-5.4); Monocytes # (Auto) 1.1 K/mm3 (0.0-0.8); Monocytes % (Auto) 18.2 % (0.0-7.3)
[2020-04-14 01:25] LABS: BUN/Creatinine Ratio 19; Blood Urea Nitrogen 17 mg/dL (9-20); Calcium 8.7 mg/dL (8.4-10.2); Hemolysis Index 5
== END 2020-04-14 07:41 | disposition left against medical advice (07) ==
LOC: ED 23:18
DX: Z00.8 Encounter for other general examination (principal); Z53.21 Procedure and treatment not carried out due to patient leaving prior to being seen by health care provider
CPT/HCPCS: 80307; 81001

== ENCOUNTER 2020-04-14 11:53 | Emergency (ER) | payer SELFPAY ==
[2020-04-14 12:12] VITALS: BP 148/84
== END 2020-04-14 12:50 | disposition left against medical advice (07) ==
LOC: ED 11:53
DX: R45.851 Suicidal ideations (principal); Z53.21 Procedure and treatment not carried out due to patient leaving prior to being seen by health care provider

== ENCOUNTER 2020-04-17 23:49 | Emergency (ER) | payer SELFPAY ==
--- NOTE | 2020-04-18 00:31 | Emergency Department Report ---
HPI - General Chief Complaint: Psych Time Seen by Provider: 04/18/20 00:20 - HPI HPI: Room 31 The patient is a 29-year-old male present with a chief complaint of suicidal ideation. The patient states for 1 day he is felt suicidal. Patient denies any active attempts at harming himself or plan. Patient states he also feels that there are people out to kill him. The patient states he also wants rehab from crack cocaine. The patient has a history of schizophrenia and bipolar disorder and states he has been compliant with his medication ED Past Medical Hx - Past Medical History Previous Medical History?: Yes Hx Psychiatric Treatment: Yes (Bipolar, schizophrenia) Additional medical history: drug abuse - Surgical History Past Surgical History?: No - Family History Family history: no significant - Social History Smoking Status: Current Every Day Smoker Substance Use Type: Cocaine (Crack) - Medications Home Medications: Home Medications Medication Instructions Recorded Confirmed Last Taken Type Sertraline HCl [Zoloft] 50 mg PO QHS #30 tablet 07/28/18 09/12/19 08/03/19 Rx Divalproex Sodium [Depakote] 500 mg PO DAILY 01/09/19 09/12/19 08/03/19 History risperiDONE [RisperDAL] 3 mg PO BID #60 tablet 08/03/19 09/12/19 08/03/19 Rx traZODone [Desyrel] 50 mg PO QHS #30 tab 08/03/19 09/12/19 08/03/19 Rx ED Review of Systems ROS: Stated complaint: MH EVAL Other details as noted in HPI Constitutional: no symptoms reported Eyes: denies: eye pain ENT: denies: throat pain Respiratory: no symptoms reported Cardiovascular: denies: chest pain Endocrine: no symptoms reported Gastrointestinal: denies: abdominal pain Genitourinary: denies: dysuria Musculoskeletal: denies: back pain Neurological: denies: headache Psychiatric: suicidal thoughts Physical Exam - Physical Exam Physical Exam: GENERAL: The patient is well-developed well-nourished male sitting on chair not appearing to be in acute distress. [] HEENT: Normocephalic. Atraumatic. Extraocular motions are intact. Patient has moist mucous membranes. NECK: Supple. Trachea midline CHEST/LUNGS: Clear to auscultation. There is no respiratory distress noted. HEART/CARDIOVASCULAR: Regular. There is no tachycardia. There is no gallop rub or murmur. ABDOMEN: Abdomen is soft, nontender. Patient has normal bowel sounds. There is no abdominal distention. SKIN: There is no rash. There is no edema. There is no diaphoresis. NEURO: The patient is awake, alert, and oriented. The patient is cooperative. The patient has normal speech MUSCULOSKELETAL: There is no evidence of acute injury. ED Medical Decision Making - Lab Data Result diagrams: 04/18/20 00:16 04/18/20 00:16 Laboratory Tests 04/18/20 04/18/20 04/18/20 00:16 00:16 00:16 WBC RBC Hgb Hct MCV MCH MCHC RDW Plt Count [place] % (Auto) Add Manual Diff Total Counted Seg Neuts % (Manual) Lymphocytes % (Manual) Monocytes % (Manual) Eosinophils % (Manual) Nucleated RBC % Seg Neutrophils # Man Band Neutrophils # Lymphocytes # (Manual) Abs React Lymphs (Man) Monocytes # (Manual) Eosinophils # (Manual) Basophils # (Manual) Metamyelocytes # Myelocytes # Promyelocytes # Blast Cells # WBC Morphology Hypersegmented Neuts Hyposegmented Neuts Hypogranular Neuts Smudge Cells Toxic Granulation Toxic Vacuolation Dohle Bodies Pelger-Huet Anomaly Audra Rods Platelet Estimate Clumped Platelets Plt Clumps, EDTA Large Platelets Giant Platelets Platelet Satelliting Plt Morphology Comment RBC Morphology Dimorphic RBCs Polychromasia Hypochromasia Poikilocytosis Anisocytosis Microcytosis Macrocytosis Spherocytes Pappenheimer Bodies Sickle Cells Target Cells Tear Drop Cells Ovalocytes Helmet Cells [place] Bodies [place] Rings [place] Cells Bite Cells Crenated Cell Elliptocytes Acanthocytes (Spur) Rouleaux Hemoglobin C Crystals Schistocytes Malaria parasites Uriel Bodies Hem Pathologist Commnt Sodium 138 Potassium 3.8 Chloride 100.9 Carbon Dioxide 27 Anion Gap 14 BUN 10 Creatinine 0.9 Estimated GFR > 60 BUN/Creatinine Ratio 11 Glucose 115 H Calcium 9.0 Salicylates < 0.3 L Acetaminophen 5.0 L Valproic Acid Plasma/Serum Alcohol 04/18/20 04/18/20 04/18/20 00:16 00:16 00:16 WBC 4.5 RBC 5.20 H Hgb 11.7 L Hct 35.6 MCV 69 L MCH 23 L MCHC 33 RDW 19.3 H Plt Count 249 [place] % (Auto) Director Public Service Add Manual Diff Complete Total Counted 100 Seg Neuts % (Manual) 59.0 Lymphocytes % (Manual) 25.0 Monocytes % (Manual) 15.0 H Eosinophils % (Manual) 1.0 Nucleated RBC % Not Reportable Seg Neutrophils # Man 2.7 Band Neutrophils # 0.0 Lymphocytes # (Manual) 1.1 L Abs React Lymphs (Man) 0.0 Monocytes # (Manual) 0.7 Eosinophils # (Manual) 0.0 Basophils # (Manual) 0.0 Metamyelocytes # 0.0 Myelocytes # 0.0 Promyelocytes # 0.0 Blast Cells # 0.0 WBC Morphology Not Reportable Hypersegmented Neuts Not Reportable Hyposegmented Neuts Not Reportable Hypogranular Neuts Not Reportable Smudge Cells Not Reportable Toxic Granulation Not Reportable Toxic Vacuolation Not Reportable Dohle Bodies Not Reportable Pelger-Huet Anomaly Not Reportable Audra Rods Not Reportable Platelet Estimate Consistent w auto Clumped Platelets Not Reportable Plt Clumps, EDTA Not Reportable Large Platelets Not Reportable Giant Platelets Not Reportable Platelet Satelliting Not Reportable Plt Morphology Comment Not Reportable RBC Morphology Not Reportable Dimorphic RBCs Not Reportable Polychromasia Not Reportable Hypochromasia 1+ Poikilocytosis Not Reportable Anisocytosis Not Reportable Microcytosis 1+ Macrocytosis Not Reportable Spherocytes Not Reportable Pappenheimer Bodies Not Reportable Sickle Cells Not Reportable Target Cells Rare Tear Drop Cells Not Reportable Ovalocytes Rare Helmet Cells Not Reportable [place] Bodies Not Reportable [place] Rings Not Reportable [place] Cells Not Reportable Bite Cells Not Reportable Crenated Cell Not Reportable Elliptocytes Not Reportable Acanthocytes (Spur) Not Reportable Rouleaux Not Reportable Hemoglobin C Crystals Not Reportable Schistocytes Not Reportable Malaria parasites Not Reportable Uriel Bodies Not Reportable Hem Pathologist Commnt No Sodium Potassium Chloride Carbon Dioxide Anion Gap BUN Creatinine Estimated GFR BUN/Creatinine Ratio Glucose Calcium Salicylates Acetaminophen Valproic Acid 6.1 L Plasma/Serum Alcohol < 0.01 - Differential Diagnosis Suicidal ideation, schizophrenia Critical care attestation.: If time is entered above; I have spent that time in minutes in the direct care of this critically ill patient, excluding procedure time. ED Disposition Clinical Impression: Suicidal ideation, Schizophrenia, Cocaine abuse Disposition: DC/TX-65 PSY HOSP/PSY UNIT Condition: Stable Time of Disposition: 04:39
[2020-04-18 00:43] LABS: Hematocrit 35.6 % (35.5-45.6); Hemoglobin 11.7 gm/dl (11.8-15.2); Mean Corpuscular HGB Conc 33 % (32-34); Platelet Count 249 K/mm3 (140-440); Red Cell Distribution Width 19.3 % (13.2-15.2)
[2020-04-18 00:44] LABS: Mean Corpuscular Volume 69 fl (84-94)
[2020-04-18 00:49] LABS: BUN/Creatinine Ratio 11; Blood Urea Nitrogen 10 mg/dL (9-20); Hemolysis Index 10
[2020-04-18 03:35] LABS: Total Cells Counted 100
[2020-04-18 03:36] LABS: Hypochromasia 1+; Ovalocytes Rare; Target Cells Rare
[2020-04-18 03:38] LABS: Platelet Estimate Consistent w Auto
[2020-04-18 08:34] LABS: Bilirubin,Urine NEG (Negative); Blood,Urine NEG (Negative); Color,Urine Yellow (Yellow); Mucus,Urine FEW /HPF
[2020-04-18 08:41] VITALS: BP 136/82
[2020-04-18 08:42] LABS: Amphetamine Screen,Urine Negative; Benzodiazepines Screen,Urine Negative; Cannabinoid Screen,Urine Negative; Methadone Screen,Urine Negative; Opiate Screen,Urine Negative
--- NOTE | 2020-04-18 09:09 | Consultation ---
History of Present Illness - Reason for Consult Consult date: 04/18/20 Reason for consult: paranoid - History of Present Psychiatric Illness Afshin Castro is a 29y/o male patient who is known to me from previous visits. He has a history of drug abuse, bipolar and schizophrenia. During my interview with the patient his is lying down. He has the covers over his head and is irritable that I asked him to remove them and speak with me. The patient says he came in for paranoia. He says he's been feeling like this for "about three weeks." He denies SI/HI or hallucinations of any kind. the patient verbalizes being admitted "over 30 times and attempting suicide about 20 times." PAST PSYCHIATRIC HISTORY Diagnoses: schizophrenia, bipolar Suicide attempts or Self-harm behavior: 20 Prior psychiatric hospitalizations: over 30 times Substance Abuse history: Crack, cocaine Previous psychiatric medications tried: unable to recall Outpatient treatment: not in a long time PAST MEDICAL HISTORY: None reported Family Psychiatric History: None reported or documented SOCIAL HISTORY Marital Status: Single Living Arrangements: Homeless Employment Status: Unemployed Access to guns/weapons: Denies Education: History of Abuse: Denies Legal History: none reported REVIEW OF SYSTEMS Constitutional: Negative for weight loss ENT: Negative for stridor Respiratory: Negative for cough or hemoptysis All other systems reviewed and are negative MENTAL STATUS EXAMINATION General Appearance and Behavior: Age appropriate, good hygiene, wearing appropriate clothes, cooperative Cooperation: Participating/engaged Psychomotor Behavior: Psychomotor normal Mood: "irritable" Affect and affective range: congruent with stated mood Thought Process: goal directed Thought Content: None Speech: Normal rate, volume and rhythm Suicidal Ideation: Denies Homicidal Ideation: Denies Hallucinations: Denies Delusions: Verbalizes paranoia Impulse Control: Limited Insight and Judgment: Limited insight and judgment Memory: Limited Attention: Limited Orientation: Alert, oriented Assessment and Plan (2) Substance Use Disorder (3) Noncompliance with other medical treatments and regimen Treatment d/c 1013 continue previously prescribed med Sitter: Defer to primary Medical: per primary Disposition: Do not Recommend acute inpatient psychiatric treatment. The patient understands that if SI/HI ideation are to return he is to seek immediate assistance, crisis hotline, 911/ER. Hospital Account Manager to give safety plan, resources for outpatient, drug rehab, CBT The patient to follow up with outpatient psych in 7 to 14 days upon discharge He is to abstain from all illicit drug use. He is to comply with all medical regimens Will sign off. Thank you for this consult. Case staffed with Dr. Fofana Medications and Allergies Allergies Allergy/AdvReac Type Severity Reaction Status Date / Time No Known Allergies Allergy Verified 08/13/19 01:41 Home Medications Medication Instructions Recorded Confirmed Last Taken Type Sertraline HCl [Zoloft] 50 mg PO QHS #30 tablet 07/28/18 09/12/19 08/03/19 Rx Divalproex Sodium [Depakote] 500 mg PO DAILY 01/09/19 09/12/19 08/03/19 History risperiDONE [RisperDAL] 3 mg PO BID #60 tablet 08/03/19 09/12/19 08/03/19 Rx traZODone [Desyrel] 50 mg PO QHS #30 tab 08/03/19 09/12/19 08/03/19 Rx Mental Status Exam - Vital signs Last Vital Signs Temp 97.6 F 04/18/20 08:40 Pulse 74 04/18/20 08:40 Resp 20 04/18/20 08:40 BP 136/82 04/18/20 08:40 Pulse Ox 98 04/18/20 08:40 Results Result Diagrams: 04/18/20 00:16 04/18/20 00:16 Abnormal lab results 04/18/20 04/18/20 04/18/20 Range/Units 00:16 00:16 00:16 RBC (3.65-5.03) M/mm3 Hgb (11.8-15.2) gm/dl MCV (84-94) fl MCH (28-32) pg RDW (13.2-15.2) % Monocytes % (Manual) (0.0-7.3) % Lymphocytes # (Manual) (1.2-5.4) K/mm3 Glucose 115 H (75-100) mg/dL Salicylates < 0.3 L (2.8-20.0) mg/dL Acetaminophen 5.0 L (10.0-30.0) ug/mL Valproic Acid (50-100) ug/mL 04/18/20 04/18/20 Range/Units 00:16 00:16 RBC 5.20 H (3.65-5.03) M/mm3 Hgb 11.7 L (11.8-15.2) gm/dl MCV 69 L (84-94) fl MCH 23 L (28-32) pg RDW 19.3 H (13.2-15.2) % Monocytes % (Manual) 15.0 H (0.0-7.3) % Lymphocytes # (Manual) 1.1 L (1.2-5.4) K/mm3 Glucose (75-100) mg/dL Salicylates (2.8-20.0) mg/dL Acetaminophen (10.0-30.0) ug/mL Valproic Acid 6.1 L (50-100) ug/mL All other labs normal.
[2020-04-18 09:33] LABS: Cocaine Screen,Urine PRESUMPTIVE POSITIVE
== END 2020-04-18 11:41 | disposition home or self-care (01) ==
LOC: ED 23:49
DX: F25.0 Schizoaffective disorder, bipolar type (principal); R45.851 Suicidal ideations; F14.90 Cocaine use, unspecified, uncomplicated; F17.200 Nicotine dependence, unspecified, uncomplicated; Z79.899 Other long term (current) drug therapy
CPT/HCPCS: 36415; 80048; 80164; 80307; 80320; 81001; 85007; 85025; G0480

== ENCOUNTER 2020-07-26 22:58 | Emergency (ER) | payer SELFPAY ==
--- NOTE | 2020-07-26 23:47 | Emergency Department Report ---
<FAVIO RODRIGUEZANDI Figueroa - Last Filed: 07/27/20 01:17> ED Psych HPI - General Stated Complaint: HALLUCINATION Time Seen by Provider: 07/26/20 23:41 Source: patient, EMS Mode of arrival: Ambulatory Limitations: No Limitations - History of Present Illness Initial Comments: Patient is a 30-year-old male presents emergency room with complaints of audiovisual hallucinations. Patient also complains of racing thoughts. Patient states he is anxious. Patient denies suicidal and homicidal ideation. Patient states she has been using a lot of drugs. Patient states she has been using all crack cocaine. Patient denies chest pain shortness of breath. Patient denies fever and chills. Patient denies recent travel. Patient denies recent international travel. Patient denies exposure to the novel coronavirus. Patient denies sick contacts. Patient denies fever and chills. Patient denies cough. Patient denies diarrhea. Patient denies coming in contact with anybody with symptoms of the novel coronavirus. MD Complaint: other -: Sudden Associated Psychiatric Symptoms: racing thoughts, auditory hallucinations, visual hallucinations History of same: No Quality: constant Improves With: none Worsens With: none Associated Symptoms: denies other symptoms - Related Data Home Medications Medication Instructions Recorded Confirmed Last Taken Divalproex Sodium [Depakote] 500 mg PO DAILY 01/09/19 09/12/19 08/03/19 Previous Rx's Medication Instructions Recorded Last Taken Type Sertraline HCl [Zoloft] 50 mg PO QHS #30 tablet 07/28/18 08/03/19 Rx risperiDONE [RisperDAL] 3 mg PO BID #60 tablet 08/03/19 08/03/19 Rx traZODone [Desyrel] 50 mg PO QHS #30 tab 08/03/19 08/03/19 Rx Allergies Allergy/AdvReac Type Severity Reaction Status Date / Time No Known Allergies Allergy Verified 08/13/19 01:41 ED Review of Systems Constitutional: denies: chills, fever Eyes: denies: eye pain, eye discharge, vision change ENT: denies: ear pain, throat pain Respiratory: denies: cough, shortness of breath, wheezing Cardiovascular: denies: chest pain, palpitations Endocrine: no symptoms reported Gastrointestinal: denies: abdominal pain, nausea, diarrhea Genitourinary: denies: urgency, dysuria Musculoskeletal: denies: back pain, joint swelling, arthralgia Skin: denies: rash, lesions Neurological: denies: headache, weakness, paresthesias Psychiatric: as per HPI, auditory hallucinations, visual hallucinations. denies: anxiety, depression Hematological/Lymphatic: denies: easy bleeding, easy bruising ED Past Medical Hx - Past Medical History Previous Medical History?: Yes Hx Psychiatric Treatment: Yes (Bipolar, schizophrenia) Additional medical history: drug abuse - Surgical History Past Surgical History?: No - Family History Family history: no significant - Social History Smoking Status: Current Every Day Smoker Substance Use Type: Cocaine (Crack) - Medications Home Medications: Home Medications Medication Instructions Recorded Confirmed Last Taken Type Sertraline HCl [Zoloft] 50 mg PO QHS #30 tablet 07/28/18 09/12/19 08/03/19 Rx Divalproex Sodium [Depakote] 500 mg PO DAILY 01/09/19 09/12/19 08/03/19 History risperiDONE [RisperDAL] 3 mg PO BID #60 tablet 08/03/19 09/12/19 08/03/19 Rx traZODone [Desyrel] 50 mg PO QHS #30 tab 08/03/19 09/12/19 08/03/19 Rx ED Physical Exam - General General appearance: alert, in no apparent distress - Head Head exam: Present: atraumatic, normocephalic - Eye Eye exam: Present: normal appearance - ENT ENT exam: Present: mucous membranes moist - Neck Neck exam: Present: normal inspection - Respiratory Respiratory exam: Present: normal lung sounds bilaterally. Absent: respiratory distress - Cardiovascular Cardiovascular Exam: Present: regular rate, normal rhythm. Absent: systolic murmur, diastolic murmur, rubs, gallop - GI/Abdominal GI/Abdominal exam: Present: soft, normal bowel sounds - Rectal Rectal exam: Present: deferred - Extremities Exam Extremities exam: Present: normal inspection - Back Exam Back exam: Present: normal inspection - Neurological Exam Neurological exam: Present: alert, oriented X3 - Psychiatric Psychiatric exam: Present: agitated, anxious - Expanded Psychiatric Exam Expanded Focused psych exam: Present: pressured speech, paranoid, restlessness - Skin Skin exam: Present: warm, dry, intact, normal color. Absent: rash ED Course - Reevaluation(s) Reevaluation #1: Patient placed on a ER hold. 07/26/20 23:46 Reevaluation #2: Patient is medically cleared. Patient will remain in the ER as an ER hold evaluated by mental health. Patient's final disposition will come from our [facility] team. 07/27/20 01:17 ED Medical Decision Making - Lab Data Result diagrams: 07/27/20 00:20 07/27/20 00:20 - Medical Decision Making Patient is a 30 for hallucinations and psychotic symptoms. Patient also exhibited paranoia agitation anxiety. Patient had labs done for medical clearance labs were essentially unremarkable. Patient cleared. Patient to follow-up this patient will come from our psychiatry team. Patient will remain in the ER as a ER hold until the patient is cleared by the psychiatry team. - Differential Diagnosis Acute psychosis, hallucinations, drug abuse, ED Disposition Clinical Impression: Hallucination, Cocaine abuse Disposition: DC- TO HOME OR SELFCARE Is pt being admited?: No Does the pt Need Aspirin: No Condition: Stable Additional Instructions: Professional and Agency Contacts To help Resolve Crises (04/11) [place] Crisis Line: Suicide Prevention Line: Crisis Text Line: Text START to 176338 Emergency: 911 Outpatient COMMUNITY Behavioral Health Resources: [facility]: [facility] [address] [place], [place] [address] [facility] [address] [place] [address] Friday thru Friday - 8am - 5pm Call to schedule an assessment for mental health and substance abuse programs [facility] Address: [address] [place] [address] Friday thru Friday- 7am-2pm [facility] Address: [address] [place] [address] Friday thru Friday: 8:30AM-5PM Referrals: PRIMARY CARE, [Primary Care Provider] - 3-5 Days Time of Disposition: 01:17 <CRISTI OLMOS - Last Filed: 07/27/20 11:11> ED Review of Systems ROS: Stated complaint: HALLUCINATION Other details as noted in HPI ED Course Vital Signs 07/26/20 07/27/20 23:40 08:43 Temperature 98.5 F 97.8 F Pulse Rate 103 H 80 Respiratory 18 18 Rate Blood Pressure 119/76 117/82 [Left] O2 Sat by Pulse 98 100 Oximetry - Reevaluation(s) Reevaluation #3: 07/27/20 11:10 Patient seen and evaluated by psychiatry. Patient does not meet inpatient and will be discharged at this time. He currently denies any SI, HI, or hallucinations. Outpatient resources will be given. ED Medical Decision Making - Lab Data Result diagrams: 07/27/20 00:20 07/27/20 00:20 Critical care attestation.: If time is entered above; I have spent that time in minutes in the direct care of this critically ill patient, excluding procedure time. ED Disposition Is pt being admited?: No
[2020-07-27 00:01] LABS: Mucus,Urine 3+ /HPF
[2020-07-27 00:06] LABS: Amphetamine Screen,Urine PRESUMPTIVE NEGATIVE; Benzodiazepines Screen,Urine PRESUMPTIVE NEGATIVE; Cannabinoid Screen,Urine PRESUMPTIVE NEGATIVE; Cocaine Screen,Urine PRESUMPTIVE POSITIVE; Methadone Screen,Urine PRESUMPTIVE NEGATIVE; Opiate Screen,Urine PRESUMPTIVE NEGATIVE
[2020-07-27 00:08] LABS: Bilirubin,Urine NEG (Negative); Blood,Urine NEG (Negative); Color,Urine Amber (Yellow)
[2020-07-27 00:41] LABS: Basophils % (Auto) 0.6 % (0.0-1.8); Eosinophils # (Auto) 0.1 K/mm3 (0.0-0.4); Eosinophils % (Auto) 1.3 % (0.0-4.3); Hematocrit 35.5 % (35.5-45.6); Hemoglobin 11.4 gm/dl (11.8-15.2); Lymphocytes # (Auto) 1.9 K/mm3 (1.2-5.4); Lymphocytes % (Auto) 30.3 % (13.4-35.0); Mean Corpuscular HGB Conc 32 % (32-34); Monocytes # (Auto) 0.8 K/mm3 (0.0-0.8); Monocytes % (Auto) 13.8 % (0.0-7.3); Platelet Count 205 K/mm3 (140-440); Red Blood Count 5.27 M/mm3 (3.65-5.03); Red Cell Distribution Width 18.1 % (13.2-15.2)
[2020-07-27 00:42] LABS: Mean Corpuscular Volume 67 fl (84-94)
[2020-07-27 01:01] LABS: BUN/Creatinine Ratio 12; Blood Urea Nitrogen 12 mg/dL (9-20); Calcium 8.5 mg/dL (8.4-10.2); Hemolysis Index 2
[2020-07-27] MEDS ORDERED: POTASSIUM CHLORIDE ER 20 MEQ TAB PO ONE (05:20)
[2020-07-27 08:44] VITALS: BP 117/82
--- NOTE | 2020-07-27 09:25 | Consultation ---
History of Present Illness - Reason for Consult Consult date: 07/27/20 Reason for consult: hallucinations - History of Present Psychiatric Illness Per ED Note: Patient is a 30-year-old male presents emergency room with complaints of audiovisual hallucinations. Patient also complains of racing thoughts. Patient states he is anxious. Patient denies suicidal and homicidal ideation. Patient states she has been using a lot of drugs. Patient states she has been using all crack cocaine. Patient denies chest pain shortness of breath. Patient denies fever and chills. During my assessment with 30y/o Afshin Castro, he is lying down asleep. The patient is initially reluctant to cooperate. I have to give him tactile stimuli several times to wake him up. The patient states "I'm ready to go home. I got to go to work." He says "I feel a lot better." The patient denies SI/HI or hallucinations at present. He states "naw, I'm ready to go." As I'm walking off he says "ma'am you gone let me go. I feel better." PAST PSYCHIATRIC HISTORY Diagnoses: schizophrenia, bipolar Suicide attempts or Self-harm behavior: yes Prior psychiatric hospitalizations: A lot Substance Abuse history: Crack, cocaine Previous psychiatric medications tried: unable to recall Outpatient treatment: not in a long time PAST MEDICAL HISTORY: None reported Family Psychiatric History: None reported or documented SOCIAL HISTORY Marital Status: Single Living Arrangements: Homeless Employment Status: Unemployed Access to guns/weapons: Denies Education: History of Abuse: Denies Legal History: none reported REVIEW OF SYSTEMS Constitutional: Negative for weight loss ENT: Negative for stridor Respiratory: Negative for cough or hemoptysis All other systems reviewed and are negative MENTAL STATUS EXAMINATION General Appearance and Behavior: Age appropriate, good hygiene, wearing appropriate clothes, cooperative, asleep Cooperation: reluctant to cooperate Psychomotor Behavior: Psychomotor normal Mood: better Affect and affective range: congruent with stated mood Thought Process: goal directed Thought Content: None Speech: Normal rate, volume and rhythm Suicidal Ideation: Denies Homicidal Ideation: Denies Hallucinations: Denies Delusions: None elicited Impulse Control: Limited Insight and Judgment: Limited insight and judgment Memory: Limited Attention: Limited Orientation: Alert, oriented Assessment and Plan (2) Substance Use Disorder (3) Noncompliance with other medical treatments and regimen Treatment continue previously prescribed med Sitter: Defer to primary Medical: per primary Disposition: Do not Recommend acute inpatient psychiatric treatment. The patient understands that if SI/HI ideation are to return he is to seek immediate assistance, crisis hotline, 911/ER. Student Liaison Officer to give safety plan, resources for outpatient, drug rehab, CBT The patient to follow up with outpatient psych in 7 to 14 days upon discharge He is to abstain from all illicit drug use. He is to comply with all medical regimens Will sign off. Thank you for this consult. Case staffed with Dr. Fofana Medications and Allergies Allergies Allergy/AdvReac Type Severity Reaction Status Date / Time No Known Allergies Allergy Verified 08/13/19 01:41 Home Medications Medication Instructions Recorded Confirmed Last Taken Type Sertraline HCl [Zoloft] 50 mg PO QHS #30 tablet 07/28/18 09/12/19 08/03/19 Rx Divalproex Sodium [Depakote] 500 mg PO DAILY 01/09/19 09/12/19 08/03/19 History risperiDONE [RisperDAL] 3 mg PO BID #60 tablet 08/03/19 09/12/19 08/03/19 Rx traZODone [Desyrel] 50 mg PO QHS #30 tab 08/03/19 09/12/19 08/03/19 Rx Mental Status Exam - Vital signs Last Vital Signs Temp 97.8 F 07/27/20 08:43 Pulse 80 07/27/20 08:43 Resp 18 07/27/20 08:43 BP 117/82 07/27/20 08:43 Pulse Ox 100 07/27/20 08:43 Results Result Diagrams: 07/27/20 00:20 07/27/20 00:20 Abnormal lab results 07/26/20 07/27/20 07/27/20 Range/Units Unknown 00:20 00:20 RBC 5.27 H (3.65-5.03) M/mm3 Hgb 11.4 L (11.8-15.2) gm/dl MCV 67 L (84-94) fl MCH 22 L (28-32) pg RDW 18.1 H (13.2-15.2) % Hartley % (Auto) 13.8 H (0.0-7.3) % Potassium 3.4 L (3.6-5.0) mmol/L Glucose 125 H (75-100) mg/dL Ur Specific [place] 1.034 H (1.003-1.030) Salicylates (2.8-20.0) mg/dL Acetaminophen (10.0-30.0) ug/mL 07/27/20 07/27/20 Range/Units 00:20 00:20 RBC (3.65-5.03) M/mm3 Hgb (11.8-15.2) gm/dl MCV (84-94) fl MCH (28-32) pg RDW (13.2-15.2) % Hartley % (Auto) (0.0-7.3) % Potassium (3.6-5.0) mmol/L Glucose (75-100) mg/dL Ur Specific [place] (1.003-1.030) Salicylates < 0.3 L (2.8-20.0) mg/dL Acetaminophen 5.0 L (10.0-30.0) ug/mL All other labs normal.
== END 2020-07-27 12:04 | disposition home or self-care (01) ==
LOC: EEVIPCON 22:58 → ED 22:58
DX: R44.1 Visual hallucinations (principal); R44.0 Auditory hallucinations; F14.10 Cocaine abuse, uncomplicated; F17.200 Nicotine dependence, unspecified, uncomplicated; Z79.899 Other long term (current) drug therapy
CPT/HCPCS: 36415; 80048; 80307; 80320; 81001; 85025; G0480

== ENCOUNTER 2021-02-28 02:33 | Emergency (ER) | payer SELFPAY ==
[2021-02-28] MEDS ORDERED: MAGNESIUM HYDROXIDE (MOM) ORAL LIQD UDC PO PRN (02:39)
[2021-02-28] MEDS ORDERED: ALUM-MAG HYDROXIDE-SIMETHICONE 200-200-20MG/5ML ORAL LIQD 30 ML PO PRN (02:39)
[2021-02-28] MEDS ORDERED: ACETAMINOPHEN 325 MG TAB PO PRN (02:39)
--- NOTE | 2021-02-28 03:11 | Emergency Department Report ---
ED Psych HPI - General Chief Complaint: Psych Stated Complaint: MH Time Seen by Provider: 02/28/21 02:38 Source: patient Mode of arrival: Ambulatory - History of Present Illness Initial Comments: Chief complaint: "I have bipolar and schizoaffective disorder." HPI this is a 30-year-old male with history of bipolar disorder and schizoaffective disorder who presents with "feeling sad and angry". He denies suicidal homicidal ideation. He denies any physical complaints. Previous medications include Invega and Depakote. Recently released from incarceration. MD Complaint: feels depressed, other (Feeling sad and angry) Associated Psychiatric Symptoms: depression History of same: Yes Quality: constant Improves With: none, medication Context: not taking psychiatric, significant life stressor (Recently incarcerated) Associated Symptoms: denies other symptoms Treatments Prior to Arrival: none - Related Data Home Medications Medication Instructions Recorded Confirmed Last Taken Divalproex Sodium [Depakote] 500 mg PO DAILY 01/09/19 09/12/19 08/03/19 Previous Rx's Medication Instructions Recorded Last Taken Type Sertraline HCl [Zoloft] 50 mg PO QHS #30 tablet 07/28/18 08/03/19 Rx risperiDONE [RisperDAL] 3 mg PO BID #60 tablet 08/03/19 08/03/19 Rx traZODone [Desyrel] 50 mg PO QHS #30 tab 08/03/19 08/03/19 Rx Allergies Allergy/AdvReac Type Severity Reaction Status Date / Time No Known Allergies Allergy Verified 08/13/19 01:41 ED Review of Systems ROS: Stated complaint: MH Other details as noted in HPI Comment: All other systems reviewed and negative Constitutional: denies: fever Respiratory: denies: cough Gastrointestinal: denies: abdominal pain ED Past Medical Hx - Past Medical History Previous Medical History?: Yes Hx Psychiatric Treatment: Yes (Bipolar, schizophrenia) Additional medical history: drug abuse - Surgical History Past Surgical History?: No - Social History Smoking Status: Current Every Day Smoker Substance Use Type: Cocaine (Crack) - Medications Home Medications: Home Medications Medication Instructions Recorded Confirmed Last Taken Type Sertraline HCl [Zoloft] 50 mg PO QHS #30 tablet 07/28/18 09/12/19 08/03/19 Rx Divalproex Sodium [Depakote] 500 mg PO DAILY 01/09/19 09/12/1908/02/20 History risperiDONE [RisperDAL] 3 mg PO BID #60 tablet 08/03/19 09/12/19 08/03/19 Rx traZODone [Desyrel] 50 mg PO QHS #30 tab 08/03/19 09/12/19 08/03/19 Rx ED Physical Exam - General Limitations: No Limitations General appearance: alert, in no apparent distress - Head Head exam: Present: atraumatic, normocephalic - Eye Eye exam: Present: normal appearance - ENT ENT exam: Present: mucous membranes moist - Neck Neck exam: Present: normal inspection - Respiratory Respiratory exam: Present: normal lung sounds bilaterally. Absent: respiratory distress, wheezes, rales - Cardiovascular Cardiovascular Exam: Present: regular rate, normal rhythm, normal heart sounds. Absent: systolic murmur, diastolic murmur, rubs, gallop - GI/Abdominal GI/Abdominal exam: Present: soft, normal bowel sounds. Absent: distended, tenderness, guarding - Rectal Rectal exam: Present: deferred - Extremities Exam Extremities exam: Present: normal inspection - Back Exam Back exam: Present: normal inspection - Neurological Exam Neurological exam: Present: alert, oriented X3 - Psychiatric Psychiatric exam: Present: normal mood, flat affect - Skin Skin exam: Present: warm, dry, intact, normal color. Absent: rash ED Course Vital Signs 02/28/21 02:37 Temperature 98.0 F Pulse Rate 112 H Respiratory 18 Rate Blood Pressure 145/87 O2 Sat by Pulse 99 Oximetry ED Medical Decision Making - Lab Data Result diagrams: 02/28/21 03:09 - Medical Decision Making Ms. Castro has history of bipolar disorder and schizoaffective disorder. Recently incarcerated. Will need access to psychotropic medication as well as mental health treatment. Awaiting recommendations by mental health team. He is medically clear for psychiatric care. Mr. Castro did not desire to stay for mental health assessment. He is not a harm to himself or others. Received resources during his multiple previous visits to the emergency department. He was discharged home. CBC chemistry salicylate acetaminophen blood alcohol level all within normal limits Depakote level therapeutic Critical care attestation.: If time is entered above; I have spent that time in minutes in the direct care of this critically ill patient, excluding procedure time. ED Disposition Clinical Impression: Bipolar disorder, Schizoaffective disorder Disposition: HOME / SELF CARE / HOMELESS Is pt being admited?: No Does the pt Need Aspirin: No Condition: Stable
[2021-02-28 03:37] LABS: Basophils % (Auto) 0.7 % (0.0-1.8); Eosinophils % (Auto) 0.2 % (0.0-4.3); Hematocrit 35.5 % (35.5-45.6); Hemoglobin 11.1 gm/dl (11.8-15.2); Lymphocytes # (Auto) 1.5 K/mm3 (1.2-5.4); Mean Corpuscular HGB Conc 31 % (32-34); Mean Corpuscular Volume 73 fl (84-94); Monocytes # (Auto) 0.6 K/mm3 (0.0-0.8); Monocytes % (Auto) 10.4 % (0.0-7.3); Platelet Count 173 K/mm3 (140-440); Red Blood Count 4.88 M/mm3 (3.65-5.03); Red Cell Distribution Width 18.3 % (13.2-15.2)
[2021-02-28 03:57] LABS: Alanine Aminotransferase 8 units/L (7-56); Albumin 4.2 g/dL (3.9-5); BUN/Creatinine Ratio 20; Blood Urea Nitrogen 16 mg/dL (9-20); Calcium 8.5 mg/dL (8.4-10.2); Hemolysis Index 4
[2021-02-28 04:24] VITALS: BP 140/99
== END 2021-02-28 04:22 | disposition home or self-care (01) ==
LOC: ED 02:33
DX: F31.9 Bipolar disorder, unspecified (principal); F20.9 Schizophrenia, unspecified; F17.200 Nicotine dependence, unspecified, uncomplicated
CPT/HCPCS: 36415; 80053; 80164; 80320; 85025; 99283; G0480

== ENCOUNTER 2021-03-12 02:33 | Emergency (ER) | payer SELFPAY | END 2021-03-12 03:05 | disposition left against medical advice (07) | LOC: ED 02:33 | DX: Z73.3 Stress, not elsewhere classified (principal); Z53.21 Procedure and treatment not carried out due to patient leaving prior to being seen by health care provider ==

== ENCOUNTER 2021-04-17 01:55 | Emergency (ER) | payer SELFPAY ==
[2021-04-17] MEDS ORDERED: traZODone 50 MG TAB PO ONE (02:17)
--- NOTE | 2021-04-17 02:17 | Emergency Department Report ---
ED Psych HPI - General Stated Complaint: MENTAL ANGER Time Seen by Provider: 04/17/21 02:11 Source: patient Mode of arrival: Ambulatory Limitations: No Limitations - History of Present Illness Initial Comments: Chief complaint: "I have been running the streets. I want to get back on my meds." HPI: This is a 30-year-old male with history of bipolar disorder, schizoaffective disorder, cocaine dependence who presents with "suicidal thoughts". He denies any physical complaints. He has been noncompliant with medication. He admits to recent use of cocaine today. He denies plan to harm self. He denies homicidal ideation. MD Complaint: suicidal ideation -: days(s) (Several days) Associated Psychiatric Symptoms: suicidal ideation, racing thoughts Quality: constant Improves With: none Worsens With: drug use Context: recent drug abuse Associated Symptoms: denies other symptoms Treatments Prior to Arrival: none If Self Harm: admits thoughts of - Related Data Home Medications Medication Instructions Recorded Confirmed Last Taken Divalproex Sodium [Depakote] 500 mg PO DAILY 01/09/19 09/12/19 08/03/19 Previous Rx's Medication Instructions Recorded Last Taken Type Sertraline HCl [Zoloft] 50 mg PO QHS #30 tablet 07/28/18 08/03/19 Rx risperiDONE [RisperDAL] 3 mg PO BID #60 tablet 08/03/19 08/03/19 Rx traZODone [Desyrel] 50 mg PO QHS #30 tab 08/03/19 08/03/[address] [DepaKOTE DR] 500 mg PO BID #60 tablet 04/17/21 Unknown Rx Sertraline [Zoloft] 50 mg PO QDAY #30 tablet 04/17/21 Unknown Rx risperiDONE [RisperDAL] 2 mg PO BID #60 tablet 04/17/21 Unknown Rx Allergies Allergy/AdvReac Type Severity Reaction Status Date / Time No Known Allergies Allergy Verified 04/17/21 02:25 ED Review of Systems ROS: Stated complaint: MENTAL ANGER Other details as noted in HPI Comment: All other systems reviewed and negative Constitutional: denies: chills, fever, malaise Respiratory: denies: cough, shortness of breath Cardiovascular: denies: chest pain Gastrointestinal: denies: abdominal pain, nausea, vomiting Psychiatric: depression, suicidal thoughts. denies: auditory hallucinations, visual hallucinations, homicidal thoughts ED Past Medical Hx - Past Medical History Previous Medical History?: Yes Hx Psychiatric Treatment: Yes (Bipolar, schizophrenia) Additional medical history: drug abuse - Social History Smoking Status: Current Every Day Smoker Substance Use Type: Cocaine (Crack) - Medications Home Medications: Home Medications Medication Instructions Recorded Confirmed Last Taken Type Sertraline HCl [Zoloft] 50 mg PO QHS #30 tablet 07/28/18 09/12/19 08/03/19 Rx Divalproex Sodium [Depakote] 500 mg PO DAILY 01/09/19 09/12/19 08/03/19 History risperiDONE [RisperDAL] 3 mg PO BID #60 tablet 08/03/19 09/12/19 08/03/19 Rx traZODone [Desyrel] 50 mg PO QHS #30 tab 08/03/19 09/12/19 08/03/[address] [DepaKOTE DR] 500 mg PO BID #60 tablet 04/17/21 Unknown Rx Sertraline [Zoloft] 50 mg PO QDAY #30 tablet 04/17/21 Unknown Rx risperiDONE [RisperDAL] 2 mg PO BID #60 tablet 04/17/21 Unknown Rx ED Physical Exam - General Limitations: No Limitations General appearance: alert, in no apparent distress, other (Pleasant polite cooperative) - Head Head exam: Present: atraumatic, normocephalic - Eye Eye exam: Present: normal appearance - ENT ENT exam: Present: mucous membranes moist - Neck Neck exam: Present: normal inspection, full ROM - Respiratory Respiratory exam: Present: normal lung sounds bilaterally. Absent: respiratory distress - Cardiovascular Cardiovascular Exam: Present: regular rate, normal rhythm, normal heart sounds. Absent: systolic murmur, diastolic murmur, rubs, gallop - GI/Abdominal GI/Abdominal exam: Present: soft, normal bowel sounds. Absent: distended, tenderness, guarding, rebound - Rectal Rectal exam: Present: deferred - Extremities Exam Extremities exam: Present: normal inspection - Back Exam Back exam: Present: normal inspection - Neurological Exam Neurological exam: Present: alert, oriented X3 - Psychiatric Psychiatric exam: Present: normal affect, normal mood, suicidal ideation - Skin Skin exam: Present: warm, dry, intact, normal color. Absent: rash ED Course Vital Signs 04/17/21 04/17/21 01:58 05:46 Temperature 97.6 F 98.3 F Pulse Rate 116 H 72 Respiratory 19 18 Rate Blood Pressure 138/80 O2 Sat by Pulse 98 96 Oximetry ED Medical Decision Making - Lab Data Result diagrams: 04/17/21 02:23 04/17/21 02:23 - Medical Decision Making Mr. Cottrell 30-year-old male history of bipolar disorder, schizoaffective disorder, cocaine dependence who presents with "suicidal thoughts". He does not have a plan to harm himself or others. I feel the patient is low risk for self- harm. He is medically clear for psychiatric care. Awaiting treatment recommendations by mental health team specifically medications and resources. Patient does not meet involuntary hold criteria at this juncture. cbc chem serum toxicology screen unremarkabl Critical care attestation.: If time is entered above; I have spent that time in minutes in the direct care of this critically ill patient, excluding procedure time. ED Disposition Clinical Impression: Cocaine abuse Bipolar disorder Qualifiers: Active/Remission status: currently active Current bipolar episode type: depressed Current episode severity: mild Qualified Code(s): F31.31 - Bipolar disorder, current episode depressed, mild Schizoaffective disorder Qualifiers: Schizoaffective disorder type: unspecified Qualified Code(s): F25.9 - Schizoaffective disorder, unspecified Disposition: 01 HOME / SELF CARE / HOMELESS Is pt being admited?: No Does the pt Need Aspirin: No Condition: Stable Instructions: Kelly, Managing Bipolar Disorder, Substance Use Disorder and Mental Illness, Schizoaffective Disorder Additional Instructions: Professional and Agency Contacts To help Resolve Crises(04/11) [place] Crisis Line: Suicide Prevention Line: Crisis Text Line: Text START to 659604 Emergency: 911 Outpatient COMMUNITY Behavioral Health Resources: [facility] [address] [place], [place] [address] [place]: [facility] [address] [place] [address] [place]: [facility] - [address] [place] [address] Friday thru Friday - 8am - 5pm [place]: [facility] Address: [address], [place] [address] [place]: [facility] Address: [address] [place] [address] Friday thru Friday- 7am-2pm [facility] Address: [address] [place] [address] Friday thru Friday: 8:30AM-5PM In case of an emergency, please contact the following numbers: [place] Crisis and Access Line: Number: Crisis Text Line: (Text START) Number: 334311 Suicide Prevention Line: Number: Emergency Number: 911 SUBSTANCE ABUSE PROGRAMS: [facility]: Location: [place], [place] [facility] Address: [address] [place] [address] [facility]: Address: [address] [place] [address] [facility]: Address: [address] [place] [address] [facility]: Address: [address] [place] [address] [facility] Address: [address] [place] [address]. Please contact above numbers to attempt placement into free based program. Medicaid Programs: [facility]: Address: [address] [place] [address] [facility]: Address: [address] [place] [address] Prescriptions: Divalproex [[place] WILCOX] 500 mg PO BID #60 tablet risperiDONE [RisperDAL] 2 mg PO BID #60 tablet Sertraline [Zoloft] 50 mg PO QDAY #30 tablet Referrals: PRIMARY CARE, [Primary Care Provider] - 3-5 Days JOSE ALEJANDRO LYON MD [Staff Physician] - 3-5 Days
[2021-04-17 02:20] VITALS: BP 138/80
[2021-04-17 02:43] LABS: Basophils # (Auto) 0.1 K/mm3 (0.0-0.1); Basophils % (Auto) 1.4 % (0.0-1.8); Eosinophils % (Auto) 0.1 % (0.0-4.3); Hematocrit 38.3 % (35.5-45.6); Hemoglobin 12.5 gm/dl (11.8-15.2); Lymphocytes % (Auto) 16.9 % (13.4-35.0); Mean Corpuscular HGB Conc 33 % (32-34); Mean Corpuscular Volume 70 fl (84-94); Monocytes # (Auto) 0.9 K/mm3 (0.0-0.8); Monocytes % (Auto) 15.9 % (0.0-7.3); Platelet Count 235 K/mm3 (140-440); Red Blood Count 5.46 M/mm3 (3.65-5.03); Red Cell Distribution Width 17.2 % (13.2-15.2)
[2021-04-17 02:54] LABS: Blood Urea Nitrogen 19 mg/dL (9-20); Calcium 9.1 mg/dL (8.4-10.2); Hemolysis Index 0
[2021-04-17 03:08] LABS: BUN/Creatinine Ratio 27
--- NOTE | 2021-04-17 12:56 | Consultation ---
History of Present Illness - Reason for Consult Consult date: 04/17/21 Reason for consult: off meds - History of Present Psychiatric Illness The patient was seen today. He is a 30y/o male patient who presented to the ER for being off of his meds. The patient also says he uses "crack and feels angry sometimes." He says he lives with his mother but she told him he couldn't come back until he go help. The patient denies SI/HI or hallucinations of any kind. He says he takes riperdone 2mg po twice daily, zoloft 50, and depakote 500 twice daily. The patient says "I need my meds. If I don't have them I get angry." He denies hallucinations of any kind. PAST PSYCHIATRIC HISTORY Diagnoses: schizophrenia, bipolar Suicide attempts or Self-harm behavior: yes Prior psychiatric hospitalizations: A lot Substance Abuse history: Crack, cocaine Previous psychiatric medications tried: unable to recall Outpatient treatment: not in a long time PAST MEDICAL HISTORY: None reported Family Psychiatric History: None reported or documented SOCIAL HISTORY Marital Status: Single Living Arrangements: Homeless Employment Status: Unemployed Access to guns/weapons: Denies Education: History of Abuse: Denies Legal History: none reported REVIEW OF SYSTEMS Constitutional: Negative for weight loss ENT: Negative for stridor Respiratory: Negative for cough or hemoptysis All other systems reviewed and are negative MENTAL STATUS EXAMINATION General Appearance and Behavior: Age appropriate, good hygiene, wearing appropriate clothes, cooperative, calm Cooperation: reluctant to cooperate Psychomotor Behavior: Psychomotor normal Mood: angry sometimes Affect and affective range: congruent with stated mood Thought Process: goal directed Thought Content: None Speech: Normal rate, volume and rhythm Suicidal Ideation: Denies Homicidal Ideation: Denies Hallucinations: Denies Delusions: None elicited Impulse Control: Limited Insight and Judgment: Limited insight and judgment Memory: Limited Attention: Limited Orientation: Alert, oriented Assessment and Plan (2) Substance Use Disorder (3) Noncompliance with other medical treatments and regimen Treatment Depakote DR 500mg po BID Risperidone 2mg po BID Zoloft 50mg po daily Sitter: Defer to primary Medical: per primary Disposition: Do not Recommend acute inpatient psychiatric treatment. The patient understands that if SI/HI ideation are to return he is to seek immediate assistance, crisis hotline, [facility]/ER. Engraving Press Operator to give safety plan, resources for outpatient, drug rehab, CBT The patient to follow up with outpatient psych in 7 to 14 days upon discharge He is to abstain from all illicit drug use. He is to comply with all medical regimens Will sign off. Thank you for this consult. Case staffed with Dr. Fofana Medications and Allergies Allergies Allergy/AdvReac Type Severity Reaction Status Date / Time No Known Allergies Allergy Verified 04/17/21 02:25 Home Medications Medication Instructions Recorded Confirmed Last Taken Type Sertraline HCl [Zoloft] 50 mg PO QHS #30 tablet 07/28/18 09/12/19 08/03/19 Rx Divalproex Sodium [Depakote] 500 mg PO DAILY 01/09/19 09/12/19 08/03/19 History risperiDONE [RisperDAL] 3 mg PO BID #60 tablet 08/03/19 09/12/19 08/03/19 Rx traZODone [Desyrel] 50 mg PO QHS #30 tab 08/03/19 09/12/19 08/03/[address] [DepaKOTE DR] 500 mg PO BID #60 tablet 04/17/21 Unknown Rx Sertraline [Zoloft] 50 mg PO QDAY #30 tablet 04/17/21 Unknown Rx risperiDONE [RisperDAL] 2 mg PO BID #60 tablet 04/17/21 Unknown Rx Mental Status Exam - Vital signs Last Vital Signs Temp 98.3 F 04/17/21 05:46 Pulse 72 04/17/21 05:46 Resp 18 04/17/21 05:46 BP 138/80 04/17/21 01:58 Pulse Ox 96 04/17/21 05:46 Results Result Diagrams: 04/17/21 02:23 04/17/21 02:23 Abnormal lab results 04/17/21 04/17/21 04/17/21 Range/Units 02:23 02:23 02:23 RBC 5.46 H (3.65-5.03) M/mm3 MCV 70 L (84-94) fl MCH 23 L (28-32) pg RDW 17.2 H (13.2-15.2) % [place] % (Auto) 15.9 H (0.0-7.3) % Lymph # (Auto) 1.0 L (1.2-5.4) K/mm3 [place] # (Auto) 0.9 H (0.0-0.8) K/mm3 Sodium 136 L (137-145) mmol/L Chloride 95.6 L (98-107) mmol/L Creatinine 0.7 L (0.8-1.3) mg/dL Glucose 104 H (75-100) mg/dL Salicylates < 0.3 L (2.8-20.0) mg/dL Acetaminophen (10.0-30.0) ug/mL 04/17/21 Range/Units 02:23 RBC (3.65-5.03) M/mm3 MCV (84-94) fl MCH (28-32) pg RDW (13.2-15.2) % [place] % (Auto) (0.0-7.3) % Lymph # (Auto) (1.2-5.4) K/mm3 [place] # (Auto) (0.0-0.8) K/mm3 Sodium (137-145) mmol/L Chloride (98-107) mmol/L Creatinine (0.8-1.3) mg/dL Glucose (75-100) mg/dL Salicylates (2.8-20.0) mg/dL Acetaminophen 5.0 L (10.0-30.0) ug/mL All other labs normal.
--- NOTE | 2021-04-17 13:17 | Emergency Department Report ---
Blank Doc - Documentation Documentation: Patient feels well today. He is not suicidal homicidal. He is not delusional. There is no evidence of acute psychosis. He is not responding to extraneous stimuli. Patient feels as though he would like to go home and feels he will be safe to do so. Behavioral health agrees. The patient was discharged.
== END 2021-04-17 14:44 | disposition home or self-care (01) ==
LOC: ED 01:55
DX: F14.10 Cocaine abuse, uncomplicated (principal); F31.31 Bipolar disorder, current episode depressed, mild; F25.9 Schizoaffective disorder, unspecified; F17.200 Nicotine dependence, unspecified, uncomplicated; Z20.822 Contact with and (suspected) exposure to COVID-19
CPT/HCPCS: 36415; 80048; 85025; 99284; U0003; 80320; G0480

== ENCOUNTER 2021-12-10 00:55 | Emergency (ER) | payer SELFPAY ==
[2021-12-10 04:56] LABS: Basophils # (Auto) 0.1 K/mm3 (0.0-0.1); Basophils % (Auto) 0.9 % (0.0-1.8); Eosinophils % (Auto) 0.3 % (0.0-4.3); Hematocrit 36.8 % (35.5-45.6); Hemoglobin 11.8 gm/dl (11.8-15.2); Lymphocytes % (Auto) 29.1 % (13.4-35.0); Mean Corpuscular HGB Conc 32 % (32-34); Mean Corpuscular Volume 73 fl (84-94); Monocytes # (Auto) 0.8 K/mm3 (0.0-0.8); Monocytes % (Auto) 12.5 % (0.0-7.3); Platelet Count 215 K/mm3 (140-440); Red Blood Count 5.02 M/mm3 (3.65-5.03); Red Cell Distribution Width 14.2 % (13.2-15.2)
[2021-12-10 05:09] LABS: Blood Urea Nitrogen 11 mg/dL (9-20); Calcium 9.4 mg/dL (8.4-10.2); Hemolysis Index 12
[2021-12-10 05:15] LABS: BUN/Creatinine Ratio 16
--- NOTE | 2021-12-10 05:36 | Emergency Department Report ---
ED Psych HPI - General Chief Complaint: Psych Stated Complaint: PSYCH EVAL Time Seen by Provider: 12/10/21 01:46 Source: patient Mode of arrival: Ambulatory - History of Present Illness Initial Comments: pt reports that he is here because his schzio-affective disorder, having bharti lucinations, requests to go to [place], denies SI and HI pt nel been on alcohol and now wants tog et clean so he can get his social security benefits MD Complaint: other (psychosis) -: month(s) Associated Psychiatric Symptoms: auditory hallucinations, delusions History of same: Yes Quality: intermittent Improves With: medication Worsens With: achohol Context: recent alcohol abuse, recent drug abuse Associated Symptoms: denies: denies other symptoms, confusion, headache Treatments Prior to Arrival: none - Related Data Home Medications Medication Instructions Recorded Confirmed Last Taken Divalproex Sodium [Depakote] 500 mg PO DAILY 01/09/19 09/12/19 08/03/19 Previous Rx's Medication Instructions Recorded Last Taken Type Sertraline HCl [Zoloft] 50 mg PO QHS #30 tablet 07/28/18 08/03/19 Rx risperiDONE [RisperDAL] 3 mg PO BID #60 tablet 08/03/19 08/03/19 Rx traZODone [Desyrel] 50 mg PO QHS #30 tab 08/03/19 08/03/[address] [DepaKOTE DR] 500 mg PO BID #60 tablet 04/17/21 Unknown Rx Sertraline [Zoloft] 50 mg PO QDAY #30 tablet 04/17/21 Unknown Rx risperiDONE [RisperDAL] 2 mg PO BID #60 tablet 04/17/21 Unknown Rx Allergies Allergy/AdvReac Type Severity Reaction Status Date / Time No Known Allergies Allergy Verified 04/17/21 02:25 ED Review of Systems ROS: Stated complaint: PSYCH EVAL Other details as noted in HPI Constitutional: denies: chills, fever Eyes: denies: eye pain, eye discharge, vision change ENT: denies: ear pain, throat pain Respiratory: denies: cough, shortness of breath, wheezing Cardiovascular: denies: chest pain, palpitations Endocrine: no symptoms reported Gastrointestinal: denies: abdominal pain, nausea, diarrhea Genitourinary: denies: urgency, dysuria Musculoskeletal: denies: back pain, joint swelling, arthralgia Skin: denies: rash, lesions Neurological: denies: headache, weakness, paresthesias Psychiatric: denies: anxiety, depression Hematological/Lymphatic: denies: easy bleeding, easy bruising ED Past Medical Hx - Past Medical History Previous Medical History?: No Hx Hypertension: No Hx Psychiatric Treatment: Yes (Bipolar, schizophrenia) Additional medical history: drug abuse - Social History Smoking Status: Never Smoker Substance Use Type: Alcohol, Cocaine, Other - Medications Home Medications: Home Medications Medication Instructions Recorded Confirmed Last Taken Type Sertraline HCl [Zoloft] 50 mg PO QHS #30 tablet 07/28/18 09/12/19 08/03/19 Rx Divalproex Sodium [Depakote] 500 mg PO DAILY 01/09/19 09/12/19 08/03/19 History risperiDONE [RisperDAL] 3 mg PO BID #60 tablet 08/03/19 09/12/19 08/03/19 Rx traZODone [Desyrel] 50 mg PO QHS #30 tab 08/03/19 09/12/19 08/03/[address] [DepaKOTE DR] 500 mg PO BID #60 tablet 04/17/21 Unknown Rx Sertraline [Zoloft] 50 mg PO QDAY #30 tablet 04/17/21 Unknown Rx risperiDONE [RisperDAL] 2 mg PO BID #60 tablet 04/17/21 Unknown Rx ED Physical Exam - General Limitations: No Limitations General appearance: alert, in no apparent distress - Head Head exam: Present: atraumatic, normocephalic - Eye Eye exam: Present: normal appearance - ENT ENT exam: Present: mucous membranes moist - Neck Neck exam: Present: normal inspection - Respiratory Respiratory exam: Present: normal lung sounds bilaterally. Absent: respiratory distress - Cardiovascular Cardiovascular Exam: Present: regular rate, normal rhythm. Absent: systolic murmur, diastolic murmur, rubs, gallop - GI/Abdominal GI/Abdominal exam: Present: soft, normal bowel sounds - Rectal Rectal exam: Present: deferred - Extremities Exam Extremities exam: Present: normal inspection - Back Exam Back exam: Present: normal inspection - Neurological Exam Neurological exam: Present: alert, oriented X3 - Psychiatric Psychiatric exam: Present: normal affect, normal mood - Skin Skin exam: Present: warm, dry, intact, normal color. Absent: rash ED Course Vital Signs 12/10/21 02:10 O2 Sat by Pulse 96 Oximetry ED Medical Decision Making - Lab Data Result diagrams: 12/10/21 04:11 12/10/21 04:11 Critical care attestation.: If time is entered above; I have spent that time in minutes in the direct care of this critically ill patient, excluding procedure time. ED Disposition Clinical Impression: Paranoia, Homeless Disposition: 30 STILL A PATIENT Condition: Stable Referrals: TURNER CORNELIUS MD [Primary Care Provider] - 3-5 Days
--- NOTE | 2021-12-10 08:40 | Consultation ---
History of Present Illness - Reason for Consult Consult date: 12/10/21 Reason for consult: agitation - History of Present Psychiatric Illness The patient was seen today. He says he was having hallucinations and agitation last night. The patient says "but I'm calm now." He says "I have an appointment at [facility] this morning." The patient denies SI/HI or hallucinations. He says "I was upset last night because they took my cigarets and stuff that I paid for." PAST PSYCHIATRIC HISTORY Diagnoses: schizophrenia, bipolar Suicide attempts or Self-harm behavior: yes Prior psychiatric hospitalizations: A lot Substance Abuse history: Crack, cocaine Previous psychiatric medications tried: unable to recall Outpatient treatment: not in a long time PAST MEDICAL HISTORY: None reported Family Psychiatric History: None reported or documented SOCIAL HISTORY Marital Status: Single Living Arrangements: Homeless Employment Status: Unemployed Access to guns/weapons: Denies Education: History of Abuse: Denies Legal History: none reported REVIEW OF SYSTEMS Constitutional: Negative for weight loss ENT: Negative for stridor Respiratory: Negative for cough or hemoptysis All other systems reviewed and are negative MENTAL STATUS EXAMINATION General Appearance and Behavior: Age appropriate, good hygiene, wearing appropriate clothes, cooperative, asleep Cooperation: reluctant to cooperate Psychomotor Behavior: Psychomotor normal Mood: better Affect and affective range: congruent with stated mood Thought Process: goal directed Thought Content: None Speech: Normal rate, volume and rhythm Suicidal Ideation: Denies Homicidal Ideation: Denies Hallucinations: Denies Delusions: None elicited Impulse Control: Limited Insight and Judgment: Limited insight and judgment Memory: Limited Attention: Limited Orientation: Alert, oriented Assessment and Plan (2) Substance Use Disorder with Substance Induced Mood Treatment continue previously prescribed med Sitter: Defer to primary Medical: per primary Disposition: Do not Recommend acute inpatient psychiatric treatment. The patient understands that if SI/HI ideation are to return he is to seek immediate as sistance, crisis hotline, 1/ER. Hazardous Material Specialist to give safety plan, resources for outpatient, drug rehab, CBT The patient to follow up with outpatient psych in 7 to 14 days upon discharge He is to abstain from all illicit drug use. He is to comply with all medical regimens Will sign off. Thank you for this consult. Case staffed with Dr. Fofana Medications and Allergies Allergies Allergy/AdvReac Type Severity Reaction Status Date / Time No Known Allergies Allergy Verified 04/17/21 02:25 Home Medications Medication Instructions Recorded Confirmed Last Taken Type Sertraline HCl [Zoloft] 50 mg PO QHS #30 tablet 07/28/18 09/12/19 08/03/19 Rx Divalproex Sodium [Depakote] 500 mg PO DAILY 01/09/19 09/12/19 08/03/19 History risperiDONE [RisperDAL] 3 mg PO BID #60 tablet 08/03/19 09/12/19 08/03/19 Rx traZODone [Desyrel] 50 mg PO QHS #30 tab 08/03/19 09/12/19 08/03/[address] [DepaKOTE DR] 500 mg PO BID #60 tablet 04/17/21 Unknown Rx Sertraline [Zoloft] 50 mg PO QDAY #30 tablet 04/17/21 Unknown Rx risperiDONE [RisperDAL] 2 mg PO BID #60 tablet 04/17/21 Unknown Rx Mental Status Exam - Vital signs Last Vital Signs Temp Pulse Resp BP Pulse Ox 96 12/10/21 02:10 Results Result Diagrams: 12/10/21 04:11 12/10/21 04:11 Abnormal lab results 12/10/21 12/10/21 12/10/21 Range/Units 04:11 04:11 04:11 MCV 73 L (84-94) fl MCH 24 L (28-32) pg [place] % (Auto) 12.5 H (0.0-7.3) % Creatinine 0.7 L (0.8-1.3) mg/dL Salicylates < 0.3 L (2.8-20.0) mg/dL Acetaminophen (10.0-30.0) ug/mL 12/10/21 Range/Units 04:11 MCV (84-94) fl MCH (28-32) pg [place] % (Auto) (0.0-7.3) % Creatinine (0.8-1.3) mg/dL Salicylates (2.8-20.0) mg/dL Acetaminophen 5.0 L (10.0-30.0) ug/mL All other labs normal.
--- NOTE | 2021-12-10 13:03 | Event Note ---
Date: 12/10/21 Patient has been psychiatrically cleared. He does not meet criteria for 1013 or involuntary confinement. Laboratory studies vital signs nursing documentation psychiatric documentation reviewed and appreciated. Patient was deemed medically cleared on his initial ER evaluation. Nursing team endorses no acute issues or concerns this morning. Patient may be discharged with outpatient follow-up Lab Results 12/10/21 12/10/21 12/10/21 Range/Units 04:11 04:11 04:11 WBC 6.8 (4.5-11.0) K/mm3 RBC 5.02 (3.65-5.03) M/mm3 Hgb 11.8 (11.8-15.2) gm/dl Hct 36.8 (35.5-45.6) % MCV 73 L (84-94) fl MCH 24 L (28-32) pg MCHC 32 (32-34) % RDW 14.2 (13.2-15.2) % Plt Count 215 (140-440) K/mm3 Lymph % (Auto) 29.1 (13.4-35.0) % [place] % (Auto) 12.5 H (0.0-7.3) % Eos % (Auto) 0.3 (0.0-4.3) % Baso % (Auto) 0.9 (0.0-1.8) % Lymph # (Auto) 2.0 (1.2-5.4) K/mm3 [place] # (Auto) 0.8 (0.0-0.8) K/mm3 Eos # (Auto) 0.0 (0.0-0.4) K/mm3 Baso # (Auto) 0.1 (0.0-0.1) K/mm3 Seg Neutrophils % 57.2 (40.0-70.0) % Seg Neutrophils # 3.9 (1.8-7.7) K/mm3 Sodium 142 (137-145) mmol/L Potassium 4.8 (3.6-5.0) mmol/L Chloride 101.5 (98-107) mmol/L Carbon Dioxide 29 (22-30) mmol/L Anion Gap 16 mmol/L BUN 11 (9-20) mg/dL Creatinine 0.7 L (0.8-1.3) mg/dL Estimated GFR > 60 ml/min BUN/Creatinine Ratio 16 % Glucose 87 (75-100) mg/dL Calcium 9.4 (8.4-10.2) mg/dL Salicylates < 0.3 L (2.8-20.0) mg/dL Acetaminophen (10.0-30.0) ug/mL 12/10/21 Range/Units 04:11 WBC (4.5-11.0) K/mm3 RBC (3.65-5.03) M/mm3 Hgb (11.8-15.2) gm/dl Hct (35.5-45.6) % MCV (84-94) fl MCH (28-32) pg MCHC (32-34) % RDW (13.2-15.2) % Plt Count (140-440) K/mm3 Lymph % (Auto) (13.4-35.0) % [place] % (Auto) (0.0-7.3) % Eos % (Auto) (0.0-4.3) % Baso % (Auto) (0.0-1.8) % Lymph # (Auto) (1.2-5.4) K/mm3 [place] # (Auto) (0.0-0.8) K/mm3 Eos # (Auto) (0.0-0.4) K/mm3 Baso # (Auto) (0.0-0.1) K/mm3 Seg Neutrophils % (40.0-70.0) % Seg Neutrophils # (1.8-7.7) K/mm3 Sodium (137-145) mmol/L Potassium (3.6-5.0) mmol/L Chloride (98-107) mmol/L Carbon Dioxide (22-30) mmol/L Anion Gap mmol/L BUN (9-20) mg/dL Creatinine (0.8-1.3) mg/dL Estimated GFR ml/min BUN/Creatinine Ratio % Glucose (75-100) mg/dL Calcium (8.4-10.2) mg/dL Salicylates (2.8-20.0) mg/dL Acetaminophen 5.0 L (10.0-30.0) ug/mL Vital Signs 12/10/21 02:10 O2 Sat by Pulse 96 Oximetry Vital Signs 12/10/21 12/10/21 02:10 13:03 Temperature 98.3 F Pulse Rate 88 Respiratory 20 Rate Blood Pressure 173/68 [Left] O2 Sat by Pulse 96 98 Oximetry
[2021-12-10 13:05] VITALS: BP 173/68
== END 2021-12-10 14:17 | disposition home or self-care (01) ==
LOC: ED 00:55
DX: F22 Delusional disorders (principal); Z59.00 Homelessness unspecified; F20.9 Schizophrenia, unspecified; F31.9 Bipolar disorder, unspecified; F14.90 Cocaine use, unspecified, uncomplicated; Z72.89 Other problems related to lifestyle; Z79.899 Other long term (current) drug therapy
CPT/HCPCS: 36415; 80048; 80320; 85025; 99283; G0480

== ENCOUNTER 2021-12-11 08:50 | Emergency (ER) | payer SELFPAY | END 2021-12-11 09:00 | disposition left against medical advice (07) | LOC: ED 08:50 | DX: Z00.00 Encounter for general adult medical examination without abnormal findings (principal); Z53.21 Procedure and treatment not carried out due to patient leaving prior to being seen by health care provider ==

== ENCOUNTER 2021-12-13 06:59 | Emergency (ER) | payer SELFPAY ==
[2021-12-13 07:22] VITALS: BP 150/96
[2021-12-13] MEDS ORDERED: ZIPRASIDONE MESYLATE 20 MG VIAL IM ONE (07:53)
--- NOTE | 2021-12-13 10:52 | Progress Note ---
Subjective - Reason for Consult Consult date: 12/13/21 Reason for consult: agitation - Chief Complaint Chief complaint: The patient was seen today. He was treated and cleared by psych a few days ago. The patient says he came back to the hospital because he "did drugs." He says "I did crack." The patient says he begs people for money to buy crack. He denies SI/HI or hallucinations of any kind. The patient says he's been sleeping well and his appetite is good. REVIEW OF SYSTEMS Constitutional: Negative for weight loss ENT: Negative for stridor Respiratory: Negative for cough or hemoptysis All other systems reviewed and are negative MENTAL STATUS EXAMINATION General Appearance and Behavior: Age appropriate, good hygiene, wearing appropriate clothes, cooperative, asleep Cooperation: cooperative Psychomotor Behavior: Psychomotor normal Mood: okay Affect and affective range: congruent with stated mood Thought Process: goal directed Thought Content: None Speech: Normal rate, volume and rhythm Suicidal Ideation: Denies Homicidal Ideation: Denies Hallucinations: Denies Delusions: None elicited Impulse Control: Limited Insight and Judgment: Limited insight and judgment Memory: Limited Attention: Limited Orientation: Alert, oriented Assessment and Plan (2) Substance Use Disorder with Substance Induced Mood Treatment continue previously prescribed med Sitter: Defer to primary Medical: per primary Disposition: Do not Recommend acute inpatient psychiatric treatment. The patient understands that if SI/HI ideation are to return he is to seek immediate assistance, crisis hotline, 911/ER. Grapple Operator to give safety plan, resources for outpatient, drug rehab, CBT The patient to follow up with outpatient psych in 7 to 14 days upon discharge He is to abstain from all illicit drug use. He is to comply with all medical regimens Will sign off. Thank you for this consult. Case staffed with Dr. Fofana Mental Status Exam - Vital signs Last Vital Signs Temp 99.5 F 12/13/21 07:16 Pulse 113 H 12/13/21 07:16 Resp 14 12/13/21 07:16 BP 150/96 12/13/21 07:16 Pulse Ox 100 12/13/21 07:16
[2021-12-13 11:31] LABS: Alanine Aminotransferase 19 units/L (7-56); Albumin 4.3 g/dL (3.9-5); BUN/Creatinine Ratio 21; Blood Urea Nitrogen 19 mg/dL (9-20); Calcium 8.6 mg/dL (8.4-10.2); Hemolysis Index 10
--- NOTE | 2021-12-13 12:06 | Emergency Department Report ---
ED Psych HPI - General Chief Complaint: Psych Stated Complaint: MH EVAL Time Seen by Provider: 12/13/21 08:31 Source: patient, EMS Mode of arrival: Stretcher - History of Present Illness Initial Comments: 32-year-old with history of bipolar and schizophrenia who came in to be alethea luated for psych clearance with agitation. Patient recently evaluated by psychiatrist and cleared to follow-up as outpatient. Patient reported this morning saying that he did some crack cocaine. He said he has been begging people on the street for money to be able to satisfy his craving. Patient however denies any suicidal ideation or homicidal ideation. No fever or chills reported or any other modifying or associated factors reported. - Related Data Home Medications Medication Instructions Recorded Confirmed Last Taken Divalproex Sodium [Depakote] 500 mg PO DAILY 01/09/19 09/12/19 08/03/19 Previous Rx's Medication Instructions Recorded Last Taken Type Sertraline HCl [Zoloft] 50 mg PO QHS #30 tablet 07/28/18 08/03/19 Rx risperiDONE [RisperDAL] 3 mg PO BID #60 tablet 08/03/19 08/03/19 Rx traZODone [Desyrel] 50 mg PO QHS #30 tab 08/03/19 08/03/[address] [DepaKOTE DR] 500 mg PO BID #60 tablet 04/17/21 Unknown Rx Sertraline [Zoloft] 50 mg PO QDAY #30 tablet 04/17/21 Unknown Rx risperiDONE [RisperDAL] 2 mg PO BID #60 tablet 04/17/21 Unknown Rx Allergies Allergy/AdvReac Type Severity Reaction Status Date / Time No Known Allergies Allergy Verified 04/17/21 02:25 ED Review of Systems ROS: Stated complaint: MH EVAL Other details as noted in HPI Comment: All other systems reviewed and negative Psychiatric: anxiety, other (agitation with illicit drug use ) ED Past Medical Hx - Past Medical History Hx Hypertension: No Hx Psychiatric Treatment: Yes (Bipolar, schizophrenia) Additional medical history: drug abuse - Social History Smoking Status: Never Smoker Substance Use Type: Alcohol, Cocaine, Other - Medications Home Medications: Home Medications Medication Instructions Recorded Confirmed Last Taken Type Sertraline HCl [Zoloft] 50 mg PO QHS #30 tablet 07/28/18 09/12/19 08/03/19 Rx Divalproex Sodium [Depakote] 500 mg PO DAILY 01/09/19 09/12/19 08/03/19 History risperiDONE [RisperDAL] 3 mg PO BID #60 tablet 08/03/19 09/12/19 08/03/19 Rx traZODone [Desyrel] 50 mg PO QHS #30 tab 08/03/19 09/12/19 08/03/[address] [DepaKOTE DR] 500 mg PO BID #60 tablet 04/17/21 Unknown Rx Sertraline [Zoloft] 50 mg PO QDAY #30 tablet 04/17/21 Unknown Rx risperiDONE [RisperDAL] 2 mg PO BID #60 tablet 04/17/21 Unknown Rx ED Physical Exam - General Limitations: No Limitations General appearance: alert, in no apparent distress - Head Head exam: Present: normal inspection - Eye Eye exam: Present: normal appearance Pupils: Present: normal accommodation - ENT ENT exam: Present: normal exam, normal orophraynx, mucous membranes moist - Neck Neck exam: Present: normal inspection, full ROM. Absent: tenderness - Respiratory Respiratory exam: Present: normal lung sounds bilaterally. Absent: respiratory distress, accessory muscle use - Cardiovascular Cardiovascular Exam: Present: regular rate, normal rhythm, normal heart sounds - GI/Abdominal GI/Abdominal exam: Present: soft, normal bowel sounds. Absent: distended, tenderness - Extremities Exam Extremities exam: Present: normal inspection. Absent: pedal edema - Back Exam Back exam: Absent: tenderness - Neurological Exam Neurological exam: Present: alert, oriented X3 - Psychiatric Psychiatric exam: Present: anxious - Skin Skin exam: Present: warm, normal color ED Course Vital Signs 12/13/21 07:16 Temperature 99.5 F Pulse Rate 113 H Respiratory 14 Rate Blood Pressure 150/96 [Left] O2 Sat by Pulse 100 Oximetry - Reevaluation(s) Reevaluation #1: 12/13/21 12:07 given Geodon for his anxiety and agitation --with improvement-- Reevaluation #2: 12/13/21 12:14 Pt evaluated and signed out to be discharged home to continue home medication and warning to returned if symptoms worsen -- ED Medical Decision Making - Lab Data Result diagrams: 12/13/21 10:29 Critical care attestation.: If time is entered above; I have spent that time in minutes in the direct care of this critically ill patient, excluding procedure time. ED Disposition Clinical Impression: Illicit drug use, continuous Psychosis Qualifiers: Psychosis type: unspecified psychosis type Qualified Code(s): F29 - Unspecified psychosis not due to a substance or known physiological condition Disposition: 01 HOME / SELF CARE / HOMELESS Is pt being admited?: No Does the pt Need Aspirin: No Condition: Stable Additional Instructions: Professional and Agency Contacts To help Resolve Crises (04/11) [place] Crisis Line: Suicide Prevention Line: Crisis Text Line: Text START to 234976 Emergency: 911 Outpatient COMMUNITY Behavioral Health Resources: [facility]: [facility] [address] [place], [place] [address] LOGAN: [facility] [address] [place] [address] Friday thru Friday - 8am - 5pm Call to schedule an assessment for mental health and substance abuse programs [facility] Address: [address] [place] [address] Friday thru Friday- 7am-2pm [facility] Address: [address] [place] [address] Friday thru Friday: 8:30AM-5PM HOMELESS RESOURCES: [facility] NEED HELP? If you are in need of help or know someone who does, please contact us at [email or web address] call , or come to our offices at [address] [place] [address], Friday-Friday beginning 9:30 AM-1:30 PM -Support services help people with getting identification and legal documents -Homeless verification letter -Facesheet (if needed) [facility] Males only Admission at 7am Fri to Fri Address: [address] [place] [address] Client Engagement [phone] Regular program admission occurs Friday through Friday at 7:00 amand operates on a first come, first serve basis.Because we cant anticipate program availability in advance andprogram spots are in high demand, we recommend arriving early. Space fills up fast! Next steps can include: Assignment to a [facility] program bed Connection to and placement in a partner program, or Referral to a partner agency In case of an emergency, please contact the following numbers: [place] Crisis and Access Line: Number: Crisis Text Line: (Text START) Number: 824429 Suicide Prevention Line: Number: Emergency Number: 911 SUBSTANCE ABUSE PROGRAMS: [facility]: Location: [place], [place] [facility] Address: [address] [place] [address] [facility]: Address: [address] [place] [address] [place] [address] [facility]: Address: [address] [place] [address] [facility]: Address: [address] [place] [address] [facility] Address: [address] [place] [address]. Referrals: PRIMARY CAREMD [Primary Care Provider] - 3-5 Days Time of Disposition: 12:18
== END 2021-12-13 12:34 | disposition home or self-care (01) ==
LOC: ED 06:59
DX: F29 Unspecified psychosis not due to a substance or known physiological condition (principal); F15.90 Other stimulant use, unspecified, uncomplicated; F31.9 Bipolar disorder, unspecified; Z79.899 Other long term (current) drug therapy
CPT/HCPCS: 36415; 80053; 96372; 99283; J3486; 80320; G0480

== ENCOUNTER 2021-12-14 23:32 | Emergency (ER) | payer SELFPAY | END 2021-12-15 | disposition left against medical advice (07) | LOC: ED 23:32 | DX: F99 Mental disorder, not otherwise specified (principal); Z53.21 Procedure and treatment not carried out due to patient leaving prior to being seen by health care provider ==

== ENCOUNTER 2021-12-23 02:45 | Emergency (ER) | payer SELFPAY | END 2021-12-23 05:57 | disposition left against medical advice (07) | LOC: ED 02:45 | DX: Z00.8 Encounter for other general examination (principal); Z53.21 Procedure and treatment not carried out due to patient leaving prior to being seen by health care provider ==

== ENCOUNTER 2021-12-28 23:42 | Emergency (ER) | payer SELFPAY | END 2021-12-29 04:00 | disposition left against medical advice (07) | LOC: ED 23:42 | DX: Z00.00 Encounter for general adult medical examination without abnormal findings (principal); Z53.21 Procedure and treatment not carried out due to patient leaving prior to being seen by health care provider ==